=== PATIENT | female | born 1940 | race Caucasian/White ===

== ENCOUNTER → 2017-11-23 15:05 | Outpatient (CLI) | payer MEDICARE, SELFPAY ==
[2017-11-23 16:47] LABS: Calcium 10.6 mg/dL (8.4-10.2)
[2017-11-23 17:17] LABS: Thyroid Stimulating Hormone 0.66 uIU/mL (0.47-4.68)
[2017-11-25 13:28] LABS: Parathyroid Hormone Int 95 pg/mL (14-64)
== END ==
PROVIDERS: Family Provider Internal Medicine; PCP Physician Assistant; Visit Provider Nurse Practitioner
DX: E21.3 Hyperparathyroidism, unspecified (principal); E03.9 Hypothyroidism, unspecified
CPT/HCPCS: 36415; 82310; 83970; 84443; 87070; 87075; 87077; 87147; 87186; 87205

== ENCOUNTER → 2017-11-28 14:08 | Outpatient (CLI) | payer MEDICARE, SELFPAY | PROVIDERS: Family Provider Internal Medicine; PCP Physician Assistant; Visit Provider Ophthalmology | DX: H10.011 Acute follicular conjunctivitis, right eye (principal) | CPT/HCPCS: 87070; 87077; 87147; 87186; 87205 ==

== ENCOUNTER → 2017-12-07 09:20 | Outpatient (CLI) | payer MEDICARE, SELFPAY ==
[2017-12-07 11:08] LABS: Alanine Aminotransferase 32 IU/L (9-52); Albumin 4.3 g/dL (3.5-5.0); Albumin Globulin Ratio 1.6 (1.0-2.8); Alkaline Phosphatase 80 U/L (38-126); Aspartate Aminotransferase 31 IU/L (14-36); BUN Creatinine Ratio 22.5 (6-22); Bilirubin Total 0.6 mg/dL (0.2-1.3); Blood Urea Nitrogen 18 mg/dL (7-17); Calcium 10.2 mg/dL (8.4-10.2); Carbon Dioxide 30 mmol/L (22-32); Chloride 101 mmol/L (98-107); Estimated Glomerular Filt Rate > 60.0 mL/min (>60); Globulin 2.7 g/dL (1.7-4.1); Glucose 94 mg/dL (80-110); HEMOLYSIS < 15 (0-50); Potassium 4.1 mmol/L (3.4-5.1); Sodium 140 mmol/L (137-145)
[2017-12-09 12:17] LABS: Lipoprofile NMR SEE SEPARATE REPORTS
== END ==
PROVIDERS: Family Provider Internal Medicine; PCP Internal Medicine; Visit Provider Specialist
DX: E78.2 Mixed hyperlipidemia (principal); I42.9 Cardiomyopathy, unspecified; I10 Essential (primary) hypertension
CPT/HCPCS: 36415; 80053; 83704

== ENCOUNTER → 2017-12-20 08:13 | Outpatient (CLI) | payer MEDICARE, SELFPAY ==
--- NOTE | 2017-12-20 | DI.ECHO.S_ITS ---
[facility] +---------+ : : [address] : : : [address] : : : : [id number] : : : : Phone: [phone]+ Echocardiogram Report + + :Name: BEVERLEY SANCHEZ Study Date: 12/20/2017 Height: 64 in : :[facility] Weight: 151 lb : : Gender: Female BSA: 1.7 m2 : :: 1940 Age: 77 yrs BP: 178/60 mmHg: :Reason For Study: Cardiomyopathy : :Ordering Physician: Candido : :Florin Performed By: Tasha Garcia : :Referring: Dr. Sahil Brown : + + Interpretation Summary Left ventricular systolic function is moderately reduced with the ejection fraction estimated to be 35-40% with a marked dyssynchronous contraction pattern, consistent with a conduction abnormality and moderate global hypokinesis that appears worse in the interventricular septum and apex, similar to the previous study although global contractility appears to be slightly worse. The right ventricle is normal in size and function, and appears unchanged compared to the previous study. Pulmonary artery pressures cannot be estimated because of the lack of a measurable TR jet velocity but the IVC suggests a low right atrial pressure of 3 mm Hg, unchanged from previous study. Both atria are normal in size although the left atrium has mildly increased in size since the prior echo exam. There is mild to moderate mitral regurgitation that is somewhat more prominent compared to the previous study but there is no other significant valvular heart disease. The aortic arch is mildly enlarged but is unchanged compared to the previous study. The patient was in a fairly regular but uncertain rhythm between 76-90 bpm during the exam given the absence of any identifiable A-wave on the mitral inflow pattern, which is new from the previous study Procedure: A two-dimensional transthoracic echocardiogram with color flow and Doppler was performed. The study quality was technically adequate. Comparison is made with the echocardiogram of 03-10-17. The patient was in a fairly regular but uncertain rhythm during the exam. The heart rate ranged between 76-90 bpm during the study. Left Ventricle: The left ventricle is normal in size. There is normal left ventricular wall thickness. Left ventricular systolic function is moderately reduced. The ejection fraction is estimated to be 35-40%. There is a marked dyssynchronous contraction pattern, consistent with a conduction abnormality. There is moderate global hypokinesis of the left ventricle. This appears worse in the interventricular septum and apex, similar to the previous study although global contractility appears to be slightly worse. Diastolic function could not be accurately assessed due to unobtainable data. Right Ventricle: The right ventricle is normal in size and function. This is unchanged compared to the previous study. Atria: Both atria are normal in size. The left atrium has mildly increased in size since the prior echo exam. The interatrial septum is intact with no evidence for an atrial septal defect. Mitral Valve: The mitral valve leaflets appear mildly thickened, but open well. There is mild to moderate mitral regurgitation. This is somewhat more prominent compared to the previous study. Aortic Valve: The aortic valve is grossly normal. The aortic valve opens well. There is trace aortic regurgitation. Tricuspid Valve: The tricuspid valve is normal in structure and function. There is a trace or physiologic amount of tricuspid regurgitation. Pulmonary artery pressures cannot be estimated because of the lack of a measurable TR jet velocity. Pulmonic Valve: The pulmonic valve is not well visualized. There is no other significant valvular heart disease. Great Vessels: The aortic root is normal size. The ascending aorta could not be visualized. The aortic arch is mildly enlarged. This is unchanged compared to the previous study. The IVC is of normal diameter and collapses greater than 50% with a sniff. This suggests a low right atrial pressure of 3 mm Hg. Pericardium/ Pleura There is no pericardial effusion. There is no pleural effusion. MMode/2D Measurements & Calculations LVIDd: 5.1 cm Ao root diam: 3.5 cm LVIDs: 4.4 cm Aortic Jxn: 2.8 cm FS: 14.4 % Ao Arch Diam (Prox Trans): 3.1 cm IVSd: 0.89 cm LVPWd: 0.98 cm LV clark. diameter/BSA (cm/m^2): 2.9 LV sys. diameter/BSA (cm/m^2): 2.5 LA dimension: 3.3 cm RA long axis: 4.1 cm LA A2 area: 15.5 cm2 RA area: 13.6 cm2 LA A4 area: 15.0 cm2 RA vol: 38.2 ml LA length (vol): 4.1 cm RA : 22.0 ml/m2 LA vol: 47.6 ml RVDd major: 5.6 cm LA vol index: 27.4 ml/m2 RVD1 (basal): 3.1 cm RVD2 (mid): 2.5 cm Doppler Measurements & Calculations Ao V2 max: 142.4 cm/sec MV E max xavi: 93.8 cm/sec Ao V2 mean: 98.1 cm/sec Med Peak E' Xavi: 3.7 cm/sec Ao max P.1 mmHg E/E' med: 25.5 Ao mean P.2 mmHg Lat Peak E' Xavi: 3.3 cm/sec Ao V2 VTI: 28.3 cm E/E' lat: 28.8 E/e' average: 27.1 MV P1/2t: 44.7 msec TR max xavi: 215.8 cm/sec MV V2 mean: 55.3 cm/sec TR max P.6 mmHg MV mean P.6 mmHg MV V2 VTI: 12.0 cm MV P1/2t max xavi: 95.6 cm/sec MVA(P1/2t): 4.9 cm2 Reading Physician:PM
== END ==
PROVIDERS: Family Provider Internal Medicine; PCP Internal Medicine; Visit Provider Specialist
DX: I42.9 Cardiomyopathy, unspecified (principal)
CPT/HCPCS: 93306

== ENCOUNTER → 2017-12-29 13:13 | Outpatient (CLI) | payer MEDICARE, SELFPAY ==
[2017-12-29 14:33] LABS: Calcium 10.3 mg/dL (8.4-10.2)
[2017-12-29 14:52] LABS: Free T3, Triiodothyronine Free 3.13 pg/mL (2.77-5.27)
[2017-12-29 15:06] LABS: Thyroid Stimulating Hormone 0.07 uIU/mL (0.47-4.68)
== END ==
PROVIDERS: Family Provider Internal Medicine; PCP Internal Medicine; Visit Provider Nurse Practitioner
DX: E03.9 Hypothyroidism, unspecified (principal); E21.3 Hyperparathyroidism, unspecified
CPT/HCPCS: 36415; 82310; 84439; 84443; 84481

== ENCOUNTER 2018-02-27 15:23 | Emergency (ER) | payer MEDICARE, SELFPAY ==
[2018-02-27 15:57] VITALS: BP 180/93; PULSE 103; RESP 20; TEMP 37.2; O2SAT 97; BMI 25.2
--- NOTE | 2018-02-27 16:10 | DI.RAD.S_ITS ---
PROCEDURE: XR CHEST 1V INDICATIONS: heart palpitations. TECHNIQUE: One view of the chest was acquired. COMPARISON: Merged With [facility], , CHEST 2 VIEW, 07/15/2012, 20:58. FINDINGS: Surgical changes and devices: None. Lungs and pleura: There is opacity present within the right upper and right lower lobes, and to lesser degree the left upper lobe. Mild appearance of increased pulmonary vascularity is present. Mediastinum: Mediastinal contours appear normal. Heart size is mildly prominent. Bones and chest wall: No suspicious bony lesions. Overlying soft tissues appear unremarkable. IMPRESSION: Increased pulmonary vascularity with slight increased focal appearance in the right upper and lower lobes and to a lesser degree the left upper lobe. While this could represent focal edema, developing airspace disease such as pneumonia should be considered. Dictated by: Elaina Haro M.D. on 02/27/2018 at 16:39 Approved by: Elaina Haro M.D. on 02/27/2018 at 16:40
[2018-02-27 17:01] LABS: Add Manual Diff / Slide Review NO; Basophils Percent Auto 0.5 % (0-2); Eosinophils Percent Auto 1.6 % (2-4); Hematocrit 40.3 % (36-46); Hemoglobin 13.5 g/dL (12.0-16.0); Lymphocytes Percent Auto 14.7 % (25-40); Mean Corpuscular HGB Conc 33.5 % (30-36); Mean Corpuscular Hemoglobin 30.5 PG (26-34); Mean Corpuscular Volume 91.2 fL (80-100); Monocytes Percent Auto 8.2 % (3-14); Neutrophils Absolute Auto 5500 /uL (3000-5900); Platelet Count 206 X10^3/uL (150-400); Red Blood Cell Count 4.42 X10^6/uL (4.0-5.2); Red Cell Distribution Width 14.4 % (11.6-14.8); White Blood Cell Count 7.3 X10^3/uL (4.5-11.0)
[2018-02-27 17:12] LABS: BUN Creatinine Ratio 27.5 (6-22); Blood Urea Nitrogen 22 mg/dL (7-17); Calcium 9.9 mg/dL (8.4-10.2); Carbon Dioxide 29 mmol/L (22-32); Chloride 103 mmol/L (98-107); Creatine Kinase 55 U/L (30-135); Estimated Glomerular Filt Rate > 60.0 mL/min (>60); Glucose 95 mg/dL (80-110); HEMOLYSIS < 15 (0-50); Magnesium 1.9 mg/dL (1.6-2.3); Potassium 3.8 mmol/L (3.4-5.1); Sodium 141 mmol/L (137-145)
--- NOTE | 2018-02-27 17:19 | ED.ARRPALP ---
HPI - Arrhythmia/Palpitations General Chief Complaint: Arrhythmia/Palpitations Stated Complaint: IRREGULAR HEART BEAT Time Seen by Provider: 02/27/18 17:09 Source: patient Mode of arrival: ambulatory Limitations: no limitations History of Present Illness HPI narrative: Patient is a 77-year-old female here for evaluation of palpitations and not feeling well. She describes a very vague uneasiness feeling in her chest. She states that it has been going on for some time now. Unsure exactly when the onset was. She states that it is intermittent. She states she has noticed it more for the past several days however has been going on for longer than that. She states that she has a known left bundle branch block. Has seen cardiology in the past and was told that she should be on a statin and carvedilol but she states that she does not take these medications. She does have a history of hypothyroid and states she has been taking her thyroid medicine. Has no other symptoms associated to include dizziness or headaches or vision changes. Related Data Home Medications Medication Instructions Recorded Confirmed carvedilol 1 tab PO BIDWM 02/27/18 levothyroxine 1 tab PO DAILY 02/27/18 02/27/18 rosuvastatin 1 tab PO DAILY 02/27/18 02/27/18 Allergies Allergy/AdvReac Type Severity Reaction Status Date / Time Sulfa (Sulfonamide Allergy Unknown Verified 02/27/18 16:00 Antibiotics) [SULFA (SULFONAMIDE ANTIBIOTICS)] Review of Systems Constitutional Denies fatigue, Denies fever(s), Denies headache(s) and Reports malaise Eyes Denies blurry vision and Denies change in vision ENT Ears, Nose, Mouth, and Throat: Denies dizziness and Denies headache(s) Cardiovascular Denies chest pain, Denies syncope, Reports rapid heart rate, Denies leg edema, Denies lightheadedness, Reports palpitations, Denies dyspnea and Denies slow heart rate Respiratory Denies cough and Denies dyspnea Gastrointestinal Gastrointestinal: Denies nausea and Denies vomiting Musculoskeletal Denies myalgias and Denies arthralgias Integumentary/Breasts Denies rash Neurologic Denies dizziness, Denies syncope and Denies headache(s) Endocrine Denies fatigue and Reports palpitations Hematologic/Lymphatic Denies easy bleeding and Denies easy bruising PFS Medical History Hypothyroid (Acute) Left bundle branch block (Acute) Surgical History No pertinent past surgical history (Acute) Social History Smoking Status: Never smoker Exam Initial Vital Signs Initial Vital Signs: Vital Signs Temperature 98.9 F 02/27/18 15:57 Pulse Rate 103 H 02/27/18 15:57 Respiratory Rate 20 02/27/18 15:57 Blood Pressure 180/93 H 02/27/18 15:57 Pulse Oximetry 97 02/27/18 15:57 Const General: cooperative, comfortable, well developed, well groomed and No acute distress Orientation: alert, awake and oriented x3 HENMT Head: normal to inspection and normocephalic Resp Effort & Inspection: normal respiratory effort Auscultation: clear to auscultation bilaterally Cardio Rate: tachycardic Rhythm: regular rhythm Pulses: radial pulses present GI Inspection: non-distended Palpation: soft and No tender Skin Lesions: no lesions Rashes: no rashes Neuro General: alert, awake and oriented x3 Cognition: normal cognition Speech: speech normal Motor: muscle tone normal throughout Sensory Exam: no sensory deficits noted Extrem General: normal to inspection, capillary refill normal and edema Psych Appearance: grossly normal and well kempt Affect: blunted Scores HEART Score Heart Score history: Slightly Suspicious Heart Score EKG: Non-Specific repolarization disturbance Heart Score Age: > or = 65 years old Heart Score risk factors: 1-2 risk factors Heart Score troponin: < or = to normal limit Heart Score Total: 4 Course Orders Ordered: ED Orders 02/27/18 14:45 Partial Thromboplastin Time Stat Prothrombin Time INR Stat 02/27/18 15:45 Basic Metabolic Panel Stat Complete Blood Count AUTO DIFF Stat Magnesium Stat Thyroid Stimulating Hormone Stat Troponin & CK Cardiac Panel Stat 02/27/18 16:10 XR chest 1V Stat EKG-12 Lead Stat 02/27/18 18:50 Troponin I Stat Sodium Chloride (Normal Saline 0.9%) 1,000 mls @ 150 mls/hr IV CONT GAURAV Last Admin: 02/27/18 20:17 Dose: 150 mls/hr Heparin Sodium/Dextrose (Heparin Drip) 25,000 unit in 500 mls @ 16.003 mls/hr IV CONT GAURAV; Protocol Discontinued Medications Aspirin (Aspirin Chew) 324 mg PO NOW ONE Stop: 02/27/18 19:39 Last Admin: 02/27/18 20:17 Dose: 324 mg Heparin Sodium (Porcine) (Heparin) 4,000 unit 60 unit/kg (4000 unit) IV NOW ONE Stop: 02/27/18 19:51 Lorazepam (Ativan) 0.5 mg PO NOW ONE Stop: 02/27/18 20:07 Last Admin: 02/27/18 20:17 Dose: 0.5 mg Vital Signs - 8 hr 02/27/18 15:57 02/27/18 20:23 Temperature 98.9 F Pulse Rate 103 H 108 H Respiratory Rate 20 18 Blood Pressure 180/93 H Blood Pressure [Left Arm] 177/80 H Pulse Oximetry 97 100 MDM - Arrhythmia/Palpitations Lab Data Attestation: I reviewed the patient's lab results. Result diagrams: 02/27/18 15:45 02/27/18 15:45 Lab Results 02/27/18 02/27/18 02/27/18 Range/Units 14:45 15:45 15:45 WBC 7.3 (4.5-11.0) X10^3/uL RBC 4.42 (4.0-5.2) X10^6/uL Hgb 13.5 (12.0-16.0) g/dL Hct 40.3 (36-46) % MCV 91.2 (80-100) fL MCH 30.5 (26-34) PG MCHC 33.5 (30-36) % RDW 14.4 (11.6-14.8) % Plt Count 206 (150-400) X10^3/uL Neut % (Auto) 75.0 (50-75) % Lymph % (Auto) 14.7 L (25-40) % [place] % (Auto) 8.2 (3-14) % Eos % (Auto) 1.6 L (2-4) % Baso % (Auto) 0.5 (0-2) % Neut # (Auto) 5500 (6555-6682) /uL PT 11.5 (10.1-12.7) SECONDS INR 1.1 (0.9-1.3) APTT 30 (26.4-36.2) SECONDS Sodium 141 (137-145) mmol/L Potassium 3.8 (3.4-5.1) mmol/L Chloride 103 (98-107) mmol/L Carbon Dioxide 29 (22-32) mmol/L BUN 22 H (7-17) mg/dL Creatinine 0.80 (0.52-1.04) mg/dL Estimated GFR > 60.0 (>60) mL/min BUN/Creatinine Ratio 27.5 H (6-22) Glucose 95 (80-110) mg/dL Calcium 9.9 (8.4-10.2) mg/dL Magnesium 1.9 (1.6-2.3) mg/dL Total Creatine Kinase 55 (30-135) U/L CK-MB (CK-2) TNP CK-MB (CK-2) Rel Index TNP Troponin I 0.018 (0.01-0.034) ng/mL TSH (0.47-4.68) uIU/mL 02/27/18 02/27/18 Range/Units 15:45 18:50 WBC (4.5-11.0) X10^3/uL RBC (4.0-5.2) X10^6/uL Hgb (12.0-16.0) g/dL Hct (36-46) % MCV (80-100) fL MCH (26-34) PG MCHC (30-36) % RDW (11.6-14.8) % Plt Count (150-400) X10^3/uL Neut % (Auto) (50-75) % Lymph % (Auto) (25-40) % [place] % (Auto) (3-14) % Eos % (Auto) (2-4) % Baso % (Auto) (0-2) % Neut # (Auto) (4682-1075) /uL PT (10.1-12.7) SECONDS INR (0.9-1.3) APTT (26.4-36.2) SECONDS Sodium (137-145) mmol/L Potassium (3.4-5.1) mmol/L Chloride (98-107) mmol/L Carbon Dioxide (22-32) mmol/L BUN (7-17) mg/dL Creatinine (0.52-1.04) mg/dL Estimated GFR (>60) mL/min BUN/Creatinine Ratio (6-22) Glucose (80-110) mg/dL Calcium (8.4-10.2) mg/dL Magnesium (1.6-2.3) mg/dL Total Creatine Kinase (30-135) U/L CK-MB (CK-2) CK-MB (CK-2) Rel Index Troponin I 0.035 H (0.01-0.034) ng/mL TSH 3.02 (0.47-4.68) uIU/mL Imaging Data Echocardiogram: Radiologist's impression: [address] [address] Echocardiography Report Signed Patient: Beverley Marc HMR#: [id number] : 1940cct:[id number] Age/Sex: 77 / FDate of Service: 12/20/17 Loc: ECHO Accession Number: [id number] Procedure: EC echo doppler complete Ordering Provider: Candido Catherine M.D. [place] +---------+ [facility] +---------+ : : [address] [place] [address]. : : : : [place], [place] : : : : [address] : : : : Phone: [phone]---------+ Echocardiogram Report + + :Name: BEVERLEY MARC Study Date: 12/20/2017 Height: 64 in : :[facility] Weight: 151 lb : : Gender: Female BSA: 1.7 m2 : :: 1940 Age: 77 yrs BP: 178/60 mmHg: :Reason For Study: Cardiomyopathy : :Ordering Physician: Candido : :Florin Performed By: Tasha Garcia : :Referring: Dr. Sahil Brown : + + Interpretation Summary Left ventricular systolic function is moderately reduced with the ejection fraction estimated to be 35-40% with a marked dyssynchronous contraction pattern, consistent with a conduction abnormality and moderate global hypokinesis that appears worse in the interventricular septum and apex, similar to the previous study although global contractility appears to be slightly worse. The right ventricle is normal in size and function, and appears unchanged compared to the previous study. Pulmonary artery pressures cannot be estimated because of the lack of a measurable TR jet velocity but the IVC suggests a low right atrial pressure of 3 mm Hg, unchanged from previous study. Both atria are normal in size although the left atrium has mildly increased in size since the prior echo exam. There is mild to moderate mitral regurgitation that is somewhat more prominent compared to the previous study but there is no other significant valvular heart disease. The aortic arch is mildly enlarged but is unchanged compared to the previous study. The patient was in a fairly regular but uncertain rhythm between 76-90 bpm during the exam given the absence of any identifiable A-wave on the mitral inflow pattern, which is new from the previous study Procedure: A two-dimensional transthoracic echocardiogram with color flow and Doppler was performed. The study quality was technically adequate. Comparison is made with the echocardiogram of 03-10-17. The patient was in a fairly regular but uncertain rhythm during the exam. The heart rate ranged between 76-90 bpm during the study. Left Ventricle: The left ventricle is normal in size. There is normal left ventricular wall thickness. Left ventricular systolic function is moderately reduced. The ejection fraction is estimated to be 35-40%. There is a marked dyssynchronous contraction pattern, consistent with a conduction abnormality. There is moderate global hypokinesis of the left ventricle. This appears worse in the interventricular septum and apex, similar to the previous study although global contractility appears to be slightly worse. Diastolic function could not be accurately assessed due to unobtainable data. Right Ventricle: The right ventricle is normal in size and function. This is unchanged compared to the previous study. Atria: Both atria are normal in size. The left atrium has mildly increased in size since the prior echo exam. The interatrial septum is intact with no evidence for an atrial septal defect. Mitral Valve: The mitral valve leaflets appear mildly thickened, but open well. There is mild to moderate mitral regurgitation. This is somewhat more prominent compared to the previous study. Aortic Valve: The aortic valve is grossly normal. The aortic valve opens well. There is trace aortic regurgitation. Tricuspid Valve: The tricuspid valve is normal in structure and function. There is a trace or physiologic amount of tricuspid regurgitation. Pulmonary artery pressures cannot be estimated because of the lack of a measurable TR jet velocity. Pulmonic Valve: The pulmonic valve is not well visualized. There is no other significant valvular heart disease. Great Vessels: The aortic root is normal size. The ascending aorta could not be visualized. The aortic arch is mildly enlarged. This is unchanged compared to the previous study. The IVC is of normal diameter and collapses greater than 50% with a sniff. This suggests a low right atrial pressure of 3 mm Hg. Pericardium/ Pleura There is no pericardial effusion. There is no pleural effusion. MMode/2D Measurements & Calculations LVIDd: 5.1 cm Ao root diam: 3.5 cm LVIDs: 4.4 cm Aortic Jxn: 2.8 cm FS: 14.4 % Ao Arch Diam (Prox Trans): 3.1 cm IVSd: 0.89 cm LVPWd: 0.98 cm LV clark. diameter/BSA (cm/m^2): 2.9 LV sys. diameter/BSA (cm/m^2): 2.5 LA dimension: 3.3 cm RA long axis: 4.1 cm LA A2 area: 15.5 cm2 RA area: 13.6 cm2 LA A4 area: 15.0 cm2 RA vol: 38.2 ml LA length (vol): 4.1 cm RA : 22.0 ml/m2 LA vol: 47.6 ml RVDd major: 5.6 cm LA vol index: 27.4 ml/m2 RVD1 (basal): 3.1 cm RVD2 (mid): 2.5 cm Doppler Measurements & Calculations Ao V2 max: 142.4 cm/sec MV E max xavi: 93.8 cm/sec Ao V2 mean: 98.1 cm/sec Med Peak E' Xavi: 3.7 cm/sec Ao max P.1 mmHg E/E' med: 25.5 Ao mean P.2 mmHg Lat Peak E' Xavi: 3.3 cm/sec Ao V2 VTI: 28.3 cm E/E' lat: 28.8 E/e' average: 27.1 MV P1/2t: 44.7 msec TR max xavi: 215.8 cm/sec MV V2 mean: 55.3 cm/sec TR max P.6 mmHg MV mean P.6 mmHg MV V2 VTI: 12.0 cm MV P1/2t max xavi: 95.6 cm/sec MVA(P1/2t): 4.9 cm2 Reading Physician:PM Chest x-ray: Radiologist's impression: [address] [address] XRay Report Signed Patient: Beverley Marc R#: [id number] : 2Acct:[id number] Age/Sex: 77 / FDate of Service: 02/27/18 Loc: ED Accession Number: [id number] Procedure: XR chest 1V Ordering Provider: Todd López D.O. PROCEDURE: XR CHEST 1V INDICATIONS: heart palpitations. TECHNIQUE: One view of the chest was acquired. COMPARISON: [facility], CHEST 2 VIEW, 07/15/2012, 20:58. FINDINGS: Surgical changes and devices: None. Lungs and pleura: There is opacity present within the right upper and right lower lobes, and to lesser degree the left upper lobe. Mild appearance of increased pulmonary vascularity is present. Mediastinum: Mediastinal contours appear normal. Heart size is mildly prominent. Bones and chest wall: No suspicious bony lesions. Overlying soft tissues appear unremarkable. IMPRESSION: Increased pulmonary vascularity with slight increased focal appearance in the right upper and lower lobes and to a lesser degree the left upper lobe. While this could represent focal edema, developing airspace disease such as pneumonia should be considered. Dictated by: Elaina Haro M.D. on 02/27/2018 at 16:39 Approved by: Elaina Haro M.D. on 02/27/2018 at 16:40 ECG Data Attestation: I personally reviewed and interpreted this ECG as follows: Prior ECG tracings: not available for review Interpretation: Sinus tachycardia Ventricular rate of 101 Left axis deviation Left bundle branch block Normal QRS Normal QTC Nonspecific ST T wave changes MDM Narrative Medical decision making narrative: Patient with vague chest symptoms that she states have been going on for some time but may be a become more prevalent over the past couple days. Upon arrival today patient does have a left bundle branch block on her EKG. She states that she has been told that she has a left bundle branch block in the past. She was slightly tachycardic. She did seem fairly anxious which could explain the tachycardia. Patient's TSH is unremarkable. Chest x-ray is unremarkable. Initial troponin was indeterminate. Patient did agree to stay for a 2nd troponin which came back positive. She has had no change in her symptoms. She was given an aspirin. Started on heparin. Discussed the case with Dr. Avery at [facility] who accepts the patient in transport. Patient is agreeable to transport patient is stable for transport. Echocardiogram attached to this note is from several months ago his attached for reference purposes Discharge Plan Departure Prescriptions: No Action carvedilol 6.25 mg tablet 1 tab PO BIDWM RF: 0 levothyroxine 50 mcg tablet 1 tab PO DAILY RF: 0 rosuvastatin 10 mg tablet 1 tab PO DAILY RF: 0
[2018-02-27 17:23] LABS: Troponin I 0.018 ng/mL (0.01-0.034)
[2018-02-27 18:09] LABS: Thyroid Stimulating Hormone 3.02 uIU/mL (0.47-4.68)
[2018-02-27 19:30] LABS: Troponin I 0.035 ng/mL (0.01-0.034)
[2018-02-27 19:59] LABS: INR 1.1 (0.9-1.3); Prothrombin Time 11.5 SECONDS (10.1-12.7)
[2018-02-27 20:02] LABS: PTT Partial Thromboplastin Tim 30 SECONDS (26.4-36.2)
[2018-02-27] MEDS: LORazepam 0.5 MG TABLET PO (20:17)
[2018-02-27] MEDS: SODIUM CHLORIDE 0.9% 1,000 ML 150 ML IV (20:17)
[2018-02-27] MEDS: ASPIRIN 81 MG TAB 324 MG PO (20:17)
[2018-02-27 20:23] VITALS: BP 177/80; PULSE 108; RESP 18; O2SAT 100
[2018-02-27 20:30] VITALS: BP 200/78; PULSE 98
[2018-02-27] MEDS: HEPARIN 5,000 UNIT/ML VIAL 4000 UNIT IV (20:42)
[2018-02-27] MEDS: HEPARIN DRIP 25,000 UNIT/500 ML IV.SOLN 16.003 UNIT IV (20:44)
[2018-02-27 20:51] VITALS: BP 154/71; PULSE 82; O2SAT 100
[2018-02-27] MEDS: LABETALOL 20 MG/4 ML SYRINGE 10 MG IV (20:53)
--- NOTE | 2018-02-27 21:09 | PC.NURSE ---
Report called to LAMIN Wilson at
[2018-02-27 21:26] VITALS: BP 154/71; PULSE 88
[2018-02-27 21:47] VITALS: BP 174/85; PULSE 88; RESP 18; O2SAT 98
== END 2018-02-27 21:50 | disposition short-term general hospital (02) ==
PROVIDERS: Emergency Provider Emergency Medicine; Family Provider Internal Medicine; PCP Internal Medicine
DX: I21.4 Non-ST elevation (NSTEMI) myocardial infarction (principal); R07.89 Other chest pain
CPT/HCPCS: 36415; 36591; 71045; 80048; 82550; 83735; 84443; 84484; 85025; 85610; 85730; 93005; 93010; 96361; 96365; 96374; 99284; 99285; J1644

== ENCOUNTER → 2018-04-27 13:03 | Outpatient (CLI) | payer MEDICARE, SELFPAY ==
--- NOTE | 2018-04-27 | DI.CT.S_ITS ---
PROCEDURE: CT ABDOMEN PELVIS W CON INDICATIONS: Right lower quadrant pain TECHNIQUE: After the administration of oral and intravenous contrast, 5 mm thick sections acquired from the diaphragms to the symphysis. 5 mm thick coronal and sagittal reformats were performed. For radiation dose reduction, the following was used: automated exposure control, adjustment of mA and/or kV according to patient size. COMPARISON: [facility], CT, PE STUDY (CTA CHEST), 05/30/2014, 10:59. FINDINGS: Image quality: Excellent. ABDOMEN: Lung bases: Lung bases are clear. Heart size is enlarged. Solid organs: Liver is normal in size and enhancement. Gallbladder negative. Biliary system is non-dilated. Within the head of the pancreas, there No focal marrow contusion or discrete low signal fracture line. Within the medial compartment,dilated ducts and cystic appearance, which is poorly defined image 30 series 2 although may be grossly unchanged since prior study dated 05/30/14. Overall the extent measures 1.9 x 1.9 cm axial image 30. Spleen is normal in size and enhancement. No adrenal nodules. Kidneys are jonn in l in size and enhancement, without hydronephrosis. Simple appearing right renal cyst. Peritoneum and bowel: No evidence of bowel obstruction. No free air or free fluid. The appendix appears enlarged the right lower quadrant measuring 11 mm. There is periappendiceal fat stranding and inflammation. No appendicolith is seen. No abscess. Colonic diverticulosis is seen without evidence of acute complication. Nodes and vessels: No retroperitoneal or mesenteric adenopathy. Aorta and inferior vena cava are normal in caliber. Miscellaneous: No ventral hernias. PELVIS: Genitourinary: Bladder wall thickness is normal. Miscellaneous: No inguinal hernias or adenopathy. Bones: No suspicious bony lesions. Diffuse osteopenia and multilevel discogenic changes. No vertebral body compression fractures. IMPRESSION: Acute appendicitis. Critical findings immediately and personally telephoned to Dr. Gan 1550 hours on 04/27/18. Dilated ductal appearance within the head of the pancreas and/or cystic lesion. Overall this is unchanged since 05/30/14 although limited comparison given differences in exam protocols. As clinically warranted, continued long-term surveillance with dedicated contrast-enhanced MRI abdomen with pancreatic protocol could be performed. Dictated by: Raj Díaz M.D. on 04/27/2018 at 15:40 Approved by: Raj Díaz M.D. on 04/27/2018 at 15:53
[2018-04-27 13:37] LABS: Add Manual Diff / Slide Review NO; Basophils Percent Auto 0.4 % (0-2); Eosinophils Percent Auto 0.7 % (2-4); Hematocrit 40.3 % (36-46); Hemoglobin 13.5 g/dL (12.0-16.0); Lymphocytes Percent Auto 12.3 % (25-40); Mean Corpuscular HGB Conc 33.4 % (30-36); Mean Corpuscular Hemoglobin 30.8 PG (26-34); Monocytes Percent Auto 9.8 % (3-14); Neutrophils Absolute Auto 7900 /uL (1500-7000); Neutrophils Percent Auto 76.8 % (50-75); Platelet Count 209 X10^3/uL (150-400); Red Blood Cell Count 4.38 X10^6/uL (4.0-5.2); Red Cell Distribution Width 14.3 % (11.6-14.8); White Blood Cell Count 10.2 X10^3/uL (4.5-11.0)
[2018-04-27 13:56] LABS: BUN Creatinine Ratio 21.3 (6-22); Blood Urea Nitrogen 17 mg/dL (7-17); Carbon Dioxide 26 mmol/L (22-32); Chloride 101 mmol/L (98-107); Estimated Glomerular Filt Rate > 60.0 mL/min (>60); Glucose 108 mg/dL (80-110); HEMOLYSIS < 15 (0-50); Potassium 3.8 mmol/L (3.4-5.1); Sodium 141 mmol/L (137-145)
== END ==
PROVIDERS: PCP Internal Medicine; Visit Provider Internal Medicine
DX: K35.80 Unspecified acute appendicitis (principal); R10.31 Right lower quadrant pain
CPT/HCPCS: 36415; 74177; 80048; 85025; Q9967

== ENCOUNTER 2018-04-27 17:08 | Observation (INO) | payer MEDICARE, SELFPAY ==
[2018-04-27] VITALS (9 sets, daily range): BP systolic 140–163; BP diastolic 64–84; PULSE 72–86; RESP 10–18; TEMP 36.3–37.1; O2SAT 93–98; BMI 25.4
--- NOTE | 2018-04-27 | PATH_ITS ---
[facility] Accession Number: [id number] . 01 Material submitted: . APPENDIX . 02 Diagnosis: Appendix, Appendectomy: Acute appendicitis with serositis. No evidence of dysplasia or malignancy. [facility]/05/01/2018 . 02 Electronically signed: . Rosemary Arreola MD, Pathologist NPI- [id number] . 01 Gross description: . Received in formalin, labeled appendix, is an intact appendix (length-6.1 cm, diameter-up to 1.3 cm) with sandoval-pink, smooth, shiny serosa and attached mesoappendix (up to 1.3 cm in depth). The resection margin is received stapled. The lumen contains clear, colorless fluid. The wall is up to 0.4 cm thick. No nodules, masses, or lesions are identified. The resection margin is inked black. Section code: (A1) resection margin en face and four additional serial sections; (A2) one-half of the bivalved tip. ([id number]) /FRR . 02 Pathologist provided ICD-10: K35.80 . 02 CPT . 860360 Performed at: 01 [facility] [address], [place], [place] [id number] MD Isidro Richardson MD Phone: [phone] Performed at: 02 [facility] [address] [place], [place] [id number] MD Rosemary Arreola MD Phone: [phone]
--- NOTE | 2018-04-27 17:52 | ED.ABDPAIN ---
HPI - Abdominal Pain General Chief Complaint: Abdominal Pain Stated Complaint: STATES NEEDS APPENDIX OUT Time Seen by Provider: 04/27/18 17:52 Source: patient Mode of arrival: ambulatory Limitations: no limitations History of Present Illness HPI narrative: This is a 77-year-old female comes in with complaint of right-sided abdominal pain. Patient denies any fevers, no nausea or vomiting, no diarrhea or constipation. She denies any new urinary symptoms. She saw her primary care physician today who did lab work and CT scan. They were contact about the results and it showed appendicitis. They attempted to directly admit the patient but were unable to and patient was referred to the emergency department. Patient states she has a history of heart palpitations and was seen at [facility] but does not have any AFib or atrial flutter. She states she has a history of a left bundle branch block. She takes medication for that as well as thyroid. Related Data Home Medications Medication Instructions Recorded Confirmed carvedilol 1 tab PO BIDWM 02/27/18 levothyroxine 1 tab PO DAILY 02/27/18 02/27/18 rosuvastatin 1 tab PO DAILY 02/27/18 02/27/18 Allergies Allergy/AdvReac Type Severity Reaction Status Date / Time Sulfa (Sulfonamide Allergy Unknown Verified 04/27/18 18:02 Antibiotics) [SULFA (SULFONAMIDE ANTIBIOTICS)] Review of Systems Review of Systems All systems reviewed & are unremarkable except as noted in HPI and below Constitutional Reports anorexia and Denies fever(s) Gastrointestinal Gastrointestinal: Reports abdominal pain (Right lower quadrant), Denies change in bowel habits, Denies change in stool character, Denies constipation, Denies diarrhea, Denies nausea and Denies vomiting Genitourinary Denies hematuria, Denies dysuria, Denies flank pain and Denies urinary urgency Musculoskeletal Denies back pain [facility] Medical History Hypothyroid (Acute) Left bundle branch block (Acute) Surgical History No pertinent past surgical history (Acute) Family History: Reviewed 04/27/18 by Mary Siu MD Social History Smoking Status: Never smoker Exam Narrative Exam Narrative: GENERAL: Alert and oriented x three, well-nourished, well-appearing female in mild distress. HEENT: Head normocephalic, atraumatic, EOMI, pupils reactive, face symmetric, moist mucous membranes NECK: Supple, full range of motion CARDIOVASCULAR: Regular rate and rhythm without murmurs, rubs or gallops. RESPIRATORY: Breath sounds equal bilaterally, no wheezes rales or rhonchi. ABDOMEN: Soft, positive for right lower quadrant tenderness. Normoactive bowel sounds all 4 quadrants. Positive guarding, no rebound, rigidity, no mass : No CVA tenderness EXTREMITIES: Normal range of motion, no clubbing or edema. Neurovascularly intact NEUROLOGICAL: Cranial nerves II through XII grossly intact. Moving all extremities SKIN: Warm, dry, no petechiae, no rashes or lesions. Initial Vital Signs Initial Vital Signs: Vital Signs Temperature 98.8 F 04/27/18 17:46 Pulse Rate 86 04/27/18 17:46 Respiratory Rate 18 04/27/18 17:46 Blood Pressure 160/67 H 04/27/18 17:46 Pulse Oximetry 97 04/27/18 17:46 Course Orders Ordered: Cefotetan Disodium/Dextrose (Cefotan) 2 gm in 50 mls @ 100 mls/hr IV NOW ONE Stop: 04/27/18 20:10 Last Infusion: 04/27/18 19:20 Dose: 0 mls/hr Admin: 04/27/18 19:15 Dose: 100 mls/hr Lactated Ringer's (Lactated Ringers) 1,000 mls @ 42 mls/hr IV NOW ONE Stop: 04/28/18 19:32 Last Admin: 04/27/18 19:00 Dose: 42 mls/hr Discontinued Medications Bupivacaine HCl (Sensorcaine 0.5% (Pf)) 30 ml INJ NOW ONE Stop: 04/27/18 19:37 Last Admin: 04/27/18 19:37 Dose: 15 ml Lidocaine/Epinephrine (Xylocaine 1% W/Epi) 20 ml INJ INTRA-OP ONE Stop: 04/27/18 19:40 Last Admin: 04/27/18 19:40 Dose: 15 ml Vital Signs - 8 hr 04/27/18 17:46 04/27/18 18:46 Temperature 98.8 F Pulse Rate 86 79 Respiratory Rate 18 17 Blood Pressure 160/67 H Blood Pressure [Right Arm] 140/80 Pulse Oximetry 97 97 MDM - Abdominal Pain Lab Data Attestation: I reviewed the patient's lab results. Patient has labs drawn as an outpatient where available through the emergency medical record. Patient has normal CBC except for left shift, no elevation in white count. Patient has normal electrolytes, renal function. Imaging Data CT scan - abdomen: Radiologist's impression: [address] [address] [address] Scan Report Signed Patient: Sarah Marc MR#: [id number] : 1940 Acct:[id number] Age/Sex: 77 / F Date of Service: 04/27/18 Loc: CT Accession Number: [id number] Procedure: CT abdomen pelvis w con Ordering Provider: Kavita Gan MD PROCEDURE: CT ABDOMEN PELVIS W CON INDICATIONS: Right lower quadrant pain TECHNIQUE: After the administration of oral and intravenous contrast, 5 mm thick sections acquired from the diaphragms to the symphysis. 5 mm thick coronal and sagittal reformats were performed. For radiation dose reduction, the following was used: automated exposure control, adjustment of mA and/or kV according to patient size. COMPARISON: [facility], CT, PE STUDY (CTA CHEST), 05/30/2014, 10:59. FINDINGS: Image quality: Excellent. ABDOMEN: Lung bases: Lung bases are clear. Heart size is enlarged. Solid organs: Liver is normal in size and enhancement. Gallbladder negative. Biliary system is non-dilated. Within the head of the pancreas, there No focal marrow contusion or discrete low signal fracture line. Within the medial compartment,dilated ducts and cystic appearance, which is poorly defined image 30 series 2 although may be grossly unchanged since prior study dated 05/30/14. Overall the extent measures 1.9 x 1.9 cm axial image 30. Spleen is normal in size and enhancement. No adrenal nodules. Kidneys are jonn in l in size and enhancement, without hydronephrosis. Simple appearing right renal cyst. Peritoneum and bowel: No evidence of bowel obstruction. No free air or free fluid. The appendix appears enlarged the right lower quadrant measuring 11 mm. There is periappendiceal fat stranding and inflammation. No appendicolith is seen. No abscess. Colonic diverticulosis is seen without evidence of acute complication. Nodes and vessels: No retroperitoneal or mesenteric adenopathy. Aorta and inferior vena cava are normal in caliber. Miscellaneous: No ventral hernias. PELVIS: Genitourinary: Bladder wall thickness is normal. Miscellaneous: No inguinal hernias or adenopathy. Bones: No suspicious bony lesions. Diffuse osteopenia and multilevel discogenic changes. No vertebral body compression fractures. IMPRESSION: Acute appendicitis. Critical findings immediately and personally telephoned to Dr. Gan 1550 hours on 04/27/18. Dilated ductal appearance within the head of the pancreas and/or cystic lesion. Overall this is unchanged since 05/30/14 although limited comparison given differences in exam protocols. As clinically warranted, continued long-term surveillance with dedicated contrast-enhanced MRI abdomen with pancreatic protocol could be performed. Dictated by: Raj Díaz M.D. on 04/27/2018 at 15:40 Approved by: Raj Díaz M.D. on 04/27/2018 at 15:53 MDM Narrative Medical decision making narrative: Patient's examination fits with her CT findings which have already been resulted prior to arrival to the ED. Contacted Dr. mickey cabrera from general surgery, she had been contacted about the patient but during surgery so she aware that the patient did with, hospital all she accepts and plan for OR. Patient is aware of the plan and IV was placed in the ED. Discharge Plan Departure Patient Disposition: Admitted As Inpatient Clinical Impression: Acute appendicitis Discharge Date/Time: 04/27/18 18:52 Interventions: ED Discharge Assessment Last Done: 04/27/18 18:51 Admit Date/Time: 04/27/18 18:38 Admit Provider: Mary iSu
--- NOTE | 2018-04-27 17:55 | ED_ITS ---
HPI - Abdominal Pain General Chief Complaint: Abdominal Pain Stated Complaint: STATES NEEDS APPENDIX OUT Time Seen by Provider: 04/27/18 17:52 Source: patient Mode of arrival: ambulatory Limitations: no limitations History of Present Illness HPI narrative: This is a 77-year-old female comes in with complaint of right- sided abdominal pain. Patient denies any fevers, no nausea or vomiting, no diarrhea or constipation. She denies any new urinary symptoms. She saw her primary care physician today who did lab work and CT scan. They were contact about the results and it showed appendicitis. They attempted to directly admit the patient but were unable to and patient was referred to the emergency department. Patient states she has a history of heart palpitations and was seen at [facility] but does not have any AFib or atrial flutter. She states she has a history of a left bundle branch block. She takes medication for that as well as thyroid. Related Data Home Medications Medication Instructions Recorded Confirmed carvedilol 1 tab PO BIDWM 02/27/18 levothyroxine 1 tab PO DAILY 02/27/18 02/27/18 rosuvastatin 1 tab PO DAILY 02/27/18 02/27/18 Allergies Allergy/AdvReac Type Severity Reaction Status Date / Time Sulfa (Sulfonamide Allergy Unknown Verified 04/27/18 18:02 Antibiotics) [SULFA (SULFONAMIDE ANTIBIOTICS)] Review of Systems Review of Systems All systems reviewed & are unremarkable except as noted in HPI and below Constitutional Reports anorexia and Denies fever(s) Gastrointestinal Gastrointestinal: Reports abdominal pain (Right lower quadrant), Denies change in bowel habits, Denies change in stool character, Denies constipation, Denies diarrhea, Denies nausea and Denies vomiting Genitourinary Denies hematuria, Denies dysuria, Denies flank pain and Denies urinary urgency Musculoskeletal Denies back pain [facility] Medical History Hypothyroid (Acute) Left bundle branch block (Acute) Surgical History No pertinent past surgical history (Acute) Family History: Reviewed 04/27/18 by Mary Siu MD Social History Smoking Status: Never smoker Exam Narrative Exam Narrative: GENERAL: Alert and oriented x three, well-nourished, well- appearing female in mild distress. HEENT: Head normocephalic, atraumatic, EOMI, pupils reactive, face symmetric, moist mucous membranes NECK: Supple, full range of motion CARDIOVASCULAR: Regular rate and rhythm without murmurs, rubs or gallops. RESPIRATORY: Breath sounds equal bilaterally, no wheezes rales or rhonchi. ABDOMEN: Soft, positive for right lower quadrant tenderness. Normoactive bowel sounds all 4 quadrants. Positive guarding, no rebound, rigidity, no mass : No CVA tenderness EXTREMITIES: Normal range of motion, no clubbing or edema. Neurovascularly intact NEUROLOGICAL: Cranial nerves II through XII grossly intact. Moving all extremities SKIN: Warm, dry, no petechiae, no rashes or lesions. Initial Vital Signs Initial Vital Signs: Vital Signs Temperature 98.8 F 04/27/18 17:46 Pulse Rate 86 04/27/18 17:46 Respiratory Rate 18 04/27/18 17:46 Blood Pressure 160/67 H 04/27/18 17:46 Pulse Oximetry 97 04/27/18 17:46 Course Orders Ordered: Cefotetan Disodium/Dextrose (Cefotan) 2 gm in 50 mls @ 100 mls/hr IV NOW ONE Stop: 04/27/18 20:10 Last Infusion: 04/27/18 19:20 Dose: 0 mls/hr Admin: 04/27/18 19:15 Dose: 100 mls/hr Lactated Ringer's (Lactated Ringers) 1,000 mls @ 42 mls/hr IV NOW ONE Stop: 04/28/18 19:32 Last Admin: 04/27/18 19:00 Dose: 42 mls/hr Discontinued Medications Bupivacaine HCl (Sensorcaine 0.5% (Pf)) 30 ml INJ NOW ONE Stop: 04/27/18 19:37 Last Admin: 04/27/18 19:37 Dose: 15 ml Lidocaine/Epinephrine (Xylocaine 1% W/Epi) 20 ml INJ INTRA-OP ONE Stop: 04/27/18 19:40 Last Admin: 04/27/18 19:40 Dose: 15 ml Vital Signs - 8 hr 04/27/18 17:46 04/27/18 18:46 Temperature 98.8 F Pulse Rate 86 79 Respiratory Rate 18 17 Blood Pressure 160/67 H Blood Pressure [Right Arm] 140/80 Pulse Oximetry 97 97 MDM - Abdominal Pain Lab Data Attestation: I reviewed the patient's lab results. Patient has labs drawn as an outpatient where available through the emergency medical record. Patient has normal CBC except for left shift, no elevation in white count. Patient has normal electrolytes, renal function. Imaging Data CT scan - abdomen: Radiologist's impression: [address] [address] [address] Scan Report Signed Patient: Sarah Marc MR#: [id number] : 1940 Acct:[id number] Age/Sex: 77 / F Date of Service: 04/27/18 Loc: CT Accession Number: [id number] Procedure: CT abdomen pelvis w con Ordering Provider: Kavita Gan MD PROCEDURE: CT ABDOMEN PELVIS W CON INDICATIONS: Right lower quadrant pain TECHNIQUE: After the administration of oral and intravenous contrast, 5 mm thick sections acquired from the diaphragms to the symphysis. 5 mm thick coronal and sagittal reformats were performed. For radiation dose reduction, the following was used: automated exposure control, adjustment of mA and/or kV according to patient size. COMPARISON: [facility], CT, PE STUDY (CTA CHEST), 05/30/2014, 10:59. FINDINGS: Image quality: Excellent. ABDOMEN: Lung bases: Lung bases are clear. Heart size is enlarged. Solid organs: Liver is normal in size and enhancement. Gallbladder negative. Biliary system is non-dilated. Within the head of the pancreas, there No focal marrow contusion or discrete low signal fracture line. Within the medial compartment,dilated ducts and cystic appearance, which is poorly defined image 30 series 2 although may be grossly unchanged since prior study dated 05/30/14. Overall the extent measures 1.9 x 1.9 cm axial image 30. Spleen is normal in size and enhancement. No adrenal nodules. Kidneys are jonn in l in size and enhancement, without hydronephrosis. Simple appearing right renal cyst. Peritoneum and bowel: No evidence of bowel obstruction. No free air or free fluid. The appendix appears enlarged the right lower quadrant measuring 11 mm. There is periappendiceal fat stranding and inflammation. No appendicolith is seen. No abscess. Colonic diverticulosis is seen without evidence of acute complication. Nodes and vessels: No retroperitoneal or mesenteric adenopathy. Aorta and inferior vena cava are normal in caliber. Miscellaneous: No ventral hernias. PELVIS: Genitourinary: Bladder wall thickness is normal. Miscellaneous: No inguinal hernias or adenopathy. Bones: No suspicious bony lesions. Diffuse osteopenia and multilevel discogenic changes. No vertebral body compression fractures. IMPRESSION: Acute appendicitis. Critical findings immediately and personally telephoned to Dr. Gan 1550 hours on 04/27/18. Dilated ductal appearance within the head of the pancreas and/or cystic lesion. Overall this is unchanged since 05/30/14 although limited comparison given differences in exam protocols. As clinically warranted, continued long-term surveillance with dedicated contrast-enhanced MRI abdomen with pancreatic protocol could be performed. Dictated by: Raj Díaz M.D. on 04/27/2018 at 15:40 Approved by: Raj Díaz M.D. on 04/27/2018 at 15:53 MDM Narrative Medical decision making narrative: Patient's examination fits with her CT findings which have already been resulted prior to arrival to the ED. Contacted Dr. mickey cabrera from general surgery, she had been contacted about the patient but during surgery so she aware that the patient did with, hospital all she accepts and plan for OR. Patient is aware of the plan and IV was placed in the ED. Discharge Plan Departure Patient Disposition: Admitted As Inpatient Clinical Impression: Acute appendicitis Discharge Date/Time: 04/27/18 18:52 Interventions: ED Discharge Assessment Last Done: 04/27/18 18:51 Admit Date/Time: 04/27/18 18:38 Admit Provider: Mary Siu
--- NOTE | 2018-04-27 18:05 | PC.NURSE ---
soreness with palpation.
--- NOTE | 2018-04-27 18:06 | PC.NURSE ---
last solid meal at 0930, last drink of water 3pm
--- NOTE | 2018-04-27 18:45 | PM.HP.1 ---
History of Present Illness Date Patient Seen: 04/27/18 Time Patient Seen: 18:45 Chief complaint: STATES NEEDS APPENDIX OUT Narrative: Sarah is a very pleasant 77-year-old lady who reports she started having abdominal pain shortly after getting a flu shot on Tuesday. She says Tuesday morning she woke up with a belly ache that sort of just felt sick all over. Over the day and over the day today the pain has gradually localized to the right lower quadrant. She said she just felt like she had the flu with the belly ache. She denies any vomiting but has had some nausea. She denies any blood in her stool. She has had subjective body aches but no confirmed fever. She denies any sick contacts. She was seen and evaluated by Dr. Kavita gan and was noted to have evidence of acute appendicitis that is early in its evolution. Patient History Medical History Hypothyroid (Acute) Left bundle branch block (Acute) Surgical History No pertinent past surgical history (Acute) Family & Social History Family History: Reviewed 04/27/18 by Mary Siu MD Safety & Behavioral: Feels Safe in Current Yes Environment Been Physically Hurt or No Threatened By a Person Tobacco & Substance use: Smoking Status Never smoker alcohol intake frequency holiday/special occasion Substance Use Type does not use Meds Home Medications Medication Instructions Recorded Confirmed Type carvedilol 1 tab PO BIDWM 02/27/18 History levothyroxine 1 tab PO DAILY 02/27/18 02/27/18 History rosuvastatin 1 tab PO DAILY 02/27/18 02/27/18 History Allergies Allergy/AdvReac Type Severity Reaction Status Date / Time Sulfa (Sulfonamide Allergy Unknown Verified 04/27/18 18:02 Antibiotics) [SULFA (SULFONAMIDE ANTIBIOTICS)] Review of Systems Review of Systems All systems reviewed & are unremarkable except as noted in HPI and below Exam Vital Signs (past 8 hours): - 04/27/18 17:46 Temperature 98.8 F Pulse Rate 86 Respiratory Rate 18 Blood Pressure 160/67 H Pulse Oximetry 97 Oxygen Delivery Method Room Air Narrative Exam Narrative: Thin elderly lady in no obvious distress. HEENT: Normocephalic and atraumatic, pupils equal round reactive to light accommodation with anicteric sclera Lungs: Clear to auscultation bilaterally Heart: Regular rate and rhythm without murmur rub or gallop Abdomen: Soft, tender to palpation in the mid abdomen and right lower quadrant. Mild voluntary guarding. No true rebound. Active bowel sounds. Extremities: Warm and well perfused without edema Objective Labs Labs: [address] [address] [address] Scan Report Signed Patient: Sarah Marc MR#: [id number] : 1940 Acct:[id number] Age/Sex: 77 / F Date of Service: 04/27/18 Loc: CT Accession Number: [id number] Procedure: CT abdomen pelvis w con Ordering Provider: Kavita Gan MD PROCEDURE: CT ABDOMEN PELVIS W CON INDICATIONS: Right lower quadrant pain TECHNIQUE: After the administration of oral and intravenous contrast, 5 mm thick sections acquired from the diaphragms to the symphysis. 5 mm thick coronal and sagittal reformats were performed. For radiation dose reduction, the following was used: automated exposure control, adjustment of mA and/or kV according to patient size. COMPARISON: [facility], CT, PE STUDY (CTA CHEST), 05/30/2014, 10:59. FINDINGS: Image quality: Excellent. ABDOMEN: Lung bases: Lung bases are clear. Heart size is enlarged. Solid organs: Liver is normal in size and enhancement. Gallbladder negative. Biliary system is non-dilated. Within the head of the pancreas, there No focal marrow contusion or discrete low signal fracture line. Within the medial compartment,dilated ducts and cystic appearance, which is poorly defined image 30 series 2 although may be grossly unchanged since prior study dated 05/30/14. Overall the extent measures 1.9 x 1.9 cm axial image 30. Spleen is normal in size and enhancement. No adrenal nodules. Kidneys are jonn in l in size and enhancement, without hydronephrosis. Simple appearing right renal cyst. Peritoneum and bowel: No evidence of bowel obstruction. No free air or free fluid. The appendix appears enlarged the right lower quadrant measuring 11 mm. There is periappendiceal fat stranding and inflammation. No appendicolith is seen. No abscess. Colonic diverticulosis is seen without evidence of acute complication. Nodes and vessels: No retroperitoneal or mesenteric adenopathy. Aorta and inferior vena cava are normal in caliber. Miscellaneous: No ventral hernias. PELVIS: Genitourinary: Bladder wall thickness is normal. Miscellaneous: No inguinal hernias or adenopathy. Bones: No suspicious bony lesions. Diffuse osteopenia and multilevel discogenic changes. No vertebral body compression fractures. IMPRESSION: Acute appendicitis. Critical findings immediately and personally telephoned to Dr. Gan 1550 hours on 04/27/18. Dilated ductal appearance within the head of the pancreas and/or cystic lesion. Overall this is unchanged since 05/30/14 although limited comparison given differences in exam protocols. As clinically warranted, continued long-term surveillance with dedicated contrast-enhanced MRI abdomen with pancreatic protocol could be performed. Dictated by: Raj Díaz M.D. on 04/27/2018 at 15:40 Approved by: Raj Díaz M.D. on 04/27/2018 at 15:53 Assessment & Plan Plan: Assessment/Plan Narrative: Very pleasant and remarkably healthy 77-year-old lady with acute appendicitis. There is no obvious evidence of perforation. We discussed the risks and benefits of laparoscopy with appendectomy the patient expressed a desire to complete the procedure.
--- NOTE | 2018-04-27 18:51 | P.HP_ITS ---
History of Present Illness Date Patient Seen: 04/27/18 Time Patient Seen: 18:45 Chief complaint: STATES NEEDS APPENDIX OUT Narrative: Sarah is a very pleasant 77-year-old lady who reports she started having abdominal pain shortly after getting a flu shot on Tuesday. She says Tuesday morning she woke up with a belly ache that sort of just felt sick all over. Over the day and over the day today the pain has gradually localized to the right lower quadrant. She said she just felt like she had the flu with the belly ache. She denies any vomiting but has had some nausea. She denies any blood in her stool. She has had subjective body aches but no confirmed fever. She denies any sick contacts. She was seen and evaluated by Dr. Kavita gan and was noted to have evidence of acute appendicitis that is early in its evolution. Patient History Medical History Hypothyroid (Acute) Left bundle branch block (Acute) Surgical History No pertinent past surgical history (Acute) Family & Social History Family History: Reviewed 04/27/18 by Mary Siu MD Safety & Behavioral: Feels Safe in Current Yes Environment Been Physically Hurt or No Threatened By a Person Tobacco & Substance use: Smoking Status Never smoker alcohol intake frequency holiday/special occasion Substance Use Type does not use Meds Home Medications Medication Instructions Recorded Confirmed Type carvedilol 1 tab PO BIDWM 02/27/18 History levothyroxine 1 tab PO DAILY 02/27/18 02/27/18 History rosuvastatin 1 tab PO DAILY 02/27/18 02/27/18 History Allergies Allergy/AdvReac Type Severity Reaction Status Date / Time Sulfa (Sulfonamide Allergy Unknown Verified 04/27/18 18:02 Antibiotics) [SULFA (SULFONAMIDE ANTIBIOTICS)] Review of Systems Review of Systems All systems reviewed & are unremarkable except as noted in HPI and below Exam Vital Signs (past 8 hours): - 04/27/18 17:46 Temperature 98.8 F Pulse Rate 86 Respiratory Rate 18 Blood Pressure 160/67 H Pulse Oximetry 97 Oxygen Delivery Method Room Air Narrative Exam Narrative: Thin elderly lady in no obvious distress. HEENT: Normocephalic and atraumatic, pupils equal round reactive to light accommodation with anicteric sclera Lungs: Clear to auscultation bilaterally Heart: Regular rate and rhythm without murmur rub or gallop Abdomen: Soft, tender to palpation in the mid abdomen and right lower quadrant. Mild voluntary guarding. No true rebound. Active bowel sounds. Extremities: Warm and well perfused without edema Objective Labs Labs: [address] [address] [address] Scan Report Signed Patient: Sarah Marc MR#: [id number] : 1940 Acct:[id number] Age/Sex: 77 / F Date of Service: 04/27/18 Loc: CT Accession Number: [id number] Procedure: CT abdomen pelvis w con Ordering Provider: Kavita Gan MD PROCEDURE: CT ABDOMEN PELVIS W CON INDICATIONS: Right lower quadrant pain TECHNIQUE: After the administration of oral and intravenous contrast, 5 mm thick sections acquired from the diaphragms to the symphysis. 5 mm thick coronal and sagittal reformats were performed. For radiation dose reduction, the following was used: automated exposure control, adjustment of mA and/or kV according to patient size. COMPARISON: [facility], CT, PE STUDY (CTA CHEST), 05/30/2014, 10:59. FINDINGS: Image quality: Excellent. ABDOMEN: Lung bases: Lung bases are clear. Heart size is enlarged. Solid organs: Liver is normal in size and enhancement. Gallbladder negative. Biliary system is non-dilated. Within the head of the pancreas, there No focal marrow contusion or discrete low signal fracture line. Within the medial compartment,dilated ducts and cystic appearance, which is poorly defined image 30 series 2 although may be grossly unchanged since prior study dated 05/30/14. Overall the extent measures 1.9 x 1.9 cm axial image 30. Spleen is normal in size and enhancement. No adrenal nodules. Kidneys are jonn in l in size and enhancement, without hydronephrosis. Simple appearing right renal cyst. Peritoneum and bowel: No evidence of bowel obstruction. No free air or free fluid. The appendix appears enlarged the right lower quadrant measuring 11 mm. There is periappendiceal fat stranding and inflammation. No appendicolith is seen. No abscess. Colonic diverticulosis is seen without evidence of acute complication. Nodes and vessels: No retroperitoneal or mesenteric adenopathy. Aorta and inferior vena cava are normal in caliber. Miscellaneous: No ventral hernias. PELVIS: Genitourinary: Bladder wall thickness is normal. Miscellaneous: No inguinal hernias or adenopathy. Bones: No suspicious bony lesions. Diffuse osteopenia and multilevel discogenic changes. No vertebral body compression fractures. IMPRESSION: Acute appendicitis. Critical findings immediately and personally telephoned to Dr. Gan 1550 hours on 04/27/18. Dilated ductal appearance within the head of the pancreas and/or cystic lesion. Overall this is unchanged since 05/30/14 although limited comparison given differences in exam protocols. As clinically warranted, continued long-term surveillance with dedicated contrast-enhanced MRI abdomen with pancreatic protocol could be performed. Dictated by: Raj Díaz M.D. on 04/27/2018 at 15:40 Approved by: Raj Díaz M.D. on 04/27/2018 at 15:53 Assessment & Plan Plan: Assessment/Plan Narrative: Very pleasant and remarkably healthy 77-year-old lady with acute appendicitis. There is no obvious evidence of perforation. We discussed the risks and benefits of laparoscopy with appendectomy the patient expressed a desire to complete the procedure.
[2018-04-27] MEDS: LACTATED RINGERS 1,000 ML 42 ML IV (19:00)
[2018-04-27] MEDS: CEFOTETAN 2 GM/50 ML PIGGYBACK IV (19:15)
--- NOTE | 2018-04-27 19:30 | SUR.OPER ---
Supine on padded OR bed, head on pillow, Right arm on padded arm board with <90 degrees abduction, Left arm padded and tucked at side, legs uncrossed, safety belt at thigh, tape over blanket over lower legs .
[2018-04-27] MEDS: BUPIVACAINE 0.5% (PF) VIAL 30 ML INJ (19:37)
[2018-04-27] MEDS: LIDOCAINE 1% W/EPI INJ 20 ML INJ (19:40)
--- NOTE | 2018-04-27 19:48 | PM.OP.1 ---
Operative Date/Time/Diagnoses Date of procedure: 04/27/18 Time of procedure: 19:48 Pre-op diagnosis: Acute appendicitis Post-op diagnosis: same Procedure & Clinicians Procedure: Laparoscopic appendectomy Same procedure as scheduled: Yes Indications: Acute appendicitis Surgeon: Mary Siu Anesthesia Type: General Operative Notes Findings: Early acute appendicitis without rupture Estimated Blood Loss (mL): 5 Procedure in detail: After obtaining informed consent, the patient was brought to the operating room and placed in the supine position on the operating table. Following successful induction of general endotracheal anesthesia, appropriate padding of all eileen prominences, and placement of appropriate monitors, the abdomen was prepped and draped in the standard surgical fashion. A timeout was held per [facility] protocol. Following infiltration with local anesthetic to create a field block, an incision was created inferior to the umbilicus and carried down through the skin and subcutaneous tissue to reveal the fascia below. 2-0 Vicryl retention sutures were placed on either side of midline and the abdomen was entered under direct vision using an 11 blade scalpel. A 12 mm blunt-tipped Fatima trocar was placed in the abdominal cavity and it was insufflated to 15 mmHg pressure. The patient was placed in Trendelenburg position with the left side rotated toward the floor. Under direct vision, a second 5 mm trocar was placed in the right upper quadrant and a third 5 mm trocar was placed midway between the umbilicus and the pubis. The camera was placed in the abdominal cavity and we immediately visualized the appendix in the anti-cecal position. The appendix was grasped and elevated to reveal its attachment to the cecum. 3 loads of a laparoscopic stapling device were used to liberate the appendix and its mesentery from its attachment to the cecum. The specimen was placed in a bag and removed via the umbilical port. The wounds were checked for hemostasis. The operative site was visualized and irrigated with warm saline solution. The abdomen was aspirated free of all fluid and particulate matter. The trochars were removed under direct vision. The abdomen was desufflated by giving the patient a large Valsalva maneuver. The umbilical incision was closed in 2 layers with Vicryl and Monocryl suture. Monocryl sutures were placed in the other 2 port sites. All sponge, needle, and instrument counts were correct at the conclusion of the case. The patient was allowed to awaken from anesthesia without difficulty and taken to the post-anesthesia care unit in good condition. Complications: none Condition: stable Disposition: Acute Care Plan for aftercare: 1. Admit to acute care for observation and antibiotic therapy 2. Plan for discharge tomorrow if she does well over the evening.
--- NOTE | 2018-04-27 20:50 | PC.NURSE ---
Patient is A&OX4, on RA at 99%, reports no nausea. pain is reported as 5/10, feeling sore in her abd. Patient denies tingling or numbness to BLE. Lung sounds are clear, heart rate regular, bowel tones hypoactive. Patient voided right before surgery at 1845. Skin intact except for lap sites, 3 down her midline, all have glue to hold together. Patient brought her medications, but she will have her sister Denisse take them back home. Patient has been oriented to call light, BA active, will continue to monitor.
[2018-04-27] MEDS: ATORVASTATIN 20 MG TABLET 40 MG PO (22:17)
[2018-04-27] MEDS: DEXTROSE 5%-0.45% NS 1,000 ML 75 ML IV (22:18)
[2018-04-27] MEDS: KETOROLAC 15 MG/ML VIAL IV (22:18)
[2018-04-28 00:14] VITALS: BP 147/66; PULSE 72; RESP 16; TEMP 37; O2SAT 94
--- NOTE | 2018-04-28 05:13 | PC.NURSE ---
Pt is A and O x 4, VSS. She is rating her pain 3-4/10 declined pain medication. She states that her pain is in her muscles at her incision sites. She denies nausea and is drinking clear liquids, advanced to full liquids for breakfast. Incision sites are clean and dry. No appreciable BT or flatus. Voiding in BSC with SBA x1 clear yellow, qs. S1, S2, LS clear.
[2018-04-28] MEDS: CEFOTETAN 2 GM/50 ML PIGGYBACK IV (05:35)
[2018-04-28] MEDS: KETOROLAC 15 MG/ML VIAL IV (05:36)
[2018-04-28 05:54] VITALS: BP 125/60; PULSE 77; RESP 16; TEMP 36.6; O2SAT 97
[2018-04-28 08:00] VITALS: BP 143/66; PULSE 73; RESP 16; TEMP 36.2; O2SAT 97
[2018-04-28] MEDS: PANTOPRAZOLE 40 MG VIAL IV (09:14)
[2018-04-28] MEDS: LEVOTHYROXINE 50 MCG TABLET PO (09:14)
[2018-04-28] MEDS: METOPROLOL ER 25 MG TABLET 12.5 MG PO (09:18)
--- NOTE | 2018-04-28 09:50 | PC.NURSE ---
Pt up in chair, ambulating in hallway without problems. Reports good appetite for full liquid diet. No nausea or vomiting. O2 sats = 96% on RA. Seen by MD and will be discharged home. IV removed.
--- NOTE | 2018-04-28 10:06 | PM.PN.1 ---
Subjective Date Patient Seen: 04/28/18 Time Patient Seen: 10:06 Interval history: Sarah reports she is feeling well this morning. She has not taken any pain medicine and does not feel she needs to. Staff reports she has been walking in the halls and has not complained of much pain at all. She denies any nausea. Exam Vital Signs (past 8 hours): - 04/28/18 05:54 Temperature 97.8 F Pulse Rate 77 Respiratory Rate 16 Blood Pressure 125/60 Pulse Oximetry 97 Oxygen Delivery Method Room Air,Nasal Cannula Narrative Exam Narrative: Abdomen is soft. Bowel sounds are active. Incisions are all clean dry and well approximated. Assessment & Plan Plan: Assessment/Plan Narrative: Stable for discharge this morning with her daughter. She will take Tylenol for discomfort. We will see her back in my office in 2 weeks for postop visit. By that time, we should have final pathology.
[2018-04-28] MEDS: ACETAMINOPHEN 325 MG TABLET 650 MG PO (11:17)
--- NOTE | 2018-04-28 11:20 | PC.NURSE ---
Pt given dc information, tylenol for pain and taken down to private vehicle accompanied by her daughter.
--- NOTE | 2018-04-28 17:28 | CM.DANOTE ---
Discharge Planning/Care Management DCP: assessment: case received this morning, discussed in Team Rounds. Pt had admitted to care of Dr. Siu alst night and been taken to surgery for a laproscopic appendectomy Payer: Medicare and [facility] PCP: Dr. Kevin Siu arrived late morning to see pt and ok'd her for home. Went to room to check in shortly after his. Pt had already left for home with no d/c needs identified by the care team members. CM Discharge Assessment Start: 04/28/18 17:27 Freq: Status: Active Protocol: Document 04/28/18 17:27 ITV (Rec: 04/28/18 17:27 ITV [id number]) Discharge Planning Assessment Advance Directives? Yes Advance Directives on File Yes History Provided By Medical Record Prior Living Arrangements House Household Members none Review Status In Process Next Review Type Continued Stay Review
== END 2018-04-28 11:21 | disposition home or self-care (01) ==
LOC: ED 17:52 → AC 04-28 07:19
PROVIDERS: Admitting Provider Surgery; Emergency Provider Emergency Medicine; Family Provider Internal Medicine; PCP Internal Medicine; Visit Provider Surgery
PROC: 0DTJ4ZZ Resection of Appendix, Percutaneous Endoscopic Approach (ICD-10-PCS; CPT 44970; principal; 2018-04-27 18:35)
DX: K35.890 Other acute appendicitis without perforation or gangrene (principal); E03.9 Hypothyroidism, unspecified; I44.7 Left bundle-branch block, unspecified
CPT/HCPCS: 44970; 36415; 74177; 80048; 85025; 88304; 99282; 99284; G0378; C9113; J0330; J1100; J1885; J2405; J2704; J3010; Q9967

== ENCOUNTER → 2018-05-18 12:43 | Outpatient (CLI) | payer MEDICARE, SELFPAY ==
[2018-05-16 10:18] VITALS: BMI 25.4
--- NOTE | 2018-05-18 | DI.RAD.S_ITS ---
This blank DEXA report has been sent in error by the PACS system. The correct and complete report will be forthcoming in 1-2 days. Thank you for your patience and understanding. Dictated by: Richmond Hall M.D. on 05/18/2018 at 14:12 Approved by: Richmond Hall M.D. on 05/18/2018 at 14:12
== END ==
PROVIDERS: PCP Internal Medicine; Visit Provider Nurse Practitioner
DX: M81.0 Age-related osteoporosis without current pathological fracture (principal); Z78.0 Asymptomatic menopausal state; E07.9 Disorder of thyroid, unspecified; Z82.62 Family history of osteoporosis; Z90.722 Acquired absence of ovaries, bilateral
CPT/HCPCS: 77080

== ENCOUNTER → 2018-05-30 15:10 | Outpatient (CLI) | payer MEDICARE, SELFPAY ==
[2018-05-16 10:18] VITALS: BMI 25.4
[2018-05-30 17:24] LABS: Calcium 10.4 mg/dL (8.4-10.2); Phosphorous 3.7 mg/dL (2.8-4.1)
[2018-05-30 17:37] LABS: Free T4, Direct Thyroxine 1.21 ng/dL (0.78-2.19)
[2018-05-30 17:40] LABS: Vitamin D 25 Hydroxy (D3) 51.1 ng/mL (30.0-100.0)
[2018-05-30 17:51] LABS: Thyroid Stimulating Hormone 2.92 uIU/mL (0.47-4.68)
[2018-06-02 14:25] LABS: Parathyroid Hormone Int 27 pg/mL (14-64)
== END ==
PROVIDERS: Family Provider Internal Medicine; PCP Internal Medicine; Visit Provider Nurse Practitioner
DX: E03.9 Hypothyroidism, unspecified (principal); E21.3 Hyperparathyroidism, unspecified
CPT/HCPCS: 36415; 82306; 82310; 83970; 84100; 84439; 84443

== ENCOUNTER → 2018-07-21 08:16 | Outpatient (CLI) | payer MEDICARE, SELFPAY ==
[2018-05-16 10:18] VITALS: BMI 25.4
[2018-07-21 09:34] LABS: Alanine Aminotransferase 43 IU/L (9-52); Albumin 4.2 g/dL (3.5-5.0); Albumin Globulin Ratio 1.6 (1.0-2.8); Alkaline Phosphatase 102 U/L (38-126); Aspartate Aminotransferase 33 IU/L (14-36); Bilirubin Total 0.6 mg/dL (0.2-1.3); Blood Urea Nitrogen 21 mg/dL (7-17); Calcium 9.6 mg/dL (8.4-10.2); Carbon Dioxide 28 mmol/L (22-32); Chloride 102 mmol/L (98-107); Estimated Glomerular Filt Rate > 60.0 mL/min (>60); Globulin 2.7 g/dL (1.7-4.1); Glucose 88 mg/dL (80-110); HEMOLYSIS < 15 (0-50); Magnesium 1.9 mg/dL (1.6-2.3); Sodium 138 mmol/L (137-145); Total Protein 6.9 g/dL (6.3-8.2)
[2018-07-24 11:35] LABS: Lipoprofile NMR SEE SEPERATE REPORT
== END ==
PROVIDERS: Family Provider Internal Medicine; PCP Internal Medicine; Visit Provider Specialist
DX: I10 Essential (primary) hypertension (principal); E78.2 Mixed hyperlipidemia
CPT/HCPCS: 36415; 80053; 83704; 83735

== ENCOUNTER → 2018-09-12 09:08 | Outpatient (CLI) | payer MEDICARE, SELFPAY ==
[2018-05-16 10:18] VITALS: BMI 25.4
[2018-09-12 11:21] LABS: Alanine Aminotransferase 63 IU/L (9-52); BUN Creatinine Ratio 23.8 (6-22); Blood Urea Nitrogen 19 mg/dL (7-17); Calcium 9.8 mg/dL (8.4-10.2); Carbon Dioxide 28 mmol/L (22-32); Chloride 102 mmol/L (98-107); Cholesterol 143 mg/dL (140-199); Estimated Glomerular Filt Rate > 60.0 mL/min (>60); Glucose 85 mg/dL (80-110); HDL Cholesterol 48 mg/dL (40-60); HEMOLYSIS < 15 (0-50); LDL Cholesterol Calculated 83 mg/dL (<100); Sodium 139 mmol/L (137-145); Triglycerides 58 mg/dL (35-150)
[2018-09-14 14:13] LABS: Parathyroid Hormone Int 82 pg/mL (14-64)
== END ==
PROVIDERS: Family Provider Internal Medicine; PCP Internal Medicine; Visit Provider Internal Medicine
DX: E78.5 Hyperlipidemia, unspecified (principal); E21.3 Hyperparathyroidism, unspecified; I10 Essential (primary) hypertension
CPT/HCPCS: 36415; 80048; 80061; 83970; 84460

== ENCOUNTER → 2018-09-28 12:32 | Outpatient (CLI) | payer MEDICARE, SELFPAY ==
[2018-05-16 10:18] VITALS: BMI 25.4
[2018-09-28 13:33] LABS: B Type Natriuretic Peptide < 100 (<100)
[2018-09-28 14:52] LABS: Alanine Aminotransferase 61 IU/L (9-52); Aspartate Aminotransferase 49 IU/L (14-36); BUN Creatinine Ratio 25.7 (6-22); Blood Urea Nitrogen 18 mg/dL (7-17); Calcium 10.3 mg/dL (8.4-10.2); Carbon Dioxide 31 mmol/L (22-32); Chloride 101 mmol/L (98-107); Estimated Glomerular Filt Rate > 60.0 mL/min (>60); Glucose 100 mg/dL (80-110); HEMOLYSIS < 15 (0-50); Potassium 4.1 mmol/L (3.4-5.1); Sodium 139 mmol/L (137-145)
[2018-09-28 15:42] LABS: Vitamin B12 689 pg/mL (239-931)
[2018-10-01 14:13] LABS: RPR Screen Nonreactive (Nonreactive)
== END ==
PROVIDERS: Family Provider Internal Medicine; PCP Internal Medicine; Visit Provider Internal Medicine
DX: R41.3 Other amnesia (principal); I43 Cardiomyopathy in diseases classified elsewhere; R74.0 Nonspecific elevation of levels of transaminase and lactic acid dehydrogenase [LDH]; I42.8 Other cardiomyopathies; I51.9 Heart disease, unspecified
CPT/HCPCS: 36415; 80048; 82607; 83880; 84450; 84460; 86592

== ENCOUNTER → 2019-02-06 09:07 | Outpatient (CLI) | payer MEDICARE, SELFPAY ==
[2018-05-16 10:18] VITALS: BMI 25.4
[2019-02-06 10:57] LABS: Cholesterol 193 mg/dL (140-199); HDL Cholesterol 47 mg/dL (40-60); LDL Cholesterol Calculated 120 mg/dL (<100); Triglycerides 128 mg/dL (35-150)
== END ==
PROVIDERS: Family Provider Internal Medicine; PCP Internal Medicine; Visit Provider Internal Medicine Cardiovascular Disease
DX: I42.8 Other cardiomyopathies (principal); I10 Essential (primary) hypertension
CPT/HCPCS: 36415; 80061

== ENCOUNTER → 2019-04-24 13:34 | Outpatient (CLI) | payer MEDICARE, SELFPAY ==
[2018-05-16 10:18] VITALS: BMI 25.4
--- NOTE | 2019-04-24 | DI.RAD.S_ITS ---
PROCEDURE: XR THORACIC SPINE 3V INDICATIONS: PAIN IN THORACIC SPINE TECHNIQUE: 3 views of the thoracic spine were acquired. COMPARISON: [facility], , CERVICAL SPINE 4 OR 5 VIEWS, 05/25/2017, 10:13. FINDINGS: Bones: No fractures or dislocations. No suspicious bony lesions. 12 pairs of ribs are noted, and appear intact where visualized. Moderate degenerative disc disease in thoracic spine. Soft tissues: No paravertebral stripe thickening. IMPRESSION: Moderate degenerative disc disease. Dictated by: Miya Prather M.D. on 04/24/2019 at 17:09 Approved by: Miya Prather M.D. on 04/24/2019 at 17:26
--- NOTE | 2019-04-24 | DI.RAD.S_ITS ---
PROCEDURE: XR CERVICAL SPINE 2V OR 3V INDICATIONS: CERVICAL SPINE PAIN TECHNIQUE: 3 view(s) of the cervical spine were acquired. COMPARISON: [facility], , CERVICAL SPINE 4 OR 5 VIEWS, 05/25/2017, 10:13. FINDINGS: Bones: There is straightening of cervical curvature. No fractures or dislocations to the C7 level. The lateral masses of C1 appear intact on the odontoid view. No suspicious bony lesions. There is mild to moderate degenerative disease throughout cervical spine. Severe bilateral facet arthropathy at C5-C6 and C6-C7. Osteopenia. Soft tissues: No prevertebral soft tissue swelling. IMPRESSION: 1. Degenerative disc and facet disease as described. 2. Loss of cervical lordosis. 3. Osteopenia. Dictated by: Miya Prather M.D. on 04/24/2019 at 17:26 Approved by: Miya Prather M.D. on 04/24/2019 at 17:29
[2019-04-24 14:55] LABS: Alanine Aminotransferase 27 IU/L (<35); Albumin 4.2 g/dL (3.5-5.0); Albumin Globulin Ratio 1.7 (1.0-2.8); Alkaline Phosphatase 89 U/L (38-126); Aspartate Aminotransferase 37 IU/L (14-36); Bilirubin Total 0.3 mg/dL (0.2-1.3); Blood Urea Nitrogen 18 mg/dL (7-17); Carbon Dioxide 30 mmol/L (22-32); Chloride 102 mmol/L (98-107); Estimated Glomerular Filt Rate > 60.0 mL/min (>60); Gamma Glutamyl Transpeptidase 70 U/L (12-43); Globulin 2.5 g/dL (1.7-4.1); Glucose 107 mg/dL (80-110); HEMOLYSIS < 15 (0-50); Potassium 4.1 mmol/L (3.4-5.1); Sodium 139 mmol/L (137-145); Total Protein 6.7 g/dL (6.3-8.2)
[2019-04-24 15:42] LABS: TSH w/ Reflex to FT4 3.55 uIU/mL (0.47-4.68)
[2019-04-28 17:21] LABS: Parathyroid Hormone Int 28 pg/mL (14-64)
== END ==
PROVIDERS: PCP Internal Medicine; Visit Provider Internal Medicine
DX: E03.9 Hypothyroidism, unspecified (principal); E21.0 Primary hyperparathyroidism; R74.0 Nonspecific elevation of levels of transaminase and lactic acid dehydrogenase [LDH]; E78.5 Hyperlipidemia, unspecified; M54.2 Cervicalgia; M54.6 Pain in thoracic spine
CPT/HCPCS: 36415; 72040; 72072; 80053; 82977; 83970; 84443

== ENCOUNTER → 2019-05-29 14:32 | Outpatient (CLI) | payer MEDICARE, SELFPAY ==
[2018-05-16 10:18] VITALS: BMI 25.4
[2019-05-29 16:20] LABS: Alanine Aminotransferase 32 IU/L (<35); Alkaline Phosphatase 88 U/L (38-126); Aspartate Aminotransferase 37 IU/L (14-36); Bilirubin Total 0.4 mg/dL (0.2-1.3); Gamma Glutamyl Transpeptidase 72 U/L (12-43)
== END ==
PROVIDERS: PCP Internal Medicine; Visit Provider Internal Medicine
DX: R74.0 Nonspecific elevation of levels of transaminase and lactic acid dehydrogenase [LDH] (principal)
CPT/HCPCS: 36415; 82247; 82977; 84075; 84450; 84460

== ENCOUNTER → 2019-06-04 10:06 | Outpatient (CLI) | payer MEDICARE, SELFPAY ==
[2018-05-16 10:18] VITALS: BMI 25.4
== END ==
PROVIDERS: Family Provider Internal Medicine Endocrinology, Diabetes & Metabolism; PCP Internal Medicine; Visit Provider Internal Medicine
DX: M81.0 Age-related osteoporosis without current pathological fracture (principal); Z78.0 Asymptomatic menopausal state; E07.9 Disorder of thyroid, unspecified; Z90.722 Acquired absence of ovaries, bilateral; Z82.62 Family history of osteoporosis
CPT/HCPCS: 77080

== ENCOUNTER → 2019-07-03 09:34 | Outpatient (CLI) | payer MEDICARE, SELFPAY ==
[2018-05-16 10:18] VITALS: BMI 25.4
[2019-07-03 11:38] LABS: Hepatitis B Surface Antigen NEGATIVE s/c (NEGATIVE)
[2019-07-03 11:47] LABS: Calcium 10.8 mg/dL (8.4-10.2); Magnesium 2.1 mg/dL (1.6-2.3)
[2019-07-03 11:53] LABS: Vitamin D 25 Hydroxy (D3) 45.2 ng/mL (30.0-100.0)
[2019-07-03 11:58] LABS: Hep C Virus Ab w/Reflex Quant NEGATIVE s/c (NEGATIVE)
[2019-07-03 12:37] LABS: Vitamin B12 808 pg/mL (239-931)
[2019-07-03 13:02] LABS: Ferritin 66 ng/mL (11-264)
[2019-07-04 15:04] LABS: Hepatitis B Core Antibody Nonreactive (Nonreactive)
[2019-07-05 15:26] LABS: Hepatitis B Surf Ab Qualitativ Nonreactive (Nonreactive)
[2019-07-05 15:45] LABS: Parathyroid Hormone Int 85 pg/mL (14-64)
[2019-07-06 08:31] LABS: ANA Screen, IFA NEGATIVE (NEGATIVE)
[2019-07-07 16:15] LABS: Albumin 4.3 g/dL (3.8-4.8); Alpha 1 Globulin 0.4 g/dL (0.2-0.3); Alpha 2 Globulin 0.8 g/dL (0.5-0.9); Beta 1 Globulin 0.4 g/dL (0.4-0.6); Gamma Globulin 0.8 g/dL (0.8-1.7)
== END ==
PROVIDERS: Family Provider Internal Medicine Endocrinology, Diabetes & Metabolism; PCP Internal Medicine; Referring Provider Internal Medicine; Visit Provider Internal Medicine
DX: E21.3 Hyperparathyroidism, unspecified (principal); R20.2 Paresthesia of skin; R74.0 Nonspecific elevation of levels of transaminase and lactic acid dehydrogenase [LDH]
CPT/HCPCS: 82306; 82310; 82607; 82728; 83735; 83970; 84155; 84165; 86038; 86255; 86704; 86706; 86803; 87340

== ENCOUNTER → 2019-07-16 13:34 | Outpatient (CLI) | payer MEDICARE, SELFPAY ==
[2018-05-16 10:18] VITALS: BMI 25.4
[2019-07-19 14:44] LABS: Immunoglobulin A, Serum 149 mg/dL (64-422); Immunoglobulin G,Serum 821 mg/dL (700-1600); Immunoglobulin M, Serum 56 mg/dL (26-217)
== END ==
PROVIDERS: Family Provider Internal Medicine Endocrinology, Diabetes & Metabolism; PCP Internal Medicine; Referring Provider Internal Medicine; Visit Provider Internal Medicine
DX: R20.2 Paresthesia of skin (principal)
CPT/HCPCS: 36415; 82784; 84155; 86334

== ENCOUNTER → 2019-07-17 14:42 | Outpatient (CLI) | payer MEDICARE, SELFPAY ==
[2018-05-16 10:18] VITALS: BMI 25.4
--- NOTE | 2019-07-17 | DI.US.S_ITS ---
PROCEDURE: US ABDOMEN COMPLETE INDICATIONS: ELEVATED LDH TECHNIQUE: Real-time scanning was performed of the abdominal and retroperitoneal organs, with image documentation. COMPARISON: None. FINDINGS: Liver: Liver is normal in size and homogeneous in echotexture. Gallbladder: The gallbladder appears normal Biliary ducts: Intrahepatic bile ducts are non-dilated. Extrahepatic bile duct caliber measures 5.7 mm. Normal is 6-7 mm or less in diameter, or 10 mm or less post-cholecystectomy. Pancreas: Not seen due to bowel gas Spleen: Spleen is normal in size and homogeneous in echotexture. Kidneys: Kidneys are normal in size and echotexture. Right kidney measures 10.3 cm long; left kidney measures 9.8 cm long. No hydronephrosis or nephrolithiasis. No solid masses. There is a 3.6 x 2.7 x 3.8 cm simple cyst at the right kidney Aorta: Visualized aorta is normal in caliber at less than 3 cm. Iliacs: Proximal common iliac arteries are normal in caliber at less than 2.5 cm. IVC: Intrahepatic inferior vena cava is patent. Miscellaneous: No free abdominal fluid. IMPRESSION: No biliary distention is seen, no focal liver mass lesion is found. Nonvisualization of the pancreas due to overlying bowel gas. If clinically warranted further assessment utilizing CT scanning could be obtained. Dictated by: Gaurav Meehan M.D. on 07/17/2019 at 16:38 Approved by: Gaurav Meehan M.D. on 07/17/2019 at 16:40
== END ==
PROVIDERS: Family Provider Internal Medicine Endocrinology, Diabetes & Metabolism; PCP Internal Medicine; Referring Provider Internal Medicine; Visit Provider Internal Medicine
DX: R74.0 Nonspecific elevation of levels of transaminase and lactic acid dehydrogenase [LDH] (principal); N28.1 Cyst of kidney, acquired
CPT/HCPCS: 76700

== ENCOUNTER 2020-02-22 20:03 | Emergency (ER) | payer MEDICARE, SELFPAY ==
[2018-05-16 10:18] VITALS: BMI 25.4
[2020-02-22] VITALS (25 sets, daily range): BP systolic 151–204; BP diastolic 56–93; PULSE 51–111; RESP 10–35; TEMP 36.5; O2SAT 95–98; BMI 26.1
--- NOTE | 2020-02-22 20:09 | ED_ITS ---
HPI - Chest Pain General Chief Complaint: Chest Pain Stated Complaint: CHEST DISCOMFORT ELEVATED BLOOD PRESSURE Time Seen by Provider: 02/22/20 20:08 History of Present Illness HPI narrative: 79-year-old woman with a history of hypertension, hyperlipidemia, hyperthyroidism and anxiety who presents today complaining not feeling well for a week and at about 3:00 a.m. this afternoon developing some right-sided shoulder pain and by 6:00 p.m. was complaining of some mild chest pain radiating across the entire chest not associated with diaphoresis. She is unsure if she has been short of breath or not she does complain of nausea and stomach discomfort. She also notes that her blood pressure was significantly elevated this evening. She states that she has been someone lightheaded for the last 2-3 weeks. She describes no cough moving, and even. She does note mild in increasing lower extremity edema Veronica Gomez MD . Remainder of complains of arm running. In 2014 she had any viral illness to which she attributes her left bundle-branch block any and then loss in the taste and smell. 2018, she had been in an irregular heard the and was admitted to [facility] for workup but is unclear on findings. In in April in 2018 within 12 hours of receiving her flu shot she developed in appendicitis. She complains of seasonal allergies with an increased mucus and sneezing but no common recently She also reports stopping her usual dose of losartan approximately a week ago. Apparently the prescription was refilled and the tab was a different color she decided that she would simply stop taking it because she thinks that it was causing side effects including poor sleep, not being able to turn on her dogs, increased anxiety and ?feeling bad? at night. And over the last week she does feel that these symptoms are better but not completely resolved. She notes that her blood pressures have been in the 120/70 range and she has been checking them regularly. She has continued her 12.5 mg of extended release metoprolol daily. Related Data Home Medications Medication Instructions Recorded Confirmed levothyroxine 1 tab PO DAILY 02/27/18 05/16/18 atorvastatin 40 mg PO BEDTIME 04/27/18 05/16/18 metoprolol succinate 12.5 mg PO DAILY 04/27/18 05/16/18 Previous Rx's Medication Instructions Recorded cephalexin 500 mg capsule 1,000 mg PO BID #20 cap 05/16/18 lidocaine 5 % topical patch 1 patch TOP DAILY #15 each 05/16/18 Allergies Allergy/AdvReac Type Severity Reaction Status Date / Time Sulfa (Sulfonamide Allergy Unknown Verified 02/22/20 20:11 Antibiotics) [SULFA (SULFONAMIDE ANTIBIOTICS)] Review of Systems Review of Systems Narrative: Remainder of review of systems including constitutional, ENT, cardiovascular, respiratory, GI, , musculoskeletal, skin, neurologic and psychiatric systems reviewed and are unremarkable except as noted in HPI. Patient History Medical History Acute appendicitis (Inactive) Hyperlipidemia (Acute) Hypertension (Acute) Hypothyroid (Acute) Left bundle branch block (Acute) Surgical History H/O: hysterectomy (Resolved ~1992) History of appendectomy (Resolved ~04/27/18) No pertinent past surgical history (Acute) Family History Mother Hypertension Father Stomach cancer Prostate cancer Brother Prostate cancer Social History household members: none occupational status: previously employed Smoking Status: Never smoker alcohol intake: current substance use type: does not use Smoking Status: Never smoker alcohol intake frequency: holidays/special occasions only Substance Use Type: does not use Exam Narrative Exam Narrative: General: Healthy appearing, in no acute distress. Tangential thought process but able to speak in full sentences HEENT: Moist mucous membranes, normal sclera with reactive pupils, Neck: No JVD, supple Respiratory: Lungs are clear to auscultation, no wheezing no rales no rhonchi. Full and symmetrical air movement Cardiac: Regular rate and rhythm no murmurs no bruits Abdomen: Soft nontender good bowel tones, no flank pain Skin: Warm and dry, no rashes Neurologic: Grossly neurologically intact with no obvious asymmetries or abnormalities Extremities: No trauma, well perfused, 1+ bilateral lower extremity edema Psych: Cooperative, mildly anxious Initial Vital Signs Initial Vital Signs: Vital Signs Temperature 97.7 F 02/22/20 20:06 Pulse Rate 97 H 02/22/20 20:06 Respiratory Rate 25 H 02/22/20 20:06 Blood Pressure 204/93 H 02/22/20 20:06 Pulse Oximetry 98 02/22/20 20:06 Course Orders Ordered: ED Orders 02/22/20 20:10 Complete Blood Count AUTO DIFF Stat Comprehensive Metabolic Panel Stat Lipase Stat Magnesium Stat NT-proBNP (BNP-Adult 18+) Stat Procalcitonin Stat Troponin I Stat 02/22/20 20:26 XR chest 1V Stat 02/22/20 20:35 COVID19 -ED/INPAT/OR/L&D Stat 02/22/20 20:40 Urinalysis and Microscopic Stat 02/23/20 00:05 CT abdomen pelvis w con Stat Discontinued Medications Aspirin (Aspirin Chew) 324 mg PO NOW ONE Stop: 02/22/20 20:26 Last Admin: 02/22/20 20:33 Dose: Not Given Documented by: LUTHER Metoprolol Tartrate (Lopressor) 5 mg IV Q5M GAURAV Stop: 02/22/20 20:41 Last Admin: 02/22/20 20:56 Dose: 5 mg Documented by: Admin: 02/22/20 20:50 Dose: 5 mg Documented by: Admin: 02/22/20 20:32 Dose: 5 mg Documented by: LUTHER Vital Signs Vital signs: Vital Signs - 8 hr 02/22/20 20:06 02/22/20 20:08 02/22/20 20:09 Temperature 97.7 F Pulse Rate 97 H 111 H 107 H Respiratory Rate 25 H 35 H Blood Pressure 204/93 H 204/93 H Pulse Oximetry 98 97 97 02/22/20 20:30 02/22/20 20:44 02/22/20 20:50 Temperature Pulse Rate 83 79 71 Respiratory Rate 14 13 12 Blood Pressure 185/79 H 187/77 H 167/72 H Pulse Oximetry 98 97 97 02/22/20 21:00 02/22/20 21:06 02/22/20 21:10 Temperature Pulse Rate 66 65 64 Respiratory Rate 20 20 12 Blood Pressure 162/74 H 158/72 H 159/72 H Pulse Oximetry 97 97 98 02/22/20 21:20 02/22/20 21:30 02/22/20 21:39 Temperature Pulse Rate 58 L 58 L 56 L Respiratory Rate 11 L 10 L 12 Blood Pressure 159/71 H 160/72 H Pulse Oximetry 97 96 97 02/22/20 21:40 02/22/20 21:50 02/22/20 22:00 Temperature Pulse Rate 57 L 58 L 58 L Respiratory Rate 10 L 11 L 13 Blood Pressure 156/70 H 167/71 H 164/72 H Pulse Oximetry 96 97 96 02/22/20 22:10 02/22/20 22:20 02/22/20 22:30 Temperature Pulse Rate 58 L 55 L 54 L Respiratory Rate 10 L 10 L 12 Blood Pressure 159/72 H 161/70 H 153/68 H Pulse Oximetry 97 96 95 02/22/20 22:40 02/22/20 22:50 02/22/20 23:00 Temperature Pulse Rate 51 L 54 L 52 L Respiratory Rate 12 11 L 12 Blood Pressure 158/69 H 151/67 H 156/56 H Pulse Oximetry 96 96 96 02/22/20 23:10 02/22/20 23:20 02/22/20 23:30 Temperature Pulse Rate 54 L 53 L 60 Respiratory Rate 12 12 10 L Blood Pressure 159/68 H 168/70 H 176/76 H Pulse Oximetry 96 96 97 02/22/20 23:40 02/23/20 00:55 02/23/20 01:00 Temperature Pulse Rate 56 L 63 Respiratory Rate 12 20 20 Blood Pressure 171/74 H 181/80 H 173/77 H Pulse Oximetry 97 96 96 MDM - Chest Pain Medical Records Data Attestation: I reviewed the patient's medical records. Lab Data Attestation: I reviewed the patient's lab results. Result diagrams: 02/22/20 20:10 02/22/20 20:10 Labs: Lab Results 02/22/20 02/22/20 02/22/20 Range/Units 20:10 20:10 20:10 WBC 9.6 (4.5-11.0) X10^3/uL RBC 4.45 (4.0-5.2) X10^6/uL Hgb 13.8 (12.0-16.0) g/dL Hct 41.4 (36-46) % MCV 93.1 (80-100) fL MCH 31.1 (26-34) PG MCHC 33.4 (30-36) % RDW 13.8 (11.6-14.8) % Plt Count 215 (150-400) X10^3/uL Neut % (Auto) 67.1 (50-75) % Lymph % (Auto) 20.8 L (25-40) % [place] % (Auto) 10.0 (3-14) % Eos % (Auto) 1.7 L (2-4) % Baso % (Auto) 0.4 (0-2) % Neut # (Auto) 6500 (4893-8020) /uL Lymph # (Auto) 2000 (8826-1539) /uL [place] # (Auto) 1000 H (0-900) /uL Eos # (Auto) 200 (0-450) /uL Baso # (Auto) 0 (0-100) /uL Sodium 137 (137-145) mmol/L Potassium 3.5 (3.4-5.1) mmol/L Chloride 101 (98-107) mmol/L Carbon Dioxide 29 (22-32) mmol/L BUN 18 H (7-17) mg/dL Creatinine 0.69 (0.52-1.04) mg/dL Estimated GFR > 60.0 (>60) mL/min BUN/Creatinine Ratio 26.1 H (6-22) Glucose 102 (80-110) mg/dL Calcium 9.8 (8.4-10.2) mg/dL Magnesium 2.0 (1.6-2.3) mg/dL Total Bilirubin 0.7 (0.2-1.3) mg/dL AST 41 H (14-36) IU/L ALT 25 (<35) IU/L Alkaline Phosphatase 89 (38-126) U/L Troponin I 0.017 (0.01-0.034) ng/mL NT-Pro-B Natriuret Pep 888 H (<450) pg/mL Total Protein 7.4 (6.3-8.2) g/dL Albumin 4.4 (3.5-5.0) g/dL Globulin 3.0 (1.7-4.1) g/dL Albumin/Globulin Ratio 1.5 (1.0-2.8) Lipase 12553 H (23-300) U/L Procalcitonin (<0.5) ng/mL Urine Color Urine Appearance Urine pH (4.5-8.0) Ur Specific [place] (1.000-1.035) Urine Protein (Negative) Urine Glucose (UA) (Negative) g/dL Urine Ketones (NEGATIVE) Urine Occult Blood (Negative) Urine Nitrate (Negative) Urine Bilirubin (NEGATIVE) Urine Urobilinogen (0.2) E.U./dL Ur Leukocyte Esterase (NEGATIVE) Urine RBC (0-5/HPF) Urine WBC (0-5/HPF) Ur Squamous Epith Cells (0-5/HPF) Urine Bacteria (None) Ur Culture Indicated? COVID-19 PCR (Negative) 02/22/20 02/22/20 02/22/20 Range/Units 20:10 20:35 20:40 WBC (4.5-11.0) X10^3/uL RBC (4.0-5.2) X10^6/uL Hgb (12.0-16.0) g/dL Hct (36-46) % MCV (80-100) fL MCH (26-34) PG MCHC (30-36) % RDW (11.6-14.8) % Plt Count (150-400) X10^3/uL Neut % (Auto) (50-75) % Lymph % (Auto) (25-40) % [place] % (Auto) (3-14) % Eos % (Auto) (2-4) % Baso % (Auto) (0-2) % Neut # (Auto) (3826-2540) /uL Lymph # (Auto) (5897-7654) /uL [place] # (Auto) (0-900) /uL Eos # (Auto) (0-450) /uL Baso # (Auto) (0-100) /uL Sodium (137-145) mmol/L Potassium (3.4-5.1) mmol/L Chloride (98-107) mmol/L Carbon Dioxide (22-32) mmol/L BUN (7-17) mg/dL Creatinine (0.52-1.04) mg/dL Estimated GFR (>60) mL/min BUN/Creatinine Ratio (6-22) Glucose (80-110) mg/dL Calcium (8.4-10.2) mg/dL Magnesium (1.6-2.3) mg/dL Total Bilirubin (0.2-1.3) mg/dL AST (14-36) IU/L ALT (<35) IU/L Alkaline Phosphatase (38-126) U/L Troponin I (0.01-0.034) ng/mL NT-Pro-B Natriuret Pep (<450) pg/mL Total Protein (6.3-8.2) g/dL Albumin (3.5-5.0) g/dL Globulin (1.7-4.1) g/dL Albumin/Globulin Ratio (1.0-2.8) Lipase (23-300) U/L Procalcitonin < 0.05 (<0.5) ng/mL Urine Color Yellow Urine Appearance Clear Urine pH 7.0 (4.5-8.0) Ur Specific [place] 1.010 (1.000-1.035) Urine Protein Negative (Negative) Urine Glucose (UA) Negative (Negative) g/dL Urine Ketones Negative (NEGATIVE) Urine Occult Blood Trace-lysed (Negative) Urine Nitrate Negative (Negative) Urine Bilirubin Negative (NEGATIVE) Urine Urobilinogen 0.2 (0.2) E.U./dL Ur Leukocyte Esterase Negative (NEGATIVE) Urine RBC 1-5/hpf (0-5/HPF) Urine WBC 0-1/hpf (0-5/HPF) Ur Squamous Epith Cells 0-1 /hpf (0-5/HPF) Urine Bacteria None seen (None) Ur Culture Indicated? Cult not indicated COVID-19 PCR Negative (Negative) ECG Data Attestation: I personally reviewed and interpreted this ECG as follows: Interpretation: Sinus rhythm at a rate of 98 Left bundle-branch block with left axis deviation No evidence for acute ischemia MDM Narrative Medical decision making narrative: 79-year-old woman presents with a week of not quite feeling right believing it is related to her blood pressure medications. This evening with left abdominal left chest pain significantly elevated lipase consistent with pancreatitis of uncertain etiology. CT scan is currently pending. CT scan returns and suggests a pancreatic serous cystadenoma that has been present since at least 2014 with slight increase in size only. No evidence of acute pancreatitis. I assume that this cystadenoma can account for the elevated lipase in the absence of significant pancreatitis symptoms or findings on CT scan. Patient is reassured. Recommended that she follow-up with her primary care physician and consider imaging as recommended by radiology and repeat lipase studies Blood pressure remains somewhat elevated. Will suggest she increase her metoprolol to 12.5 mg b.i.d., keep track of numbers and follow-up with her primary care physician. All of these findings were reviewed with patient. Questions were answered. She is safe for home discharge Discharge Plan Departure Patient Disposition: Home Clinical Impression: Serous cystadenoma of pancreas Instructions: DI for High Blood Pressure Activity Restrictions/Additional Instructions: Thank you for coming in today I did not find any life-threatening abnormalities. You are not having a heart attack. There is no evidence of pneumonia or serious infection. You do have what appears to be a serous cyst adenoma in your pancreas. This is not a cancer. It does look like it was noted in May of 2014 and has changed little since then. Today it is slightly bigger and your lipase level, a pancreatic enzyme, his significantly elevated. The recommendation is that you follow-up with your primary care physician and consider and MRi for confirmation. Your provider may also choose to repeat your lipase levels. The CT scan does not suggest an acute pancreatitis. Your blood pressure is quite elevated. Rather than restarting your losartan, I am going to suggest that you increase your metoprolol from 12.5 mg once a day to 12.5 mg morning and evening. Please keep track of your blood pressures and review these with your primary care physician with your follow-up visit. If you have worsening symptoms or new concerns, please feel free to return to the emergency department Prescriptions: No Action cephalexin 500 mg capsule 1,000 mg PO BID Qty: 20 RF: 0 lidocaine 5 % adhesive patch,medicated 1 patch TOP DAILY Qty: 15 RF: 0 levothyroxine 50 mcg tablet 1 tab PO DAILY RF: 0 atorvastatin 40 mg Tablet 40 mg PO BEDTIME RF: 0 metoprolol succinate 25 mg Tablet Extended Release 24 Hr 12.5 mg PO DAILY RF: 0 Referrals: Staci Siddiqui MD [Primary Care Provider] -
--- NOTE | 2020-02-22 20:26 | DI.RAD.S_ITS ---
PROCEDURE: XR CHEST 1V INDICATIONS: Chest pain TECHNIQUE: One view of the chest was acquired. COMPARISON: [facility], CR, XR CHEST 1V, 02/27/2018, 16:24. FINDINGS: Surgical changes and devices: None. Lungs and pleura: Biapical predominant pulmonary fibrosis, not significantly changed. No pleural effusions or pneumothorax. Mediastinum: Mediastinal contours appear normal. Stable mild cardiomegaly. Bones and chest wall: No suspicious bony lesions. Overlying soft tissues appear unremarkable. IMPRESSION: Stable mild cardiomegaly, stable biapical pulmonary fibrosis. No evidence acute pulmonary process. Dictated by: Hudson Browne M.D. on 02/22/2020 at 20:44 Approved by: Hudson Browne M.D. on 02/22/2020 at 20:44
[2020-02-22] MEDS: METOPROLOL TARTRATE 5 MG/5 ML INJ IV ×3 (20:32→20:56)
[2020-02-22 20:34] LABS: Add Manual Diff / Slide Review NO; Basophils Absolute Auto 0 /uL (0-100); Basophils Percent Auto 0.4 % (0-2); Eosinophils Absolute Auto 200 /uL (0-450); Eosinophils Percent Auto 1.7 % (2-4); Hematocrit 41.4 % (36-46); Hemoglobin 13.8 g/dL (12.0-16.0); Lymphocytes Absolute Auto 2000 /uL (1100-4500); Lymphocytes Percent Auto 20.8 % (25-40); Mean Corpuscular HGB Conc 33.4 % (30-36); Mean Corpuscular Hemoglobin 31.1 PG (26-34); Mean Corpuscular Volume 93.1 fL (80-100); Monocytes Absolute Auto 1000 /uL (0-900); Neutrophils Absolute Auto 6500 /uL (1500-7000); Neutrophils Percent Auto 67.1 % (50-75); Platelet Count 215 X10^3/uL (150-400); Red Blood Cell Count 4.45 X10^6/uL (4.0-5.2); Red Cell Distribution Width 13.8 % (11.6-14.8); White Blood Cell Count 9.6 X10^3/uL (4.5-11.0)
--- NOTE | 2020-02-22 20:41 | PC.NURSE ---
Addendum entered by Germaine Feliciano R.N. 02/22/20 21:06: States she hasn't taken a daily aspirin in years however. But today took a full one. Original Note: Pt took a full aspirin at home around 1600 today
[2020-02-22 20:43] LABS: Alanine Aminotransferase 25 IU/L (<35); Albumin 4.4 g/dL (3.5-5.0); Albumin Globulin Ratio 1.5 (1.0-2.8); Alkaline Phosphatase 89 U/L (38-126); Aspartate Aminotransferase 41 IU/L (14-36); BUN Creatinine Ratio 26.1 (6-22); Bilirubin Total 0.7 mg/dL (0.2-1.3); Blood Urea Nitrogen 18 mg/dL (7-17); Calcium 9.8 mg/dL (8.4-10.2); Carbon Dioxide 29 mmol/L (22-32); Chloride 101 mmol/L (98-107); Estimated Glomerular Filt Rate > 60.0 mL/min (>60); Glucose 102 mg/dL (80-110); HEMOLYSIS < 15 (0-50); Potassium 3.5 mmol/L (3.4-5.1); Sodium 137 mmol/L (137-145); Total Protein 7.4 g/dL (6.3-8.2)
[2020-02-22 20:52] LABS: Bacteria Urine None Seen
[2020-02-22 20:54] LABS: Appearance Urine UA CLEAR; Bilirubin Urine UA NEGATIVE (NEGATIVE); Color Urine UA YELLOW; Glucose Urine UA NEGATIVE (Negative); Ketones Urine UA NEGATIVE (NEGATIVE); Leukocyte Esterase Urine UA NEGATIVE (NEGATIVE); Nitrite Urine UA NEGATIVE (Negative); Occult Blood Urine UA TRACE-LYSED (Negative); Protein Urine UA NEGATIVE (Negative); Urobilinogen Urine UA 0.2 E.U./dL (0.2)
[2020-02-22 20:55] LABS: NT-proBNP (BNP-Adult 18+) 888 pg/mL (<450); Troponin I 0.017 ng/mL (0.01-0.034)
[2020-02-22 20:59] LABS: RBC Urine 1-5/HPF (0-5/HPF)
[2020-02-22 21:00] LABS: Culture Indicated Urine Cult Not Indicated; Squamous Epithelial Cell Urine 0-1 /HPF (0-5/HPF); WBC Urine 0-1/HPF (0-5/HPF)
[2020-02-22 21:10] LABS: Procalcitonin < 0.05 ng/mL (<0.5)
[2020-02-22 21:13] LABS: Lipase 26363 U/L (23-300)
[2020-02-22 21:55] LABS: COVID19 -Nasal RAPID Negative (Negative)
--- NOTE | 2020-02-23 00:05 | DI.CT.S_ITS ---
PROCEDURE: CT ABDOMEN PELVIS W CON INDICATIONS: elevated lipase TECHNIQUE: After the administration of intravenous contrast, 5 mm thick sections acquired from the diaphragm to the symphysis. 5 mm coronal and sagittal reformats were acquired. For radiation dose reduction, the following was used: automated exposure control, adjustment of mA and/or kV according to patient size. COMPARISON: [facility], CT, PE STUDY (CTA CHEST), 05/30/2014, 10:59. [facility], US, US ABDOMEN COMPLETE, 07/17/2019, 14:50. [facility], CR, XR CHEST 1V, 02/22/2020, 20:31. [facility], CT, CT ABDOMEN PELVIS W CON, 04/27/2018, 14:06. FINDINGS: Image quality: Excellent. ABDOMEN: Lung bases: Lung bases are clear. Heart size is normal. A small hiatal hernia is incidentally noted. Solid organs: Liver is normal in size. A presumed 11 mm liver hemangioma is seen involving the posterior right liver inferiorly, as on series 2, image 40 and on series 4, image 29. Gallbladder wall is not thickened. Biliary system is non dilated. There is a multilobulated cystic mass seen involving the head of the pancreas that measures 2.9 x 2.8 cm in greatest axial dimension. There is mild pancreatic ductal dilatation seen measuring 4 mm. Minimal inflammatory changes are seen surrounding the pancreas, primarily at the tail of the pancreas, as on series 2, image 34. Spleen is normal in size and enhancement. Calcified splenic granulomas are seen. Incidental note is made of an accessory splenule along the anterior aspect of the primary spleen. No adrenal nodules. Kidneys demonstrate normal size and enhancement, without hydronephrosis. There is a 3.6 cm simple appearing water density right renal cyst. Peritoneum and bowel: Bowel loops demonstrate normal wall thickness and caliber. No free fluid or air. Prior appendectomy changes are seen. Nodes and vessels: No retroperitoneal or mesenteric adenopathy by size criteria. Aorta and inferior vena cava are normal in size. Incidental note is made of a circumaortic left renal vein. Atherosclerotic calcification is noted. Miscellaneous: No ventral hernias. PELVIS: Genitourinary: Bladder wall thickness is normal. This patient is status post hysterectomy. No adnexal masses are seen. Miscellaneous: No inguinal hernias or adenopathy. Bones: No suspicious bony lesions. No vertebral body compression fractures. Degenerative changes are seen, which are most prominent involving the lower lumbar spine. IMPRESSION: There is again seen a cystic mass involving the head of the pancreas that measures up to 2.9 cm. This is increased in size compared to the prior examination. The appearance is nonspecific, although the suspicion is raised for a cystic pancreatic neoplasm. There is mild pancreatic ductal dilatation seen and minimal inflammatory changes seen adjacent to the pancreas, which is consistent with the given history. When clinically appropriate, please consider a dedicated pancreatic protocol MRI (without and with contrast) for further evaluation (assuming that there is no contraindication). Incidental note is made of: Small hiatal hernia Accessory splenule Apparent liver hemangioma Prior granulomatous exposure. Circumaortic left renal vein Simple appearing right renal cyst Appendectomy Hysterectomy Note: This case (including differences between this final report and the preliminary report) discussed by telephone with Dr. Serrano at 8:12 a.m. [place] time on February 23, 2020. Dictated by: Adal Burt M.D. on 02/23/2020 at 7:57 Approved by: Adal Burt M.D. on 02/23/2020 at 8:16
[2020-02-23 00:55] VITALS: BP 181/80; PULSE 63; RESP 20; O2SAT 96
[2020-02-23 01:00] VITALS: BP 173/77; RESP 20; O2SAT 96
[2020-02-23 01:31] VITALS: BP 174/73; PULSE 62; RESP 15; O2SAT 96
== END 2020-02-23 01:52 | disposition home or self-care (01) ==
PROVIDERS: Emergency Provider Emergency Medicine; Family Provider Internal Medicine Endocrinology, Diabetes & Metabolism; PCP Internal Medicine
DX: D13.6 Benign neoplasm of pancreas (principal); K85.90 Acute pancreatitis without necrosis or infection, unspecified; I10 Essential (primary) hypertension; E78.5 Hyperlipidemia, unspecified; F41.9 Anxiety disorder, unspecified; M25.511 Pain in right shoulder; R07.9 Chest pain, unspecified
CPT/HCPCS: 36415; 71045; 74177; 80053; 81001; 83690; 83735; 83880; 84145; 84484; 85025; 87635; 93005; 99285; Q9967

== ENCOUNTER 2020-02-23 13:34 | Inpatient (IN) | payer MEDICARE, SELFPAY ==
[2018-05-16 10:18] VITALS: BMI 25.4
[2020-02-23] VITALS (13 sets, daily range): BP systolic 110–187; BP diastolic 57–81; PULSE 65–89; RESP 14–16; TEMP 36.7–37.2; O2SAT 95–99; BMI 25.7
[2020-02-23 13:55] LABS: Add Manual Diff / Slide Review NO; Basophils Absolute Auto 100 /uL (0-100); Basophils Percent Auto 0.6 % (0-2); Eosinophils Absolute Auto 100 /uL (0-450); Eosinophils Percent Auto 0.7 % (2-4); Hematocrit 41.1 % (36-46); Hemoglobin 13.9 g/dL (12.0-16.0); Lymphocytes Absolute Auto 1000 /uL (1100-4500); Lymphocytes Percent Auto 10.4 % (25-40); Mean Corpuscular HGB Conc 33.8 % (30-36); Mean Corpuscular Hemoglobin 31.3 PG (26-34); Mean Corpuscular Volume 92.7 fL (80-100); Monocytes Absolute Auto 800 /uL (0-900); Monocytes Percent Auto 7.9 % (3-14); Neutrophils Absolute Auto 8000 /uL (1500-7000); Neutrophils Percent Auto 80.4 % (50-75); Platelet Count 227 X10^3/uL (150-400); Red Blood Cell Count 4.44 X10^6/uL (4.0-5.2); Red Cell Distribution Width 13.6 % (11.6-14.8); White Blood Cell Count 9.9 X10^3/uL (4.5-11.0)
[2020-02-23 14:11] LABS: Alanine Aminotransferase 23 IU/L (<35); Albumin 4.5 g/dL (3.5-5.0); Albumin Globulin Ratio 1.4 (1.0-2.8); Alkaline Phosphatase 95 U/L (38-126); Aspartate Aminotransferase 32 IU/L (14-36); BUN Creatinine Ratio 24.1 (6-22); Blood Urea Nitrogen 20 mg/dL (7-17); Calcium 10.1 mg/dL (8.4-10.2); Carbon Dioxide 27 mmol/L (22-32); Chloride 102 mmol/L (98-107); Estimated Glomerular Filt Rate > 60.0 mL/min (>60); Globulin 3.2 g/dL (1.7-4.1); Glucose 98 mg/dL (80-110); HEMOLYSIS < 15 (0-50); Potassium 3.8 mmol/L (3.4-5.1); Sodium 137 mmol/L (137-145); Total Protein 7.7 g/dL (6.3-8.2)
--- NOTE | 2020-02-23 14:16 | ED_ITS ---
HPI - Abdominal Pain General Chief Complaint: Abdominal Pain Stated Complaint: Abnormal Labs Time Seen by Provider: 02/23/20 13:50 Source: patient Mode of arrival: Ambulatory Limitations: no limitations History of Present Illness HPI narrative: 79-year-old female comes emergency department with complaint of abdominal pain. She is returning after I contacted her. Her radiology read by the radiology team showed some inflammation likely reflecting some pancreatitis. She has a known cystic lesion in her pancreas. She was also noted to have a lipase in the 20,000 range. I spoke with the patient she has had pain for several days, she has not had any fevers or chills she has had some mild nausea but no vomiting. No other GI or urinary symptoms. She describes her pain as being across the upper abdomen. Patient denies other symptoms or issues at this time. She has not had pancreatitis in the she has never been told her lipase was elevated. She was aware of the cystic mass in her pancreas. She does have a history of dyslipidemia, hypothyroidism as well as hyperparathyroidism. Patient return for evaluation and her case was discussed with Dr. Torres this morning before patient arrival. Related Data Home Medications Medication Instructions Recorded Confirmed metoprolol succinate 12.5 mg PO BID 04/27/18 02/23/20 levothyroxine [Synthroid] 50 mcg PO DAILY 02/23/20 02/23/20 Allergies Allergy/AdvReac Type Severity Reaction Status Date / Time Sulfa (Sulfonamide Allergy Unknown Verified 02/23/20 13:47 Antibiotics) [SULFA (SULFONAMIDE ANTIBIOTICS)] Review of Systems Review of Systems ROS Unobtainable: All systems reviewed & are unremarkable except as noted in HPI and below Patient History Medical History (Updated 02/23/20 @ 16:43 by Nichelle Charles RN) Acute appendicitis (Inactive) Hyperlipidemia (Acute) Hypertension (Acute) Hypothyroid (Acute) Left bundle branch block (Acute) Parathyroid abnormality (Acute) Surgical History (Updated 02/23/20 @ 16:45 by Nichelle Charles RN) H/O: hysterectomy (Resolved ~1992) History of appendectomy (Resolved ~04/27/18) No pertinent past surgical history (Acute) Family History Mother Hypertension Father Stomach cancer Prostate cancer Brother Prostate cancer Social History household members: none occupational status: previously employed Smoking Status: Never smoker alcohol intake: current substance use type: does not use Smoking Status: Never smoker alcohol intake frequency: holidays/special occasions only Substance Use Type: does not use Exam Narrative Exam Narrative: GENERAL: Alert and oriented x three, well-nourished elderly female in mild distress. HEENT: Head normocephalic, atraumatic, EOMI, pupils reactive, face symmetric, moist mucous membranes NECK: Supple, full range of motion CARDIOVASCULAR: Regular rate and rhythm without murmurs, rubs or gallops. RESPIRATORY: Breath sounds equal bilaterally, no wheezes rales or rhonchi. ABDOMEN: Soft, mild to moderate epigastric tenderness. Nondistended. Normoactive bowel sounds all 4 quadrants. No guarding or rebound, rigidity, no mass : No CVA tenderness EXTREMITIES: Normal range of motion, no clubbing or edema. Neurovascularly intact NEUROLOGICAL: Cranial nerves II through XII grossly intact. Moving all extremities SKIN: Warm, dry, no petechiae, no rashes or lesions. Initial Vital Signs Initial Vital Signs: Vital Signs Temperature 98.1 F 02/23/20 13:40 Pulse Rate 88 02/23/20 13:40 Respiratory Rate 14 02/23/20 13:40 Blood Pressure 144/60 H 02/23/20 13:40 Pulse Oximetry 95 02/23/20 13:40 Course Orders Ordered: ED Orders 02/23/20 13:45 Complete Blood Count AUTO DIFF Stat Comprehensive Metabolic Panel Stat Lipase Stat Bisacodyl (Dulcolax) 10 mg AL DAILY PRN PRN Reason: Constipation Enoxaparin Sodium (Lovenox) 40 mg SUBCUT DAILY GAURAV Sodium Chloride (Normal Saline 0.9%) 1,000 mls @ 100 mls/hr IV CONT GAURAV Morphine Sulfate (Morphine) 2 mg IV Q4HR PRN PRN Reason: Pain, Moderate (4-6) Naloxone HCl (Narcan) 0.2 mg IV Q2MIN PRN PRN Reason: Opiate Reversal Stored In Pharmacy 0 each PO . GAURAV Ondansetron HCl (Zofran) 4 mg IV Q8HR PRN PRN Reason: Nausea And Vomiting Discontinued Medications Sodium Chloride (Normal Saline 0.9%) 1,000 mls @ 1,000 mls/hr IV BOLUS ONE Stop: 02/23/20 15:15 Last Admin: 02/23/20 15:25 Dose: 1,000 mls/hr Documented by: HUNTER Reevaluation(s) Reevaluation #1: Patient updated on plan. Time: 15:37 Consultations Consultation #1: Dr Bajwa accepts for admission with telemetry. We discussed labs, Ct findings from last night. Also my discussion with Dr. Torres but that patient was not present in the department yet at that time. Time: 15:36 Vital Signs Vital signs: Vital Signs - 8 hr 02/23/20 13:40 02/23/20 13:57 02/23/20 14:00 Temperature 98.1 F Pulse Rate 88 77 76 Respiratory Rate 14 Blood Pressure 144/60 H Pulse Oximetry 95 96 96 02/23/20 14:30 02/23/20 15:00 02/23/20 15:30 Temperature Pulse Rate 74 65 70 Respiratory Rate Blood Pressure Pulse Oximetry 95 97 98 MDM - Abdominal Pain Lab Data Attestation: I reviewed the patient's lab results. Result diagrams: 02/23/20 13:45 02/23/20 13:45 Labs: Lab Results 02/23/20 02/23/20 Range/Units 13:45 13:45 WBC 9.9 (4.5-11.0) X10^3/uL RBC 4.44 (4.0-5.2) X10^6/uL Hgb 13.9 (12.0-16.0) g/dL Hct 41.1 (36-46) % MCV 92.7 (80-100) fL MCH 31.3 (26-34) PG MCHC 33.8 (30-36) % RDW 13.6 (11.6-14.8) % Plt Count 227 (150-400) X10^3/uL Neut % (Auto) 80.4 H (50-75) % Lymph % (Auto) 10.4 L (25-40) % [place] % (Auto) 7.9 (3-14) % Eos % (Auto) 0.7 L (2-4) % Baso % (Auto) 0.6 (0-2) % Neut # (Auto) 8000 H (9873-9246) /uL Lymph # (Auto) 1000 L (9304-3615) /uL [place] # (Auto) 800 (0-900) /uL Eos # (Auto) 100 (0-450) /uL Baso # (Auto) 100 (0-100) /uL Sodium 137 (137-145) mmol/L Potassium 3.8 (3.4-5.1) mmol/L Chloride 102 (98-107) mmol/L Carbon Dioxide 27 (22-32) mmol/L BUN 20 H (7-17) mg/dL Creatinine 0.83 (0.52-1.04) mg/dL Estimated GFR > 60.0 (>60) mL/min BUN/Creatinine Ratio 24.1 H (6-22) Glucose 98 (80-110) mg/dL Calcium 10.1 (8.4-10.2) mg/dL Total Bilirubin 1.0 (0.2-1.3) mg/dL AST 32 (14-36) IU/L ALT 23 (<35) IU/L Alkaline Phosphatase 95 (38-126) U/L Total Protein 7.7 (6.3-8.2) g/dL Albumin 4.5 (3.5-5.0) g/dL Globulin 3.2 (1.7-4.1) g/dL Albumin/Globulin Ratio 1.4 (1.0-2.8) Lipase 71301 H (23-300) U/L Imaging Data CT scan - abdomen/pelvis: Radiologist's Impression: Sarah Marc 79 [address] [place] [address] CT Scan Report Signed Patient: Sarah Marc R#: [id number] : 2Acct:[id number] Age/Sex: 79 / FDate of Service: 02/23/20 Loc: ED Accession Number: [id number] Procedure: CT abdomen pelvis w con Ordering Provider: Veronica Gomez MD PROCEDURE: CT ABDOMEN PELVIS W CON INDICATIONS: elevated lipase TECHNIQUE: After the administration of intravenous contrast, 5 mm thick sections acquired from the diaphragm to the symphysis. 5 mm coronal and sagittal reformats were acquired. For radiation dose reduction, the following was used: automated exposure control, adjustment of mA and/or kV according to patient size. COMPARISON: [facility], CT, PE STUDY (CTA CHEST), 05/30/2014, 10:59. [facility], US, US ABDOMEN COMPLETE, 07/17/2019, 14:50. [facility], CR, XR CHEST 1V, 02/22/2020, 20:31. [facility], CT, CT ABDOMEN PELVIS W CON, 04/27/2018, 14:06. FINDINGS: Image quality: Excellent. ABDOMEN: Lung bases: Lung bases are clear. Heart size is normal. A small hiatal hernia is incidentally noted. Solid organs: Liver is normal in size. A presumed 11 mm liver hemangioma is seen involving the posterior right liver inferiorly, as on series 2, image 40 and on series 4, image 29. Gallbladder wall is not thickened. Biliary system is non dilated. There is a multilobulated cystic mass seen involving the head of the pancreas that measures 2.9 x 2.8 cm in greatest axial dimension. There is mild pancreatic ductal dilatation seen measuring 4 mm. Minimal inflammatory changes are seen surrounding the pancreas, primarily at the tail of the pancreas, as on series 2, image 34. Spleen is normal in size and enhancement. Calcified splenic granulomas are seen. Incidental note is made of an accessory splenule along the anterior aspect of the primary spleen. No adrenal nodules. Kidneys demonstrate normal size and enhancement, without hydronephrosis. There is a 3.6 cm simple appearing water density right renal cyst. Peritoneum and bowel: Bowel loops demonstrate normal wall thickness and calib er. No free fluid or air. Prior appendectomy changes are seen. Nodes and vessels: No retroperitoneal or mesenteric adenopathy by size criteria. Aorta and inferior vena cava are normal in size. Incidental note is made of a circumaortic left renal vein. Atherosclerotic calcification is noted. Miscellaneous: No ventral hernias. PELVIS: Genitourinary: Bladder wall thickness is normal. This patient is status post hysterectomy. No adnexal masses are seen. Miscellaneous: No inguinal hernias or adenopathy. Bones: No suspicious bony lesions. No vertebral body compression fractures. Degenerative changes are seen, which are most prominent involving the lower lumbar spine. IMPRESSION: There is again seen a cystic mass involving the head of the pancreas that measures up to 2.9 cm. This is increased in size compared to the prior examination. The appearance is nonspecific, although the suspicion is raised for a cystic pancreatic neoplasm. There is mild pancreatic ductal dilatation seen and minimal inflammatory changes seen adjacent to the pancreas, which is consistent with the given history. When clinically appropriate, please consider a dedicated pancreatic protocol MRI (without and with contrast) for further evaluation (assuming that there is no con traindication). Incidental note is made of: Small hiatal hernia Accessory splenule Apparent liver hemangioma Prior granulomatous exposure. Circumaortic left renal vein Simple appearing right renal cyst Appendectomy Hysterectomy Note: This case (including differences between this final report and the preliminary report) discussed by telephone with Dr. Serrano at 8:12 a.m. [place] time on February 23, 2020. Dictated by: Adal Burt M.D. on 02/23/2020 at 7:57 Approved by: Adal Burt M.D. on 02/23/2020 at 8:16 MDM Narrative Medical decision making narrative: Patient was contacted by myself this morning after receiving a call from radiology regarding patient's CT. Patient discussed that the pain was knew she was aware of the cyst in her pancreas. I spoke with General surgery, Dr. Torres who did not anticipate having an elevated pancreatic enzyme with just a cyst in the pancreas and recommended treating pancreatitis initially with admission to the hospitalist and further workup of the pancreatic cyst as an outpatient to evaluate for neoplasm or other cause. Plan for fluids and pain control prn. Possible MRCP for further imaging evaluation and trending of enzymes as per discussion with Dr. Bajwa, updated patient and she is comfortable with this plan. Discharge Plan Departure Patient Disposition: Admitted As Inpatient Clinical Impression: Pancreatitis, Cyst of pancreas Discharge Date/Time: 02/23/20 16:17 Referrals: Staci Siddiqui MD [Primary Care Provider] - Admit Date/Time: 02/23/20 15:37 Admit Provider: Faiza Bajwa
[2020-02-23 14:39] LABS: Lipase 20375 U/L (23-300)
[2020-02-23] MEDS: SODIUM CHLORIDE 0.9% 1,000 ML 1000 ML IV (15:25)
[2020-02-23] MEDS: SODIUM CHLORIDE 0.9% 1,000 ML 100 ML IV (17:33)
[2020-02-23 17:47] LABS: Magnesium 2.1 mg/dL (1.6-2.3)
[2020-02-23 17:56] LABS: Hemoglobin A1C% w Est Avg Glu 5.2 % (4.0-6.0)
[2020-02-23 18:12] LABS: Procalcitonin < 0.05 ng/mL (<0.5)
--- NOTE | 2020-02-23 19:22 | P.HP_ITS ---
History of Present Illness History of Present Illness Date Patient Seen: 02/23/20 Chief complaint: Abnormal Labs Narrative: Sarah Marc s a 79-year-old female with a past medical history significant for hypertension and hypothyroidism who presented to the ED complaining of epigastric pain radiating to chest and right shoulder with associated nausea and decreased appetite. The patient was actually seen on 02/22/2020 and discharged home after CT abdomen and pelvis redemonstrated lesion of pancreatic head without changes that suggested acute pancreatitis and elevated lipase in 20,000 range which was believed to be associated with pancreatic head lesion. The patient was called back to the ED due to official CT scan read by the daytime radiologist demonstrated some inflammation likely reflecting some pancreatitis. She has a known previous cystic lesion in her pancreas. Patient reports epigastric pain radiating to chest and back for several days. She has had decreased appetite with nausea but no vomiting. She denies headaches, cough, shortness of breath, fevers, chills, dysuria, diarrhea or constipation. She has not had pancreatitis and she has never been told her lipase was elevated. She was aware of the cystic mass in her pancreas. The ED physician discussed case with genereal surgery, Dr. Torres, who reccommended treatment of pancreatitis. Patient History Medical History (Updated 02/24/20 @ 18:18 by Faiza Bajwa DO) Acute appendicitis (Inactive) Hypercalcemia (Acute) Hyperlipidemia (Acute) Hypertension (Acute) Hypothyroid (Acute) Left bundle branch block (Acute) Parathyroid abnormality (Acute) Surgical History (Updated 02/24/20 @ 18:18 by Faiza Bajwa DO) H/O: hysterectomy (Resolved ~1992) History of appendectomy (Resolved ~04/27/18) Family & Social History Family History Mother Hypertension Father Stomach cancer Prostate cancer Brother Prostate cancer Social History: household members none Prior Living Arrangements House Safety & Behavioral: Feels Safe in Current Yes Environment Been Physically Hurt or No Threatened By a Person Suicidal Ideation Description None Tobacco & Substance use: Smoking Status Never smoker alcohol intake current alcohol intake frequency holiday/special occasion Substance Use Type does not use Meds Home Medications and Allergies Home Medications Medication Instructions Recorded Confirmed Type levothyroxine [Synthroid] 50 mcg PO DAILY 10/17/20 10/17/20 History metoprolol succinate 25 mg PO BID #60 tab 02/25/20 Rx Allergies Allergy/AdvReac Type Severity Reaction Status Date / Time Sulfa (Sulfonamide Allergy Unknown Verified 02/23/20 13:47 Antibiotics) [SULFA (SULFONAMIDE ANTIBIOTICS)] Review of Systems Review of Systems Narrative: A 10 system comprehensive review of systems was conducted with the patient and found to be negative except as above in the History of Present Illness. Exam Vital Signs (past 8 hours): - 02/23/20 13:40 02/23/20 13:57 02/23/20 14:00 Temperature 98.1 F Pulse Rate 88 77 76 Respiratory Rate 14 Blood Pressure 144/60 H Pulse Oximetry 95 96 96 02/23/20 14:30 02/23/20 15:00 02/23/20 15:30 Temperature Pulse Rate 74 65 70 Respiratory Rate Blood Pressure Pulse Oximetry 95 97 98 02/23/20 16:00 02/23/20 17:54 Temperature 98.7 F Pulse Rate 70 75 Respiratory Rate 16 Blood Pressure 110/57 L Pulse Oximetry 99 98 Oxygen Delivery Method Room Air Narrative Exam Narrative: General: Elderly female lying in bed and in no acute distress, well-developed, well-nourished, appropriately interactive. HEENT: Normocephalic, atraumatic. External ears without defect. Pupils equal, round, and reactive to light. Anicteric sclerae, moist conjunctivae, and no lid lag. Oropharynx free of erythema and cobble stoning with moist mucosa. Neck: Supple with full range of motion. No jugular venous distension. No bruits. No lymphadenopathy or thyromegaly. Cardiovascular: Regular rate and rhythm without murmurs, rubs, or gallops appreciated Pulmonary: Clear to auscultation bilaterally without crackles, wheezes, or rhonchi. Normal respiratory effort with no use of accessory muscles. Abdomen:Soft, tenderness to palpation in epigastrum, nondistended, bowel sounds present. No hepatosplenomegaly or masses appreciated. Extremities: No clubbing, cyanosis, or edema. Skin: Normal temperature, turgor, and texture; no rash, ulcers, or subcutaneous nodules appreciated. Neurological: Cranial nerves grossly intact. Psychiatric: Normal mood and affect. Alert and oriented to person, place, and time. Objective Labs Result Diagrams: 02/24/20 04:51 02/25/20 Unknown Labs: Laboratory Results - last 24 hr 02/23/20 02/23/20 02/23/20 13:45 13:45 17:28 WBC 9.9 RBC 4.44 Hgb 13.9 Hct 41.1 MCV 92.7 MCH 31.3 MCHC 33.8 RDW 13.6 Plt Count 227 Neut % (Auto) 80.4 H Lymph % (Auto) 10.4 L [place] % (Auto) 7.9 Eos % (Auto) 0.7 L Baso % (Auto) 0.6 Neut # (Auto) 8000 H Lymph # (Auto) 1000 L [place] # (Auto) 800 Eos # (Auto) 100 Baso # (Auto) 100 Sodium 137 Potassium 3.8 Chloride 102 Carbon Dioxide 27 BUN 20 H Creatinine 0.83 Estimated GFR > 60.0 BUN/Creatinine Ratio 24.1 H Glucose 98 Hemoglobin A1c Calcium 10.1 Magnesium Total Bilirubin 1.0 AST 32 ALT 23 Alkaline Phosphatase 95 Total Protein 7.7 Albumin 4.5 Globulin 3.2 Albumin/Globulin Ratio 1.4 Lipase 26104 H Procalcitonin < 0.05 02/23/20 02/23/20 17:28 17:28 WBC RBC Hgb Hct MCV MCH MCHC RDW Plt Count Neut % (Auto) Lymph % (Auto) [place] % (Auto) Eos % (Auto) Baso % (Auto) Neut # (Auto) Lymph # (Auto) [place] # (Auto) Eos # (Auto) Baso # (Auto) Sodium Potassium Chloride Carbon Dioxide BUN Creatinine Estimated GFR BUN/Creatinine Ratio Glucose Hemoglobin A1c 5.2 Calcium Magnesium 2.1 Total Bilirubin AST ALT Alkaline Phosphatase Total Protein Albumin Globulin Albumin/Globulin Ratio Lipase Procalcitonin Assessment & Plan Assessment & Plan narrative: Sarah Marc s a 79-year-old female with a past medical history significant for hypertension and hypothyroidism who presented to the ED complaining of epigastric pain radiating to chest and right shoulder with associated nausea and decreased appetite. 1. Acute pancreatitis, chronic, present on admission. Active. -Patient presented for epigastric pain radiating up to chest and right shoulder pain with associated nausea and decreased appetite on 02/22/2020 and was disch arged home from ED. Patient was called back to ED due to official CT scan reading of acute pancreatitis with elevated lipase. -CT abdomen pelvis with contrast demonstrated -Initial lipase 26,363. Repeat lipase 20,375. Continue to monitor lipase daily. -Continue IV fluid hydration with normal saline at 100 mL/hrn and bowel rest with NPO. Plan to slowly advan ce diet after 24 hours. -Ordered MRCP to better evaluate pancreatic mass and hepatobiliary tree. -Continue symptomatic support with: pain control with morphine 0.5-1 mg every 4 hours and antiemetics with ondansetron 4 mg every 8 hours. Continue to monitor glucose every 6 hours while NPO and provide glucose source through IV fluids if necessary to avoid hypoglycemia. 2. Hypertension, chronic, present on admission. Stable. -Ordered labetalol 10 mg IV every 4 hours as needed for SBP > 160 mmHg. Plan to continue metoprolol succinate 12.5 mg twice daily once appropriate for PO intake. 3. Hypothyroidism, chronic, present on admission. Stable. -Ordered TSH with reflex, pending. -Continue levothyroxine 25 mcg IV daily (which is half home dose) until appropriate for PO intake. Code status: DNR/DNI (IV antibiotics and BiPAP), filled out POLST form VTE prophylaxis: Enoxaparin, SCDs Patient is admitted under inpatient status with expected length of stay greater than 2 midnights due to severity of presenting symptoms, risk of adverse event, and complexity of treatment plan.
--- NOTE | 2020-02-23 20:23 | PC.NURSE ---
Pt arrived to 223 per WC from ED. AAOx4, denies pain at this time. SBP 182/87, aware. Pt NPO per order. admission assessment completed, valuables locked in safe. IV of NS @ 100ml/hr initiated per order, placed on telemetry. Oriented to environment, call light in reach.
[2020-02-24] VITALS (16 sets, daily range): BP systolic 136–186; BP diastolic 67–81; PULSE 62–84; RESP 14–18; TEMP 36.3–36.9; O2SAT 94–98
[2020-02-24] MEDS: KETOROLAC 30 MG/ML VIAL 7.5 MG IV (00:03)
[2020-02-24] MEDS: LABETALOL 20 MG/4 ML SYRINGE 10 MG IV (00:03)
--- NOTE | 2020-02-24 01:27 | PC.NURSE ---
2346 Called Birtany Díaz after assessing pt who is c/o headache enough that pt. is unable to sleep. Pt. has order for Morphine but pt. wants something mild like Tylenol. Britany Díaz does not want pt. to have Tylenol because she is NPO but order Toradol instead. Pt's. BG check also at that time with a result of 73, suggested to Britany Díaz to change IV with some D5 in it since pt. is NPO. Britany Díaz doesn't feel it is necessary since pt. is non diabetic. Will check BG again in am. 0133 Pt. administered the 7.5 mg Toradol for PFEIFFER with good relief, pain down to zero. Pt. also administered Labetalol 10 mg IV same time Toradol was given since pt's B/P was 186/81, B/P recheck with a reading of 136/80. Pt is pleased and was actually dozing when reassessed. Tele shows SR with HR in the 70's.
[2020-02-24] MEDS: SODIUM CHLORIDE 0.9% 1,000 ML 100 ML IV (03:04)
[2020-02-24 05:14] LABS: Alanine Aminotransferase 17 IU/L (<35); Albumin 3.5 g/dL (3.5-5.0); Albumin Globulin Ratio 1.4 (1.0-2.8); Alkaline Phosphatase 68 U/L (38-126); Aspartate Aminotransferase 25 IU/L (14-36); BUN Creatinine Ratio 28.8 (6-22); Bilirubin Total 0.9 mg/dL (0.2-1.3); Blood Urea Nitrogen 17 mg/dL (7-17); Calcium 9.1 mg/dL (8.4-10.2); Carbon Dioxide 23 mmol/L (22-32); Chloride 108 mmol/L (98-107); Estimated Glomerular Filt Rate > 60.0 mL/min (>60); Globulin 2.5 g/dL (1.7-4.1); Glucose 70 mg/dL (80-110); HEMOLYSIS < 15 (0-50); Sodium 137 mmol/L (137-145)
[2020-02-24 05:16] LABS: Add Manual Diff / Slide Review NO; Basophils Absolute Auto 0 /uL (0-100); Basophils Percent Auto 0.3 % (0-2); Eosinophils Absolute Auto 100 /uL (0-450); Eosinophils Percent Auto 1.3 % (2-4); Hematocrit 35.8 % (36-46); Hemoglobin 11.9 g/dL (12.0-16.0); Lymphocytes Absolute Auto 900 /uL (1100-4500); Lymphocytes Percent Auto 11.9 % (25-40); Mean Corpuscular HGB Conc 33.4 % (30-36); Mean Corpuscular Hemoglobin 31.3 PG (26-34); Mean Corpuscular Volume 93.7 fL (80-100); Monocytes Absolute Auto 800 /uL (0-900); Neutrophils Absolute Auto 5700 /uL (1500-7000); Neutrophils Percent Auto 75.5 % (50-75); Platelet Count 160 X10^3/uL (150-400); Red Blood Cell Count 3.82 X10^6/uL (4.0-5.2); Red Cell Distribution Width 13.8 % (11.6-14.8); White Blood Cell Count 7.5 X10^3/uL (4.5-11.0)
[2020-02-24 05:34] LABS: Lipase 11508 U/L (23-300)
--- NOTE | 2020-02-24 08:53 | DI.US.S_ITS ---
PROCEDURE: US ABDOMEN COMPLETE INDICATIONS: pancreatitis, panc cyst TECHNIQUE: Real-time scanning was performed of the abdominal and retroperitoneal organs, with image documentation. COMPARISON: [facility], CT, CT ABDOMEN PELVIS W CON, 02/23/2020, 0:24. [facility], US, US ABDOMEN COMPLETE, 07/17/2019, 14:50. FINDINGS: Liver: The liver demonstrates normal size. The liver demonstrates generalized minimally increased echogenicity. This decreases ultrasound sensitivity for detection of hepatic masses. Within the right liver, there is a nonshadowing hyperechoic mass that is most likely related to a hemangioma and correlates well with the prior CT appearance. Gallbladder: No findings of gallstones or sludge are seen. The gallbladder wall is not thickened, measuring 3 mm or less. No specific pericholecystic fluid is seen. The sonographic Crocker sign is negative. Biliary ducts: Intrahepatic bile ducts are non-dilated. Extrahepatic bile duct caliber measures 6 mm. Normal is 6-7 mm or less in diameter, or 10 mm or less post-cholecystectomy. Pancreas: Within the head of the pancreas, there is a complex cystic and solid mass seen that measures 2.9 x 2 x 3.3 cm. No pancreatic ductal dilatation is seen. Spleen: Spleen is normal in size and homogeneous in echotexture. Calcified splenic granulomas are seen. Kidneys: Kidneys are normal in size and echotexture. Right kidney measures 10.4 cm long; left kidney measures 10.2 cm long. No hydronephrosis or nephrolithiasis. No solid masses. At the superior pole of the right kidney, there is a 4 cm simple appearing cyst. Aorta: Visualized aorta is normal in caliber at less than 3 cm. Iliacs: Proximal common iliac arteries are normal in caliber at less than 2.5 cm. IVC: Intrahepatic inferior vena cava is patent. Miscellaneous: No free abdominal fluid. IMPRESSION: Cystic and solid mass seen at the head of the pancreas, as previously seen. The appearance is worrisome for a pancreatic neoplasm. When clinically appropriate, please consider a dedicated pancreas protocol MRI (without and with contrast) for further evaluation (assuming that there is no contraindication). The liver demonstrates increased echogenicity. This finding is nonspecific, yet it is most commonly attributed to fatty infiltration. Incidental note is made of: Liver hemangioma Simple appearing right renal cyst Prior granulomatous exposure. Dictated by: Adal Burt M.D. on 02/24/2020 at 10:38 Approved by: Adal Burt M.D. on 02/24/2020 at 10:42
--- NOTE | 2020-02-24 09:43 | P.PN_ITS ---
Subjective Subjective Date Patient Seen: 02/24/20 Interval history: Patient is a 79-year-old female with history of hypertension and pancreatic cyst admitted with acute onset of epigastric and chest discomfort associated with nausea and diminished appetite. Lipase was 26,[address] showed inflammation of tail of pancreas consistent with acute pancreatitis. Patient reports slight improvement in epigastric pain but still has no appetite. Denies vomiting. Exam Vital Signs (past 8 hours): - 02/24/20 05:00 02/24/20 05:15 02/24/20 07:25 Temperature 98.4 F 97.7 F Pulse Rate 75 81 Respiratory Rate 16 16 Blood Pressure 156/67 H 155/76 H Pulse Oximetry 94 94 95 Oxygen Delivery Method Room Air Oxygen Flow Rate 0 Narrative Exam Narrative: General: Alert and very pleasant female in no acute distress Lungs: Clear to auscultation Heart: Regular rhythm Abdomen: Nondistended, mild epigastric tenderness without guarding or rebound Extremities: No edema Neurological: Sensorium intact, nonfocal Objective Labs Result Diagrams: 02/24/20 04:51 02/24/20 04:51 Labs: Laboratory Results - last 24 hr 02/23/20 02/23/20 02/23/20 13:45 13:45 17:28 WBC 9.9 RBC 4.44 Hgb 13.9 Hct 41.1 MCV 92.7 MCH 31.3 MCHC 33.8 RDW 13.6 Plt Count 227 Neut % (Auto) 80.4 H Lymph % (Auto) 10.4 L Hudson % (Auto) 7.9 Eos % (Auto) 0.7 L Baso % (Auto) 0.6 Neut # (Auto) 8000 H Lymph # (Auto) 1000 L Hudson # (Auto) 800 Eos # (Auto) 100 Baso # (Auto) 100 Sodium 137 Potassium 3.8 Chloride 102 Carbon Dioxide 27 BUN 20 H Creatinine 0.83 Estimated GFR > 60.0 BUN/Creatinine Ratio 24.1 H Glucose 98 Hemoglobin A1c Calcium 10.1 Magnesium Total Bilirubin 1.0 AST 32 ALT 23 Alkaline Phosphatase 95 Total Protein 7.7 Albumin 4.5 Globulin 3.2 Albumin/Globulin Ratio 1.4 Lipase 01202 H Procalcitonin < 0.05 02/23/20 02/23/20 02/24/20 17:28 17:28 04:51 WBC 7.5 RBC 3.82 L Hgb 11.9 L Hct 35.8 L MCV 93.7 MCH 31.3 MCHC 33.4 RDW 13.8 Plt Count 160 Neut % (Auto) 75.5 H Lymph % (Auto) 11.9 L Hudson % (Auto) 11.0 Eos % (Auto) 1.3 L Baso % (Auto) 0.3 Neut # (Auto) 5700 Lymph # (Auto) 900 L Hudson # (Auto) 800 Eos # (Auto) 100 Baso # (Auto) 0 Sodium Potassium Chloride Carbon Dioxide BUN Creatinine Estimated GFR BUN/Creatinine Ratio Glucose Hemoglobin A1c 5.2 Calcium Magnesium 2.1 Total Bilirubin AST ALT Alkaline Phosphatase Total Protein Albumin Globulin Albumin/Globulin Ratio Lipase Procalcitonin 02/24/20 04:51 WBC RBC Hgb Hct MCV MCH MCHC RDW Plt Count Neut % (Auto) Lymph % (Auto) Hudson % (Auto) Eos % (Auto) Baso % (Auto) Neut # (Auto) Lymph # (Auto) Hudson # (Auto) Eos # (Auto) Baso # (Auto) Sodium 137 Potassium 4.0 Chloride 108 H Carbon Dioxide 23 BUN 17 Creatinine 0.59 Estimated GFR > 60.0 BUN/Creatinine Ratio 28.8 H Glucose 70 L Hemoglobin A1c Calcium 9.1 Magnesium Total Bilirubin 0.9 AST 25 ALT 17 Alkaline Phosphatase 68 Total Protein 6.0 L Albumin 3.5 Globulin 2.5 Albumin/Globulin Ratio 1.4 Lipase 53071 H Procalcitonin Assessment & Plan Assessment & Plan narrative: Patient is a 79-year-old female with history of hypertension and pancreatic cyst admitted with acute onset of epigastric and chest discomfort associated with nausea and diminished appetite. Lipase was 26,[address] showed inflammation of tail of pancreas consistent with acute pancreatitis. 1. Acute pancreatitis, present on admission, active -etiology undetermined, patient is not a drinker and does not have prior history of pancreatitis -patient is stable and slowly improving -lipase 26,000-->11,000, improved -CBD not dilated on CT -clear liquid diet -NS plus 20 mEq KCL per L at 100 cc/hour -morphine 2 mg as needed, ketorolac 7.5 mg q.8 hours as needed, ondansetron 4 mg IV as needed -abdominal ultrasound, rule out gallstone disease 2. Pancreatic cyst, present on admission, chronic -patient has history of cyst in head of pancreas 1st noted on CT 05/30/2014 and measuring 1.9 x 1.[address] on 04/27/2018 showed no change in appearance of the cyst. -CT 02/23/2020 shows cyst is growing, currently 2.9 x 2.8 cm, and appears multi lobulated which is different from prior appearance -discussed imaging findings with patient and this could represent a slowly growing pancreatic malignancy or could still be a benign cyst -advised patient to see GI specialist as outpatient for further evaluation including possible EUS -patient states she is very claustrophobic and would prefer not to have limited abdominal MRI 3. Essential hypertension, chronic -elevated blood pressures since admission likely stress and some anxiety -patient discontinued losartan 25 mg q.d. about a week ago due to side effects -continue metoprolol succinate 12.5 mg b.i.d. per home routine 4. Hypothyroidism, chronic -resume levothyroxine 50 mcg q.d. per home routine DVT prophylaxis: Enoxaparin Code status: Full code Surrogate decision makers: Daughter
[2020-02-24] MEDS: KCL 20 MEQ IN NS 1,000 ML 100 MEQ IV (09:47)
[2020-02-24] MEDS: ENOXAPARIN 40 MG/0.4 ML SYRINGE SUBCUT (09:53)
[2020-02-24] MEDS: METOPROLOL ER 25 MG TABLET 12.5 MG PO ×2 (09:54→19:59)
[2020-02-24] MEDS: LEVOTHYROXINE 50 MCG TABLET PO (09:54)
[2020-02-24] MEDS: HYDROCODONE/ACET 5/325 TABLET 1 TAB PO (12:35)
--- NOTE | 2020-02-24 13:21 | CM.DANOTE ---
Discharge Planning/Care Management DCP: assessment: case received, EMR reviewed and met with pt during Team Bedside Rounds. Introduced self and role. Pt is a 79 year old female who admitted yesterday afternoon to care of hospitalist team. Dr. Murphy sees her today and explained to all in Rounds that pt was being treated for acute pancreatitis/? etiology. Further tests were planned. Pt confirmed she does live independently, is , has supportive daughter in [facility] [place]. PCP: Staci Siddiqui Payer: Medicare and [employer] Admission status: INPT. DCP team will be following as POC unfolds to assist with any d/c needs that may arise. Advanced directive, confirm from [facility]IN[facility] Start: 02/23/20 16:33 Freq: Q24H Status: Active Protocol: Document 02/23/20 16:33 CW (Rec: 02/23/20 20:20 CW [id number]) Advance Directive, confirm on record Time 20:20 Person contacted pt Copy received Yes Advanced directive available on record Yes CM Discharge Assessment Start: 02/24/20 13:20 Freq: Status: Active Protocol: Document 02/24/20 13:20 ITV (Rec: 02/24/20 13:21 ITV [id number]) Discharge Planning Assessment Advance Directives? Yes Advance Directives on File Yes History Provided By Patient,Medical Record Has Patient been admitted in last 30 No days? Prior Living Arrangements House Household Members none Type of transporation used prior to Drives own vehicle admit Comment pt drove self to hospital. car is in ER parking lot. Independent with ADL's Yes Is patient alert and oriented? Yes
--- NOTE | 2020-02-24 15:50 | PC.NURSE ---
Addendum entered by Shivani Carter R.N. 02/24/20 20:56: Med @ 1999 for discomfort per pt. request. Appears to be resting quietly now. IVF continue as per orders. Call light w/in reach, pt calls appropriately for needs. Continue w/plan of care. Addendum entered by Shivani Carter R.N. 02/24/20 16:47: IVF of NS w/20meq KCL infusing @ 100cc/hr via pump into LAC w/o incidence. Original Note: Pt resting quietly at this time. Denies discomfort Lungs clear, SpO2 98% RA Abdomen soft, tender left quads. BT ++ SCD on at this time. Call light w/in reach, bed alarm on for pt safety.
[2020-02-24 18:57] LABS: TSH w/ Reflex to FT4 3.54 uIU/mL (0.47-4.68)
--- NOTE | 2020-02-24 21:05 | PC.NURSE ---
Pt has had uneventful evening. Lungs clear, SpO2 98% RA Tele showing NSR per ICU staff. IVF of NS w/20meq KCL @ 100cc/hr infusing into LAC via pump w/o incidence. Slight amount of abdominal discomfort intermittently. Call light w/in reach, pt calls appropriately for needs. Continue w/plan of care.
[2020-02-25] VITALS (11 sets, daily range): BP systolic 140–179; BP diastolic 68–94; PULSE 67–78; RESP 15–18; TEMP 36.1–37.6; O2SAT 95–97
[2020-02-25] MEDS: METOPROLOL ER 25 MG TABLET PO (03:47)
[2020-02-25] MEDS: LEVOTHYROXINE 50 MCG TABLET PO (05:20)
[2020-02-25] MEDS: KCL 20 MEQ IN NS 1,000 ML 100 MEQ IV (05:20)
[2020-02-25] MEDS: METOPROLOL ER 25 MG TABLET 12.5 MG PO (08:51)
[2020-02-25] MEDS: INFLUENZA HD VACCINE 0.7 ML SYRINGE IM (08:52)
[2020-02-25] MEDS: ENOXAPARIN 40 MG/0.4 ML SYRINGE SUBCUT (08:52)
[2020-02-25 12:33] LABS: BUN Creatinine Ratio 11.7 (6-22); Blood Urea Nitrogen 7 mg/dL (7-17); Calcium 9.3 mg/dL (8.4-10.2); Carbon Dioxide 28 mmol/L (22-32); Chloride 106 mmol/L (98-107); Estimated Glomerular Filt Rate > 60.0 mL/min (>60); Glucose 116 mg/dL (80-110); HEMOLYSIS < 15 (0-50); Potassium 3.8 mmol/L (3.4-5.1); Sodium 137 mmol/L (137-145)
--- NOTE | 2020-02-25 14:57 | PC.NURSE ---
Patient tolerated some pudding and half sandwich without nausea and increase in pain. Dr Cho aware of patients elevated BP 176/91, order to [facility] IVF taken.
--- NOTE | 2020-02-25 16:50 | PM.DS.1 ---
History of Present Illness History of Present Illness Date Patient Seen: 02/25/20 Chief complaint: Abnormal Labs Narrative: Sarah Marc s a 79-year-old female with a past medical history significant for hypertension and hypothyroidism who presented to the ED complaining of epigastric pain radiating to chest and right and right shoulder pain with associated nausea and decreased appetite. The patient was actually seen on 02/22/2020 and discharged home after CT abdomen and pelvis redemonstrated lesion of pancreatic head without changes that suggested acute pancreatitis and elevated lipase in 20,000 range which was believed to be associated with pancreatic head lesion. The patient was called back to the ED due to official CT scan read by the daytime radiologist demonstrated some inflammation likely reflecting some pancreatitis. She has a known previous cystic lesion in her pancreas. I spoke with the patient she has had pain for several days, she has not had any fevers or chills she has had some mild nausea but no vomiting. No other GI or urinary symptoms. She describes her pain as being across the upper abdomen. Patient denies other symptoms or issues at this time. She has not had pancreatitis in the she has never been told her lipase was elevated. She was aware of the cystic mass in her pancreas. She does have a history of dyslipidemia, hypothyroidism as well as hyperparathyroidism. Patient return for evaluation and her case was discussed with Dr. Torres this morning before patient arrival. Discharge Providers Provider Date of admission: 02/23/20 15:37 Discharge Date: 02/25/20 Primary care physician: Staci Siddiqui MD Discharge provider: Natasha Cho MD Summary Hospital Course Discharge Diagnosis: 1. Acute pancreatitis 2. 2.9 cm cystic mass in the pancreatic head etiology unclear 3. Hypertension 4. Hypothyroidism Exam Vital Signs (past 8 hours): - 02/25/20 12:00 02/25/20 12:25 02/25/20 16:18 Temperature 99.5 F 98.4 F Pulse Rate 68 78 Respiratory Rate 15 18 Blood Pressure 176/91 H 179/94 H Pulse Oximetry 97 97 97 Oxygen Delivery Method Room Air Oxygen Flow Rate 0 Narrative Exam Narrative: pleasant female resting comfortably in no obvious distress Lungs:Clear to auscultation Cardiac exam: Regular rate and rhythm normal S1-S2 Abdomen: Mild tenderness in the midepigastric area, no palpable masses, no rebound tenderness, no board-like rigidity Extremities: No edema Objective Labs Result Diagrams: 02/24/20 04:51 02/25/20 Unknown Labs: Laboratory Results - last 24 hr 02/24/20 02/25/20 04:35 Unknown Sodium 137 Potassium 3.8 Chloride 106 Carbon Dioxide 28 BUN 7 Creatinine 0.60 Estimated GFR > 60.0 BUN/Creatinine Ratio 11.7 Glucose 116 H Calcium 9.3 TSH 3.54 Discharge Assessment & Plan Assessment and Plan Assessment: 1. Acute pancreatitis 2. 2.9 cm cystic pancreatic mass located at the head of the pancreas 3. Hypertension 4. Hypothyroid Plan of Treatment: 1. Follow-up with Dr. saenz will at [facility] in [facility] for endoscopic ultrasound versus MRI of the abdomen 2. Increase metoprolol to 25 twice daily from current dosing of 12.5 twice daily 3. Follow-up with primary care physician next week Discharge Plan Discharge Plan Patient Disposition: Home Provider Discharge Comment: Patient to follow up with GI at [facility] in [place] to discuss Endoscopic Ultrasound vs. abdominal MRI Discharge orders & Medications Prescriptions: New metoprolol succinate 25 mg tablet extended release 24 hr 25 mg PO BID Qty: 60 RF: 0 Continued levothyroxine [Synthroid] 50 mcg tablet 50 mcg PO DAILY RF: 0 Discontinued metoprolol succinate 25 mg Tablet Extended Release 24 Hr 12.5 mg PO BID RF: 0 Follow up/Referrals: Staci Siddiqui MD [Primary Care Provider] - Discharge Health Status Care Plan Goals: follow up with Dr. Aguilar, [facility] , Gastroenterology [phone] Multidrug resistant organism: No MDRO Diet/Activity/Treatments Diet: Low-fat and Low-sodium Activity: as tolerated Skin/Wound/Dressing Care Report to your healthcare provider any signs of infection, such as:: chills, fever and increased pain Discharge Data Primary Care Provider: Staci Siddiqui
--- NOTE | 2020-02-25 17:39 | PC.NURSE ---
discharge-patient with discharge orders back to home. Patient aware and agreeable. Valuables and meds from pharmacy given to patient. Education and discharge instructions explained to patient and paper work given to her. This RN transported patient in wheel chair, patient gait steady to ambulate to vehicle.
== END 2020-02-25 17:30 | disposition home or self-care (01) | DRG 439 ==
LOC: ED 15:36 → AC 15:37
PROVIDERS: Internal Medicine; Admitting Provider Internal Medicine; Emergency Provider Emergency Medicine; Family Provider Internal Medicine Endocrinology, Diabetes & Metabolism; PCP Internal Medicine; Referring Provider Emergency Medicine; Visit Provider Internal Medicine
DX: K85.90 Acute pancreatitis without necrosis or infection, unspecified (principal); K86.2 Cyst of pancreas; I10 Essential (primary) hypertension; E03.9 Hypothyroidism, unspecified; Z66 Do not resuscitate
CPT/HCPCS: 36415; 71045; 74177; 76700; 80048; 80053; 81001; 82962; 83036; 83690; 83735; 83880; 84145; 84443; 84484; 85025; 87635; 90471; 90662; 93005; 99284; 99285; J1650; J1885; Q9967

== ENCOUNTER 2020-03-24 11:42 | Inpatient (IN) | payer MEDICARE, SELFPAY ==
[2020-02-23 16:16] VITALS: BMI 25.7
[2020-03-24] VITALS (20 sets, daily range): BP systolic 153–192; BP diastolic 71–121; PULSE 67–93; RESP 12–29; TEMP 36.3–37.3; O2SAT 95–98; BMI 25.2
[2020-03-24 12:31] LABS: Add Manual Diff / Slide Review NO; Basophils Absolute Auto 0 /uL (0-100); Basophils Percent Auto 0.2 % (0-2); Eosinophils Absolute Auto 0 /uL (0-450); Eosinophils Percent Auto 0.1 % (2-4); Hematocrit 41.7 % (36-46); Lymphocytes Absolute Auto 500 /uL (1100-4500); Lymphocytes Percent Auto 5.5 % (25-40); Mean Corpuscular HGB Conc 33.6 % (30-36); Mean Corpuscular Hemoglobin 31.1 PG (26-34); Mean Corpuscular Volume 92.6 fL (80-100); Monocytes Absolute Auto 300 /uL (0-900); Monocytes Percent Auto 3.2 % (3-14); Neutrophils Absolute Auto 8300 /uL (1500-7000); Platelet Count 185 X10^3/uL (150-400); Red Blood Cell Count 4.51 X10^6/uL (4.0-5.2); Red Cell Distribution Width 13.9 % (11.6-14.8); White Blood Cell Count 9.1 X10^3/uL (4.5-11.0)
[2020-03-24 12:32] LABS: INR 1.1 (0.9-1.3); Prothrombin Time 12.1 SECONDS (10.1-12.7)
[2020-03-24 12:35] LABS: PTT Partial Thromboplastin Tim 25 SECONDS (26.4-36.2)
[2020-03-24 12:36] LABS: Alanine Aminotransferase 21 IU/L (<35); Albumin 4.4 g/dL (3.5-5.0); Albumin Globulin Ratio 1.5 (1.0-2.8); Alkaline Phosphatase 87 U/L (38-126); Aspartate Aminotransferase 31 IU/L (14-36); BUN Creatinine Ratio 26.1 (6-22); Bilirubin Total 0.6 mg/dL (0.2-1.3); Blood Urea Nitrogen 18 mg/dL (7-17); Calcium 9.9 mg/dL (8.4-10.2); Carbon Dioxide 26 mmol/L (22-32); Chloride 102 mmol/L (98-107); Estimated Glomerular Filt Rate > 60.0 mL/min (>60); Globulin 2.9 g/dL (1.7-4.1); Glucose 137 mg/dL (80-110); HEMOLYSIS < 15 (0-50); Potassium 3.9 mmol/L (3.4-5.1); Sodium 135 mmol/L (137-145); Total Protein 7.3 g/dL (6.3-8.2)
[2020-03-24] MEDS: SODIUM CHLORIDE 0.9% 1,000 ML 1000 ML IV (12:49)
[2020-03-24] MEDS: ONDANSETRON 4 MG/2 ML INJ IV ×2 (12:50→20:50)
[2020-03-24] MEDS: KETOROLAC 60 MG/2 ML VIAL 30 MG IV (12:50)
--- NOTE | 2020-03-24 12:53 | ED_ITS ---
HPI - Abdominal Pain <FEDERICO Mccray - Last Filed: 03/24/20 19:38> General Chief Complaint: Abdominal Pain Stated Complaint: pancreatitis Time Seen by Provider: 03/24/20 12:17 Source: patient Mode of arrival: Ambulatory Limitations: no limitations History of Present Illness HPI narrative: 79yo female with a history of pancreatitis and pancreatic cyst, presents to the ED for worsening abdominal pain over the last 24-48 hours. She states she was admitted on 02/23/2020 for few days to [facility] for pancreatitis. Patient states ?I was doing fine, she states she was able to eat and drink and had minimal pain. However the pain slowly started to return. She is scheduled for an MRI of her abdomen tomorrow as this concerned that the cyst had moved. In talking to her primary care provider, she discussed that she was having more pain and nausea and was encouraged to be seen in the emergency department. Patient denies any vomiting, does report dry heaving this morning. Last bowel movement was this morning, she states she has had some constipation. Denies diarrhea. Patient denies any fevers, chills, cough, shortness of breath, or any other concerns. Related Data Home Medications Medication Instructions Recorded Confirmed levothyroxine [Synthroid] 50 mcg PO DAILY 02/23/20 03/24/20 Previous Rx's Medication Instructions Recorded metoprolol succinate 25 mg PO BID #60 tab 02/25/20 Allergies Allergy/AdvReac Type Severity Reaction Status Date / Time Sulfa (Sulfonamide Allergy Unknown Verified 02/23/20 13:47 Antibiotics) [SULFA (SULFONAMIDE ANTIBIOTICS)] Review of Systems <FEDERICO Mccray - Last Filed: 03/24/20 19:38> Review of Systems Narrative: REVIEW OF SYSTEMS: GENERAL: Denies fever. HENT: No head trauma. EYES: No vision changes. CARDIOVASCULAR: No chest pain. RESPIRATORY: No cough. GASTROINTESTINAL: Complains of diffuse abdominal pain and nausea, see HPI GENITOURINARY: No flank pain. MUSCULOSKELETAL: No pain, weakness, or trauma. INTEGUMENTARY: No rash. NEURO: No numbness or tingling. PSYCH: No behavior or mood changes. Patient History <FEDERICO Mccray - Last Filed: 03/24/20 19:38> Medical History Acute appendicitis Hypercalcemia Hyperlipidemia Hypertension Hypothyroid Left bundle branch block Parathyroid abnormality Surgical History H/O: hysterectomy (~1992) History of appendectomy (~04/27/18) Family History Mother Hypertension Father Stomach cancer Prostate cancer Brother Prostate cancer Social History household members: none occupational status: previously employed Smoking Status: Never smoker alcohol intake: current substance use type: does not use Smoking Status: Never smoker alcohol intake frequency: holidays/special occasions only Substance Use Type: does not use Exam <FEDERICO Mccray - Last Filed: 03/24/20 19:38> Initial Vital Signs Initial Vital Signs: Vital Signs Temperature 99.1 F 03/24/20 11:48 Pulse Rate 88 03/24/20 11:48 Respiratory Rate 16 03/24/20 11:48 Blood Pressure 178/80 H 03/24/20 11:48 Pulse Oximetry 98 03/24/20 11:48 PHYSICAL EXAMINATION: GENERAL: Well groomed, alert, and cooperative. Answers questions promptly and appropriately. Vital signs noted. HENT: Normocephalic, atraumatic. Hearing intact. Oral mucosa is pink and moist. EYES: Conjunctiva pink, sclera white, no periorbital swelling. CARDIOVASCULAR: S1 and S2 sounds normal. Regular rate and rhythm, no murmurs, cl icks, or bruits. RESPIRATORY: Normal respiratory rate, trachea midline, airway patent. No stridor, nasal flaring or accessory muscle use. Lungs are clear in all carter without wheeze, rhonchi, or crackles. GASTROINTESTINAL: Bowel sounds normoactive. Abdomen is soft right upper quadrant tenderness with palpation, no rebound tenderness.. No organomegaly, no palpable masses. GENITALURINARY: No flank tenderness. MUSCULOSKELETAL: Normal gait and coordination. Equal tone and mass bilaterally. EXTREMITIES: CMS intact. SKIN: Warm, dry, soft, appropriate color for ethnicity. No lesions, rashes, or wounds to visualized areas. NEURO: Alert and Oriented X 3. Good coordination. No ataxia, or sensory deficits, or cognitive issues. PSYCH: Appropriate affect and mood. <Yoli Serrano DO - Last Filed: 03/25/20 19:16> Initial Vital Signs Initial Vital Signs: Vital Signs Temperature 99.1 F 03/24/20 11:48 Pulse Rate 88 03/24/20 11:48 Respiratory Rate 16 03/24/20 11:48 Blood Pressure 178/80 H 03/24/20 11:48 Pulse Oximetry 98 03/24/20 11:48 Course <Naomi FEDERICO Shaver - Last Filed: 03/24/20 19:38> Course Course Narrative: 1405: I spoke with Dr. Matias who suggested transfer to a facility with a GI specialist for ERCP. Patient is scheduled for MRI of abdomen, was able to order this at this time from the ED. 1649: I spoke with general surgeon, Dr. Anton about patient's history, test results, and current laboratory results. He suggested transfer with GI specialist. 1741: I spoke with machine burrer from [facility], Dr. Marquez who states no intervention will be done until pancreatitis subsides. He suggest general insert imagine with fluids an outpatient follow-up for ERCP. 1750: I spoke with Dr. Matias for admission who states he will contact gastroenterology and return my call. 1805: Dr. Matias accepts for admission to inpatient. Orders Ordered: Heparin Sodium (Porcine) (Heparin 5,000 Unit/Ml Vial) 5,000 unit SUBCUT BID [facility] Last Admin: 03/25/20 09:20 Dose: 5,000 unit Documented by: Admin: 03/24/20 20:48 Dose: 5,000 unit Documented by: KDALE Hydromorphone HCl (Hydromorphone 0.5 Mg Inj) 0.5 mg IV Q4H PRN PRN Reason: Pain, Severe (7-10) Last Admin: 03/25/20 09:20 Dose: 0.5 mg Documented by: Admin: 03/25/20 01:21 Dose: 0.5 mg Documented by: CMCFARL Hydromorphone HCl (Hydromorphone 1 Mg Inj) 1 mg IV Q4H PRN PRN Reason: Pain, Moderate (4-6) Sodium Chloride (Normal Saline 0.9%) 1,000 mls @ 125 mls/hr IV CONT [facility] Last Admin: 03/25/20 12:45 Dose: 125 mls/hr Documented by: Infusion: 03/25/20 12:28 Dose: 125 mls/hr Documented by: Admin: 03/25/20 04:28 Dose: 125 mls/hr Documented by: Infusion: 03/25/20 03:45 Dose: 125 mls/hr Documented by: Admin: 03/24/20 19:45 Dose: 125 mls/hr Documented by: JENNI Levothyroxine Sodium (Levothyroxine Inj 100 Mcg/5 Ml Vial) 25 mcg IV 1700 [facility] Last Admin: 03/25/20 16:48 Dose: 25 mcg Documented by: JENNI Metoprolol Tartrate (Metoprolol Tartrate 5 Mg/5 Ml Inj) 5 mg IV Q2HR PRN PRN Reason: hypertension, SBP >180 Naloxone HCl (Naloxone 0.4 Mg/Ml Vial) 0.2 mg IV Q2MIN PRN PRN Reason: Opiate Reversal Ondansetron HCl (Ondansetron 4 Mg/2 Ml Inj) 4 mg IV Q6HR PRN PRN Reason: Nausea And Vomiting Last Admin: 03/25/20 09:20 Dose: 4 mg Documented by: JOI Prochlorperazine (Prochlorperazine 10 Mg/2 Ml Vial) 5 mg IV Q6HR PRN PRN Reason: Nausea Last Admin: 03/25/20 12:41 Dose: 5 mg Documented by: JOI Discontinued Medications Hydromorphone HCl (Hydromorphone 2 Mg Inj) 1 mg IV Q4H PRN PRN Reason: Pain, Moderate (4-6) Sodium Chloride (Normal Saline 0.9%) 1,000 mls @ 1,000 mls/hr IV BOLUS ONE Stop: 03/24/20 13:24 Last Infusion: 03/24/20 15:05 Dose: 0 mls/hr Documented by: Admin: 03/24/20 12:49 Dose: 1,000 mls/hr Documented by: FALGUNI Ketorolac Tromethamine (Ketorolac 60 Mg/2 Ml Vial) 30 mg IV NOW ONE Stop: 03/24/20 12:26 Last Admin: 03/24/20 12:50 Dose: 30 mg Documented by: FALGUNI Lorazepam (Lorazepam 2 Mg/Ml Inj) 1 mg IV NOW ONE Stop: 03/24/20 14:32 Last Admin: 03/24/20 14:42 Dose: 1 mg Documented by: FALGUNI Morphine Sulfate (Morphine 2 Mg/Ml Inj) 2 mg IV NOW ONE Stop: 03/24/20 13:46 Last Admin: 03/24/20 15:11 Dose: Not Given Documented by: FALGUNI Morphine Sulfate (Morphine 2 Mg/Ml Inj) 2 mg IV Q4HR PRN PRN Reason: Pain, Moderate (4-6) Ondansetron HCl (Ondansetron 4 Mg/2 Ml Inj) 4 mg IV NOW ONE Stop: 03/24/20 12:26 Last Admin: 03/24/20 12:50 Dose: 4 mg Documented by: FALGUNI Ondansetron HCl (Ondansetron 4 Mg/2 Ml Inj) 4 mg IV Q8HR PRN PRN Reason: Nausea And Vomiting Last Admin: 03/24/20 20:50 Dose: 4 mg Documented by: AMIE Ondansetron HCl (Ondansetron 4 Mg/2 Ml Inj) 4 mg IV NOW ONE Stop: 03/25/20 00:46 Last Admin: 03/25/20 01:19 Dose: 4 mg Documented by: ALEJANDRO Consultations Consultation #1: Patient staffed with Dr. Serrano discussed test, test results, plan of care. Vital Signs Vital signs: Vital Signs - 8 hr 03/24/20 11:48 03/24/20 13:06 03/24/20 13:30 Temperature 99.1 F Pulse Rate 88 71 70 Respiratory Rate 16 12 Blood Pressure 178/80 H 185/78 H Pulse Oximetry 98 98 98 03/24/20 14:00 03/24/20 14:30 03/24/20 15:18 Temperature Pulse Rate 77 68 82 Respiratory Rate 17 13 29 H Blood Pressure 159/71 H 169/73 H Pulse Oximetry 98 98 03/24/20 15:20 03/24/20 15:30 03/24/20 16:00 Temperature Pulse Rate 78 76 93 H Respiratory Rate 21 18 19 Blood Pressure 192/85 H 179/77 H 180/81 H Pulse Oximetry 97 97 96 03/24/20 16:30 03/24/20 17:00 03/24/20 17:30 Temperature Pulse Rate 67 75 70 Respiratory Rate 17 20 18 Blood Pressure 174/77 H Pulse Oximetry 97 95 03/24/20 18:00 Temperature Pulse Rate 77 Respiratory Rate 23 Blood Pressure 183/83 H Pulse Oximetry 96 <Yoli Serrano, - Last Filed: 03/25/20 19:16> Orders Ordered: Heparin Sodium (Porcine) (Heparin 5,000 Unit/Ml Vial) 5,000 unit SUBCUT BID [facility] Last Admin: 03/25/20 09:20 Dose: 5,000 unit Documented by: Admin: 03/24/20 20:48 Dose: 5,000 unit Documented by: AMIE Hydromorphone HCl (Hydromorphone 0.5 Mg Inj) 0.5 mg IV Q4H PRN PRN Reason: Pain, Severe (7-10) Last Admin: 03/25/20 09:20 Dose: 0.5 mg Documented by: Admin: 03/25/20 01:21 Dose: 0.5 mg Documented by: ALEJANDRO Hydromorphone HCl (Hydromorphone 1 Mg Inj) 1 mg IV Q4H PRN PRN Reason: Pain, Moderate (4-6) Sodium Chloride (Normal Saline 0.9%) 1,000 mls @ 125 mls/hr IV CONT [facility] Last Admin: 03/25/20 12:45 Dose: 125 mls/hr Documented by: Infusion: 03/25/20 12:28 Dose: 125 mls/hr Documented by: Admin: 03/25/20 04:28 Dose: 125 mls/hr Documented by: Infusion: 03/25/20 03:45 Dose: 125 mls/hr Documented by: Admin: 03/24/20 19:45 Dose: 125 mls/hr Documented by: JENNI Levothyroxine Sodium (Levothyroxine Inj 100 Mcg/5 Ml Vial) 25 mcg IV 1700 [facility] Last Admin: 03/25/20 16:48 Dose: 25 mcg Documented by: JENNI Metoprolol Tartrate (Metoprolol Tartrate 5 Mg/5 Ml Inj) 5 mg IV Q2HR PRN PRN Reason: hypertension, SBP >180 Naloxone HCl (Naloxone 0.4 Mg/Ml Vial) 0.2 mg IV Q2MIN PRN PRN Reason: Opiate Reversal Ondansetron HCl (Ondansetron 4 Mg/2 Ml Inj) 4 mg IV Q6HR PRN PRN Reason: Nausea And Vomiting Last Admin: 03/25/20 09:20 Dose: 4 mg Documented by: JOI Prochlorperazine (Prochlorperazine 10 Mg/2 Ml Vial) 5 mg IV Q6HR PRN PRN Reason: Nausea Last Admin: 03/25/20 12:41 Dose: 5 mg Documented by: JOI Discontinued Medications Hydromorphone HCl (Hydromorphone 2 Mg Inj) 1 mg IV Q4H PRN PRN Reason: Pain, Moderate (4-6) Sodium Chloride (Normal Saline 0.9%) 1,000 mls @ 1,000 mls/hr IV BOLUS ONE Stop: 03/24/20 13:24 Last Infusion: 03/24/20 15:05 Dose: 0 mls/hr Documented by: Admin: 03/24/20 12:49 Dose: 1,000 mls/hr Documented by: FALGUNI Ketorolac Tromethamine (Ketorolac 60 Mg/2 Ml Vial) 30 mg IV NOW ONE Stop: 03/24/20 12:26 Last Admin: 03/24/20 12:50 Dose: 30 mg Documented by: FALGUNI Lorazepam (Lorazepam 2 Mg/Ml Inj) 1 mg IV NOW ONE Stop: 03/24/20 14:32 Last Admin: 03/24/20 14:42 Dose: 1 mg Documented by: FALGUNI Morphine Sulfate (Morphine 2 Mg/Ml Inj) 2 mg IV NOW ONE Stop: 03/24/20 13:46 Last Admin: 03/24/20 15:11 Dose: Not Given Documented by: FALGUNI Morphine Sulfate (Morphine 2 Mg/Ml Inj) 2 mg IV Q4HR PRN PRN Reason: Pain, Moderate (4-6) Ondansetron HCl (Ondansetron 4 Mg/2 Ml Inj) 4 mg IV NOW ONE Stop: 03/24/20 12:26 Last Admin: 03/24/20 12:50 Dose: 4 mg Documented by: FALGUNI Ondansetron HCl (Ondansetron 4 Mg/2 Ml Inj) 4 mg IV Q8HR PRN PRN Reason: Nausea And Vomiting Last Admin: 03/24/20 20:50 Dose: 4 mg Documented by: AMIE Ondansetron HCl (Ondansetron 4 Mg/2 Ml Inj) 4 mg IV NOW ONE Stop: 03/25/20 00:46 Last Admin: 03/25/20 01:19 Dose: 4 mg Documented by: ALEJANDRO Vital Signs Vital signs: Vital Signs - 8 hr 03/24/20 11:48 03/24/20 13:06 03/24/20 13:30 Temperature 99.1 F Pulse Rate 88 71 70 Respiratory Rate 16 12 Blood Pressure 178/80 H 185/78 H Pulse Oximetry 98 98 98 03/24/20 14:00 03/24/20 14:30 03/24/20 15:18 Temperature Pulse Rate 77 68 82 Respiratory Rate 17 13 29 H Blood Pressure 159/71 H 169/73 H Pulse Oximetry 98 98 03/24/20 15:20 03/24/20 15:30 03/24/20 16:00 Temperature Pulse Rate 78 76 93 H Respiratory Rate 21 18 19 Blood Pressure 192/85 H 179/77 H 180/81 H Pulse Oximetry 97 97 96 03/24/20 16:30 03/24/20 17:00 03/24/20 17:30 Temperature Pulse Rate 67 75 70 Respiratory Rate 17 20 18 Blood Pressure 174/77 H Pulse Oximetry 97 95 03/24/20 18:00 Temperature Pulse Rate 77 Respiratory Rate 23 Blood Pressure 183/83 H Pulse Oximetry 96 MDM - Abdominal Pain <FEDERICO Mccray - Last Filed: 03/24/20 19:38> Medical Records Attestation: I reviewed the patient's medical records. Lab Data Attestation: I reviewed the patient's lab results. Result diagrams: 03/25/20 05:10 03/25/20 05:10 Labs: Lab Results 03/24/20 03/24/20 03/24/20 Range/Units 12:05 12:05 12:05 WBC 9.1 (4.5-11.0) X10^3/uL RBC 4.51 (4.0-5.2) X10^6/uL Hgb 14.0 (12.0-16.0) g/dL Hct 41.7 (36-46) % MCV 92.6 (80-100) fL MCH 31.1 (26-34) PG MCHC 33.6 (30-36) % RDW 13.9 (11.6-14.8) % Plt Count 185 (150-400) X10^3/uL Neut % (Auto) 91.0 H (50-75) % Lymph % (Auto) 5.5 L (25-40) % Mills % (Auto) 3.2 (3-14) % Eos % (Auto) 0.1 L (2-4) % Baso % (Auto) 0.2 (0-2) % Neut # (Auto) 8300 H (7899-1368) /uL Lymph # (Auto) 500 L (2420-8548) /uL Mills # (Auto) 300 (0-900) /uL Eos # (Auto) 0 (0-450) /uL Baso # (Auto) 0 (0-100) /uL PT 12.1 (10.1-12.7) SECONDS INR 1.1 (0.9-1.3) APTT 25 L D (26.4-36.2) SECONDS Sodium 135 L (137-145) mmol/L Potassium 3.9 (3.4-5.1) mmol/L Chloride 102 (98-107) mmol/L Carbon Dioxide 26 (22-32) mmol/L BUN 18 H (7-17) mg/dL Creatinine 0.69 (0.52-1.04) mg/dL Estimated GFR > 60.0 (>60) mL/min BUN/Creatinine Ratio 26.1 H (6-22) Glucose 137 H (80-110) mg/dL Calcium 9.9 (8.4-10.2) mg/dL Total Bilirubin 0.6 (0.2-1.3) mg/dL AST 31 (14-36) IU/L ALT 21 (<35) IU/L Alkaline Phosphatase 87 (38-126) U/L Total Creatine Kinase (30-135) U/L CK-MB (CK-2) CK-MB (CK-2) Rel Index Troponin I (0.01-0.034) ng/mL Total Protein 7.3 (6.3-8.2) g/dL Albumin 4.4 (3.5-5.0) g/dL Globulin 2.9 (1.7-4.1) g/dL Albumin/Globulin Ratio 1.5 (1.0-2.8) Lipase 08064 H (23-300) U/L Urine RBC (0-5/HPF) Urine WBC (0-5/HPF) Ur Squamous Epith Cells (0-5/HPF) Amorphous Sediment Urine Bacteria (None) Urine Mucus (Negative) Ur Culture Indicated? COVID-19 PCR (Negative) 03/24/20 03/24/20 03/24/20 Range/Units 12:05 13:23 18:00 WBC (4.5-11.0) X10^3/uL RBC (4.0-5.2) X10^6/uL Hgb (12.0-16.0) g/dL Hct (36-46) % MCV (80-100) fL MCH (26-34) PG MCHC (30-36) % RDW (11.6-14.8) % Plt Count (150-400) X10^3/uL Neut % (Auto) (50-75) % Lymph % (Auto) (25-40) % Mills % (Auto) (3-14) % Eos % (Auto) (2-4) % Baso % (Auto) (0-2) % Neut # (Auto) (6273-0534) /uL Lymph # (Auto) (1973-5360) /uL Mills # (Auto) (0-900) /uL Eos # (Auto) (0-450) /uL Baso # (Auto) (0-100) /uL PT (10.1-12.7) SECONDS INR (0.9-1.3) APTT (26.4-36.2) SECONDS Sodium (137-145) mmol/L Potassium (3.4-5.1) mmol/L Chloride (98-107) mmol/L Carbon Dioxide (22-32) mmol/L BUN (7-17) mg/dL Creatinine (0.52-1.04) mg/dL Estimated GFR (>60) mL/min BUN/Creatinine Ratio (6-22) Glucose (80-110) mg/dL Calcium (8.4-10.2) mg/dL Total Bilirubin (0.2-1.3) mg/dL AST (14-36) IU/L ALT (<35) IU/L Alkaline Phosphatase (38-126) U/L Total Creatine Kinase 42 (30-135) U/L CK-MB (CK-2) TNP CK-MB (CK-2) Rel Index TNP Troponin I < 0.012 (0.01-0.034) ng/mL Total Protein (6.3-8.2) g/dL Albumin (3.5-5.0) g/dL Globulin (1.7-4.1) g/dL Albumin/Globulin Ratio (1.0-2.8) Lipase (23-300) U/L Urine RBC None seen (0-5/HPF) Urine WBC 1-5/hpf (0-5/HPF) Ur Squamous Epith Cells 1-5 /hpf (0-5/HPF) Amorphous Sediment 1+ Urine Bacteria Occasional (0-1) (None) Urine Mucus 1+ H (Negative) Ur Culture Indicated? Cult not indicated COVID-19 PCR Negative (Negative) Point of care testing: Urine Dip Bedside Urine Glucose Negative Bedside Urine Bilirubin - Negative Bedside Urine Ketone +/- 5 Urine Specific [place] 1.030 Bedside Urine Occult Blood - Negative Bedside Urine pH 5.5 Bedside Urine Protein +/- 15 Bedside Urine Urobilinogen - Negative Bedside Urine Nitrite - Negative Bedside Urine Leukocytes - Negative Esterase Imaging Data US - abdomen: Radiologist's Impression: [address] [id number] ReportSigned Patient: Sarah Marc R#: [id number]: 2Acct:[id number]/Sex: 79 / FDate of Service: 03/24/20Loc: EDAccession Number: [id number] Procedure: US abdomen limited Ordering Provider: Naomi Shaver PROCEDURE: US ABDOMEN LIMITED INDICATIONS: R/o pancreatic stone, RUQ and LUQ pain TECHNIQUE: Real-time scanning was performed of the abdominal and retroperitoneal organs, with image documentation. COMPARISON: [facility], US, US ABDOMEN COMPLETE, 02/24/2020, 11:09. [facility], CT, CT ABDOMEN PELVIS W CON, 02/23/2020, 0:24. FINDINGS: Liver: Liver is normal in size and homogeneous in echotexture. Previously seen hyperechoic focus in the lateral right lobe of the liver is again seen on the cine clip. Punctate calcification in the right lobe of the liver. Portal vein demonstrates expected hepatopetal flow. Gallbladder: Nondilated. No stones or sludge. Normal gallbladder wall thickness. No pericholecystic fluid. Negative sonographic Crocker's sign. Biliary ducts: Intrahepatic bile ducts are non-dilated. Extrahepatic bile duct caliber measures 4 mm. Normal is 6-7 mm or less in diameter, or 10 mm or less post-cholecystectomy. Pancreas: The cystic lesion in the head of the pancreas is not identified. Right kidney: No hydronephrosis. A simple cyst in the right kidney measuring 3 cm. IMPRESSION: 1. Cystic lesion in the head of the pancreas is no longer identified sonographically. -the patient is scheduled for follow-up abdominal MRI. 2. No acute cholecystitis. No gallstones. 3. No biliary ductal dilatation seen. 4. Small hyperechoic lesion in the right lobe of the liver is compatible with a benign hemangioma and is seen on prior CTs dating back to at least 2018. Dictated by: Laron Aguilar M.D. on 03/24/2020 at 14:37 Approved by: Laron Aguilar M.D. on 03/24/2020 at 14:46 MRCP: Radiologist's Impression: [address] [id number] Resonance ReportSigned Patient: Sarah Marc R#: [id number]: 1940cct:[id number]/Sex: 79 / FDate of Service: 03/24/20Loc: EDAccession Number: [id number] Procedure: MR abdomen wo con Ordering Provider: Naomi Shaver PROCEDURE: MR ABDOMEN WO CON INDICATIONS: Repeat pancreatitis, cyst TECHNIQUE: Coronal HASTE through the abdomen, axial 2-D FLASH in- and [id number], and breath-hold T2 FSE with fat saturation through the biliary system and pancreas. Oblique coronal and axial thin-slice HASTE, radial thick-slab HASTE centered on the extrahepatic bile ducts. Intravenous secretin: Not requested. COMPARISON: [facility], CT, CT ABDOMEN PELVIS W CON, 02/23/2020, 0:24. FINDINGS: Image quality: Excellent. Pancreas and biliary system: A multi-septated cystic lesion is seen in the head of the pancreas measuring 2.9 x 2.8 x 2.7 cm, as seen on prior CT from 02/23/2020. There is mild dilation of the main pancreatic duct, measuring up to 4 mm in diameter. Peripancreatic edema is seen, compatible with reported clinical pancreatitis. There is a trace amount of upper abdominal ascites. The gallbladder is normal in size. No significant biliary ductal dilatation or intraluminal filling defect is seen. Other solid organs: A benign T2 hyperintense cyst or hemangioma is seen in right hepatic lobe. Liver is normal in size. Spleen is normal in size. No adrenal nodules. Both kidneys are normal in size, without hydronephrosis. T2 hyperintense cysts are seen in the right kidney. Nodes and vessels: No retroperitoneal or mesenteric adenopathy by size criteria. Aorta and inferior vena cava are normal in size. Bowel and peritoneum: A few diverticula are seen in the colon. Unenhanced bowel loops are normal in caliber. Lung bases: No basal pleural effusions. Heart size is normal. Bones and soft tissues: No ventral hernias. Bone marrow is of normal overall signal. IMPRESSION: 1. Peripancreatic edema and trace upper abdominal ascites are seen compatible with reported pancreatitis. The main pancreatic duct is mildly dilated to 4 mm. 2. A multi-septated cystic lesion in the pancreatic head measuring 2.9 x 2.8 x 2.7 cm, corresponding to the lesion seen on prior CT from 02/23/2020. No definite solid non-cystic components are seen on this noncontrast exam. Findings may represent a cystic neoplasm such as a serous cystadenoma or a side branch intraductal papillary mucinous neoplasm versus a chronic pseudocyst. Dictated by: Darrion Person M.D. on 03/24/2020 at 15:29 Approved by: Darrion Person M.D. on 03/24/2020 at 15:46 ECG Data Interpretation: 1202: Sinus rhythm, rate 78, P interval 180, QTC 469. Left bundle branch block, T-wave inversion noted in lead 1 which is the same as EKGs done on 02/22/2008 and 02/28/2020. No ST elevation or ST depression. EKG also seen by Dr. Serrano per protocol. 1649: I spoke with Dr. Anton, he recommends transfer for GI involvement. MDM Narrative Medical decision making narrative: 79-year-old female with a history of a pancreatic cyst and pancreatitis, presents emergency department for worsening abdominal pain and nausea. [place] is [place] [address], vomiting was controlled with 2 doses of a morrison strong. Pain was controlled with Toradol. Discussed the case initially with Dr. Matias, MRI was ordered from the ED showing the same size of cyst as appeared in CT approximately 2 weeks ago, increased concerns for neoplasm. Consulted general surgeon Desean initially who suggested transfer as well. However, GI specialist from [facility] no intervention can occur during an episode of pancreatitis, recommends admission for generalized conservative treatment then outpatient follow-up. Patient has ERCP scheduled at [facility] in April. She remains hemodynamically stable without significant pain. She had a slight bout of confusion post MRI due to administration of lorazepam for claustrophobia prior to her MRI. Patient was admitted to Dr. Matias for further workup and evaluation and treatment. <Yoli Serrano, DO - Last Filed: 03/25/20 19:16> Lab Data Labs: Lab Results 03/24/20 03/24/20 03/24/20 Range/Units 12:05 12:05 12:05 WBC 9.1 (4.5-11.0) X10^3/uL RBC 4.51 (4.0-5.2) X10^6/uL Hgb 14.0 (12.0-16.0) g/dL Hct 41.7 (36-46) % MCV 92.6 (80-100) fL MCH 31.1 (26-34) PG MCHC 33.6 (30-36) % RDW 13.9 (11.6-14.8) % Plt Count 185 (150-400) X10^3/uL Neut % (Auto) 91.0 H (50-75) % Lymph % (Auto) 5.5 L (25-40) % Mills % (Auto) 3.2 (3-14) % Eos % (Auto) 0.1 L (2-4) % Baso % (Auto) 0.2 (0-2) % Neut # (Auto) 8300 H (6859-4903) /uL Lymph # (Auto) 500 L (4792-9339) /uL Mills # (Auto) 300 (0-900) /uL Eos # (Auto) 0 (0-450) /uL Baso # (Auto) 0 (0-100) /uL PT 12.1 (10.1-12.7) SECONDS INR 1.1 (0.9-1.3) APTT 25 L D (26.4-36.2) SECONDS Sodium 135 L (137-145) mmol/L Potassium 3.9 (3.4-5.1) mmol/L Chloride 102 (98-107) mmol/L Carbon Dioxide 26 (22-32) mmol/L BUN 18 H (7-17) mg/dL Creatinine 0.69 (0.52-1.04) mg/dL Estimated GFR > 60.0 (>60) mL/min BUN/Creatinine Ratio 26.1 H (6-22) Glucose 137 H (80-110) mg/dL Calcium 9.9 (8.4-10.2) mg/dL Total Bilirubin 0.6 (0.2-1.3) mg/dL AST 31 (14-36) IU/L ALT 21 (<35) IU/L Alkaline Phosphatase 87 (38-126) U/L Total Creatine Kinase (30-135) U/L CK-MB (CK-2) CK-MB (CK-2) Rel Index Troponin I (0.01-0.034) ng/mL Total Protein 7.3 (6.3-8.2) g/dL Albumin 4.4 (3.5-5.0) g/dL Globulin 2.9 (1.7-4.1) g/dL Albumin/Globulin Ratio 1.5 (1.0-2.8) Lipase 76672 H (23-300) U/L Urine RBC (0-5/HPF) Urine WBC (0-5/HPF) Ur Squamous Epith Cells (0-5/HPF) Amorphous Sediment Urine Bacteria (None) Urine Mucus (Negative) Ur Culture Indicated? COVID-19 PCR (Negative) 03/24/20 03/24/20 03/24/20 Range/Units 12:05 13:23 18:00 WBC (4.5-11.0) X10^3/uL RBC (4.0-5.2) X10^6/uL Hgb (12.0-16.0) g/dL Hct (36-46) % MCV (80-100) fL MCH (26-34) PG MCHC (30-36) % RDW (11.6-14.8) % Plt Count (150-400) X10^3/uL Neut % (Auto) (50-75) % Lymph % (Auto) (25-40) % [place] % (Auto) (3-14) % Eos % (Auto) (2-4) % Baso % (Auto) (0-2) % Neut # (Auto) (2374-4286) /uL Lymph # (Auto) (1664-4324) /uL [place] # (Auto) (0-900) /uL Eos # (Auto) (0-450) /uL Baso # (Auto) (0-100) /uL PT (10.1-12.7) SECONDS INR (0.9-1.3) APTT (26.4-36.2) SECONDS Sodium (137-145) mmol/L Potassium (3.4-5.1) mmol/L Chloride (98-107) mmol/L Carbon Dioxide (22-32) mmol/L BUN (7-17) mg/dL Creatinine (0.52-1.04) mg/dL Estimated GFR (>60) mL/min BUN/Creatinine Ratio (6-22) Glucose (80-110) mg/dL Calcium (8.4-10.2) mg/dL Total Bilirubin (0.2-1.3) mg/dL AST (14-36) IU/L ALT (<35) IU/L Alkaline Phosphatase (38-126) U/L Total Creatine Kinase 42 (30-135) U/L CK-MB (CK-2) TNP CK-MB (CK-2) Rel Index TNP Troponin I < 0.012 (0.01-0.034) ng/mL Total Protein (6.3-8.2) g/dL Albumin (3.5-5.0) g/dL Globulin (1.7-4.1) g/dL Albumin/Globulin Ratio (1.0-2.8) Lipase (23-300) U/L Urine RBC None seen (0-5/HPF) Urine WBC 1-5/hpf (0-5/HPF) Ur Squamous Epith Cells 1-5 /hpf (0-5/HPF) Amorphous Sediment 1+ Urine Bacteria Occasional (0-1) (None) Urine Mucus 1+ H (Negative) Ur Culture Indicated? Cult not indicated COVID-19 PCR Negative (Negative) Point of care testing: Urine Dip Bedside Urine Glucose Negative Bedside Urine Bilirubin - Negative Bedside Urine Ketone +/- 5 Urine Specific [place] 1.030 Bedside Urine Occult Blood - Negative Bedside Urine pH 5.5 Bedside Urine Protein +/- 15 Bedside Urine Urobilinogen - Negative Bedside Urine Nitrite - Negative Bedside Urine Leukocytes - Negative Esterase ECG Data Attestation: I personally reviewed and interpreted this ECG as follows: Interpretation: Sinus rhythm rate of 78, P are 180, QRS of 140 and QTC of 469. Left axis deviation with left bundle branch block. MDM Narrative Medical decision making narrative: I am familiar with patient from prior hospitalization. She comes in today with pancreatitis, she is set up for outpatient follow-up for appropriate treatment. Was discussed with General surgery and Gastroenterology who recommend that patient's pancreatitis is treated and then continue with follow-up outpatient is they would not perform an ERCP with her elevated pancreatic enzymes at this time. Discharge Plan Departure Patient Disposition: Admitted As Inpatient Clinical Impression: Cyst of pancreas Acute pancreatitis Qualifiers: Pancreatitis type: unspecified pancreatitis type Acute pancreatitis complication: unspecified Qualified Code(s): K85.90 - Acute pancreatitis without necrosis or infection, unspecified Admit Date/Time: 03/24/20 18:03 Admit Provider: Michael Matias
[2020-03-24 13:10] LABS: Lipase 23045 U/L (23-300)
[2020-03-24 13:15] LABS: Creatine Kinase 42 U/L (30-135)
[2020-03-24 13:25] LABS: Troponin I < 0.012 ng/mL (0.01-0.034)
--- NOTE | 2020-03-24 13:37 | DI.US.S_ITS ---
PROCEDURE: US ABDOMEN LIMITED INDICATIONS: R/o pancreatic stone, RUQ and LUQ pain TECHNIQUE: Real-time scanning was performed of the abdominal and retroperitoneal organs, with image documentation. COMPARISON: [facility], US, US ABDOMEN COMPLETE, 02/24/2020, 11:09. [facility], CT, CT ABDOMEN PELVIS W CON, 02/23/2020, 0:24. FINDINGS: Liver: Liver is normal in size and homogeneous in echotexture. Previously seen hyperechoic focus in the lateral right lobe of the liver is again seen on the cine clip. Punctate calcification in the right lobe of the liver. Portal vein demonstrates expected hepatopetal flow. Gallbladder: Nondilated. No stones or sludge. Normal gallbladder wall thickness. No pericholecystic fluid. Negative sonographic Crocker's sign. Biliary ducts: Intrahepatic bile ducts are non-dilated. Extrahepatic bile duct caliber measures 4 mm. Normal is 6-7 mm or less in diameter, or 10 mm or less post-cholecystectomy. Pancreas: The cystic lesion in the head of the pancreas is not identified. Right kidney: No hydronephrosis. A simple cyst in the right kidney measuring 3 cm. IMPRESSION: 1. Cystic lesion in the head of the pancreas is no longer identified sonographically. -the patient is scheduled for follow-up abdominal MRI. 2. No acute cholecystitis. No gallstones. 3. No biliary ductal dilatation seen. 4. Small hyperechoic lesion in the right lobe of the liver is compatible with a benign hemangioma and is seen on prior CTs dating back to at least 2018. Dictated by: Laron Aguilar M.D. on 03/24/2020 at 14:37 Approved by: Laron Aguilar M.D. on 03/24/2020 at 14:46
[2020-03-24 13:54] LABS: RBC Urine None Seen (0-5/HPF)
[2020-03-24 14:22] LABS: Amorphous Sediment Urine 1+; Bacteria Urine Occasional (0-1); Culture Indicated Urine Cult Not Indicated; Mucus Urine 1+ (Negative); Squamous Epithelial Cell Urine 1-5 /HPF (0-5/HPF); WBC Urine 1-5/HPF (0-5/HPF)
--- NOTE | 2020-03-24 14:31 | DI.MRI.S_ITS ---
PROCEDURE: MR ABDOMEN WO CON INDICATIONS: Repeat pancreatitis, cyst TECHNIQUE: Coronal HASTE through the abdomen, axial 2-D FLASH in- and [id number], and breath-hold T2 FSE with fat saturation through the biliary system and pancreas. Oblique coronal and axial thin-slice HASTE, radial thick-slab HASTE centered on the extrahepatic bile ducts. Intravenous secretin: Not requested. COMPARISON: [facility], CT, CT ABDOMEN PELVIS W CON, 02/23/2020, 0:24. FINDINGS: Image quality: Excellent. Pancreas and biliary system: A multi-septated cystic lesion is seen in the head of the pancreas measuring 2.9 x 2.8 x 2.7 cm, as seen on prior CT from 02/23/2020. There is mild dilation of the main pancreatic duct, measuring up to 4 mm in diameter. Peripancreatic edema is seen, compatible with reported clinical pancreatitis. There is a trace amount of upper abdominal ascites. The gallbladder is normal in size. No significant biliary ductal dilatation or intraluminal filling defect is seen. Other solid organs: A benign T2 hyperintense cyst or hemangioma is seen in right hepatic lobe. Liver is normal in size. Spleen is normal in size. No adrenal nodules. Both kidneys are normal in size, without hydronephrosis. T2 hyperintense cysts are seen in the right kidney. Nodes and vessels: No retroperitoneal or mesenteric adenopathy by size criteria. Aorta and inferior vena cava are normal in size. Bowel and peritoneum: A few diverticula are seen in the colon. Unenhanced bowel loops are normal in caliber. Lung bases: No basal pleural effusions. Heart size is normal. Bones and soft tissues: No ventral hernias. Bone marrow is of normal overall signal. IMPRESSION: 1. Peripancreatic edema and trace upper abdominal ascites are seen compatible with reported pancreatitis. The main pancreatic duct is mildly dilated to 4 mm. 2. A multi-septated cystic lesion in the pancreatic head measuring 2.9 x 2.8 x 2.7 cm, corresponding to the lesion seen on prior CT from 02/23/2020. No definite solid non-cystic components are seen on this noncontrast exam. Findings may represent a cystic neoplasm such as a serous cystadenoma or a side branch intraductal papillary mucinous neoplasm versus a chronic pseudocyst. Dictated by: Darrion Person M.D. on 03/24/2020 at 15:29 Approved by: Darrion Person M.D. on 03/24/2020 at 15:46
[2020-03-24] MEDS: LORazepam 2 MG/ML INJ 1 MG IV (14:42)
[2020-03-24] MEDS: ONDANSETRON 4 MG/2 ML INJ (16:06)
--- NOTE | 2020-03-24 18:26 | PM.HP.1 ---
History of Present Illness History of Present Illness Date Patient Seen: 03/24/20 Time Patient Seen: 18:27 Chief complaint: pancreatitis Narrative: Sarah Marc is a 79-year-old female with a past medical history of hypertension and hypothyroidism, and recent admission approximately a month ago for pancreatitis where she was noted to have a possible pancreatic head lesion who presents with 4 days of abdominal pain, epigastric and moderate in severity, sharp in quality, with radiation into her chest and back over the past day or so. Patient had been feeling well after her previous discharge, and was tolerating a diet up until 4 days ago when she began to have this recurrent pain and nausea. Started vomiting yesterday which prompted her to seek medical treatment today after her symptoms continued. The patient had received morphine and Ativan for her MRI and was slightly confused per her daughter who was at bedside but she was present to corroborate the patient's history. She denied any fevers, chills, shortness of breath, dysuria or urinary frequency. She denied any diarrhea or constipation. The patient could not recall if she had had any alcohol recently, and the daughter was not sure either. In the emergency room, patient was given fluids, morphine, and Toradol. Initial laboratory evaluation showed an unremarkable CBC, normal coagulation studies, [place]remark[place] [id number]. Consultation with the GI provider at [facility] recommended MRCP which was performed and showed a multi septated cystic lesion in the head of the pancreas. Patient was due to follow-up with [facility] medical group as an outpatient, I spoke with Dr. Nas Valle, , who stated the patient will ultimately need an EUS and likely ERCP, however it is ideal to do this is an outpatient and to wait for her pancreatitis to subside. If her condition worsened, he is on-call for the rest of the week in would be amenable to transfer, however at this time he requested that the patient remain here for conservative therapy in the hopes that she will improve. Patient History Medical History (Updated 03/24/20 @ 18:26 by Michael Matias DO) Acute appendicitis Hypercalcemia Hyperlipidemia Hypertension Hypothyroid Left bundle branch block Parathyroid abnormality Surgical History H/O: hysterectomy (~1992) History of appendectomy (~04/27/18) Family & Social History Family History Mother Hypertension Father Stomach cancer Prostate cancer Brother Prostate cancer Social History: household members none Safety & Behavioral: Feels Safe in Current Yes Environment Been Physically Hurt or No Threatened By a Person Tobacco & Substance use: Smoking Status Never smoker alcohol intake current alcohol intake frequency holiday/special occasion Substance Use Type does not use Meds Home Medications and Allergies Home Medications Medication Instructions Recorded Confirmed Type levothyroxine [Synthroid] 50 mcg PO DAILY 02/23/20 02/23/20 History metoprolol succinate 25 mg PO BID #60 tab 02/25/20 Rx Allergies Allergy/AdvReac Type Severity Reaction Status Date / Time Sulfa (Sulfonamide Allergy Unknown Verified 02/23/20 13:47 Antibiotics) [SULFA (SULFONAMIDE ANTIBIOTICS)] Review of Systems Review of Systems Narrative: All other systems reviewed with the patient and are negative unless otherwise stated. Exam Vital Signs (past 8 hours): - 03/24/20 11:48 03/24/20 13:06 03/24/20 13:30 Temperature 99.1 F Pulse Rate 88 71 70 Respiratory Rate 16 12 Blood Pressure 178/80 H 185/78 H Pulse Oximetry 98 98 98 03/24/20 14:00 03/24/20 14:30 03/24/20 15:18 Temperature Pulse Rate 77 68 82 Respiratory Rate 17 13 29 H Blood Pressure 159/71 H 169/73 H Pulse Oximetry 98 98 03/24/20 15:20 03/24/20 15:30 03/24/20 16:00 Temperature Pulse Rate 78 76 93 H Respiratory Rate 21 18 19 Blood Pressure 192/85 H 179/77 H 180/81 H Pulse Oximetry 97 97 96 03/24/20 16:30 03/24/20 17:00 Temperature Pulse Rate 67 75 Respiratory Rate 17 20 Blood Pressure 174/77 H Pulse Oximetry 97 95 Oxygen Delivery Method Room Air Narrative Exam Narrative: GENERAL APPEARANCE: Elderly female, confused (recent per daughter after ativan) SKIN: Inspection of the skin reveals no rashes, ulcerations or petechiae. HEENT: Normocephalic atraumatic, extraocular muscles are intact, oropharynx is clear and mucous membranes are moist, neck is supple without adenopathy NECK: Supple and symmetric. There was no thyroid enlargement, and no tenderness, or masses were felt. CHEST: Normal AP diameter and normal contour without any kyphoscoliosis. LUNGS: Auscultation of the lungs revealed no wheezes, rhonchi, or rales. CARDIOVASCULAR: There was a regular rate and rhythm without any murmurs, gallops, rubs. Peripheral pulses were 2+ and symmetric. ABDOMEN: mildly distended, tender in epigastrium but more prominent Left mid quadrant. MUSCULOSKELETAL: There was no tenderness or effusions noted. Muscle strength and tone were normal. EXTREMITIES: No cyanosis, clubbing or edema. NEUROLOGIC: Alert and oriented to person and place, did not answer date. Strength is +5/5 in the Upper Extremities and Lower Extremities Bilaterally. Sensation to touch was normal. Objective Imaging MRI - abdomen: Radiologist's impression: 1. Peripancreatic edema and trace upper abdominal ascites are seen compatible with reported pancreatitis. The main pancreatic duct is mildly dilated to 4 mm. 2. A multi-septated cystic lesion in the pancreatic head measuring 2.9 x 2.8 x 2.7 cm, corresponding to the lesion seen on prior CT from 02/23/2020. No definite solid non-cystic components are seen on this noncontrast exam. Findings may represent a cystic neoplasm such as a serous cystadenoma or a side branch intraductal papillary mucinous neoplasm versus a chronic pseudocyst. US - abdomen: Radiologist's impression: 1. Cystic lesion in the head of the pancreas is no longer identified sonographically. -the patient is scheduled for follow-up abdominal MRI. 2. No acute cholecystitis. No gallstones. 3. No biliary ductal dilatation seen. 4. Small hyperechoic lesion in the right lobe of the liver is compatible with a benign hemangioma and is seen on prior CTs dating back to at least 2018. Labs Result Diagrams: 03/24/20 12:05 03/24/20 12:05 Labs: Laboratory Results - last 24 hr 03/24/20 03/24/20 03/24/20 12:05 12:05 12:05 WBC 9.1 RBC 4.51 Hgb 14.0 Hct 41.7 MCV 92.6 MCH 31.1 MCHC 33.6 RDW 13.9 Plt Count 185 Neut % (Auto) 91.0 H Lymph % (Auto) 5.5 L [place] % (Auto) 3.2 Eos % (Auto) 0.1 L Baso % (Auto) 0.2 Neut # (Auto) 8300 H Lymph # (Auto) 500 L [place] # (Auto) 300 Eos # (Auto) 0 Baso # (Auto) 0 PT 12.1 INR 1.1 APTT 25 L D Sodium 135 L Potassium 3.9 Chloride 102 Carbon Dioxide 26 BUN 18 H Creatinine 0.69 Estimated GFR > 60.0 BUN/Creatinine Ratio 26.1 H Glucose 137 H Calcium 9.9 Total Bilirubin 0.6 AST 31 ALT 21 Alkaline Phosphatase 87 Total Creatine Kinase CK-MB (CK-2) CK-MB (CK-2) Rel Index Troponin I Total Protein 7.3 Albumin 4.4 Globulin 2.9 Albumin/Globulin Ratio 1.5 Lipase 38882 H Urine RBC Urine WBC Ur Squamous Epith Cells Amorphous Sediment Urine Bacteria Urine Mucus Ur Culture Indicated? 03/24/20 03/24/20 12:05 13:23 WBC RBC Hgb Hct MCV MCH MCHC RDW Plt Count Neut % (Auto) Lymph % (Auto) [place] % (Auto) Eos % (Auto) Baso % (Auto) Neut # (Auto) Lymph # (Auto) [place] # (Auto) Eos # (Auto) Baso # (Auto) PT INR APTT Sodium Potassium Chloride Carbon Dioxide BUN Creatinine Estimated GFR BUN/Creatinine Ratio Glucose Calcium Total Bilirubin AST ALT Alkaline Phosphatase Total Creatine Kinase 42 CK-MB (CK-2) TNP CK-MB (CK-2) Rel Index TNP Troponin I < 0.012 Total Protein Albumin Globulin Albumin/Globulin Ratio Lipase Urine RBC None seen Urine WBC 1-5/hpf Ur Squamous Epith Cells 1-5 /hpf Amorphous Sediment 1+ Urine Bacteria Occasional (0-1) Urine Mucus 1+ H Ur Culture Indicated? Cult not indicated Assessment & Plan Assessment & Plan narrative: Sarah Marc is a 79-year-old female with a past medical history of hypertension and hypothyroidism, and recent admission approximately a month ago for pancreatitis where she was noted to have a possible pancreatic head lesion who presents with 4 days of abdominal pain and is admitted with a recurrent episode of pancreatitis, possibly secondary to her cystic pancreatic lesion. 1. Acute recurrent pancreatitis, present on admission -patient was admitted 1 month ago with an episode of pancreatitis, found to have a lesion on her abdominal CT. She was scheduled to follow-up with [facility] next month, however presented today with 4 days of recurrent symptoms. -lipase on admission was 23,045. MRCP showing pancreatic edema and trace abdominal ascites with a mildly dilated pancreatic duct of 4 mm. There is also a multi-septated cystic lesion in the pancreatic head which is 2.9 x 2.8 x 2.7 cm which has not significantly changed compared to her CT scan from last month. Per the radiologist this may represent a cystic neoplasm or a side branch IPMN versus a pseudocyst. -Patient was due to follow-up with [facility] as an outpatient, I spoke with Dr. Nas Valle, , who stated the patient will ultimately need an EUS and likely ERCP, however it is ideal to do this is an outpatient and to wait for her pancreatitis to subside. If her condition worsened, he is on-call for the rest of the week in would be amenable to transfer, however at this time he requested that the patient remain here for conservative therapy in the hopes that she will improve. -will manage conservatively, NPO and IV fluids 2. Cystic lesion of the head of the pancreas, present on admission -management as noted above, patient is currently planned for an outpatient evaluation with [facility] next month, if her condition worsens consider transfer to [facility] for further workup. 3. Hypertension, chronic -continue home medications, patient is currently hypertensive in the emergency room but this is likely elevated in the setting of pain. 4. Hypothyroidism, chronic -continue home medications, will replace with IV until tolerating oral intake Code: Full, as discussed with the patient and her daughter, who is the surrogate decision maker Dispo: Admitted under inpatient status as her stay is expected to exceed 2 midnights DVT: Heparin subcu Diet: NPO
[2020-03-24 18:43] LABS: COVID19 -Nasal RAPID Negative (Negative)
[2020-03-24] MEDS: SODIUM CHLORIDE 0.9% 1,000 ML 125 ML IV (19:45)
--- NOTE | 2020-03-24 20:38 | PC.NURSE ---
Pt resting quietly @ this time. Presents alert, however occassioanlly slow to answer questions. Denies discomfort at this time. IVF LR @ 125cc/hr infusing into LAC via pump w/o incidence. Pt requesting to sleep. Call light w/in reach, bed alarm on for pt safety. Continue w/plan of care.
[2020-03-24] MEDS: HEPARIN 5,000 UNIT/ML VIAL 5000 UNIT SUBCUT (20:48)
[2020-03-25] VITALS (9 sets, daily range): BP systolic 129–166; BP diastolic 48–73; PULSE 65–96; RESP 16–20; TEMP 36.6–37.7; O2SAT 93–98
[2020-03-25] MEDS: ONDANSETRON 4 MG/2 ML INJ IV ×3 (01:19→20:14)
[2020-03-25] MEDS: HYDROMORPHONE 0.5 MG INJ IV ×2 (01:21→09:20)
[2020-03-25] MEDS: SODIUM CHLORIDE 0.9% 1,000 ML 125 ML IV ×3 (04:28→20:50)
[2020-03-25 05:22] LABS: Add Manual Diff / Slide Review NO; Basophils Absolute Auto 0 /uL (0-100); Basophils Percent Auto 0.3 % (0-2); Eosinophils Absolute Auto 0 /uL (0-450); Hematocrit 37.1 % (36-46); Hemoglobin 12.5 g/dL (12.0-16.0); Lymphocytes Absolute Auto 700 /uL (1100-4500); Lymphocytes Percent Auto 7.6 % (25-40); Mean Corpuscular HGB Conc 33.7 % (30-36); Mean Corpuscular Hemoglobin 31.2 PG (26-34); Mean Corpuscular Volume 92.8 fL (80-100); Monocytes Absolute Auto 800 /uL (0-900); Monocytes Percent Auto 8.9 % (3-14); Neutrophils Absolute Auto 7600 /uL (1500-7000); Neutrophils Percent Auto 83.2 % (50-75); Platelet Count 140 X10^3/uL (150-400); Red Cell Distribution Width 13.8 % (11.6-14.8); White Blood Cell Count 9.1 X10^3/uL (4.5-11.0)
[2020-03-25 05:30] LABS: Alanine Aminotransferase 14 IU/L (<35); Albumin 3.4 g/dL (3.5-5.0); Albumin Globulin Ratio 1.4 (1.0-2.8); Alkaline Phosphatase 63 U/L (38-126); Aspartate Aminotransferase 23 IU/L (14-36); BUN Creatinine Ratio 26.2 (6-22); Bilirubin Total 0.9 mg/dL (0.2-1.3); Bilirubin Unconjugated 0.9 mg/dL (0.0-1.1); Blood Urea Nitrogen 17 mg/dL (7-17); Carbon Dioxide 28 mmol/L (22-32); Chloride 105 mmol/L (98-107); Estimated Glomerular Filt Rate > 60.0 mL/min (>60); Globulin 2.4 g/dL (1.7-4.1); Glucose 110 mg/dL (80-110); HEMOLYSIS < 15 (0-50); Magnesium 1.8 mg/dL (1.6-2.3); Potassium 4.4 mmol/L (3.4-5.1); Sodium 134 mmol/L (137-145); Total Protein 5.8 g/dL (6.3-8.2)
[2020-03-25] MEDS: HEPARIN 5,000 UNIT/ML VIAL 5000 UNIT SUBCUT ×2 (09:20→20:11)
[2020-03-25] MEDS: PROCHLORPERAZINE 10 MG/2 ML VIAL 5 MG IV (12:41)
--- NOTE | 2020-03-25 12:45 | P.PN_ITS ---
Subjective Subjective Date Patient Seen: 03/25/20 Time Patient Seen: 08:45 Interval history: Sarah Marc is a 79-year-old female with a past medical history of hypertension and hypothyroidism, and recent admission approximately a month ago for pancreatitis where she was noted to have a pancreatic head lesion who presents with 4 days of abdominal pain and is admitted with a recurrent episode of pancreatitis, possibly secondary to her cystic pancreatic lesion. Nola young has not had a significant improvement this morning and will continue today with NPO status. She denies any fever, chills, chest pain. She continues to have nausea and her abdominal pain has not changed much. Exam Vital Signs (past 8 hours): - 03/25/20 08:10 03/25/20 09:22 03/25/20 12:00 Temperature 99.1 F 99.8 F H Pulse Rate 72 70 Respiratory Rate 16 16 Blood Pressure 157/62 H 166/73 H Pulse Oximetry 94 94 95 Oxygen Delivery Method Room Air Oxygen Flow Rate 0 Narrative Exam Narrative: GENERAL APPEARANCE: Elderly female, confused (recent per daughter after ativan) SKIN: Inspection of the skin reveals no rashes, ulcerations or petechiae. HEENT: Normocephalic atraumatic, extraocular muscles are intact, oropharynx is clear and mucous membranes are moist, neck is supple without adenopathy NECK: Supple and symmetric. There was no thyroid enlargement, and no tenderness, or masses were felt. CHEST: Normal AP diameter and normal contour without any kyphoscoliosis. LUNGS: Auscultation of the lungs revealed no wheezes, rhonchi, or rales. CARDIOVASCULAR: There was a regular rate and rhythm without any murmurs, gallops, rubs. Peripheral pulses were 2+ and symmetric. ABDOMEN: mildly distended, tender in epigastrium but more prominent Left mid quadrant. MUSCULOSKELETAL: There was no tenderness or effusions noted. Muscle strength and tone were normal. EXTREMITIES: No cyanosis, clubbing or edema. NEUROLOGIC: Alert and oriented to person and place, did not answer date. Strength is +5/5 in the Upper Extremities and Lower Extremities Bilaterally. Sensation to touch was normal. Objective Labs Result Diagrams: 03/25/20 05:10 03/25/20 05:10 Labs: Laboratory Results - last 24 hr 03/24/20 03/24/20 03/24/20 12:05 12:05 13:23 WBC RBC Hgb Hct MCV MCH MCHC RDW Plt Count Neut % (Auto) Lymph % (Auto) [place] % (Auto) Eos % (Auto) Baso % (Auto) Neut # (Auto) Lymph # (Auto) [place] # (Auto) Eos # (Auto) Baso # (Auto) Sodium Potassium Chloride Carbon Dioxide BUN Creatinine Estimated GFR BUN/Creatinine Ratio Glucose Calcium Magnesium Total Bilirubin Conjugated Bilirubin Unconjugated Bilirubin AST ALT Alkaline Phosphatase Total Creatine Kinase 42 CK-MB (CK-2) TNP CK-MB (CK-2) Rel Index TNP Troponin I < 0.012 Total Protein Albumin Globulin Albumin/Globulin Ratio Lipase 12988 H Urine RBC None seen Urine WBC 1-5/hpf Ur Squamous Epith Cells 1-5 /hpf Amorphous Sediment 1+ Urine Bacteria Occasional (0-1) Urine Mucus 1+ H Ur Culture Indicated? Cult not indicated COVID-19 PCR 03/24/20 03/25/20 03/25/20 18:00 05:10 05:10 WBC 9.1 RBC 4.00 Hgb 12.5 Hct 37.1 MCV 92.8 MCH 31.2 MCHC 33.7 RDW 13.8 Plt Count 140 L Neut % (Auto) 83.2 H Lymph % (Auto) 7.6 L [place] % (Auto) 8.9 Eos % (Auto) 0.0 L Baso % (Auto) 0.3 Neut # (Auto) 7600 H Lymph # (Auto) 700 L [place] # (Auto) 800 Eos # (Auto) 0 Baso # (Auto) 0 Sodium 134 L Potassium 4.4 Chloride 105 Carbon Dioxide 28 BUN 17 Creatinine 0.65 Estimated GFR > 60.0 BUN/Creatinine Ratio 26.2 H Glucose 110 Calcium 9.0 Magnesium 1.8 Total Bilirubin 0.9 Conjugated Bilirubin 0.0 Unconjugated Bilirubin 0.9 AST 23 ALT 14 Alkaline Phosphatase 63 Total Creatine Kinase CK-MB (CK-2) CK-MB (CK-2) Rel Index Troponin I Total Protein 5.8 L Albumin 3.4 L Globulin 2.4 Albumin/Globulin Ratio 1.4 Lipase Urine RBC Urine WBC Ur Squamous Epith Cells Amorphous Sediment Urine Bacteria Urine Mucus Ur Culture Indicated? COVID-19 PCR Negative Assessment & Plan Assessment & Plan narrative: Sarah Marc is a 79-year-old female with a past medical history of hypertension and hypothyroidism, and recent admission approximately a month ago for pancreatitis where she was noted to have a possible pancreatic head lesion who presents with 4 days of abdominal pain and is admitted with a recurrent episode of pancreatitis, possibly secondary to her cystic pancreatic lesion. 1. Acute recurrent pancreatitis, present on admission -patient was admitted 1 month ago with an episode of pancreatitis, found to have a lesion on her abdominal CT. She was scheduled to follow-up with [facility] next month, however presented today with 4 days of recurrent symptoms. -lipase on admission was 23,045. MRCP showing pancreatic edema and trace abdominal ascites with a mildly dilated pancreatic duct of 4 mm. There is also a multi-septated cystic lesion in the pancreatic head which is 2.9 x 2.8 x 2.7 cm which has not significantly changed compared to her CT scan from last month. Per the radiologist this may represent a cystic neoplasm or a side branch IPMN versus a pseudocyst. -Patient was due to follow-up with [facility] as an outpatient, I spoke with Dr. Nas Valle, , who stated the patient will ultimately need an EUS and likely ERCP, however it is ideal to do this is an outpatient and to wait for her pancreatitis to subside. If her condition worsened, he is on-call for the rest of the week in would be amenable to transfe r, however at this time he requested that the patient remain here for conservative therapy in the hopes that she will improve. -will manage conservatively, continue NPO and IV fluids. Will add a repeat lipase to tomorrows labs to make sure there is at least some improvement if her symptoms continue. Rediscuss with GI tomorrow if no signficant improvement or continued elevated lipase despite NPO status. 2. Cystic lesion of the head of the pancreas, present on admission -management as noted above, patient is currently planned for an outpatient evaluation with [facility] next month, if her condition worsens consider transfer to [facility] for further workup. 3. Hypertension, chronic -continue home medications, patient is currently hypertensive in the emergency room but this is likely elevated in the setting of pain. Have ordered IV metoprolol prn for severe HTN given strict NPO status. 4. Hypothyroidism, chronic -continue home medications, will replace with IV until tolerating oral intake Code: Full, as discussed with the patient and her daughter, who is the surrogate decision maker Dispo: Admitted under inpatient status as her stay is expected to exceed 2 midnights DVT: Heparin subcu Diet: NPO Quality VTE Deep Vein Thrombosis/Pulmonary Embolism Present on Admission: No
--- NOTE | 2020-03-25 15:21 | CM.DANOTE ---
DCP: Case received, EMR reviewed and met with patient. Daughter, Denisse, was also at bedside. Introduced self and role. Was able to obtain information from patient regarding her baseline activity status prior to hospitalization. DCP assessment completed with information currently available. Patient is a 79 year old female who admitted yesterday afternoon to the care of the hospitalist team. PCP: Staci Siddiqui. Payer: confirmed: Medicare/[employer]. Patient came to the hospital via private vehicle secondary to having abdominal discomfort. Patient holds diagnosis of pancreatitis. Patient has been here before for the same diagnosis. Discussed at team rounds for possible transfer for a GI work up. Met with patient in her room. She was laying in bed, pleasant, alert and oriented. Her daughter, Denisse Case, was also in the room at bedside, and she lives in [facility]. Patient's other daughter, Courtney, lives in [facility]. Patient is independent at baseline, drives, uses no DME supplies. She resides alone here in [place]. P: DCP to continue to follow. Patient will either be able to go home when stable, other than being transferred to higher level facility for GI work up. Brittney Fam RN/Rotary Filter Operator
[2020-03-25] MEDS: LEVOTHYROXINE INJ 100 MCG/5 ML VIAL 25 MCG IV (16:48)
--- NOTE | 2020-03-25 19:52 | PC.NURSE ---
Addendum entered by Bekah Barros R.N. 03/26/20 00:18: Patient with q6hr blood sugar. midnight CBG was 68, patient awake and alert during this time. NPO so got D50 per Randy MAIL EXAMINER order. Patient also c/o abd pain so gave ivp dilaudid. Denies nausea at this time. Original Note: Patient has been resting in bed most of the shift. Up to the bathroom a couple of times, gait steady w/SBA. Patient has denied any nausea or the need for pain meds so far. Patient has been A&O, calm and cooperative.
[2020-03-26] VITALS (13 sets, daily range): BP systolic 137–167; BP diastolic 68–88; PULSE 56–92; RESP 16–18; TEMP 36.8–37.6; O2SAT 92–99
[2020-03-26] MEDS: HYDROMORPHONE 0.5 MG INJ IV ×2 (00:06→05:12)
[2020-03-26] MEDS: DEXTROSE 50 % IN WATER 25 GM/50 ML SYRINGE (00:06)
[2020-03-26] MEDS: SODIUM CHLORIDE 0.9% 1,000 ML 125 ML IV ×3 (04:59→20:53)
[2020-03-26] MEDS: ONDANSETRON 4 MG/2 ML INJ IV (05:02)
--- NOTE | 2020-03-26 05:34 | PC.NURSE ---
0500- Pt up to BR, agreeable to nausea and pain medication, I felt better, I actually got a nap Medicated per JUL, SBA back to bed, oral swabs provided for comfort. Pt resting comfortably at next check. BA active, and low.
[2020-03-26 05:37] LABS: Add Manual Diff / Slide Review NO; Basophils Absolute Auto 0 /uL (0-100); Basophils Percent Auto 0.2 % (0-2); Eosinophils Absolute Auto 100 /uL (0-450); Hematocrit 36.7 % (36-46); Hemoglobin 12.4 g/dL (12.0-16.0); Lymphocytes Absolute Auto 800 /uL (1100-4500); Lymphocytes Percent Auto 8.3 % (25-40); Mean Corpuscular HGB Conc 33.8 % (30-36); Mean Corpuscular Hemoglobin 31.3 PG (26-34); Mean Corpuscular Volume 92.7 fL (80-100); Monocytes Absolute Auto 1200 /uL (0-900); Monocytes Percent Auto 11.7 % (3-14); Neutrophils Absolute Auto 8000 /uL (1500-7000); Neutrophils Percent Auto 78.8 % (50-75); Platelet Count 127 X10^3/uL (150-400); Red Blood Cell Count 3.96 X10^6/uL (4.0-5.2); Red Cell Distribution Width 13.9 % (11.6-14.8); White Blood Cell Count 10.1 X10^3/uL (4.5-11.0)
[2020-03-26 05:53] LABS: Alanine Aminotransferase 13 IU/L (<35); Albumin 3.2 g/dL (3.5-5.0); Albumin Globulin Ratio 1.3 (1.0-2.8); Alkaline Phosphatase 66 U/L (38-126); Aspartate Aminotransferase 23 IU/L (14-36); Bilirubin Total 0.9 mg/dL (0.2-1.3); Bilirubin Unconjugated 0.9 mg/dL (0.0-1.1); Blood Urea Nitrogen 11 mg/dL (7-17); Calcium 8.7 mg/dL (8.4-10.2); Carbon Dioxide 24 mmol/L (22-32); Chloride 107 mmol/L (98-107); Estimated Glomerular Filt Rate > 60.0 mL/min (>60); Globulin 2.5 g/dL (1.7-4.1); Glucose 91 mg/dL (80-110); HEMOLYSIS 18 (0-50); Magnesium 1.8 mg/dL (1.6-2.3); Potassium 3.6 mmol/L (3.4-5.1); Sodium 135 mmol/L (137-145); Total Protein 5.7 g/dL (6.3-8.2)
[2020-03-26 06:30] LABS: Lipase 1767 U/L (23-300)
[2020-03-26] MEDS: METOPROLOL ER 25 MG TABLET PO ×2 (08:27→20:54)
[2020-03-26] MEDS: LEVOTHYROXINE 50 MCG TABLET PO (08:27)
[2020-03-26] MEDS: HEPARIN 5,000 UNIT/ML VIAL 5000 UNIT SUBCUT ×2 (08:28→20:54)
--- NOTE | 2020-03-26 11:47 | PM.PN.1 ---
Subjective Subjective Date Patient Seen: 03/26/20 Time Patient Seen: 08:00 Interval history: Sarah Marc is a 79-year-old female with a past medical history of hypertension and hypothyroidism, and recent admission approximately a month ago for pancreatitis where she was noted to have a pancreatic head lesion who presents with 4 days of abdominal pain and is admitted with a recurrent episode of pancreatitis, possibly secondary to her cystic pancreatic lesion. Her pain is improved today, and she is asking to try clear liquids. Denies fever, chills, nausea, vomiting. Still with pain but improving and controlled with pain medications. Exam Vital Signs (past 8 hours): - 03/26/20 04:00 03/26/20 06:08 03/26/20 08:00 Temperature 99.4 F Pulse Rate 61 Respiratory Rate 16 Blood Pressure 141/88 H Pulse Oximetry 99 94 03/26/20 08:27 03/26/20 08:47 Temperature 98.2 F Pulse Rate 61 79 Respiratory Rate 16 Blood Pressure 141/88 H 164/68 H Pulse Oximetry 94 Oxygen Delivery Method Room Air Oxygen Flow Rate 0 Narrative Exam Narrative: GENERAL APPEARANCE: Elderly female, confused (recent per daughter after ativan) SKIN: Inspection of the skin reveals no rashes, ulcerations or petechiae. HEENT: Normocephalic atraumatic, extraocular muscles are intact, oropharynx is clear and mucous membranes are moist, neck is supple without adenopathy NECK: Supple and symmetric. There was no thyroid enlargement, and no tenderness, or masses were felt. CHEST: Normal AP diameter and normal contour without any kyphoscoliosis. LUNGS: Auscultation of the lungs revealed no wheezes, rhonchi, or rales. CARDIOVASCULAR: There was a regular rate and rhythm without any murmurs, gallops, rubs. Peripheral pulses were 2+ and symmetric. ABDOMEN: mildly distended, improved tenderness throughout more prominent in epigastrium. MUSCULOSKELETAL: There was no tenderness or effusions noted. Muscle strength and tone were normal. EXTREMITIES: No cyanosis, clubbing or edema. NEUROLOGIC: Alert and oriented x3. Strength is +5/5 in the Upper Extremities and Lower Extremities Bilaterally. Sensation to touch was normal. Objective Labs Result Diagrams: 03/26/20 05:10 03/26/20 05:10 Labs: Laboratory Results - last 24 hr 03/26/20 03/26/20 03/26/20 05:10 05:10 05:10 WBC 10.1 RBC 3.96 L Hgb 12.4 Hct 36.7 MCV 92.7 MCH 31.3 MCHC 33.8 RDW 13.9 Plt Count 127 L Neut % (Auto) 78.8 H Lymph % (Auto) 8.3 L [place] % (Auto) 11.7 Eos % (Auto) 1.0 L Baso % (Auto) 0.2 Neut # (Auto) 8000 H Lymph # (Auto) 800 L [place] # (Auto) 1200 H Eos # (Auto) 100 Baso # (Auto) 0 Sodium 135 L Potassium 3.6 Chloride 107 Carbon Dioxide 24 BUN 11 Creatinine 0.50 L Estimated GFR > 60.0 BUN/Creatinine Ratio 22.0 Glucose 91 Calcium 8.7 Magnesium 1.8 Total Bilirubin 0.9 Conjugated Bilirubin 0.0 Unconjugated Bilirubin 0.9 AST 23 ALT 13 Alkaline Phosphatase 66 Total Protein 5.7 L Albumin 3.2 L Globulin 2.5 Albumin/Globulin Ratio 1.3 Lipase 1767 H D Assessment & Plan Assessment & Plan narrative: Sarah Marc is a 79-year-old female with a past medical history of hypertension and hypothyroidism, and recent admission approximately a month ago for pancreatitis where she was noted to have a possible pancreatic head lesion who presents with 4 days of abdominal pain and is admitted with a recurrent episode of pancreatitis, possibly secondary to her cystic pancreatic lesion. 1. Acute recurrent pancreatitis, present on admission -patient was admitted 1 month ago with an episode of pancreatitis, found to have a lesion on her abdominal CT. She was scheduled to follow-up with [facility] next month, however presented today with 4 days of recurrent symptoms. -lipase on admission was 23,045. MRCP showing pancreatic edema and trace abdominal ascites with a mildly dilated pancreatic duct of 4 mm. There is also a multi-septated cystic lesion in the pancreatic head which is 2.9 x 2.8 x 2.7 cm which has not significantly changed compared to her CT scan from last month. Per the radiologist this may represent a cystic neoplasm or a side branch IPMN versus a pseudocyst. -Patient was due to follow-up with [facility] as an outpatient, I spoke with Dr. Nas Valle, , who stated the patient will ultimately need an EUS and likely ERCP, however it is ideal to do this is an outpatient and to wait for her pancreatitis to subside. If her condition worsened, he is on-call for the rest of the week in would be amenable to transfer, however at this time he requested that the patient remain here for conservative therapy in the hopes that she will improve. She has a follow up on 04/10/20 with above interventions possibly on 04/17 if needed. -will manage conservatively, NPO was continued x48 hours, now on clears. Continue to advance as tolerated. Repeat lipase obtained and now down to 1767 this AM. 2. Cystic lesion of the head of the pancreas, present on admission -management as noted above, patient is currently planned for an outpatient evaluation with [facility] next month, if her condition worsens consider transfer to [facility] for further evaluation. 3. Hypertension, chronic -just restarted on home medication of metoprolol today. Continue to follow and likely elevated in the setting of pain. 4. Hypothyroidism, chronic -continue home dosing at 50 mcg, continued on IV while NPO. Code: Full, as discussed with the patient and her daughter, who is the surrogate decision maker Dispo: Admitted under inpatient status. Possible discharge home if pain controlled and tolerating a diet. DVT: Heparin subcu Diet: Clears, advance to low fat tomorrow if tolerating. Quality VTE Deep Vein Thrombosis/Pulmonary Embolism Present on Admission: No
[2020-03-26] MEDS: HYDROMORPHONE 2 MG TABLET PO ×2 (12:41→20:54)
--- NOTE | 2020-03-26 13:49 | PC.NURSE ---
Patient is tolerating a clear liquid diet. No complaints of nausea, bowel tones hypoactive in all quadrants, patient states that she is passing gas. Patient still hypertensive at times 166/73, HR 86, low temp of 99.3. Patient pain level 2/10 with the 2mg of oral diluadid. Patient is resting comfortably in bed.
[2020-03-27 00:34] VITALS: BP 122/76; PULSE 76; RESP 18; TEMP 37.1; O2SAT 93
[2020-03-27 01:00] VITALS: O2SAT 93
[2020-03-27] MEDS: SODIUM CHLORIDE 0.9% 1,000 ML 125 ML IV (04:06)
[2020-03-27 05:00] VITALS: BP 152/66; PULSE 75; RESP 18; TEMP 36.8; O2SAT 95
[2020-03-27] MEDS: LEVOTHYROXINE 50 MCG TABLET PO (05:40)
[2020-03-27 05:55] LABS: BUN Creatinine Ratio 14.3 (6-22); Blood Urea Nitrogen 8 mg/dL (7-17); Calcium 8.6 mg/dL (8.4-10.2); Carbon Dioxide 30 mmol/L (22-32); Chloride 103 mmol/L (98-107); Estimated Glomerular Filt Rate > 60.0 mL/min (>60); Glucose 102 mg/dL (80-110); HEMOLYSIS < 15 (0-50); Magnesium 1.7 mg/dL (1.6-2.3); Potassium 3.6 mmol/L (3.4-5.1); Sodium 133 mmol/L (137-145)
[2020-03-27 07:40] VITALS: BP 159/57; PULSE 77; RESP 16; TEMP 37.3; O2SAT 91
[2020-03-27] MEDS: METOPROLOL ER 25 MG TABLET PO (08:23)
[2020-03-27] MEDS: HEPARIN 5,000 UNIT/ML VIAL 5000 UNIT SUBCUT (08:23)
[2020-03-27 08:44] LABS: Lipase 130 U/L (23-300)
--- NOTE | 2020-03-27 08:49 | PM.DS.1 ---
History of Present Illness History of Present Illness Date Patient Seen: 03/24/20 Chief complaint: pancreatitis Narrative: Written by Dr. Matias: Sarah Marc is a 79-year-old female with a past medical history of hypertension and hypothyroidism, and recent admission approximately a month ago for pancreatitis where she was noted to have a possible pancreatic head lesion who presents with 4 days of abdominal pain, epigastric and moderate in severity, sharp in quality, with radiation into her chest and back over the past day or so. Patient had been feeling well after her previous discharge, and was tolerating a diet up until 4 days ago when she began to have this recurrent pain and nausea. Started vomiting yesterday which prompted her to seek medical treatment today after her symptoms continued. The patient had received morphine and Ativan for her MRI and was slightly confused per her daughter who was at bedside but she was present to corroborate the patient's history. She denied any fevers, chills, shortness of breath, dysuria or urinary frequency. She denied any diarrhea or constipation. The patient could not recall if she had had any alcohol recently, and the daughter was not sure either. In the emergency room, patient was given fluids, morphine, and Toradol. Initial laboratory evaluation showed an unremarkable CBC, normal coagulation studies, [place]remark[place] [address]. Consultation with the GI provider at [facility] recommended MRCP which was performed and showed a multi septated cystic lesion in the head of the pancreas. Patient was due to follow-up with [facility] as an outpatient, I spoke with Dr. Nas Valle, , who stated the patient will ultimately need an EUS and likely ERCP, however it is ideal to do this is an outpatient and to wait for her pancreatitis to subside. If her condition worsened, he is on-call for the rest of the week in would be amenable to transfer, however at this time he requested that the patient remain here for conservative therapy in the hopes that she will improve. Discharge Providers Provider Date of admission: 03/24/20 18:03 Discharge Date: 03/27/20 Primary care physician: Staci Siddiqui MD Consults: 03/27/20 07:44 Consult to Dietitian, Adult Stat Comment: Reason For Exam: pancreatitis Discharge provider: Faiza Bajwa DO Summary Hospital Course Discharge Diagnosis: 1. Acute recurrent pancreatitis, present on admission. Resolved. 2. 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 Presumed stable. 3. Hypertension, chronic, present on admission. Stable. 4. Hypothyroidism, chronic, present on admission. Stable. 5. History of hyperlipidemia. Resolved. Hospital Course: Sarah Marc is a 79-year-old female with a past medical history of hypertension, hypothyroidism, and cystic pancreatic head lesion with recent admission approximately a month ago for pancreatitis who presented to the ED with 4 days of abdominal pain. 1. Acute recurrent pancreatitis, present on admission. Resolved. -Patient presented with abdominal pain radiating to back x4 days. She was previously admitted 1 month ago with an episode of pancreatitis. Patient has known cystic pancreatic head lesion. -Initial lipase 23,045. Continued to trend lipase which is now normal at 130. -MRCP demonstrated pancreatic edema and trace abdominal ascites with a mildly dilated pancreatic duct of 4 mm. There is also a multi-septated cystic lesion in the pancreatic head which is 2.9 x 2.8 x 2.7 cm which has not significantly changed compared to her CT scan from last month. Per the radiologist this may represent a cystic neoplasm or a side branch IPMN versus a pseudocyst. -Continued bowel rest and NPO for 48 hours. Slowly advance diet from clears to low-fat diet which patient tolerated well. Consulted dietitian and we appreciate her time and recommendations. -Continued symptomic management with antiemetics and pain medication as needed. -Previous provider discussed case with Dr. Nas Valle, , who stated the patient will ultimately need an EUS and likely ERCP, however it is ideal to do this is an outpatient and to wait for her pancreatitis to subside. She has a scheduled outpatient evaluation with [facility] gastroenterology on 04/10/20 with above interventions possibly on 04/17 if needed. 2. 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 Presumed stable. -Continued to treat pancreatitis as above. -Patient is currently planned for an outpatient evaluation with [facility] gastroenterology at the beginning of April. 3. Hypertension, chronic, present on admission. Stable. -Continued metoprolol succinate 25 mg twice daily. 4. Hypothyroidism, chronic, present on admission. Stable. -Continued home levothyroxine 50 mcg daily. 5. History of hyperlipidemia. Resolved. -Fasting lipid panel demonstrated excellent lipid control with: Total cholesterol 127, triglycerides 78, LDL 83, and HDL 28. Exam Vital Signs (past 8 hours): - 03/27/20 01:00 03/27/20 05:00 03/27/20 07:40 Temperature 98.3 F 99.2 F Pulse Rate 75 77 Respiratory Rate 18 16 Blood Pressure 152/66 H 159/57 H Pulse Oximetry 93 95 91 Oxygen Delivery Method Room Air Oxygen Flow Rate 0 Narrative Exam Narrative: General: Elderly female sitting in bed and in no acute distress, well-developed, well-nourished, appropriately interactive. HEENT: Normocephalic, atraumatic. External ears without defect. Pupils equal, round, and reactive to light. Anicteric sclerae, moist conjunctivae, and no lid lag. Oropharynx free of erythema and cobble stoning with moist mucosa. Neck: Supple with full range of motion. No lymphadenopathy or thyromegaly. Cardiovascular: Regular rate and rhythm without murmurs, rubs, or gallops appreciated. Pulmonary: Clear to auscultation bilaterally without crackles, wheezes, or rhonchi. Normal respiratory effort with no use of accessory muscles. Abdomen: Soft, bowel sounds present, nontender, nondistended. No hepatosplenomegaly or masses appreciated. Extremities: No clubbing, cyanosis, or edema. Skin: Normal temperature, turgor, and texture; no rash, ulcers, or subcutaneous nodules appreciated. Neurological: Cranial nerves grossly intact. Psychiatric: Normal mood and affect. Alert and oriented to person, place, and time. Objective Labs Result Diagrams: 03/26/20 05:10 03/27/20 05:22 Labs: Laboratory Results - last 24 hr 03/27/20 03/27/20 05:22 05:22 Sodium 133 L Potassium 3.6 Chloride 103 Carbon Dioxide 30 BUN 8 Creatinine 0.56 Estimated GFR > 60.0 BUN/Creatinine Ratio 14.3 Glucose 102 Calcium 8.6 Magnesium 1.7 Lipase 130 D Discharge Plan Discharge Plan Patient Disposition: Home Provider Discharge Comment: You are being discharged home. You had pancreatitis which has resolved and was treated with bowel rest, IV fluid hydration, and pain medication. You have been provided a handout regarding pancreatitis. Please try to consume a diet low in fat per instructions from dietitian. If you begin having increased abdominal/back pain and/or nausea back off and allow for bowel rest. Try to stay well hydrated and take small sips of water throughout the day. Your provided a prescription of ondansetron 4 mg every 8 hours as needed for nausea. Please keep your scheduled appointment with Gastroenterology at [place]. Please follow-up with your primary care physician the next 1 week regarding your hospitalization. Discharge orders & Medications Prescriptions: New ondansetron 4 mg tablet,disintegrating 4 mg PO Q8H PRN (Reason: nausea and vomiting) Qty: 7 RF: 0 Continued levothyroxine [Synthroid] 50 mcg tablet 50 mcg PO DAILY RF: 0 metoprolol succinate 25 mg tablet extended release 24 hr 25 mg PO BID Qty: 60 RF: 0 Follow up/Referrals: Staci Siddiqui MD [Primary Care Provider] - 1 Week Diet/Activity/Treatments Diet: Diet as Tolerated and Low-fat Activity: Activity as tolerated Visit Report/Discharge Packet Instructions: Fat-Restricted Diet, Low-Fiber/Low-Residue Diet, DI for Pancreatitis, DI for Heart Failure Discharge Data Primary Care Provider: Staci Siddiqui Quality VTE Deep Vein Thrombosis/Pulmonary Embolism Present on Admission: No
[2020-03-27 09:14] LABS: Cholesterol 127 mg/dL (140-199); HDL Cholesterol 28 mg/dL (40-60); LDL Cholesterol Calculated 83 mg/dL (<100); Triglycerides 78 mg/dL (35-150)
--- NOTE | 2020-03-27 09:51 | PC.NURSE ---
Assess- Patients lipase wnl, she is going to be discharged to home later. Bowel tones active x 4. She is up with 1 PA and walker. Denies pain. Coding Clerks Supervisor saw patient and she will be leaving around 1200.
--- NOTE | 2020-03-27 10:33 | DIET.PN ---
Dietary Progress Note Assessment: 79y F admitted c pancreatitis. Pt was recently hospitalized for episode of pancreatitis a month ago as well. Pt was NPO for 2 days, 1 day clear liquid diet and has transitioned to low fat diet today. Pt scheduled to discharge today. Pt reports that she does not drink and that staying away from alcohol will be easy. HT: 162.56cm WT:66.678kg BMI:25.2 Labs: Lipase: [id number] on admit, 130 today BUN: 18H on admit, 8 today MNA:13 Abhay:21 Nutrition Diagnosis: Predicted excessive fat intake r/t nutrition related knowledge deficit regarding pancreatitis aeb pt dx of acute pancreatitis, pt readmission for pancreatitis within 1 mo, and pt not being fully aware recommendations for fat intake while experiencing pancreatitis. Interventions: 1. Educated pt on importance of following a low fat diet for the next few weeks in order to allow pancreas to rest and recover. Pt says she herself has recognized that a high fat meal might not agree with her body right now. Provided written examples of low fat foods to choose and high fat foods to avoid. 2. Reminded pt to completely avoid alcohol for the time being. Diet Order: low/restricted fat diet
[2020-03-27 11:00] VITALS: BP 171/69; PULSE 79; RESP 16; TEMP 37.8; O2SAT 90
--- NOTE | 2020-03-27 11:59 | CM.DPC ---
DCP: continued. Case received and discussed in Team Rounds. Dr. Bajwa stated that she had already met with pt and ok'd her for d/c to home setting with no d/c needs identified. Went to room to check in with pt. LAMIN Evans reported that automatic glove turner and former saw pt and then pt left for home in company of a family member.
== END 2020-03-27 11:53 | disposition home or self-care (01) | DRG 439 ==
LOC: ED 18:04 → AC 18:04
PROVIDERS: Emergency Medicine; Internal Medicine; Admitting Provider Internal Medicine; Emergency Provider Nurse Practitioner; Family Provider Internal Medicine Endocrinology, Diabetes & Metabolism; PCP Internal Medicine; Referring Provider Nurse Practitioner; Visit Provider Internal Medicine
DX: K85.80 Other acute pancreatitis without necrosis or infection (principal); K86.2 Cyst of pancreas; I10 Essential (primary) hypertension; E03.9 Hypothyroidism, unspecified; Z11.59 Encounter for screening for other viral diseases
CPT/HCPCS: 36415; 74181; 76705; 80048; 80053; 80061; 80076; 81003; 81015; 82550; 82962; 83690; 83735; 84484; 85025; 85610; 85730; 87635; 93005; 96361; 96374; 96375; 96376; 99284; J0780; J1170; J1644; J1885; J2060; J2405

== ENCOUNTER → 2020-04-04 11:39 | Outpatient (CLI) | payer MEDICARE, SELFPAY ==
[2020-03-24 19:17] VITALS: BMI 25.2
--- NOTE | 2020-04-04 | DI.RAD.S_ITS ---
PROCEDURE: XR CHEST 2V INDICATIONS: Acute Pancreatitis TECHNIQUE: 2 views of the chest were acquired. COMPARISON: [facility], CT, CT ABDOMEN PELVIS W CON, 02/23/2020, 0:24. [facility], CR, XR CHEST 1V, 02/27/2018, 16:24. [facility], CR, XR CHEST 1V, 02/22/2020, 20:31. FINDINGS: Surgical changes and devices: None. Lungs and pleura: Interstitium is prominent and biapical scarring is unchanged. No focal lung consolidation or pneumothorax. There is mild blunting of left costophrenic angle possibly related to trace left pleural effusion. Mediastinum: Mediastinal contours are normal. Heart size is enlarged. Bones and chest wall: No suspicious bony abnormalities. Soft tissues appear unremarkable. IMPRESSION: 1. Biapical scarring appears stable over time. 2. Mild blunting of left costophrenic angle suspicious for trace left basilar pleural effusion. Dictated by: Ajay POSEY Interpreted: Laron Aguilar MD on 04/04/2020 at 12:27 Approved by: Laron Aguilar M.D. on 04/04/2020 at 13:58
[2020-04-04 12:43] LABS: Hematocrit 38.8 % (36-46); Hemoglobin 13.1 g/dL (12.0-16.0); Mean Corpuscular HGB Conc 33.7 % (30-36); Mean Corpuscular Hemoglobin 31.2 PG (26-34); Mean Corpuscular Volume 92.5 fL (80-100); Platelet Count 432 X10^3/uL (150-400); Red Blood Cell Count 4.19 X10^6/uL (4.0-5.2); White Blood Cell Count 8.5 X10^3/uL (4.5-11.0)
[2020-04-04 12:54] LABS: Neutrophils Absolute Manual 6800 /uL (3000-5900); Total Cells Counted 100
[2020-04-04 12:55] LABS: Rouleaux 1+
[2020-04-04 13:04] LABS: Erythrocyte Sedimentation Rate 21 MM/HR (0-20)
[2020-04-04 13:28] LABS: Alanine Aminotransferase 25 IU/L (<35); Albumin 4.2 g/dL (3.5-5.0); Albumin Globulin Ratio 1.6 (1.0-2.8); Alkaline Phosphatase 110 U/L (38-126); Amylase 45 U/L (30-110); Aspartate Aminotransferase 27 IU/L (14-36); BUN Creatinine Ratio 19.1 (6-22); Bilirubin Total 0.4 mg/dL (0.2-1.3); Blood Urea Nitrogen 13 mg/dL (7-17); C-Reactive Protein Quant 2.3 mg/dL (<1.0); Calcium 10.4 mg/dL (8.4-10.2); Carbon Dioxide 31 mmol/L (22-32); Chloride 99 mmol/L (98-107); Estimated Glomerular Filt Rate > 60.0 mL/min (>60); Gamma Glutamyl Transpeptidase 71 U/L (12-43); Globulin 2.7 g/dL (1.7-4.1); Glucose 107 mg/dL (80-110); HEMOLYSIS < 15 (0-50); Lactate Dehydrogenase 579 U/L (313-618); Lipase 127 U/L (23-300); Potassium 4.2 mmol/L (3.4-5.1); Sodium 137 mmol/L (137-145); Total Protein 6.9 g/dL (6.3-8.2)
== END ==
PROVIDERS: Family Provider Internal Medicine Endocrinology, Diabetes & Metabolism; PCP Internal Medicine; Referring Provider Internal Medicine; Visit Provider Internal Medicine
DX: K85.90 Acute pancreatitis without necrosis or infection, unspecified (principal); R09.89 Other specified symptoms and signs involving the circulatory and respiratory systems
CPT/HCPCS: 36415; 71046; 80053; 82150; 82977; 83615; 83690; 85025; 85651; 86140

== ENCOUNTER → 2020-04-25 10:47 | Outpatient (CLI) | payer MEDICARE, SELFPAY ==
[2020-03-24 19:17] VITALS: BMI 25.2
--- NOTE | 2020-04-25 | DI.RAD.S_ITS ---
PROCEDURE: XR CHEST 2V INDICATIONS: rales TECHNIQUE: 2 views of the chest were acquired. COMPARISON: [facility], CR, XR CHEST 2V, 04/04/2020, 11:58. [facility], CR, XR CHEST 1V, 02/22/2020, 20:31. FINDINGS: Surgical changes and devices: None. Lungs and pleura: Lungs are mildly abnormal and stable over time with reference to prior plain films. There is mild interstitial prominence at each lung base and also at the right upper lobe, potentially a manifestation of mild scarring from prior inflammatory events in those areas.. No pleural effusions or pneumothorax. Mediastinum: Mediastinal contours are normal. Heart size is normal. Bones and chest wall: No suspicious bony abnormalities. Soft tissues appear unremarkable. IMPRESSION: No trauma found. No sign of pneumonia or neoplasm. Mild interstitial prominence has been chronically present in this patient, including at the right upper lobe. Dictated by: Gaurav Meehan M.D. on 04/25/2020 at 12:06 Approved by: Gaurav Meehan M.D. on 04/25/2020 at 12:07
== END ==
PROVIDERS: Family Provider Internal Medicine Endocrinology, Diabetes & Metabolism; PCP Internal Medicine; Referring Provider Internal Medicine; Visit Provider Internal Medicine
DX: R09.89 Other specified symptoms and signs involving the circulatory and respiratory systems (principal); K85.90 Acute pancreatitis without necrosis or infection, unspecified
CPT/HCPCS: 71046

== ENCOUNTER → 2020-07-02 09:26 | Outpatient (CLI) | payer MEDICARE, SELFPAY ==
[2020-03-24 19:17] VITALS: BMI 25.2
[2020-07-02 10:15] LABS: Estimated Glomerular Filt Rate > 60.0 mL/min (>60)
[2020-07-02 10:45] LABS: Thyroid Stimulating Hormone 3.63 uIU/mL (0.47-4.68)
[2020-07-02 19:43] LABS: Vitamin D 25 Hydroxy (D3) 35.8 ng/mL (30.0-100.0)
[2020-07-03 09:42] LABS: Calcium 9.9 mg/dL (8.7-10.3); Parathyroid Hormone, Intact 73 pg/mL (15-65)
== END ==
PROVIDERS: Family Provider Internal Medicine Endocrinology, Diabetes & Metabolism; PCP Internal Medicine; Referring Provider Internal Medicine Endocrinology, Diabetes & Metabolism; Visit Provider Internal Medicine Endocrinology, Diabetes & Metabolism
DX: E03.9 Hypothyroidism, unspecified (principal); M81.0 Age-related osteoporosis without current pathological fracture
CPT/HCPCS: 36415; 82306; 82310; 82565; 83970; 84443

== ENCOUNTER → 2020-07-07 12:44 | Outpatient (CLI) | payer MEDICARE, SELFPAY ==
[2020-03-24 19:17] VITALS: BMI 25.2
== END ==
PROVIDERS: Family Provider Internal Medicine Endocrinology, Diabetes & Metabolism; PCP Internal Medicine; Referring Provider Internal Medicine Endocrinology, Diabetes & Metabolism; Visit Provider Internal Medicine Endocrinology, Diabetes & Metabolism
DX: M81.0 Age-related osteoporosis without current pathological fracture (principal); Z78.0 Asymptomatic menopausal state; E21.3 Hyperparathyroidism, unspecified; Z90.722 Acquired absence of ovaries, bilateral; Z82.62 Family history of osteoporosis
CPT/HCPCS: 77080

== ENCOUNTER → 2020-09-25 08:28 | Outpatient (CLI) | payer MEDICARE, SELFPAY ==
[2020-03-24 19:17] VITALS: BMI 25.2
[2020-09-25 10:23] LABS: Vitamin D 25 Hydroxy (D3) 53.4 ng/mL (30.0-100.0)
[2020-09-26 13:15] LABS: Parathyroid Hormone, Intact 74 pg/mL (15-65)
== END ==
PROVIDERS: Family Provider Internal Medicine Endocrinology, Diabetes & Metabolism; PCP Internal Medicine; Referring Provider Internal Medicine Endocrinology, Diabetes & Metabolism; Visit Provider Internal Medicine Endocrinology, Diabetes & Metabolism
DX: E21.3 Hyperparathyroidism, unspecified (principal); M81.0 Age-related osteoporosis without current pathological fracture
CPT/HCPCS: 36415; 82306; 82310; 83970

== ENCOUNTER → 2020-10-13 08:30 | Outpatient (CLI) | payer MEDICARE, SELFPAY ==
[2020-03-24 19:17] VITALS: BMI 25.2
[2020-10-13 11:39] LABS: COVID19 -Nasal RAPID Negative (Negative)
== END ==
PROVIDERS: Family Provider Internal Medicine Endocrinology, Diabetes & Metabolism; PCP Internal Medicine; Visit Provider Physician Assistant
DX: Z01.812 Encounter for preprocedural laboratory examination (principal); Z20.822 Contact with and (suspected) exposure to COVID-19
CPT/HCPCS: 87635; C9803

== ENCOUNTER 2020-10-14 08:54 | Day surgery (SDC) | payer MEDICARE, SELFPAY ==
[2020-03-24 19:17] VITALS: BMI 25.2
[2020-10-14] MEDS: PROPARACAINE 0.5% OPHTH SOL 2 DROPS EYE-OP (09:40)
[2020-10-14 09:42] VITALS: BP 193/93; PULSE 82; RESP 16; TEMP 36.8; O2SAT 98; BMI 24.2
[2020-10-14] MEDS: CATARACT EYE COMPOUND (10 DROPS/SYRINGE) 3 DROPS EYE-OP (09:52)
--- NOTE | 2020-10-14 10:38 | P.OP_ITS ---
Operative Date/Time/Diagnoses Pre-op diagnosis: Nuclear cataract right eye Procedure & Clinicians Procedure: Cataract Surgery Same procedure as scheduled: Yes Surgeon: Cuauhtemoc Gardner Anesthesia Type: MAC +/- and Sedation Operative Notes Procedure in detail: Patient brought to the operating suite. Tetracaine drops placed in the right eye.Marking instrument was used to leana vertical or horizontal meridians. Patient was prepped and draped in sterile manner. Wire lid speculum was placed in the eye. Marking instrument was used to leana 80 d egree meridian. Betadine drops were placed on the eye. This was irrigated. Lidocaine jelly was placed on the eye. A paracentesis port was created with a side-port blade. 0.1 mL 1% preservative free lidocaine was injected into the anterior chamber. The anterior chamber was deepened with viscoelastic. 2.6 mm keratome was used to create a temporal clear corneal incision. Cystotome and Utrata forceps were used to create continuous tear capsulorrhexis. Balanced salt solution was used to hydro dissect the nucleus. The phacoemulsification handpiece was inserted and the nucleus was removed using the stop and chop technique. The irrigation aspiration handpiece was inserted and the remaining cortex was removed. Anterior chamber was deepened with viscoelastic. An Joy [id number] intraocular lens with a power of 21.5 was injected into the capsular bag. Irrigation aspiration handpiece was inserted and the remaining viscoelastic was removed. The lens was rotated to the 80 degree meridian. Incision was hydrated with balanced salt solution and found to be leak free with pressure with Weck- Jewell sponges. 0.1 mL Vigamox injected anterior chamber. 0.3 mL Kenalog 10 mg was injected subconjunctivally. Lid speculum was removed. The patient left the operating room in excellent condition. Complications: none Post-operative Condition: stable Disposition: same day surgery
--- NOTE | 2020-10-14 10:38 | PM.PREOP ---
Pre-operative Note Interval Note History & Physical reviewed/Exam performed by Physician: Yes Changes to H&P: No
--- NOTE | 2020-10-14 10:50 | SUR.OPER ---
Supine on eye stretcher, head on extension cradle secured with tape. Arms tucked at sides with blanket. Pillow under knees.
[2020-10-14] MEDS: BALANCED SALT IRRIG SOLN NO.2 500 ML, EPINEPHrine 1 MG IRR (10:54)
[2020-10-14] MEDS: LIDOCAINE 2% (GLYDO) 6 ML GEL TOP (10:54)
[2020-10-14] MEDS: PHENYLEPHRINE/LIDOCAINE VIAL (OR) 0.2 ML EYE-OP (10:54)
[2020-10-14] MEDS: TRIAMCINOLONE 50 MG/5 ML VIAL INJ (10:55)
[2020-10-14] MEDS: TETRACAINE 0.5% OPHTH DROPS 4 ML 2 DROPS EYE-OP (10:55)
[2020-10-14] MEDS: CHONDROIDTIN/SOD HYALURONATE 1.05 ML SYRINGE INTRAOCULA (10:55)
[2020-10-14] MEDS: MOXIFLOXACIN INJ 4 MG/0.8 ML VIAL 0.5 MG EYE-OP (10:56)
[2020-10-14 11:12] VITALS: BP 191/93; PULSE 82; RESP 14; TEMP 37.1; O2SAT 97
== END 2020-10-14 11:26 | disposition home or self-care (01) ==
PROVIDERS: Family Provider Internal Medicine Endocrinology, Diabetes & Metabolism; PCP Internal Medicine; Referring Provider Internal Medicine; Visit Provider Ophthalmology
PROC: (CPT 66984; principal; 2020-10-14 10:45)
DX: H25.11 Age-related nuclear cataract, right eye (principal); R00.2 Palpitations
CPT/HCPCS: 66984; J0171; J2704; J3301; V2787

== ENCOUNTER → 2020-10-27 08:03 | Outpatient (CLI) | payer MEDICARE, SELFPAY ==
[2020-03-24 19:17] VITALS: BMI 25.2
[2020-10-27 12:24] LABS: COVID19 -Nasal RAPID Negative (Negative)
== END ==
PROVIDERS: Family Provider Internal Medicine Endocrinology, Diabetes & Metabolism; PCP Internal Medicine; Visit Provider Physician Assistant
DX: Z01.812 Encounter for preprocedural laboratory examination (principal); Z20.822 Contact with and (suspected) exposure to COVID-19
CPT/HCPCS: 87635; C9803

== ENCOUNTER 2020-10-28 08:54 | Day surgery (SDC) | payer MEDICARE, SELFPAY ==
[2020-03-24 19:17] VITALS: BMI 25.2
[2020-10-28] MEDS: PROPARACAINE 0.5% OPHTH SOL 2 DROPS EYE-OP (09:39)
[2020-10-28] MEDS: CATARACT EYE COMPOUND (10 DROPS/SYRINGE) 3 DROPS EYE-OP (09:39)
[2020-10-28 09:40] VITALS: BP 179/81; PULSE 70; RESP 14; TEMP 37.1; O2SAT 97; BMI 24.2
--- NOTE | 2020-10-28 10:19 | PM.PREOP ---
Pre-operative Note Interval Note History & Physical reviewed/Exam performed by Physician: Yes Changes to H&P: No
--- NOTE | 2020-10-28 10:19 | PM.OP.1 ---
Operative Date/Time/Diagnoses Pre-op diagnosis: Nuclear Cataract Left eye Post-op diagnosis: same Procedure & Clinicians Same procedure as scheduled: Yes Surgeon: Cuauhtemoc Gardner Anesthesia Type: MAC +/- and Sedation Operative Notes Procedure in detail: Patient brought to the operating suite. Tetracaine drops placed in the left eye. Marking instrument was used to leana vertical and horizontal merdiains. Patient was prepped and draped in sterile manner. Wire lid speculum was placed in the eye. Marking instrument was used to leana 100 degree meridian. Betadine drops were placed on the eye. This was irrigated. Lidocaine jelly was placed on the eye. A paracentesis port was created with a side-port blade. 0.1 mL 1% preservative free lidocaine was injected into the anterior chamber. The anterior chamber was deepened with viscoelastic. 2.6 mm keratome was used to create a temporal clear corneal incision. Cystotome and Utrata forceps were used to create continuous tear capsulorrhexis. Balanced salt solution was used to hydro dissect the nucleus. The phacoemulsification handpiece was inserted and the nucleus was removed using the stop and chop technique. The irrigation aspiration handpiece was inserted and the remaining cortex was removed. Anterior chamber was deepened with viscoelastic. An Joy [id number] intraocular lens with a power of 22.0 was injected into the capsular bag. Irrigation aspiration handpiece was inserted and the remaining viscoelastic was removed. The lens was rotated the the 100 degree meridian. Incision was hydrated with balanced salt solution and found to be leak free with pressure with Weck-Jewell sponges. 0.1 mL Vigamox injected anterior chamber. 0.3 mL Kenalog 10 mg was injected subconjunctivally. Lid speculum was removed. The patient left the operating room in excellent condition. Complications: none Post-operative Condition: stable Disposition: same day surgery
[2020-10-28] MEDS: CHONDROIDTIN/SOD HYALURONATE 1.05 ML SYRINGE INTRAOCULA (10:34)
[2020-10-28] MEDS: LIDOCAINE 2% (GLYDO) 6 ML GEL TOP (10:34)
[2020-10-28] MEDS: PHENYLEPHRINE/LIDOCAINE VIAL (OR) 0.2 ML EYE-OP (10:35)
[2020-10-28] MEDS: MOXIFLOXACIN INJ 4 MG/0.8 ML VIAL 0.5 MG EYE-OP (10:35)
[2020-10-28] MEDS: TRIAMCINOLONE 50 MG/5 ML VIAL INJ (10:37)
[2020-10-28] MEDS: BALANCED SALT IRRIG SOLN NO.2 500 ML, EPINEPHrine 1 MG IRR (10:37)
[2020-10-28] MEDS: TETRACAINE 0.5% OPHTH DROPS 4 ML 2 DROPS EYE-OP (10:37)
[2020-10-28 10:52] VITALS: BP 171/76; PULSE 60; RESP 14; TEMP 37; O2SAT 99
== END 2020-10-28 11:02 | disposition home or self-care (01) ==
PROVIDERS: Family Provider Internal Medicine Endocrinology, Diabetes & Metabolism; PCP Internal Medicine; Referring Provider Ophthalmology; Visit Provider Ophthalmology
PROC: (CPT 66984; principal; 2020-10-28 10:45)
DX: H25.12 Age-related nuclear cataract, left eye (principal); I10 Essential (primary) hypertension; E03.9 Hypothyroidism, unspecified
CPT/HCPCS: 66984; J0171; J3301; V2787

== ENCOUNTER → 2020-12-11 08:58 | Outpatient (CLI) | payer MEDICARE, SELFPAY ==
[2020-03-24 19:17] VITALS: BMI 25.2
[2020-12-11 10:40] LABS: BUN Creatinine Ratio 28.6 (6-22); Blood Urea Nitrogen 20 mg/dL (7-17); Calcium 9.9 mg/dL (8.4-10.2); Carbon Dioxide 28 mmol/L (22-32); Chloride 105 mmol/L (98-107); Estimated Glomerular Filt Rate > 60.0 mL/min (>60); Glucose 96 mg/dL (80-110); HEMOLYSIS < 15 (0-50); Potassium 4.2 mmol/L (3.4-5.1); Sodium 137 mmol/L (137-145)
== END ==
PROVIDERS: Family Provider Internal Medicine Endocrinology, Diabetes & Metabolism; PCP Internal Medicine; Referring Provider Nurse Practitioner; Visit Provider Nurse Practitioner
DX: Z51.81 Encounter for therapeutic drug level monitoring (principal)
CPT/HCPCS: 36415; 80048

== ENCOUNTER 2021-01-19 10:50 | Inpatient (IN) | payer MEDICARE, SELFPAY ==
[2020-03-24 19:17] VITALS: BMI 25.2
[2021-01-19] VITALS (21 sets, daily range): BP systolic 143–191; BP diastolic 62–93; PULSE 59–90; RESP 14–18; TEMP 36.4–36.8; O2SAT 95–98; BMI 24.5
[2021-01-19 11:20] LABS: Add Manual Diff / Slide Review NO; Basophils Absolute Auto 0 /uL (0-100); Basophils Percent Auto 0.3 % (0-2); Eosinophils Absolute Auto 100 /uL (0-450); Eosinophils Percent Auto 0.8 % (2-4); Hematocrit 40.9 % (36-46); Lymphocytes Absolute Auto 1200 /uL (1100-4500); Lymphocytes Percent Auto 11.4 % (25-40); Mean Corpuscular HGB Conc 34.2 % (30-36); Mean Corpuscular Hemoglobin 31.7 PG (26-34); Mean Corpuscular Volume 92.9 fL (80-100); Monocytes Absolute Auto 900 /uL (0-900); Monocytes Percent Auto 7.9 % (3-14); Neutrophils Absolute Auto 8600 /uL (1500-7000); Neutrophils Percent Auto 79.6 % (50-75); Platelet Count 224 X10^3/uL (150-400); Red Blood Cell Count 4.41 X10^6/uL (4.0-5.2); White Blood Cell Count 10.8 X10^3/uL (4.5-11.0)
[2021-01-19 11:28] LABS: Alanine Aminotransferase 24 IU/L (<35); Albumin 4.3 g/dL (3.5-5.0); Albumin Globulin Ratio 1.5 (1.0-2.8); Alkaline Phosphatase 71 U/L (38-126); Aspartate Aminotransferase 33 IU/L (14-36); BUN Creatinine Ratio 23.1 (6-22); Bilirubin Total 0.9 mg/dL (0.2-1.3); Blood Urea Nitrogen 18 mg/dL (7-17); Calcium 9.6 mg/dL (8.4-10.2); Carbon Dioxide 25 mmol/L (22-32); Chloride 101 mmol/L (98-107); Estimated Glomerular Filt Rate > 60.0 mL/min (>60); Globulin 2.8 g/dL (1.7-4.1); Glucose 112 mg/dL (80-110); HEMOLYSIS < 15 (0-50); Potassium 3.7 mmol/L (3.4-5.1); Sodium 133 mmol/L (137-145); Total Protein 7.1 g/dL (6.3-8.2)
--- NOTE | 2021-01-19 12:22 | DI.RAD.S_ITS ---
PROCEDURE: XR CHEST 2V INDICATIONS: Epigastric pain TECHNIQUE: 2 views of the chest were acquired. COMPARISON: [facility], CR, XR CHEST 1V, 02/27/2018, 16:24. [facility], CT, PE STUDY (CTA CHEST), 05/30/2014, 10:59. [facility], CR, XR CHEST 2V, 04/04/2020, 11:58. [facility], CR, XR CHEST 2V, 04/25/2020, 11:49. FINDINGS: Surgical changes and devices: None. Lungs and pleura: There is scarring redemonstrated in the lung apices. Linear opacities medially in the right lung base also likely represent atelectasis or scarring. No pleural effusions or pneumothorax. Mediastinum: Mediastinal contours are normal. Heart size is normal. Bones and chest wall: No suspicious bony abnormalities. Soft tissues appear unremarkable. IMPRESSION: 1. No definite acute cardiopulmonary disease. 2. Likely atelectasis or scarring medially in the right lung base. Dictated by: Isidro Cano M.D. on 01/19/2021 at 13:00 Approved by: Isidro Cano M.D. on 01/19/2021 at 13:08
[2021-01-19 12:27] LABS: Lipase 23100 U/L (23-300)
--- NOTE | 2021-01-19 12:37 | DI.US.S_ITS ---
PROCEDURE: US ABDOMEN LIMITED INDICATIONS: RUQ PAIN TECHNIQUE: Real-time focused scanning was performed of the abdomen, with image documentation. COMPARISON: [facility], CT, CT ABDOMEN PELVIS W CON, 04/27/2018, 14:06. [facility], CT, CT ABDOMEN PELVIS W CON, 02/23/2020, 0:24. [facility], US, US ABDOMEN COMPLETE, 02/24/2020, 11:09. [facility], MR, MR ABDOMEN WO CON, 03/24/2020, 14:44. [facility], CT, CT ABDOMEN PELVIS W CON, 01/19/2021, 12:52. [facility], US, US ABDOMEN LIMITED, 03/24/2020, 13:50. FINDINGS: No gallstones. No gallbladder wall thickening, pericholecystic fluid or sonographic Crocker's sign. Visualized liver demonstrates normal echotexture. Common bile duct is normal in caliber measuring 5.3 mm in diameter. There is a 1.7 x 1.4 x 2.1 cm cyst in the pancreatic head. Pancreatic duct is dilated measuring 4.8 cm. There is a simple appearing cyst in the superior pole of the right kidney measuring 3.7 x 2.8 cm. IMPRESSION: 1. There is a 1.7 x 1.4 x 2.1 cm cyst in the pancreatic head. Differential diagnosis include simple cyst, pseudocyst and low-grade malignancy such as IPMN. Recommend continued imaging follow-up. If clinically indicated, endoscopic ultrasound and endoscopic ultrasound-guided aspiration biopsy may be considered. 2. Mild pancreatic duct dilation. 3. A 3.7 x 2.8 cm simple cyst in the superior pole of the right kidney. Dictated by: Miya Prather M.D. on 01/19/2021 at 13:59 Approved by: Miya Prather M.D. on 01/19/2021 at 14:07
[2021-01-19] MEDS: SODIUM CHLORIDE 0.9% 1,000 ML 1000 ML IV (12:41)
[2021-01-19] MEDS: ONDANSETRON 4 MG/2 ML INJ IV (12:41)
[2021-01-19] MEDS: KETOROLAC 30 MG/ML VIAL 15 MG IV ×2 (12:41→18:42)
--- NOTE | 2021-01-19 12:41 | DI.CT.S_ITS ---
PROCEDURE: CT ABDOMEN PELVIS W CON INDICATIONS: RUQ, epigastric pain, prior serous adenoma of the pancreas TECHNIQUE: After the administration of IV contrast, axial sections were acquired from the lung bases to the pubic symphysis. Coronal and sagittal reformats were performed. For radiation dose reduction, the following was used: automated exposure control, adjustment of mA and/or kV according to patient size. COMPARISON: [facility], CT, CT ABDOMEN PELVIS W CON, 02/23/2020, 0:24. FINDINGS: Image quality: Excellent. Lung bases: Unremarkable. Heart: Heart is mildly enlarged without effusion. ABDOMEN: Liver: The liver is mildly enlarged with steatosis. Scattered calcifications are noted. Gallbladder: Gallbladder is distended without wall thickening. Biliary ducts: Unremarkable. Pancreas: Pancreas demonstrates multilobulated cystic foci within the pancreatic head, measuring approximately 3.2 x 2.2 by 2.8 cm. This is unchanged compared to prior exam. Pancreatic ductal dilation is stable measuring 4 mm. There is moderate peripancreatic inflammatory change as well as fluid predominantly adjacent to the body and tail, some appearing organized. Spleen: Scattered calcifications are noted within the spleen. Adrenal Glands: Unremarkable. Kidneys and Ureters: Right renal cyst is noted. Retroaortic left renal vein is incidentally noted.. Stomach and Bowel: Stomach, small bowel loops, and colon are nonobstructive. There is minimal appearance of inflammatory change within a focal bowel loop adjacent to the pancreatic tail. In addition, there is mild thickened/inflammatory change appearance of the posterior gastric wall. Peritoneum: Mild dependent pelvic fluid is present as well as trace perihepatic fluid. Ventral Wall: No hernia. Abdominal Nodes: No retroperitoneal or mesenteric adenopathy by size criteria. Vessels: Aorta and inferior vena cava are normal in size. PELVIS: Pelvic Organs: Unremarkable. Bladder: Unremarkable. Pelvic Nodes: No enlarged lymph nodes. Miscellaneous: No inguinal hernias are seen. Bones: Unremarkable. IMPRESSION: 1. Pancreatic inflammatory change as well as a somewhat organized fluid collection suggestive of early developing phlegmon. Overall changes are suggestive of pancreatitis. 2. Persistent appearance of multilobulated cystic mass within the pancreatic head and pancreatic ductal dilation. 3. Mildly thickened appearance of focal descending bowel loop adjacent to pancreatic tail as well as posterior gastric wall suspected to be secondary reactive changes to pancreatic inflammation. 4. Dependent pelvic and perihepatic fluid. 5. Calcifications within the spleen and liver suggestive of prior granulomatous disease. Dictated by: Elaina Haro M.D. on 01/19/2021 at 14:26 Approved by: Elaina Haro M.D. on 01/19/2021 at 14:45
--- NOTE | 2021-01-19 12:52 | ED_ITS ---
HPI - Abdominal Pain <Daryn Barakat PA-C - Last Filed: 01/19/21 16:02> General Chief Complaint: Abdominal Pain Stated Complaint: poss pancreatitis, sent by [facility] Time Seen by Provider: 01/19/21 11:55 Source: patient Mode of arrival: Ambulatory Limitations: no limitations History of Present Illness HPI narrative: 80-year-old female with past medical history acute pancreatitis, cyst of the pancreatitis, hyperlipidemia, hypertension, hyperparathyroidism, hypothyroidism presents to the ED with 2 days of upper abdominal pain. Patient endorses onset of symptoms yesterday starting with anorexia and nausea, followed by upper abdominal pain which she describes as going across her upper abdomen. Endorses 4/10 pain, sufficiently uncomfortable for her to find a good position to lay in. Patient feels most comfortable laying supine so as to not put pressure on her abdomen. Patient also endorses some lower back pain that she has experienced for the last 2 weeks. Patient denies fever, chills, chest pain, shortness of breath, cough, vomiting, dysuria, lightheadedness, dizziness, syncope. Patient endorses a prior history of pancreatitis in 2019. Denies prior history of gallstones, denies alcohol use. Denies drug use. Denies tobacco use. Patient has a prior CT with a serous pancreatic adenoma. Related Data Home Medications Medication Instructions Recorded Confirmed levothyroxine 50 mcg tablet 50 mcg PO DAILY 02/23/20 01/19/21 (Synthroid) valsartan 40 mg tablet 20 mg PO BID 10/14/20 01/19/21 metoprolol succinate 25 mg 12.5 mg PO BID 01/19/21 01/19/21 tablet,extended release 24 hr Allergies Allergy/AdvReac Type Severity Reaction Status Date / Time Sulfa (Sulfonamide Allergy Unknown Verified 01/19/21 11:05 Antibiotics) [SULFA (SULFONAMIDE ANTIBIOTICS)] lisinopril AdvReac Severe Cough Verified 01/19/21 11:05 Review of Systems <Daryn Barakat PA-C - Last Filed: 01/19/21 16:02> Constitutional Constitutional: Denies chills, Denies fatigue, Denies fever(s), Denies frequent falls, Denies lethargy and Denies weakness Eyes Eyes: Denies change in vision, Denies eye discharge, Denies irritation and Denies loss of vision ENT Ears, Nose, Mouth, and Throat: Denies change in voice, Denies dizziness, Denies neck pain, Denies sore throat and Denies throat swelling Cardiovascular Cardiovascular: Denies chest pain, Denies irregular heart rhythm, Denies lightheadedness, Denies palpitations, Denies dyspnea, Denies dyspnea on exertion and Denies orthopnea Respiratory Respiratory: Denies cough, Denies dyspnea, Denies dyspnea on exertion and Denies wheezing Gastrointestinal Gastrointestinal: Reports abdominal pain, Denies change in bowel habits, Denies diarrhea, Reports nausea and Denies vomiting Comments: Anorexia Musculoskeletal Musculoskeletal: Denies neck pain and Denies numbness Integumentary/Breasts Skin/Breast: Denies pruritus, Denies erythema, Denies rash and Denies wounds Neurologic Neurologic: Denies behavioral changes, Denies confusion, Denies dizziness, Denies frequent falls, Denies loss of vision, Denies numbness and Denies weakness Psychiatric Psychiatric: Denies anxiety, Denies behavioral changes, Denies confusion, Denies depression, Denies homicidal ideation and Denies suicidal ideation Endocrine Endocrine: Denies fatigue, Denies flushing and Denies palpitations Hematologic/Lymphatic Hematologic/Lymphatic: Denies easy bruising Allergic/Immunologic Allergic/Immunologic: Denies urticaria, Denies throat swelling and Denies wheezing Patient History <Daryn Barakat PA-C - Last Filed: 01/19/21 16:02> Medical History Acute appendicitis Hypercalcemia Hyperlipidemia Hypertension Hypothyroid Left bundle branch block Parathyroid abnormality Surgical History H/O: hysterectomy (~1992) History of appendectomy (~04/27/18) Family History Mother Hypertension Father Stomach cancer Prostate cancer Brother Prostate cancer Social History household members: none occupational status: previously employed Smoking Status: Never smoker alcohol intake: never substance use type: does not use Smoking Status: Never smoker alcohol intake frequency: holidays/special occasions only Substance Use Type: does not use Exam <Daryn Barakat PA-C - Last Filed: 01/19/21 16:02> Initial Vital Signs Initial Vital Signs: Vital Signs Temperature 98.1 F 01/19/21 10:53 Pulse Rate 82 01/19/21 10:53 Respiratory Rate 14 01/19/21 10:53 Blood Pressure 186/82 H 01/19/21 10:53 Pulse Oximetry 96 01/19/21 10:53 Const General: cooperative [facility] Head: normocephalic and atraumatic Ears: external ears normal and TM's normal bilaterally Nose: external nose normal and No nasal discharge Face and sinus: sinuses nontender, face symmetric, no sinus tenderness and No dry mucous membranes Mouth: oral mucosae normal and moist mucous membranes Teeth and gingiva: dentition normal Throat: tonsils normal and uvula midline Eyes General: appearance normal, both eyes and all related structures Eyelids: eyelids normal Conjunctivae: conjunctivae normal Sclera: sclerae normal Pupils: PERRL EOM: EOM intact bilaterally Neck Neck: normal visual inspection, trachea midline, No lymphadenopathy, No midline deformity and No JVD Lymphatic: No lymphedema Chest Chest: normal inspection of the chest Resp Effort & Inspection: normal respiratory effort, able to speak in complete sentences, no respiratory distress and no use of accessory muscles Auscultation: clear to auscultation bilaterally, no rales, no rhonchi and no wh eezes Cardio Rate: regular rate Rhythm: regular rhythm Heart Sounds: no click, no gallops, no murmurs and no rubs Pulses: normal peripheral pulses GI Inspection: non-distended Palpation: soft, no hepatosplenomegaly, No guarding, No pulsatile mass and tender Auscultation: normal bowel sounds Other: Tenderness to palpation of right upper quadrant, epigastric regions. No guarding, rebound. Abdomen is soft, nondistended. No CVA tenderness. Back/Spine/Pelvis Back: No CVA tenderness Cervical Spine: cervical ROM normal and No pain with cervical ROM Thoracic/Lumbar Spine: thoracic and lumbar spine normal to inspection Skin General: no rashes or lesions noted, No jaundice and No petechiae Neuro General: patient alert, patient oriented x3, gait normal and no focal motor deficits Speech: speech normal Extrem General: full ROM, no clubbing, cyanosis or edema, no pedal edema and no calf tenderness Psych Appearance: well kempt Mental Status: mental status grossly normal Attitude: cooperative Thought Content: normal and suicidality Judgment: judgment good <Avinash Whittington MD - Last Filed: 01/19/21 18:19> Initial Vital Signs Initial Vital Signs: Vital Signs Temperature 98.1 F 01/19/21 10:53 Pulse Rate 82 01/19/21 10:53 Respiratory Rate 14 01/19/21 10:53 Blood Pressure 186/82 H 01/19/21 10:53 Pulse Oximetry 96 01/19/21 10:53 Course <Dayrn Barakat PA-C - Last Filed: 01/19/21 16:02> Course Course Narrative: Lipase elevated to 23,100. No systemic symptoms, antibiotics not indicated at this time. Will wait for CT and ultrasound. Ultrasound negative for biliary etiology. CT abdomen pelvis shows evidence of pancreatitis. No indications for antibiotics at this time. Patient is NPO. Admitted to inpatient. Orders Ordered: ED Orders 01/19/21 11:00 Complete Blood Count AUTO DIFF Stat Comprehensive Metabolic Panel Stat Lactate (Lactic Acid) Stat Lipase Stat Triglycerides Stat Troponin I Stat 01/19/21 11:05 EKG-12 Lead Stat 01/19/21 12:22 XR chest 2V Stat 01/19/21 12:37 US abdomen limited Stat 01/19/21 12:41 CT abdomen pelvis w con Stat 01/19/21 13:38 Urine Culture Stat Urine Microscopic Stat 01/19/21 15:30 COVID19 - ADMIT ([employer] swab/PCR) Stat Acetaminophen (Acetaminophen 325 Mg Tablet) 650 mg PO Q6HR PRN PRN Reason: Fever/Mild Pain (1-3) Enoxaparin Sodium (Enoxaparin 40 Mg/0.4 Ml Syringe) 40 mg SUBCUT DAILY [facility] Sodium Chloride (Normal Saline 0.9%) 1,000 mls @ 100 mls/hr IV CONT GAURAV Ketorolac Tromethamine (Ketorolac 30 Mg/Ml Vial) 15 mg IV Q6HR PRN PRN Reason: Pain, Severe (7-10) Stop: 01/24/21 17:58 Levothyroxine Sodium (Levothyroxine 50 Mcg Tablet) 50 mcg PO DAILY [facility] Metoprolol Succinate (Metoprolol Er 25 Mg Tablet) 12.5 mg PO BID GAURAV Naloxone HCl (Naloxone 0.4 Mg/Ml Vial) 0.2 mg IV Q2MIN PRN PRN Reason: Opiate Reversal Ondansetron HCl (Ondansetron 4 Mg/2 Ml Inj) 4 mg IV Q4HR PRN PRN Reason: Nausea And Vomiting Oxycodone HCl (Oxycodone Ir 5 Mg Tablet) 5 mg PO Q6HR PRN PRN Reason: Pain, Moderate (4-6) Valsartan (Valsartan 80 Mg Tablet) 20 mg PO BID GAURAV Discontinued Medications Sodium Chloride (Normal Saline 0.9%) 1,000 mls @ 1,000 mls/hr IV BOLUS ONE Stop: 01/19/21 13:36 Last Infusion: 01/19/21 15:35 Dose: 0 mls/hr Documented by: Admin: 01/19/21 12:41 Dose: 1,000 mls/hr Documented by: HEATHER Ketorolac Tromethamine (Ketorolac 30 Mg/Ml Vial) 15 mg IV NOW ONE Stop: 01/19/21 12:38 Last Admin: 01/19/21 12:41 Dose: 15 mg Documented by: HEATHER Ondansetron HCl (Ondansetron 4 Mg/2 Ml Inj) 4 mg IV NOW ONE Stop: 01/19/21 12:38 Last Admin: 01/19/21 12:41 Dose: 4 mg Documented by: HEATHER Vital Signs Vital signs: Vital Signs - 8 hr 01/19/21 10:53 01/19/21 10:56 01/19/21 10:57 Temperature 98.1 F Pulse Rate 82 90 87 Respiratory Rate 14 Blood Pressure 186/82 H 186/82 H Pulse Oximetry 96 97 96 01/19/21 11:00 01/19/21 11:01 01/19/21 11:30 Temperature Pulse Rate 83 85 65 Respiratory Rate Blood Pressure 171/72 H 162/70 H Pulse Oximetry 97 97 97 01/19/21 12:00 01/19/21 12:30 01/19/21 13:00 Temperature Pulse Rate 61 73 68 Respiratory Rate Blood Pressure 163/71 H 172/74 H Pulse Oximetry 98 98 98 01/19/21 13:39 01/19/21 14:00 01/19/21 14:01 Temperature Pulse Rate 67 59 L 61 Respiratory Rate Blood Pressure 149/66 H Pulse Oximetry 97 96 97 01/19/21 14:30 01/19/21 15:00 Temperature Pulse Rate 69 64 Respiratory Rate Blood Pressure 175/75 H 175/72 H Pulse Oximetry 97 97 <Avinash Whittington MD - Last Filed: 01/19/21 18:19> Orders Ordered: ED Orders 01/19/21 11:00 Complete Blood Count AUTO DIFF Stat Comprehensive Metabolic Panel Stat Lactate (Lactic Acid) Stat Lipase Stat Triglycerides Stat Troponin I Stat 01/19/21 11:05 EKG-12 Lead Stat 01/19/21 12:22 XR chest 2V Stat 01/19/21 12:37 US abdomen limited Stat 01/19/21 12:41 CT abdomen pelvis w con Stat 01/19/21 13:38 Urine Culture Stat Urine Microscopic Stat 01/19/21 15:30 COVID19 - ADMIT ([employer] swab/PCR) Stat Acetaminophen (Acetaminophen 325 Mg Tablet) 650 mg PO Q6HR PRN PRN Reason: Fever/Mild Pain (1-3) Enoxaparin Sodium (Enoxaparin 40 Mg/0.4 Ml Syringe) 40 mg SUBCUT DAILY [facility] Sodium Chloride (Normal Saline 0.9%) 1,000 mls @ 100 mls/hr IV CONT GAURAV Ketorolac Tromethamine (Ketorolac 30 Mg/Ml Vial) 15 mg IV Q6HR PRN PRN Reason: Pain, Severe (7-10) Stop: 01/24/21 17:58 Levothyroxine Sodium (Levothyroxine 50 Mcg Tablet) 50 mcg PO DAILY [facility] Metoprolol Succinate (Metoprolol Er 25 Mg Tablet) 12.5 mg PO BID GAURAV Naloxone HCl (Naloxone 0.4 Mg/Ml Vial) 0.2 mg IV Q2MIN PRN PRN Reason: Opiate Reversal Ondansetron HCl (Ondansetron 4 Mg/2 Ml Inj) 4 mg IV Q4HR PRN PRN Reason: Nausea And Vomiting Oxycodone HCl (Oxycodone Ir 5 Mg Tablet) 5 mg PO Q6HR PRN PRN Reason: Pain, Moderate (4-6) Valsartan (Valsartan 80 Mg Tablet) 20 mg PO BID GAURAV Discontinued Medications Sodium Chloride (Normal Saline 0.9%) 1,000 mls @ 1,000 mls/hr IV BOLUS ONE Stop: 01/19/21 13:36 Last Infusion: 01/19/21 15:35 Dose: 0 mls/hr Documented by: Admin: 01/19/21 12:41 Dose: 1,000 mls/hr Documented by: HEATHER Ketorolac Tromethamine (Ketorolac 30 Mg/Ml Vial) 15 mg IV NOW ONE Stop: 01/19/21 12:38 Last Admin: 01/19/21 12:41 Dose: 15 mg Documented by: HEATHER Ondansetron HCl (Ondansetron 4 Mg/2 Ml Inj) 4 mg IV NOW ONE Stop: 01/19/21 12:38 Last Admin: 01/19/21 12:41 Dose: 4 mg Documented by: HEATHER Vital Signs Vital signs: Vital Signs - 8 hr 01/19/21 10:53 01/19/21 10:56 01/19/21 10:57 Temperature 98.1 F Pulse Rate 82 90 87 Respiratory Rate 14 Blood Pressure 186/82 H 186/82 H Pulse Oximetry 96 97 96 01/19/21 11:00 01/19/21 11:01 01/19/21 11:30 Temperature Pulse Rate 83 85 65 Respiratory Rate Blood Pressure 171/72 H 162/70 H Pulse Oximetry 97 97 97 01/19/21 12:00 01/19/21 12:30 01/19/21 13:00 Temperature Pulse Rate 61 73 68 Respiratory Rate Blood Pressure 163/71 H 172/74 H Pulse Oximetry 98 98 98 01/19/21 13:39 01/19/21 14:00 01/19/21 14:01 Temperature Pulse Rate 67 59 L 61 Respiratory Rate Blood Pressure 149/66 H Pulse Oximetry 97 96 97 01/19/21 14:30 01/19/21 15:00 Temperature Pulse Rate 69 64 Respiratory Rate Blood Pressure 175/75 H 175/72 H Pulse Oximetry 97 97 MDM - Abdominal Pain <Daryn Barakat PA-C - Last Filed: 01/19/21 16:02> Lab Data Lab results narrative: Lipase elevated to 23,100. WBC WNL Result diagrams: 01/19/21 11:00 01/19/21 11:00 Labs: Lab Results 01/19/21 01/19/21 01/19/21 Range/Units 11:00 11:00 11:00 WBC 10.8 (4.5-11.0) X10^3/uL RBC 4.41 (4.0-5.2) X10^6/uL Hgb 14.0 (12.0-16.0) g/dL Hct 40.9 (36-46) % MCV 92.9 (80-100) fL MCH 31.7 (26-34) PG MCHC 34.2 (30-36) % RDW 14.0 (11.6-14.8) % Plt Count 224 (150-400) X10^3/uL Neut % (Auto) 79.6 H (50-75) % Lymph % (Auto) 11.4 L (25-40) % [place] % (Auto) 7.9 (3-14) % Eos % (Auto) 0.8 L (2-4) % Baso % (Auto) 0.3 (0-2) % Neut # (Auto) 8600 H (0425-6085) /uL Lymph # (Auto) 1200 (5340-0243) /uL [place] # (Auto) 900 (0-900) /uL Eos # (Auto) 100 (0-450) /uL Baso # (Auto) 0 (0-100) /uL Sodium 133 L (137-145) mmol/L Potassium 3.7 (3.4-5.1) mmol/L Chloride 101 (98-107) mmol/L Carbon Dioxide 25 (22-32) mmol/L BUN 18 H (7-17) mg/dL Creatinine 0.78 (0.52-1.04) mg/dL Estimated GFR > 60.0 (>60) mL/min BUN/Creatinine Ratio 23.1 H (6-22) Glucose 112 H (80-110) mg/dL Lactate (0.7-2.1) mmol/L Calcium 9.6 (8.4-10.2) mg/dL Total Bilirubin 0.9 (0.2-1.3) mg/dL AST 33 (14-36) IU/L ALT 24 (<35) IU/L Alkaline Phosphatase 71 (38-126) U/L Troponin I < 0.012 (0.01-0.034) ng/mL Total Protein 7.1 (6.3-8.2) g/dL Albumin 4.3 (3.5-5.0) g/dL Globulin 2.8 (1.7-4.1) g/dL Albumin/Globulin Ratio 1.5 (1.0-2.8) Triglycerides (35-150) mg/dL Lipase 65978 H (23-300) U/L Urine RBC (0-5/HPF) Urine WBC (0-5/HPF) Urine Bacteria (None) Ur Culture Indicated? 01/19/21 01/19/21 01/19/21 Range/Units 11:00 11:00 13:38 WBC (4.5-11.0) X10^3/uL RBC (4.0-5.2) X10^6/uL Hgb (12.0-16.0) g/dL Hct (36-46) % MCV (80-100) fL MCH (26-34) PG MCHC (30-36) % RDW (11.6-14.8) % Plt Count (150-400) X10^3/uL Neut % (Auto) (50-75) % Lymph % (Auto) (25-40) % [place] % (Auto) (3-14) % Eos % (Auto) (2-4) % Baso % (Auto) (0-2) % Neut # (Auto) (5638-0799) /uL Lymph # (Auto) (4811-6127) /uL [place] # (Auto) (0-900) /uL Eos # (Auto) (0-450) /uL Baso # (Auto) (0-100) /uL Sodium (137-145) mmol/L Potassium (3.4-5.1) mmol/L Chloride (98-107) mmol/L Carbon Dioxide (22-32) mmol/L BUN (7-17) mg/dL Creatinine (0.52-1.04) mg/dL Estimated GFR (>60) mL/min BUN/Creatinine Ratio (6-22) Glucose (80-110) mg/dL Lactate 1.2 (0.7-2.1) mmol/L Calcium (8.4-10.2) mg/dL Total Bilirubin (0.2-1.3) mg/dL AST (14-36) IU/L ALT (<35) IU/L Alkaline Phosphatase (38-126) U/L Troponin I (0.01-0.034) ng/mL Total Protein (6.3-8.2) g/dL Albumin (3.5-5.0) g/dL Globulin (1.7-4.1) g/dL Albumin/Globulin Ratio (1.0-2.8) Triglycerides 109 (35-150) mg/dL Lipase (23-300) U/L Urine RBC None seen (0-5/HPF) Urine WBC 5-10/hpf H (0-5/HPF) Urine Bacteria None seen (None) Ur Culture Indicated? Specimen cultured Point of care testing: Urine Dip Bedside Urine Glucose Negative Bedside Urine Bilirubin - Negative Bedside Urine Ketone +/- 5 Urine Specific Enc[place] 1.010 Bedside Urine Occult Blood - Negative Bedside Urine pH 6.0 Bedside Urine Protein - Negative Bedside Urine Urobilinogen - Negative Bedside Urine Nitrite - Negative Bedside Urine Leukocytes + 70 Esterase Imaging Data Chest x-ray: Radiologist's Impression: PROCEDURE:? XR CHEST 2V ? INDICATIONS:? Epigastric pain ? TECHNIQUE:? 2 views of the chest were acquired.? ? COMPARISON:? [facility], CR, XR CHEST 1V, 02/27/2018, 16:24.? [facility], CT, PE STUDY (CTA CHEST), 05/30/2014, 10:59.? [facility], CR, XR CHEST 2V, 04/04/2020, 11:58.? [facility], CR, XR CHEST 2V, 04/25/2020, 11:49. ? FINDINGS:? ? Surgical changes and devices:? None.? ? Lungs and pleura:? There is scarring redemonstrated in the lung apices.? Linear opacities medially in the right lung base also likely represent atelectasis or scarring.? No pleural effusions or pneumothorax.? ? Mediastinum:? Mediastinal contours are normal.? Heart size is normal.? ? Bones and chest wall:? No suspicious bony abnormalities.? Soft tissues appear unremarkable.? ? IMPRESSION:? ? 1. No definite acute cardiopulmonary disease. ? 2. Likely atelectasis or scarring medially in the right lung base. ? ? Dictated by: Isidro Cano M.D. on 01/19/2021 at 13:00 ? ? Approved by: Isidro aCno M.D. on 01/19/2021 at 13:08 ? CT scan - abdomen/pelvis: Radiologist's Impression: PROCEDURE:? CT ABDOMEN PELVIS W CON ? INDICATIONS:? RUQ, epigastric pain, prior serous adenoma of the pancreas ? TECHNIQUE:? After the administration of IV contrast, axial sections were acquired from the lung bases to the pubic symphysis.? Coronal and sagittal reformats were performed.? For radiation dose reduction, the following was used:? automated exposure control, adjustment of mA and/or kV according to patient size. ? COMPARISON:? [facility], CT, CT ABDOMEN PELVIS W CON, 02/23/2020, 0:24. ? FINDINGS:? Image quality:? Excellent.? ? Lung bases:? Unremarkable.? ? Heart:? Heart is mildly enlarged without effusion. ? ? ABDOMEN: Liver:? The liver is mildly enlarged with steatosis.? Scattered calcifications are noted. Gallbladder:? Gallbladder is distended without wall thickening.? ? Biliary ducts:? Unremarkable.? ? Pancreas:? Pancreas demonstrates multilobulated cystic foci within the pancreatic head, measuring approximately 3.2 x 2.2 by 2.8 cm.? This is unchanged compared to prior exam.? Pancreatic ductal dilation is stable measuring 4 mm.? There is moderate peripancreatic inflammatory change as well as fluid predominantly adjacent to the body and tail, some appearing organized. Spleen:? Scattered calcifications are noted within the spleen. Adrenal Glands:? Unremarkable.? ? Kidneys and Ureters:? Right renal cyst is noted.? Retroaortic left renal vein is incidentally noted..? ? ? Stomach and Bowel:? Stomach, small bowel loops, and colon are nonobstructive.? There is minimal appearance of inflammatory change within a focal bowel loop adjacent to the pancreatic tail.? In addition, there is mild thickened/inflammatory change appearance of the posterior gastric wall. Peritoneum:? Mild dependent pelvic fluid is present as well as trace perihepatic fluid. ? Ventral Wall: ? No hernia.? Abdominal Nodes:? No retroperitoneal or mesenteric adenopathy by size criteria.? Vessels:? Aorta and inferior vena cava are normal in size.? ? PELVIS: Pelvic Organs:? Unremarkable.? ? Bladder:? Unremarkable.? ? Pelvic Nodes: No enlarged lymph nodes.? Miscellaneous: No inguinal hernias are seen. ? ? ? Bones:? Unremarkable.? IMPRESSION:? ? 1. Pancreatic inflammatory change as well as a somewhat organized fluid collection suggestive of early developing phlegmon.? Overall changes are suggestive of pancreatitis. ? 2. Persistent appearance of multilobulated cystic mass within the pancreatic head and pancreatic ductal dilation. ? 3. Mildly thickened appearance of focal descending bowel loop adjacent to pancreatic tail as well as posterior gastric wall suspected to be secondary reactive changes to pancreatic inflammation. ? 4. Dependent pelvic and perihepatic fluid. ? 5. Calcifications within the spleen and liver suggestive of prior granulomatous disease. ? ? Dictated by: Elaina Haro M.D. on 01/19/2021 at 14:26 ? ? Approved by: Elaina Haro M.D. on 01/19/2021 at 14:45 ? US - abdomen: Radiologist's Impression: PROCEDURE: US ABDOMEN LIMITED ? INDICATIONS:? RUQ PAIN ? TECHNIQUE:? Real-time focused scanning was performed of the abdomen, with image documenta tion.? ? COMPARISON:? [facility], CT, CT ABDOMEN PELVIS W CON, 04/27/2018, 14:06.? [facility], CT, CT ABDOMEN PELVIS W CON, 02/23/2020, 0:24.? [facility], US, US ABDOMEN COMPLETE, 02/24/2020, 11:09.? [facility], MR, MR ABDOMEN WO CON, 03/24/2020, 14:44.? [facility], CT, CT ABDOMEN PELVIS W CON, 01/19/2021, 12:52.? [facility], US, US ABDOMEN LIMITED, 03/24/2020, 13:50. ? FINDINGS:? No gallstones. No gallbladder wall thickening, pericholecystic fluid or sonographic Crocker's sign. ? Visualized liver demonstrates normal echotexture.? Common bile duct is normal in caliber measuring 5.3 mm in diameter.? There is a 1.7 x 1.4 x 2.1 cm cyst in the pancreatic head. ?Pancreatic duct is dilated measuring 4.8 cm. ? There is a simple appearing cyst in the superior pole of the right kidney measuring 3.7 x 2.8 cm. ? IMPRESSION:? ? 1. There is a 1.7 x 1.4 x 2.1 cm cyst in the pancreatic head.? Differential diagnosis include simple cyst, pseudocyst and low-grade malignancy such as IPMN.? Recommend continued imaging follow-up.? If clinically indicated, endoscopic ultrasound and endoscopic ultrasound-guided aspiration biopsy may be considered. 2. Mild pancreatic duct dilation. 3. A 3.7 x 2.8 cm simple cyst in the superior pole of the right kidney.? ? ? Dictated by: Miya Prather M.D. on 01/19/2021 at 13:59 ? ? Approved by: Miya Prather M.D. on 01/19/2021 at 14:07 ? ECG Data Interpretation: Left bundle-branch block (pre-existing), left axis deviation, no signs of ischemia. MDM Narrative Medical decision making narrative: 80-year-old female with past medical history acute pancreatitis, cyst of the pancreatitis, hyperlipidemia, hypertension, hyperparathyroidism, hypothyroidism presents to the ED with 2 days of upper abdominal pain. Concern for pancreatitis versus GERD versus PUD versus SBO versus ACS versus cholecystitis versus cholelithiasis versus choledocholithiasis. Will order EKG, chest x-ray, labs, troponin, lipase, triglycerides, lactate. Will order ultrasound and CT abdomen pelvis. Will give ketorolac, Zofran for symptoms. Will give IV hydration. NPO. Will reassess. <Avinash Whittington MD - Last Filed: 01/19/21 18:19> Lab Data Labs: Lab Results 01/19/21 01/19/21 01/19/21 Range/Units 11:00 11:00 11:00 WBC 10.8 (4.5-11.0) X10^3/uL RBC 4.41 (4.0-5.2) X10^6/uL Hgb 14.0 (12.0-16.0) g/dL Hct 40.9 (36-46) % MCV 92.9 (80-100) fL MCH 31.7 (26-34) PG MCHC 34.2 (30-36) % RDW 14.0 (11.6-14.8) % Plt Count 224 (150-400) X10^3/uL Neut % (Auto) 79.6 H (50-75) % Lymph % (Auto) 11.4 L (25-40) % [place] % (Auto) 7.9 (3-14) % Eos % (Auto) 0.8 L (2-4) % Baso % (Auto) 0.3 (0-2) % Neut # (Auto) 8600 H (6180-1989) /uL Lymph # (Auto) 1200 (7842-1324) /uL [place] # (Auto) 900 (0-900) /uL Eos # (Auto) 100 (0-450) /uL Baso # (Auto) 0 (0-100) /uL Sodium 133 L (137-145) mmol/L Potassium 3.7 (3.4-5.1) mmol/L Chloride 101 (98-107) mmol/L Carbon Dioxide 25 (22-32) mmol/L BUN 18 H (7-17) mg/dL Creatinine 0.78 (0.52-1.04) mg/dL Estimated GFR > 60.0 (>60) mL/min BUN/Creatinine Ratio 23.1 H (6-22) Glucose 112 H (80-110) mg/dL Lactate (0.7-2.1) mmol/L Calcium 9.6 (8.4-10.2) mg/dL Total Bilirubin 0.9 (0.2-1.3) mg/dL AST 33 (14-36) IU/L ALT 24 (<35) IU/L Alkaline Phosphatase 71 (38-126) U/L Troponin I < 0.012 (0.01-0.034) ng/mL Total Protein 7.1 (6.3-8.2) g/dL Albumin 4.3 (3.5-5.0) g/dL Globulin 2.8 (1.7-4.1) g/dL Albumin/Globulin Ratio 1.5 (1.0-2.8) Triglycerides (35-150) mg/dL Lipase 03361 H (23-300) U/L Urine RBC (0-5/HPF) Urine WBC (0-5/HPF) Urine Bacteria (None) Ur Culture Indicated? 01/19/21 01/19/21 01/19/21 Range/Units 11:00 11:00 13:38 WBC (4.5-11.0) X10^3/uL RBC (4.0-5.2) X10^6/uL Hgb (12.0-16.0) g/dL Hct (36-46) % MCV (80-100) fL MCH (26-34) PG MCHC (30-36) % RDW (11.6-14.8) % Plt Count (150-400) X10^3/uL Neut % (Auto) (50-75) % Lymph % (Auto) (25-40) % [place] % (Auto) (3-14) % Eos % (Auto) (2-4) % Baso % (Auto) (0-2) % Neut # (Auto) (3302-5246) /uL Lymph # (Auto) (8311-5634) /uL [place] # (Auto) (0-900) /uL Eos # (Auto) (0-450) /uL Baso # (Auto) (0-100) /uL Sodium (137-145) mmol/L Potassium (3.4-5.1) mmol/L Chloride (98-107) mmol/L Carbon Dioxide (22-32) mmol/L BUN (7-17) mg/dL Creatinine (0.52-1.04) mg/dL Estimated GFR (>60) mL/min BUN/Creatinine Ratio (6-22) Glucose (80-110) mg/dL Lactate 1.2 (0.7-2.1) mmol/L Calcium (8.4-10.2) mg/dL Total Bilirubin (0.2-1.3) mg/dL AST (14-36) IU/L ALT (<35) IU/L Alkaline Phosphatase (38-126) U/L Troponin I (0.01-0.034) ng/mL Total Protein (6.3-8.2) g/dL Albumin (3.5-5.0) g/dL Globulin (1.7-4.1) g/dL Albumin/Globulin Ratio (1.0-2.8) Triglycerides 109 (35-150) mg/dL Lipase (23-300) U/L Urine RBC None seen (0-5/HPF) Urine WBC 5-10/hpf H (0-5/HPF) Urine Bacteria None seen (None) Ur Culture Indicated? Specimen cultured Point of care testing: Urine Dip Bedside Urine Glucose Negative Bedside Urine Bilirubin - Negative Bedside Urine Ketone +/- 5 Urine Specific [place] 1.010 Bedside Urine Occult Blood - Negative Bedside Urine pH 6.0 Bedside Urine Protein - Negative Bedside Urine Urobilinogen - Negative Bedside Urine Nitrite - Negative Bedside Urine Leukocytes + 70 Esterase Discharge Plan Departure Patient Disposition: Admitted As Inpatient Clinical Impression: Pancreatitis Qualifiers: Chronicity: acute Pancreatitis type: unspecified pancreatitis type Acute pancreatitis complication: no infection or necrosis Qualified Code(s): K85.90 - Acute pancreatitis without necrosis or infection, unspecified Admit Date/Time: 01/19/21 15:22 Admit Provider: Sincere Murphy <Avinash Whittington MD - Last Filed: 01/19/21 18:19> Cosign ED Attending Cosignature Attestation: I was immediately available in the department for consultation. This documentation has been reviewed and I agree with assessment and plan. Supervised by Avinash Whittington MD
[2021-01-19 13:21] LABS: Troponin I < 0.012 ng/mL (0.01-0.034)
[2021-01-19 13:52] LABS: Triglycerides 109 mg/dL (35-150)
[2021-01-19 13:55] LABS: Lactate (Lactic Acid) 1.2 mmol/L (0.7-2.1)
[2021-01-19 14:09] LABS: Bacteria Urine None Seen; RBC Urine None Seen (0-5/HPF)
[2021-01-19 14:17] LABS: Culture Indicated Urine Specimen Cultured; WBC Urine 5-10/HPF (0-5/HPF)
[2021-01-19 16:33] LABS: COVID19 - ADMIT (NP swab/PCR) Negative (Negative)
--- NOTE | 2021-01-19 17:54 | P.HP_ITS ---
History of Present Illness History of Present Illness Date Patient Seen: 01/19/21 Time Patient Seen: 17:00 Date of Onset of Symptoms: 01/18/21 Chief complaint: poss pancreatitis, sent by [facility] Narrative: Patient is a 80-year-old female with history of recurrent pancreatitis undetermined etiology, pancreatic pseudocyst, hypertension, hypothyroidism, hyperparathyroidism presented with complaint of abdominal pain which started 1 day prior. She describes the pain as across the upper abdomen radiating to the back and similar to prior episodes of pancreatitis. She had nausea without vomiting. Denies fevers, chills, chest pain, cough, shortness of breath, dysuria. Evaluation in the ED indicated WBC 10.8, hemoglobin 14.0, creatinine 0.78, lipase 23,100. LFTs were normal. Chest x-ray normal except atelectasis or scarring right lung base. Abdominal ultrasound showed no gallstones, presence of 1.7 x 1.4 x 2.1 cm cyst in the pancreatic head, mild pancreatic duct dilation, simple cyst in the right kidney. Abdomen CT showed pancreatic inflammatory changes and somewhat organized fluid collection suggestive of early phlegmon, multi lobulated cystic mass measuring 3.2 x 2.2 x 2.8 cm in the pancreatic head which was unchanged from CT on 02/23/2020, mild thickened descending bowel loop considered secondary reactive changes to pancreatic inflammation, dependent pelvic and perihepatic fluid. Patient History Medical History Acute appendicitis Hypercalcemia Hyperlipidemia Hypertension Hypothyroid Left bundle branch block Parathyroid abnormality Surgical History H/O: hysterectomy (~1992) History of appendectomy (~04/27/18) Family & Social History Family History Mother Hypertension Father Stomach cancer Prostate cancer Brother Prostate cancer Social History: household members none Prior Living Arrangements House Safety & Behavioral: Feels Safe in Current Yes Environment Been Physically Hurt or No Threatened By a Person Suicidal Ideation Description None Suicide Plan Description No Plan Tobacco & Substance use: Smoking Status Never smoker alcohol intake never alcohol intake frequency holiday/special occasion Substance Use Type does not use Meds Home Medications and Allergies Home Medications Medication Instructions Recorded Confirmed Type levothyroxine 50 mcg tablet 50 mcg PO DAILY 02/23/20 01/19/21 History (Synthroid) valsartan 40 mg tablet 20 mg PO BID 10/14/20 01/19/21 History metoprolol succinate 25 mg 12.5 mg PO BID 01/19/21 01/19/21 History tablet,extended release 24 hr Allergies Allergy/AdvReac Type Severity Reaction Status Date / Time Sulfa (Sulfonamide Allergy Unknown Verified 01/19/21 11:05 Antibiotics) [SULFA (SULFONAMIDE ANTIBIOTICS)] lisinopril AdvReac Severe Cough Verified 01/19/21 11:05 Review of Systems Review of Systems Narrative: Complete ROS negative other than stated above. Exam Vital Signs (past 8 hours): - 01/19/21 10:53 01/19/21 10:56 01/19/21 10:57 Temperature 98.1 F Pulse Rate 82 90 87 Respiratory Rate 14 Blood Pressure 186/82 H 186/82 H Pulse Oximetry 96 97 96 01/19/21 11:00 01/19/21 11:01 01/19/21 11:30 Temperature Pulse Rate 83 85 65 Respiratory Rate Blood Pressure 171/72 H 162/70 H Pulse Oximetry 97 97 97 01/19/21 12:00 01/19/21 12:30 01/19/21 13:00 Temperature Pulse Rate 61 73 68 Respiratory Rate Blood Pressure 163/71 H 172/74 H Pulse Oximetry 98 98 98 01/19/21 13:39 01/19/21 14:00 01/19/21 14:01 Temperature Pulse Rate 67 59 L 61 Respiratory Rate Blood Pressure 149/66 H Pulse Oximetry 97 96 97 01/19/21 14:30 01/19/21 15:00 01/19/21 15:30 Temperature Pulse Rate 69 64 64 Respiratory Rate Blood Pressure 175/75 H 175/72 H 177/74 H Pulse Oximetry 97 97 97 01/19/21 16:49 Temperature 97.6 F Pulse Rate 84 Respiratory Rate 16 Blood Pressure 191/93 H Pulse Oximetry 97 Oxygen Delivery Method Room Air Narrative Exam Narrative: General: Alert and pleasant, cooperative, NAD HEENT: Anicteric, oropharynx dry, Neck: No lymphadenopathy Lungs: Clear to auscultation Heart: Normal S1 and S2, regular rate and rhythm, no murmur Abdomen: Nondistended, tender with deep palpation across upper abdomen, no guarding, no HSM Extremities: No edema Neurological affect normal, speech normal, no focal weakness Objective Labs Result Diagrams: 01/19/21 11:00 01/19/21 11:00 Labs: Laboratory Results - last 24 hr 01/19/21 01/19/21 01/19/21 11:00 11:00 11:00 WBC 10.8 RBC 4.41 Hgb 14.0 Hct 40.9 MCV 92.9 MCH 31.7 MCHC 34.2 RDW 14.0 Plt Count 224 Neut % (Auto) 79.6 H Lymph % (Auto) 11.4 L [place] % (Auto) 7.9 Eos % (Auto) 0.8 L Baso % (Auto) 0.3 Neut # (Auto) 8600 H Lymph # (Auto) 1200 [place] # (Auto) 900 Eos # (Auto) 100 Baso # (Auto) 0 Sodium 133 L Potassium 3.7 Chloride 101 Carbon Dioxide 25 BUN 18 H Creatinine 0.78 Estimated GFR > 60.0 BUN/Creatinine Ratio 23.1 H Glucose 112 H Lactate Calcium 9.6 Total Bilirubin 0.9 AST 33 ALT 24 Alkaline Phosphatase 71 Troponin I < 0.012 Total Protein 7.1 Albumin 4.3 Globulin 2.8 Albumin/Globulin Ratio 1.5 Triglycerides Lipase 23479 H Urine RBC Urine WBC Urine Bacteria Ur Culture Indicated? SARS-CoV-2 (PCR) 01/19/21 01/19/21 01/19/21 11:00 11:00 13:38 WBC RBC Hgb Hct MCV MCH MCHC RDW Plt Count Neut % (Auto) Lymph % (Auto) [place] % (Auto) Eos % (Auto) Baso % (Auto) Neut # (Auto) Lymph # (Auto) [place] # (Auto) Eos # (Auto) Baso # (Auto) Sodium Potassium Chloride Carbon Dioxide BUN Creatinine Estimated GFR BUN/Creatinine Ratio Glucose Lactate 1.2 Calcium Total Bilirubin AST ALT Alkaline Phosphatase Troponin I Total Protein Albumin Globulin Albumin/Globulin Ratio Triglycerides 109 Lipase Urine RBC None seen Urine WBC 5-10/hpf H Urine Bacteria None seen Ur Culture Indicated? Specimen cultured SARS-CoV-2 (PCR) 01/19/21 15:30 WBC RBC Hgb Hct MCV MCH MCHC RDW Plt Count Neut % (Auto) Lymph % (Auto) [place] % (Auto) Eos % (Auto) Baso % (Auto) Neut # (Auto) Lymph # (Auto) [place] # (Auto) Eos # (Auto) Baso # (Auto) Sodium Potassium Chloride Carbon Dioxide BUN Creatinine Estimated GFR BUN/Creatinine Ratio Glucose Lactate Calcium Total Bilirubin AST ALT Alkaline Phosphatase Troponin I Total Protein Albumin Globulin Albumin/Globulin Ratio Triglycerides Lipase Urine RBC Urine WBC Urine Bacteria Ur Culture Indicated? SARS-CoV-2 (PCR) Negative Assessment & Plan Assessment & Plan narrative: 1. Acute recurrent pancreatitis, unknown etiology -presents with abdominal pain similar to past episodes, elevated lipase, pancreatic inflammatory changes on CT, no gallstones on ultrasound -IV fluids -clear liquid diet as tolerated -Toradol 15 mg IV q.6 hours as needed -oxycodone 5 mg q.6 hours as needed -Zofran 4 mg as needed -follow-up as outpatient with [facility] gastroenterology in [facility], patient was seen there a year ago after hospital admissions for pancreatitis, had endoscopy -patient takes herbal supplements and unique probiotic she orders on line which I suggested she stop using as possible causes of recurrent pancreatitis, none of her prescription medications are on list of drugs reported to cause pancreatitis 2. Pancreatic pseudocysts head of pancreas -this is stable relative to CT almost 1 year ago -follow-up with GI as above 3. Hypothyroidism -continue levothyroxine per home routine -patient also takes weekly high-dose vitamin-D prescribed by on site manager for her hyperparathyroidism 4. Hypertension -controlled, continue valsartan and metoprolol succinate per home routine Code status: Full code DVT prophylaxis: Lovenox Time Spent With Patient Critical Care time: I spent a total of [] minutes of critical care time on this patient's care today; this time is exclusive of procedural time. Quality VTE Deep Vein Thrombosis/Pulmonary Embolism Present on Admission: No
[2021-01-19] MEDS: SODIUM CHLORIDE 0.9% 1,000 ML 100 ML IV (18:36)
[2021-01-19] MEDS: ACETAMINOPHEN 325 MG TABLET 650 MG PO (18:43)
[2021-01-19] MEDS: METOPROLOL ER 25 MG TABLET 12.5 MG PO (22:28)
[2021-01-19] MEDS: VALSARTAN 80 MG TABLET 20 MG PO (22:30)
[2021-01-20] VITALS (17 sets, daily range): BP systolic 130–181; BP diastolic 56–98; PULSE 65–86; RESP 14–18; TEMP 36.4–36.9; O2SAT 94–98
[2021-01-20] MEDS: KETOROLAC 30 MG/ML VIAL 15 MG IV (04:04)
[2021-01-20 05:59] LABS: Add Manual Diff / Slide Review NO; Basophils Absolute Auto 0 /uL (0-100); Basophils Percent Auto 0.5 % (0-2); Eosinophils Absolute Auto 200 /uL (0-450); Eosinophils Percent Auto 2.1 % (2-4); Hematocrit 34.3 % (36-46); Hemoglobin 11.5 g/dL (12.0-16.0); Lymphocytes Absolute Auto 1000 /uL (1100-4500); Lymphocytes Percent Auto 12.8 % (25-40); Mean Corpuscular HGB Conc 33.5 % (30-36); Mean Corpuscular Hemoglobin 31.5 PG (26-34); Mean Corpuscular Volume 94.1 fL (80-100); Monocytes Absolute Auto 800 /uL (0-900); Monocytes Percent Auto 10.3 % (3-14); Neutrophils Absolute Auto 5700 /uL (1500-7000); Neutrophils Percent Auto 74.3 % (50-75); Platelet Count 164 X10^3/uL (150-400); Red Blood Cell Count 3.65 X10^6/uL (4.0-5.2); White Blood Cell Count 7.7 X10^3/uL (4.5-11.0)
[2021-01-20] MEDS: LEVOTHYROXINE 50 MCG TABLET PO (06:05)
[2021-01-20] MEDS: ACETAMINOPHEN 325 MG TABLET 650 MG PO (06:07)
[2021-01-20 06:08] LABS: Alanine Aminotransferase 16 IU/L (<35); Albumin 3.1 g/dL (3.5-5.0); Albumin Globulin Ratio 1.3 (1.0-2.8); Alkaline Phosphatase 52 U/L (38-126); Aspartate Aminotransferase 27 IU/L (14-36); Bilirubin Total 0.8 mg/dL (0.2-1.3); Blood Urea Nitrogen 12 mg/dL (7-17); Carbon Dioxide 26 mmol/L (22-32); Chloride 108 mmol/L (98-107); Estimated Glomerular Filt Rate > 60.0 mL/min (>60); Globulin 2.4 g/dL (1.7-4.1); Glucose 76 mg/dL (80-110); HEMOLYSIS < 15 (0-50); Potassium 4.6 mmol/L (3.4-5.1); Sodium 136 mmol/L (137-145); Total Protein 5.5 g/dL (6.3-8.2)
[2021-01-20 06:15] LABS: Lipase 3133 U/L (23-300)
[2021-01-20] MEDS: VALSARTAN 80 MG TABLET 20 MG PO ×2 (08:37→20:13)
[2021-01-20] MEDS: METOPROLOL ER 25 MG TABLET 12.5 MG PO ×2 (08:38→19:08)
[2021-01-20] MEDS: ENOXAPARIN 40 MG/0.4 ML SYRINGE SUBCUT (08:39)
[2021-01-20] MEDS: SODIUM CHLORIDE 0.9% 1,000 ML 100 ML IV (14:15)
--- NOTE | 2021-01-20 14:28 | CM.DANOTE ---
DCP: Case received, EMR reviewed and met with patient. Introduced self and role. Was able to obtain information regarding patient's baseline activity status and current living situation. DCP assessment completed with information currently available. Patient is a 80 year old female who admitted yesterday afternoon to the care of the hospitalist team. PCP: Dr. Kavita Gan. Payer: confirmed: Medicare/[employer]ARP. Patient came to the hospital via private vehicle secondary to having increased abdominal pain. She was sent over from the walk in clinic. Patient holds current diagnosis of acute recurrent pancreatitis. Patient does have a history of pancreatitis, as also indicated subjectively by patient. Patient had also been noted to have some nausea, as well as anorexia. Met with patient in her room. She was sitting up in bed, alert and oriented. She stated, I have had pancreatitis before, I don't get it, because I don't drink. She resides alone here in [place]. She is independent at her baseline, and has two daughters. The main contact, Denisse Case, lives in [place]. Her other daughter, Courtney Muñiz, resides in [place]. P: DCP to continue to follow. Patient should be able to go home when she is deemed medically stable. Brittney Fam RN/Bank Secrecy Act Officer
--- NOTE | 2021-01-20 15:01 | PM.PN.1 ---
Subjective Subjective Date Patient Seen: 01/20/21 Interval history: 80-year-old female admitted due to recurrent pancreatitis of undetermined etiology. Patient notes improvement in upper abdominal pain and tolerating clear liquid diet. Exam Vital Signs (past 8 hours): - 01/20/21 07:56 01/20/21 09:03 01/20/21 09:40 Temperature 97.8 F Pulse Rate 65 Respiratory Rate 15 Blood Pressure 130/56 L Pulse Oximetry 95 96 97 01/20/21 11:05 01/20/21 12:55 Temperature 97.5 F L Pulse Rate 65 Respiratory Rate 14 Blood Pressure 134/65 Pulse Oximetry 95 94 Oxygen Delivery Method Room Air Oxygen Flow Rate 0 Narrative Exam Narrative: General: Alert, NAD Lungs: Clear to auscultation Abdomen: Soft, mild tenderness epigastric Extremities: No edema Objective Labs Result Diagrams: 01/20/21 05:50 01/20/21 05:50 Labs: Laboratory Results - last 24 hr 01/19/21 01/20/21 01/20/21 15:30 05:50 05:50 WBC 7.7 RBC 3.65 L Hgb 11.5 L Hct 34.3 L MCV 94.1 MCH 31.5 MCHC 33.5 RDW 14.0 Plt Count 164 Neut % (Auto) 74.3 Lymph % (Auto) 12.8 L [place] % (Auto) 10.3 Eos % (Auto) 2.1 Baso % (Auto) 0.5 Neut # (Auto) 5700 Lymph # (Auto) 1000 L [place] # (Auto) 800 Eos # (Auto) 200 Baso # (Auto) 0 Sodium 136 L Potassium 4.6 Chloride 108 H Carbon Dioxide 26 BUN 12 Creatinine 0.60 Estimated GFR > 60.0 BUN/Creatinine Ratio 20.0 Glucose 76 L Calcium 8.0 L Total Bilirubin 0.8 AST 27 ALT 16 Alkaline Phosphatase 52 Total Protein 5.5 L Albumin 3.1 L Globulin 2.4 Albumin/Globulin Ratio 1.3 Lipase 3133 H D SARS-CoV-2 (PCR) Negative [facility] Medical History Acute appendicitis Hypercalcemia Hyperlipidemia Hypertension Hypothyroid Left bundle branch block Parathyroid abnormality Surgical History H/O: hysterectomy (~1992) History of appendectomy (~04/27/18) Family History Mother Hypertension Father Stomach cancer Prostate cancer Brother Prostate cancer Social History household members: none occupational status: previously employed Smoking Status: Never smoker alcohol intake: never substance use type: does not use Assessment & Plan Assessment & Plan narrative: 1. Acute recurrent pancreatitis, unknown etiology, improving -presents with abdominal pain similar to past episodes, elevated lipase, pancreatic inflammatory changes on CT, no gallstones on ultrasound -IV fluids, decrease rate to 50 cc/hours -advance diet as tolerated -Toradol 15 mg IV q.6 hours as needed -oxycodone 5 mg q.6 hours as needed -Zofran 4 mg as needed -follow-up as outpatient with [facility] gastroenterology in [facility], patient was seen there a year ago after hospital admissions for pancreatitis, had endoscopy -patient takes herbal supplements and unique probiotic she orders on line which I suggested she stop using as possible causes of recurrent pancreatitis, none of her prescription medications are on list of drugs reported to cause pancreatitis -likely discharge home tomorrow if tolerating diet 2. Pancreatic pseudocysts head of pancreas -this is stable relative to CT almost 1 year ago -follow-up with GI as above 3. Hypothyroidism -continue levothyroxine per home routine -patient also takes weekly high-dose vitamin-D prescribed by optometry doctor for her hyperparathyroidism 4. Hypertension -controlled, continue valsartan and metoprolol succinate per home routine Code status: Full code DVT prophylaxis: Lovenox Time Spent With Patient Critical Care time: I spent a total of [] minutes of critical care time on this patient's care today; this time is exclusive of procedural time. Quality VTE Deep Vein Thrombosis/Pulmonary Embolism Present on Admission: No
--- NOTE | 2021-01-20 16:29 | PC.NURSE ---
Patient's BP high at 181/73 pulse 74. Patient not having symptoms and is resting. Informed Dr. Murphy of high blood pressure and that around this time yesterday, BP was high as well. Decreased NS to 50ml/hr instead of 100ml/hr. Will continue to monitor.
[2021-01-21] VITALS (11 sets, daily range): BP systolic 105–181; BP diastolic 71–85; PULSE 68–75; RESP 15–18; TEMP 36.3–36.6; O2SAT 94–96
[2021-01-21] MEDS: LEVOTHYROXINE 50 MCG TABLET PO (05:24)
[2021-01-21] MEDS: ENOXAPARIN 40 MG/0.4 ML SYRINGE SUBCUT (10:46)
[2021-01-21] MEDS: METOPROLOL ER 25 MG TABLET 12.5 MG PO (10:46)
[2021-01-21] MEDS: VALSARTAN 80 MG TABLET 20 MG PO (10:47)
--- NOTE | 2021-01-21 12:20 | CM.DPC ---
DCP Cont: Checked in with patient, for she has discharge orders for home today. She is looking forward to going home, and is pleased with the care that she has received here. Gave her a copy of her IMM to take with her. P: Patient is to discharge home today. Brittney Fam RN/[employer] Apprentice
--- NOTE | 2021-01-21 15:05 | PM.DS.1 ---
History of Present Illness History of Present Illness Chief complaint: poss pancreatitis, sent by [facility] Narrative: Patient is a 80-year-old female with history of recurrent pancreatitis undetermined etiology, pancreatic pseudocyst, hypertension, hypothyroidism, hyperparathyroidism presented with complaint of abdominal pain which started 1 day prior. She describes the pain as across the upper abdomen radiating to the back and similar to prior episodes of pancreatitis. She had nausea without vomiting. Denies fevers, chills, chest pain, cough, shortness of breath, dysuria. Evaluation in the ED indicated WBC 10.8, hemoglobin 14.0, creatinine 0.78, lipase 23,100. LFTs were normal. Chest x-ray normal except atelectasis or scarring right lung base. Abdominal ultrasound showed no gallstones, presence of 1.7 x 1.4 x 2.1 cm cyst in the pancreatic head, mild pancreatic duct dilation, simple cyst in the right kidney. Abdomen CT showed pancreatic inflammatory changes and somewhat organized fluid collection suggestive of early phlegmon, multi lobulated cystic mass measuring 3.2 x 2.2 x 2.8 cm in the pancreatic head which was unchanged from CT on 02/23/2020, mild thickened descending bowel loop considered secondary reactive changes to pancreatic inflammation, dependent pelvic and perihepatic fluid. Discharge Providers Provider Date of admission: 01/19/21 15:22 Discharge Date: 01/21/21 Primary care physician: Kavita Gan MD Discharge provider: Sincere Murphy MD Summary Hospital Course Discharge Diagnosis: 1. Recurrent acute pericarditis, unknown etiology 2. Pancreatic pseudocyst head of pancreas 3. Hypertension 4. Hypothyroidism Patient is 80-year-old female with prior episodes of acute pancreatitis of undetermined etiology presented with recurrent abdominal pain similar to past episodes. 1. Acute recurrent pancreatitis, unknown etiology, improving -presents with abdominal pain similar to past episodes, elevated lipase, pancreatic inflammatory changes on CT, no gallstones on ultrasound -treated with IV hydration, analgesics and bowel rest -tolerating advanced diet prior to discharge -follow-up as outpatient with [facility] gastroenterology in [facility], patient was seen there a year ago after hospital admissions for pancreatitis, had endoscopy -patient takes herbal supplements and unique probiotic she orders on line which I suggested she stop using as possible causes of recurrent pancreatitis, none of her prescription medications are on list of drugs reported to cause pancreatitis 2. Pancreatic pseudocysts head of pancreas -this is stable relative to CT almost 1 year ago -follow-up with GI as above 3. Hypothyroidism -continue levothyroxine per home routine -patient also takes weekly high-dose vitamin-D prescribed by apprentice embalmer for secondary hyperparathyroidism 4. Hypertension -controlled, continue valsartan and metoprolol succinate per home routine Status at Discharge Overall status at discharge: patient is progressing back to baseline Time Spent with Patient Time spent: Greater than 30 minutes Exam Vital Signs (past 8 hours): - 01/21/21 08:48 01/21/21 08:52 01/21/21 08:53 Temperature 97.8 F Pulse Rate 75 Respiratory Rate 18 Blood Pressure 105/85 Pulse Oximetry 96 96 01/21/21 12:00 01/21/21 12:15 01/21/21 13:07 Temperature 97.4 F L Pulse Rate 73 Respiratory Rate 15 Blood Pressure 181/71 H Pulse Oximetry 96 96 96 Oxygen Delivery Method Room Air Oxygen Flow Rate 0 Narrative Exam Narrative: General: Alert, NAD Abdomen: Nondistended, nontender Objective Labs Result Diagrams: 01/20/21 05:50 01/20/21 05:50 PFS Medical History Acute appendicitis Hypercalcemia Hyperlipidemia Hypertension Hypothyroid Left bundle branch block Parathyroid abnormality Surgical History H/O: hysterectomy (~1992) History of appendectomy (~04/27/18) Family History Mother Hypertension Father Stomach cancer Prostate cancer Brother Prostate cancer Social History household members: none occupational status: previously employed Smoking Status: Never smoker alcohol intake: never substance use type: does not use Discharge Plan Discharge Plan Patient Disposition: Home Provider Discharge Comment: Follow up with your GI specialist for recurrent pancreatitis. Avoid any herbal supplements. Discharge orders & Medications Prescriptions: Continued levothyroxine [Synthroid] 50 mcg tablet 50 mcg PO DAILY RF: 0 valsartan 40 mg Tablet 20 mg PO BID RF: 0 metoprolol succinate 25 mg tablet extended release 24 hr 12.5 mg PO BID RF: 0 Follow up/Referrals: Kavita Gan MD [Primary Care Provider] - Diet/Activity/Treatments Diet: Regular and Low-fat Diet comment: Keep low fat diet for the next few days until you're completely better Visit Report/Discharge Packet Instructions: Acute Pancreatitis, DI for Pancreatitis Discharge Data Primary Care Provider: Kavita Gan VTE Deep Vein Thrombosis/Pulmonary Embolism Present on Admission: No
== END 2021-01-21 14:15 | disposition home or self-care (01) | DRG 439 ==
LOC: ED 15:07 → AC 15:24
PROVIDERS: Emergency Medicine; Admitting Provider Internal Medicine; Emergency Provider Student in an Organized Health Care Education/Training Program; Family Provider Internal Medicine Endocrinology, Diabetes & Metabolism; PCP Internal Medicine; Referring Provider Student in an Organized Health Care Education/Training Program; Visit Provider Internal Medicine
DX: K85.80 Other acute pancreatitis without necrosis or infection (principal); K86.3 Pseudocyst of pancreas; E03.9 Hypothyroidism, unspecified; I10 Essential (primary) hypertension; Z20.822 Contact with and (suspected) exposure to COVID-19
CPT/HCPCS: 36415; 71046; 74177; 76705; 80053; 81003; 81015; 83605; 83690; 84478; 84484; 85025; 87077; 87086; 87147; 87186; 87635; 93005; 93010; 94760; 96361; 96374; 96375; 99284; 99285; C9803; J1650; J1885; J2405

== ENCOUNTER → 2021-02-16 11:53 | Outpatient (CLI) | payer MEDICARE, SELFPAY ==
[2021-01-19 15:31] VITALS: BMI 24.5
[2021-02-16 12:54] LABS: BUN Creatinine Ratio 23.8 (6-22); Blood Urea Nitrogen 20 mg/dL (7-17); Calcium 10.4 mg/dL (8.4-10.2); Carbon Dioxide 29 mmol/L (22-32); Chloride 101 mmol/L (98-107); Estimated Glomerular Filt Rate > 60.0 mL/min (>60); Glucose 99 mg/dL (80-110); HEMOLYSIS < 15 (0-50); Potassium 4.3 mmol/L (3.4-5.1); Sodium 137 mmol/L (137-145)
[2021-02-18 20:12] LABS: ANA Screen, IFA Negative (.)
== END ==
PROVIDERS: Family Provider Internal Medicine Endocrinology, Diabetes & Metabolism; PCP Internal Medicine; Referring Provider Internal Medicine Gastroenterology; Visit Provider Internal Medicine Gastroenterology
DX: K85.90 Acute pancreatitis without necrosis or infection, unspecified (principal); D13.6 Benign neoplasm of pancreas
CPT/HCPCS: 36415; 80048; 82787; 86038

== ENCOUNTER → 2021-02-21 09:51 | Outpatient (CLI) | payer MEDICARE, SELFPAY ==
[2021-01-19 15:31] VITALS: BMI 24.5
[2021-02-21 11:02] LABS: Vitamin D 25 Hydroxy (D3) 65.7 ng/mL (30.0-100.0)
[2021-02-21 11:17] LABS: Thyroid Stimulating Hormone 2.98 uIU/mL (0.47-4.68)
[2021-02-22 11:08] LABS: Calcium 9.6 mg/dL (8.7-10.3); Parathyroid Hormone, Intact 133 pg/mL (15-65)
== END ==
PROVIDERS: Family Provider Internal Medicine Endocrinology, Diabetes & Metabolism; PCP Internal Medicine; Referring Provider Internal Medicine Endocrinology, Diabetes & Metabolism; Visit Provider Internal Medicine Endocrinology, Diabetes & Metabolism
DX: E21.3 Hyperparathyroidism, unspecified (principal); E03.9 Hypothyroidism, unspecified
CPT/HCPCS: 36415; 82306; 82310; 83970; 84443

== ENCOUNTER → 2021-04-08 11:35 | Outpatient (CLI) | payer MEDICARE, SELFPAY ==
[2021-01-19 15:31] VITALS: BMI 24.5
--- NOTE | 2021-04-08 | DI.RAD.S_ITS ---
PROCEDURE: XR HIP RT 1V INDICATIONS: Unilateral primary osteoarthritis, right hip TECHNIQUE: 2 views of the hip were acquired. COMPARISON: None. FINDINGS: Bones: No fractures or dislocations. No suspicious bony lesions. The visualized pelvic ring appears intact. Moderate to severe degenerative narrowing is present within the hips. No erosions. Soft tissues: No suspicious soft tissue calcifications or masses. IMPRESSION: Moderate to severe right hip arthritis. Dictated by: Elaina Haro M.D. on 04/08/2021 at 15:01 Approved by: Elaina Haro M.D. on 04/08/2021 at 15:01
== END ==
PROVIDERS: Family Provider Internal Medicine Endocrinology, Diabetes & Metabolism; PCP Internal Medicine; Referring Provider Internal Medicine; Visit Provider Internal Medicine
DX: M16.11 Unilateral primary osteoarthritis, right hip (principal)
CPT/HCPCS: 73502

== ENCOUNTER → 2021-04-10 09:59 | Outpatient (CLI) | payer MEDICARE, SELFPAY ==
[2021-01-19 15:31] VITALS: BMI 24.5
== END ==
PROVIDERS: Family Provider Internal Medicine Endocrinology, Diabetes & Metabolism; PCP Internal Medicine; Referring Provider Internal Medicine Endocrinology, Diabetes & Metabolism; Visit Provider Internal Medicine Endocrinology, Diabetes & Metabolism
DX: E21.3 Hyperparathyroidism, unspecified (principal)
CPT/HCPCS: 82340; 82570

== ENCOUNTER → 2021-07-13 11:35 | Outpatient (CLI) | payer MEDICARE, SELFPAY ==
[2021-01-19 15:31] VITALS: BMI 24.5
[2021-07-13 13:48] LABS: Add Manual Diff / Slide Review NO; Basophils Absolute Auto 0 /uL (0-100); Basophils Percent Auto 0.5 % (0-2); Eosinophils Absolute Auto 200 /uL (0-450); Eosinophils Percent Auto 3.3 % (2-4); Hematocrit 39.2 % (36-46); Hemoglobin 13.2 g/dL (12.0-16.0); Lymphocytes Absolute Auto 1100 /uL (1100-4500); Lymphocytes Percent Auto 17.7 % (25-40); Mean Corpuscular HGB Conc 33.6 % (30-36); Mean Corpuscular Hemoglobin 30.9 PG (26-34); Mean Corpuscular Volume 91.9 fL (80-100); Monocytes Absolute Auto 500 /uL (0-900); Monocytes Percent Auto 7.3 % (3-14); Neutrophils Absolute Auto 4600 /uL (1500-7000); Neutrophils Percent Auto 71.2 % (50-75); Platelet Count 228 X10^3/uL (150-400); Red Blood Cell Count 4.26 X10^6/uL (4.0-5.2); Red Cell Distribution Width 14.3 % (11.6-14.8); White Blood Cell Count 6.5 X10^3/uL (4.5-11.0)
[2021-07-13 14:22] LABS: Alanine Aminotransferase 23 IU/L (<35); Albumin 4.2 g/dL (3.5-5.0); Albumin Globulin Ratio 1.6 (1.0-2.8); Alkaline Phosphatase 44 U/L (38-126); Aspartate Aminotransferase 32 IU/L (14-36); BUN Creatinine Ratio 23.5 (6-22); Bilirubin Total 0.5 mg/dL (0.2-1.3); Blood Urea Nitrogen 19 mg/dL (7-17); Calcium 9.6 mg/dL (8.4-10.2); Carbon Dioxide 32 mmol/L (22-32); Chloride 104 mmol/L (98-107); Estimated Glomerular Filt Rate > 60.0 mL/min (>60); Globulin 2.7 g/dL (1.7-4.1); Glucose 115 mg/dL (80-110); HEMOLYSIS < 15 (0-50); Sodium 139 mmol/L (137-145); Total Protein 6.9 g/dL (6.3-8.2)
== END ==
PROVIDERS: Family Provider Internal Medicine Endocrinology, Diabetes & Metabolism; PCP Internal Medicine; Referring Provider Internal Medicine Gastroenterology; Visit Provider Internal Medicine Gastroenterology
DX: K85.90 Acute pancreatitis without necrosis or infection, unspecified (principal)
CPT/HCPCS: 36415; 80053; 85025

== ENCOUNTER 2021-07-31 15:24 | Inpatient (IN) | payer MEDICARE, SELFPAY ==
[2021-01-19 15:31] VITALS: BMI 24.5
[2021-07-31] VITALS (11 sets, daily range): BP systolic 138–193; BP diastolic 63–89; PULSE 90–110; RESP 12–23; TEMP 36.6–39.3; O2SAT 94–98; BMI 24.0; BMI 26.1
--- NOTE | 2021-07-31 15:49 | DI.RAD.S_ITS ---
PROCEDURE: XR CHEST 1V INDICATIONS: chest pain TECHNIQUE: One view of the chest was acquired. COMPARISON: [facility], CR, XR CHEST 2V, 01/19/2021, 12:33. [facility], CR, XR CHEST 2V, 04/25/2020, 11:49. FINDINGS: Surgical changes and devices: None. Lungs and pleura: Similar ill-defined opacity in the upper lobes and right lower lobe. No pleural effusions or pneumothorax. Mediastinum: Mediastinal contours appear unchanged. Heart size is normal. Bones and chest wall: No suspicious bony lesions. Overlying soft tissues appear unremarkable. IMPRESSION: No acute cardiopulmonary abnormality. Similar ill-defined opacity in the upper lobes and right lower lobe. This could be scarring or atelectasis. If clinically indicated this could be further evaluated with follow-up CT of the chest. Dictated by: Laron Aguilar M.D. on 07/31/2021 at 16:50 Approved by: Laron Aguilar M.D. on 07/31/2021 at 16:51
[2021-07-31 16:50] LABS: Add Manual Diff / Slide Review NO; Basophils Absolute Auto 0 /uL (0-100); Basophils Percent Auto 0.3 % (0-2); Eosinophils Absolute Auto 0 /uL (0-450); Eosinophils Percent Auto 0.3 % (2-4); Hematocrit 39.1 % (36-46); Hemoglobin 13.3 g/dL (12.0-16.0); Lymphocytes Absolute Auto 600 /uL (1100-4500); Lymphocytes Percent Auto 4.6 % (25-40); Mean Corpuscular HGB Conc 34.1 % (30-36); Mean Corpuscular Hemoglobin 30.9 PG (26-34); Mean Corpuscular Volume 90.8 fL (80-100); Monocytes Absolute Auto 900 /uL (0-900); Monocytes Percent Auto 7.1 % (3-14); Neutrophils Absolute Auto 11100 /uL (1500-7000); Neutrophils Percent Auto 87.7 % (50-75); Platelet Count 198 X10^3/uL (150-400); White Blood Cell Count 12.6 X10^3/uL (4.5-11.0)
[2021-07-31] MEDS: IBUPROFEN 400 MG TABLET 800 MG PO (16:51)
[2021-07-31] MEDS: SODIUM CHLORIDE 0.9% 1,000 ML 1000 ML IV (16:52)
[2021-07-31 17:08] LABS: Alanine Aminotransferase 93 IU/L (<35); Albumin 4.5 g/dL (3.5-5.0); Albumin Globulin Ratio 1.6 (1.0-2.8); Alkaline Phosphatase 76 U/L (38-126); Aspartate Aminotransferase 97 IU/L (14-36); BUN Creatinine Ratio 19.4 (6-22); Blood Urea Nitrogen 14 mg/dL (7-17); Carbon Dioxide 27 mmol/L (22-32); Chloride 100 mmol/L (98-107); Creatine Kinase 33 U/L (30-135); Estimated Glomerular Filt Rate > 60.0 mL/min (>60); Globulin 2.9 g/dL (1.7-4.1); Glucose 116 mg/dL (80-110); HEMOLYSIS < 15 (0-50); Lipase 428 U/L (23-300); Magnesium 1.8 mg/dL (1.6-2.3); Sodium 133 mmol/L (137-145); Total Protein 7.4 g/dL (6.3-8.2)
[2021-07-31 17:09] LABS: Lactate (Lactic Acid) 0.9 mmol/L (0.7-2.1)
[2021-07-31 17:17] LABS: COVID19 -Nasal RAPID Negative (Negative)
[2021-07-31 17:21] LABS: Troponin I < 0.012 ng/mL (0.01-0.034)
[2021-07-31 17:25] LABS: Procalcitonin 0.06 ng/mL (<0.5)
--- NOTE | 2021-07-31 18:14 | DI.CT.S_ITS ---
PROCEDURE: CT SOFT TISSUE NECK W CON INDICATIONS: pain and swelling after dental procedure TECHNIQUE: After the administration of intravenous contrast, 3.0 mm axial sections acquired from the sella to the aortic arch. Additional oblique axial 3.0 mm sections acquired through the pharynx. 3 mm thick coronal and sagittal reformats were generated. For radiation dose reduction, the following was used: automated exposure control. COMPARISON: None. FINDINGS: Image quality: Excellent. Lymph nodes: No enlarged lymph nodes seen throughout the neck. Vessels: Visualized vasculature appears patent. Aortic atherosclerotic calcifications. Neck spaces: The oropharynx, nasopharynx, and pharynx demonstrate no mucosal lesions. The vocal cords, false vocal cords, pyriform sinuses, epiglottis, vallecula, and tongue base all appear normal. Extramucosal spaces appear unremarkable. Glands: The right parotid gland is asymmetrically enlarged with increased vascularity. No focal fluid collection or abscess is seen. No calcification is seen along the course of Stensen's duct. The parotid and submandibular glands appear normal. Thyroid appears normal. Miscellaneous: Visualized brain and orbits appear normal. Superficial soft tissues appear normal. Mild biapical pleural parenchymal scarring. Bones: No suspicious bony lesions. Visualized sinuses and mastoids appear unremarkable. IMPRESSION: Enlargement of the right parotid gland with increased vascularity is consistent with parotiditis. No obstructing calculus is seen within the parotid duct. No focal fluid collection or abscess. Dictated by: Darrion Person M.D. on 07/31/2021 at 17:41 Approved by: Darrion Person M.D. on 07/31/2021 at 17:47
--- NOTE | 2021-07-31 18:18 | ED_ITS ---
HPI - Sepsis General Chief Complaint: Fever Mode of arrival: Ambulatory Source: patient Limitations: no limitations Evaluation Sepsis Screen: No Definite Risk Sepsis Infection Criteria Present: None Narrative: 80-year-old female with a history of hypertension and hypothyroid presents with a chief complaint a few days of right-sided facial pain and neck swelling for the past day or 2. She recently had a dental cleaning and symptoms started in the aftermath of that. She has had fever and chills as well as nausea but denies vomiting. She denies any chest pain or shortness of breath. She is not dizzy or lightheaded but is becoming fatigued. She has no abdominal pain, diarrhea or constipation. Patient History Medical History Acute appendicitis Hypercalcemia Hyperlipidemia Hypertension Hypothyroid Left bundle branch block Parathyroid abnormality Surgical History H/O: hysterectomy (~1992) History of appendectomy (~04/27/18) Family History Mother Hypertension Father Stomach cancer Prostate cancer Brother Prostate cancer Social History household members: none occupational status: previously employed Smoking Status: Never smoker alcohol intake: never substance use type: does not use Smoking Status: Never smoker alcohol intake frequency: holidays/special occasions only Substance Use Type: does not use Exam Narrative Exam Narrative: GENERAL: [80 year old patient appears stated age. Well-developed patient, in mild distress. HEAD: Atraumatic. Normocephalic. EYES: Pupils equal round and reactive. Extraocular motions intact. No scleral icterus. No injection or drainage. ENT: Right-sided facial swelling minimal warmth and tenderness, no obvious fluctuance Nose without bleeding, purulent drainage. Throat without erythema, tonsillar hypertrophy or exudate. Airway patent. NECK: Right lateral anterior neck swelling, no warmth, redness or induration. Trachea midline. Non tender CARDIOVASCULAR: Regular rate and rhythm without murmurs, gallops, or rubs. RESPIRATORY: Clear to auscultation. Breath sounds equal bilaterally. No wheezes, rales, or rhonchi. GASTROINTESTINAL: Abdomen soft, non-tender, nondistended. EXTREMITIES: No edema or joint tenderness. BACK: Nontender without deformity or crepitance. No flank tenderness. NEURO: AOx3. SKIN: No rash or erythema of visible areas Initial Vital Signs Initial Vital Signs: Vital Signs Temperature 102.3 F H 07/31/21 15:44 Pulse Rate 110 H 07/31/21 15:44 Respiratory Rate 20 07/31/21 15:44 Blood Pressure 193/87 H 07/31/21 15:44 Pulse Oximetry 96 07/31/21 15:44 Course Orders Ordered: Bisacodyl (Bisacodyl 10 Mg Supp) 10 mg DE DAILY PRN PRN Reason: Constipation Enoxaparin Sodium (Enoxaparin 40 Mg/0.4 Ml Syringe) 40 mg SUBCUT DAILY [facility] Ampicillin Sodium/Sulbactam (Sodium 3 gm/ Sodium Chloride) 100 mls @ 100 mls/hr IV Q6H [facility] Last Admin: 07/31/21 22:09 Dose: 100 mls/hr Documented by: DONAVON Sodium Chloride (Normal Saline 0.9%) 1,000 mls @ 125 mls/hr IV CONT [facility] Last Admin: 07/31/21 22:20 Dose: 125 mls/hr Documented by: DONAVON Ketorolac Tromethamine (Ketorolac 30 Mg/Ml Vial) 15 mg IV Q6H PRN PRN Reason: Pain, Moderate (4-6) Stop: 08/03/21 20:14 Magnesium Hydroxide (Magnesium Hydroxide 30 Ml Udc) 30 ml PO DAILY PRN PRN Reason: Constipation Morphine Sulfate (Morphine 2 Mg/Ml Inj) 2 mg IV Q4H PRN PRN Reason: Breakthrough pain only (8-10) Naloxone HCl (Naloxone 0.4 Mg/Ml Vial) 0.2 mg IV Q2MIN PRN PRN Reason: Opiate Reversal Ondansetron HCl (Ondansetron 4 Mg Odt) 4 mg PO Q8HR PRN PRN Reason: Nausea And Vomiting Ondansetron HCl (Ondansetron 4 Mg/2 Ml Inj) 4 mg IV Q8HR PRN PRN Reason: Nausea And Vomiting Oxycodone HCl (Oxycodone Ir 10 Mg Tablet) 10 mg PO Q4HR PRN PRN Reason: Pain, Severe (7-10) Discontinued Medications Sodium Chloride (Normal Saline 0.9%) 1,000 mls @ 1,000 mls/hr IV BOLUS ONE Stop: 07/31/21 16:48 Last Admin: 07/31/21 16:52 Dose: 1,000 mls/hr Documented by: JOSE D Dexamethasone 20 mg/ Sodium (Chloride) 52 mls @ 208 mls/hr IV NOW ONE Stop: 07/31/21 18:15 Last Infusion: 07/31/21 19:47 Dose: 0 mls/hr Documented by: Admin: 07/31/21 19:22 Dose: 208 mls/hr Documented by: SCOTTIE Clindamycin Phosphate (Cleocin) 900 mg in 50 mls @ 50 mls/hr IV NOW ONE Stop: 07/31/21 19:14 Last Infusion: 07/31/21 19:47 Dose: 0 mls/hr Documented by: Admin: 07/31/21 18:19 Dose: 50 mls/hr Documented by: SCOTTIE Sodium Chloride (Normal Saline 0.9%) 1,905.09 mls @ 635.03 mls/hr 30 ml/kg infuse over 3 hr (1905.09 ml) IV NOW ONE Stop: 07/31/21 21:13 Last Admin: 07/31/21 18:20 Dose: 635.03 mls/hr Documented by: SCOTTIE Ibuprofen (Ibuprofen 400 Mg Tablet) 800 mg PO NOW ONE Stop: 07/31/21 15:50 Last Admin: 07/31/21 16:51 Dose: 800 mg Documented by: JOSE D Ketorolac Tromethamine (Ketorolac 30 Mg/Ml Vial) 15 mg IV NOW ONE Stop: 07/31/21 18:15 Last Admin: 07/31/21 18:21 Dose: 15 mg Documented by: SCOTTIE Sodium Chloride (Sodium Chloride 0.9% 100 Ml) 125 ml IV CONT GAURAV Last Admin: 07/31/21 23:07 Dose: Not Given Documented by: DONAVON Vital Signs Vital signs: Vital Signs - 8 hr 07/31/21 19:30 Pulse Rate 105 H Respiratory Rate 23 Blood Pressure 143/69 H Pulse Oximetry 96 Sepsis Guideline Criteria Level 1 - Infection Sepsis Infection Criteria Present: None Treatment Initiated Antibiotics:: IV antimicrobials will be initiated as soon as possible after recognition of sepsis state and within one hour for both sepsis and septic shock. MDM - Sepsis Lab Data Result diagrams: 07/31/21 16:38 07/31/21 16:38 Labs: Lab Results 07/31/21 07/31/21 07/31/21 Range/Units 16:38 16:38 16:38 WBC 12.6 H (4.5-11.0) X10^3/uL RBC 4.30 (4.0-5.2) X10^6/uL Hgb 13.3 (12.0-16.0) g/dL Hct 39.1 (36-46) % MCV 90.8 (80-100) fL MCH 30.9 (26-34) PG MCHC 34.1 (30-36) % RDW 14.0 (11.6-14.8) % Plt Count 198 (150-400) X10^3/uL Neut % (Auto) 87.7 H (50-75) % Lymph % (Auto) 4.6 L (25-40) % [place] % (Auto) 7.1 (3-14) % Eos % (Auto) 0.3 L (2-4) % Baso % (Auto) 0.3 (0-2) % Neut # (Auto) 91757 H (0716-9169) /uL Lymph # (Auto) 600 L (5798-1871) /uL [place] # (Auto) 900 (0-900) /uL Eos # (Auto) 0 (0-450) /uL Baso # (Auto) 0 (0-100) /uL Sodium 133 L (137-145) mmol/L Potassium 4.0 (3.4-5.1) mmol/L Chloride 100 (98-107) mmol/L Carbon Dioxide 27 (22-32) mmol/L BUN 14 (7-17) mg/dL Creatinine 0.72 (0.52-1.04) mg/dL Estimated GFR > 60.0 (>60) mL/min BUN/Creatinine Ratio 19.4 (6-22) Glucose 116 H (80-110) mg/dL Lactate 0.9 (0.7-2.1) mmol/L Calcium 10.0 (8.4-10.2) mg/dL Magnesium 1.8 (1.6-2.3) mg/dL Total Bilirubin 1.0 (0.2-1.3) mg/dL AST 97 H (14-36) IU/L ALT 93 H (<35) IU/L Alkaline Phosphatase 76 (38-126) U/L Total Creatine Kinase 33 (30-135) U/L CK-MB (CK-2) TNP CK-MB (CK-2) Rel Index TNP Troponin I < 0.012 (0.01-0.034) ng/mL Total Protein 7.4 (6.3-8.2) g/dL Albumin 4.5 (3.5-5.0) g/dL Globulin 2.9 (1.7-4.1) g/dL Albumin/Globulin Ratio 1.6 (1.0-2.8) Lipase 428 H (23-300) U/L Procalcitonin 0.06 (<0.5) ng/mL SARS-CoV-2 (PCR) (Negative) 07/31/21 Range/Units 16:38 WBC (4.5-11.0) X10^3/uL RBC (4.0-5.2) X10^6/uL Hgb (12.0-16.0) g/dL Hct (36-46) % MCV (80-100) fL MCH (26-34) PG MCHC (30-36) % RDW (11.6-14.8) % Plt Count (150-400) X10^3/uL Neut % (Auto) (50-75) % Lymph % (Auto) (25-40) % [place] % (Auto) (3-14) % Eos % (Auto) (2-4) % Baso % (Auto) (0-2) % Neut # (Auto) (0790-6235) /uL Lymph # (Auto) (8579-6568) /uL [place] # (Auto) (0-900) /uL Eos # (Auto) (0-450) /uL Baso # (Auto) (0-100) /uL Sodium (137-145) mmol/L Potassium (3.4-5.1) mmol/L Chloride (98-107) mmol/L Carbon Dioxide (22-32) mmol/L BUN (7-17) mg/dL Creatinine (0.52-1.04) mg/dL Estimated GFR (>60) mL/min BUN/Creatinine Ratio (6-22) Glucose (80-110) mg/dL Lactate (0.7-2.1) mmol/L Calcium (8.4-10.2) mg/dL Magnesium (1.6-2.3) mg/dL Total Bilirubin (0.2-1.3) mg/dL AST (14-36) IU/L ALT (<35) IU/L Alkaline Phosphatase (38-126) U/L Total Creatine Kinase (30-135) U/L CK-MB (CK-2) CK-MB (CK-2) Rel Index Troponin I (0.01-0.034) ng/mL Total Protein (6.3-8.2) g/dL Albumin (3.5-5.0) g/dL Globulin (1.7-4.1) g/dL Albumin/Globulin Ratio (1.0-2.8) Lipase (23-300) U/L Procalcitonin (<0.5) ng/mL SARS-CoV-2 (PCR) Negative (Negative) Imaging Data Soft Tissue of Neck: Radiologist's Impression: [place] [address] CT Scan Report Signed Patient: Sarah Marc MR#: [id number] : 1940 Acct:[id number] Age/Sex: 80 / F Date of Service: 07/31/21 Loc: Accession Number: [id number] ?? Procedure: CT soft tissue neck w con Ordering Provider: Robles Esteban D.O. PROCEDURE:? CT SOFT TISSUE NECK W CON ? INDICATIONS:? pain and swelling after dental procedure ? TECHNIQUE:? After the administration of intravenous contrast, 3.0 mm axial sections acquired from the sella to the aortic arch.? Additional oblique axial 3.0 mm sections acquired through the pharynx.? 3 mm thick coronal and sagittal reformats were generated.? For radiation dose reduction, the following was used:? automated exposure control.? ? COMPARISON:? None. ? FINDINGS:? Image quality:? Excellent.? ? Lymph nodes:? No enlarged lymph nodes seen throughout the neck.? ? Vessels:? Visualized vasculature appears patent.? Aortic atherosclerotic calcifications. ? Neck spaces:? The oropharynx, nasopharynx, and pharynx demonstrate no mucosal lesions.? The vocal cords, false vocal cords, pyriform sinuses, epiglottis, vallecula, and tongue base all appear normal.? Extramucosal spaces appear unremarkable.? ? Glands:? The right parotid gland is asymmetrically enlarged with increased vascularity.? No focal fluid collection or abscess is seen.? No calcification is seen along the course of Stensen's duct.? The parotid and submandibular glands appear normal.? Thyroid appears normal. ? Miscellaneous:? Visualized brain and orbits appear normal.? Superficial soft tissues appear normal.? Mild biapical pleural parenchymal scarring. ? Bones:? No suspicious bony lesions.? Visualized sinuses and mastoids appear unremarkable. ? ? IMPRESSION:? Enlargement of the right parotid gland with increased vascularity is consistent with parotiditis.? No obstructing calculus is seen within the parotid duct.? No focal fluid collection or abscess. ? Dictated by: Darrion Person M.D. on 07/31/2021 at 17:41 ? ? Approved by: Darrion Person M.D. on 07/31/2021 at 17:47 ? MDM Narrative Medical decision making narrative: Patient with impressive right-sided face and anterior neck pain and swelling in the aftermath of dental cleaning. She is tolerating her secretions and has no difficulty in breathing but does feel when she eats and drinks. CT is reassuring and demonstrates no fluid collection, airway involvement or stone within parotid duct, this is reassuring, however patient will require hospitalization given the rapid onset and septic picture in order to receive fluids, antibiotics and close observation Discharge Plan Departure Patient Disposition: Admitted As Inpatient Clinical Impression: Acute parotitis, Sepsis Admit Date/Time: 07/31/21 19:31 Admit Provider: Kale Chawla
[2021-07-31] MEDS: CLINDAMYCIN 900 MG/50 ML PIGGYBACK 50 MG IV (18:19)
[2021-07-31] MEDS: SODIUM CHLORIDE 0.9% 1,905.09 ML 635.03 ML IV (18:20)
[2021-07-31] MEDS: KETOROLAC 30 MG/ML VIAL 15 MG IV (18:21)
[2021-07-31] MEDS: dexAMETHasone 20 MG in SODIUM CHLORIDE 0.9% 50 ML 208 ML IV (19:22)
--- NOTE | 2021-07-31 19:38 | PC.NURSE ---
Patient reports dental procedure a few days ago. Yesterday she began having fever, sore right neck/jaw, and swelling. She told her dentist who took some more xrays and said I was fine and it was probably just a muscle. Fever and worse swelling today.
--- NOTE | 2021-07-31 20:00 | PM.HP.1 ---
History of Present Illness History of Present Illness Date Patient Seen: 07/31/21 Time Patient Seen: 20:00 Date of Onset of Symptoms: 07/29/21 Chief complaint: pain from ear to chest from dental cleaning Narrative: Had dental cleaning two days ago now with progressive R sided neck swelling and pain appears to be septic parotiditis with no stone no abscess per CT. Feeling generally ok otherwise received clindamycin IVF and toradol in ED. Patient History Medical History Acute appendicitis Hypercalcemia Hyperlipidemia Hypertension Hypothyroid Left bundle branch block Parathyroid abnormality Surgical History H/O: hysterectomy (~1992) History of appendectomy (~04/27/18) Family & Social History Family History Mother Hypertension Father Stomach cancer Prostate cancer Brother Prostate cancer Social History: household members none Safety & Behavioral: Feels Safe in Current Yes Environment Been Physically Hurt or No Threatened By a Person Tobacco & Substance use: Smoking Status Never smoker alcohol intake never alcohol intake frequency holiday/special occasion Substance Use Type does not use Meds Home Medications and Allergies Home Medications Medication Instructions Recorded Confirmed Type levothyroxine 50 mcg tablet 50 mcg PO DAILY 02/23/20 01/19/21 History (Synthroid) valsartan 40 mg tablet 20 mg PO BID 10/14/20 01/19/21 History metoprolol succinate 25 mg 12.5 mg PO BID 01/19/21 01/19/21 History tablet,extended release 24 hr Allergies Allergy/AdvReac Type Severity Reaction Status Date / Time Sulfa (Sulfonamide Allergy Unknown Verified 01/19/21 11:05 Antibiotics) [SULFA (SULFONAMIDE ANTIBIOTICS)] lisinopril AdvReac Severe Cough Verified 01/19/21 11:05 Review of Systems Review of Systems Narrative: all systems reviewed and negative except as otherwise documented in HPI Exam Vital Signs (past 8 hours): - 07/31/21 15:44 07/31/21 16:51 07/31/21 18:09 Temperature 102.3 F H 102.8 F H 100.3 F H Pulse Rate 110 H 110 H Respiratory Rate 20 17 Blood Pressure 193/87 H 186/73 H Pulse Oximetry 96 98 07/31/21 18:14 07/31/21 18:38 07/31/21 19:00 Temperature Pulse Rate 110 H 106 H 102 H Respiratory Rate 13 23 18 Blood Pressure 139/78 Pulse Oximetry 97 96 97 07/31/21 19:30 Temperature Pulse Rate 105 H Respiratory Rate 23 Blood Pressure 143/69 H Pulse Oximetry 96 Oxygen Delivery Method Room Air Narrative Exam Narrative: laying in bed comfortably Const General: cooperative, comfortable and well developed [facility] Head: normocephalic and atraumatic Eyes General: appearance normal, both eyes and all related structures Neck Other: R neck swelling with palpably enlarged and tender R parotid submandibular gland Resp Auscultation: clear to auscultation bilaterally Cardio Rate: regular rate Rhythm: regular rhythm Heart Sounds: S1 normal and S2 normal GI Palpation: soft and No tender Auscultation: normal bowel sounds Skin General: no rashes or lesions noted Neuro General: patient alert, patient awake, patient oriented x3, moves all extremities and CN's II-XI intact bilaterally Extrem General: normal to inspection, full ROM and No pedal edema Psych Appearance: grossly normal and well kempt Objective Labs Result Diagrams: 07/31/21 16:38 07/31/21 16:38 Labs: Laboratory Results - last 24 hr 07/31/21 07/31/21 07/31/21 16:38 16:38 16:38 WBC 12.6 H RBC 4.30 Hgb 13.3 Hct 39.1 MCV 90.8 MCH 30.9 MCHC 34.1 RDW 14.0 Plt Count 198 Neut % (Auto) 87.7 H Lymph % (Auto) 4.6 L [place] % (Auto) 7.1 Eos % (Auto) 0.3 L Baso % (Auto) 0.3 Neut # (Auto) 15042 H Lymph # (Auto) 600 L [place] # (Auto) 900 Eos # (Auto) 0 Baso # (Auto) 0 Sodium 133 L Potassium 4.0 Chloride 100 Carbon Dioxide 27 BUN 14 Creatinine 0.72 Estimated GFR > 60.0 BUN/Creatinine Ratio 19.4 Glucose 116 H Lactate 0.9 Calcium 10.0 Magnesium 1.8 Total Bilirubin 1.0 AST 97 H ALT 93 H Alkaline Phosphatase 76 Total Creatine Kinase 33 CK-MB (CK-2) TNP CK-MB (CK-2) Rel Index TNP Troponin I < 0.012 Total Protein 7.4 Albumin 4.5 Globulin 2.9 Albumin/Globulin Ratio 1.6 Lipase 428 H Procalcitonin 0.06 SARS-CoV-2 (PCR) 07/31/21 16:38 WBC RBC Hgb Hct MCV MCH MCHC RDW Plt Count Neut % (Auto) Lymph % (Auto) [place] % (Auto) Eos % (Auto) Baso % (Auto) Neut # (Auto) Lymph # (Auto) [place] # (Auto) Eos # (Auto) Baso # (Auto) Sodium Potassium Chloride Carbon Dioxide BUN Creatinine Estimated GFR BUN/Creatinine Ratio Glucose Lactate Calcium Magnesium Total Bilirubin AST ALT Alkaline Phosphatase Total Creatine Kinase CK-MB (CK-2) CK-MB (CK-2) Rel Index Troponin I Total Protein Albumin Globulin Albumin/Globulin Ratio Lipase Procalcitonin SARS-CoV-2 (PCR) Negative Assessment & Plan Assessment & Plan narrative: #acute R-sided parotiditis #sepsis received clinda, continue ampicillin/sulbactam IV with IVF and pain control, NPO for now Hx of recurrent pancreatitis Reports she just got over a couple mild bouts of this, I do note elevated lipase and LFTs, she will be NPO for a bit that may help. Low fat diet on resumption of feeding. #hypertension continue home metoprolol 12.5 bid, valsartan 20 bid prn hydralazine #hypothyroid mild controlled continue home levothyroxine 50mg qd. Service: Hospitalist Code: DNR MDM: jaron Case [phone] Louise Guzmán [phone] Diet: NPO DVT: Lovenox PCP: Lori Time spent on this admission: 75 minutes Time Spent With Patient Critical Care time: I spent a total of [] minutes of critical care time on this patient's care today; this time is exclusive of procedural time.
[2021-07-31] MEDS: AMPICILLIN/SULBACTAM 3 GM 3 GM in SODIUM CHLORIDE 0.9% 100 ML IV (22:09)
[2021-07-31] MEDS: SODIUM CHLORIDE 0.9% 1,000 ML 125 ML IV (22:20)
[2021-08-01] VITALS (7 sets, daily range): BP systolic 132–150; BP diastolic 50–78; PULSE 59–76; RESP 16–20; TEMP 36.1–37.3; O2SAT 96–97
[2021-08-01] MEDS: AMPICILLIN/SULBACTAM 3 GM 3 GM in SODIUM CHLORIDE 0.9% 100 ML IV ×4 (03:32→20:44)
[2021-08-01 06:01] LABS: Add Manual Diff / Slide Review NO; Basophils Absolute Auto 0 /uL (0-100); Basophils Percent Auto 0.3 % (0-2); Eosinophils Absolute Auto 0 /uL (0-450); Hemoglobin 11.9 g/dL (12.0-16.0); Lymphocytes Absolute Auto 600 /uL (1100-4500); Lymphocytes Percent Auto 4.8 % (25-40); Monocytes Absolute Auto 400 /uL (0-900); Monocytes Percent Auto 2.9 % (3-14); Neutrophils Absolute Auto 11500 /uL (1500-7000); Platelet Count 172 X10^3/uL (150-400); Red Blood Cell Count 3.84 X10^6/uL (4.0-5.2); Red Cell Distribution Width 14.2 % (11.6-14.8); White Blood Cell Count 12.5 X10^3/uL (4.5-11.0)
[2021-08-01 06:08] LABS: Lipase 118 U/L (23-300)
[2021-08-01 06:09] LABS: BUN Creatinine Ratio 21.3 (6-22); Blood Urea Nitrogen 13 mg/dL (7-17); Calcium 8.4 mg/dL (8.4-10.2); Carbon Dioxide 24 mmol/L (22-32); Chloride 109 mmol/L (98-107); Estimated Glomerular Filt Rate > 60.0 mL/min (>60); Glucose 169 mg/dL (80-110); HEMOLYSIS < 15 (0-50); Potassium 3.9 mmol/L (3.4-5.1); Sodium 139 mmol/L (137-145)
[2021-08-01] MEDS: SODIUM CHLORIDE 0.9% 1,000 ML 125 ML IV ×2 (08:15→19:11)
[2021-08-01] MEDS: METOPROLOL ER 25 MG TABLET 12.5 MG PO ×2 (08:30→20:48)
[2021-08-01] MEDS: ENOXAPARIN 40 MG/0.4 ML SYRINGE SUBCUT (08:31)
[2021-08-01] MEDS: LEVOTHYROXINE 50 MCG TABLET PO (08:31)
[2021-08-01] MEDS: VALSARTAN 80 MG TABLET 20 MG PO ×2 (09:51→20:44)
--- NOTE | 2021-08-01 10:25 | CM.DANOTE ---
DCP: Case received, EMR reviewed and met with patient. Introduced self and role. Was able to obtain information regarding patient's baseline activity status prior to hospitalization. DCP assessment completed with information currently available. Patient is a 80 year old female who admitted yesterday to the care of the hospitalist team. PCP: Dr. Mercado. Payer:confirmed: Medicare/[employer]. Patient came to the hospital via private vehicle secondary to swelling to her right cheek area. Patient had recently been to her dentist in [facility], and had her teeth cleaned. She then developed parotiditis. She is here getting IV ABO. Met with patient in her room. She is pleasant, alert and oriented. At her baseline she is independent and resides here in [place] alone. She has a daughter, Denisse Case who lives in [facility]. P: DCP to continue to follow. Patient should be able to go home when she is deemed medically discharged. Brittney Fam RN/Quiller Hand Discharge Planning/Care Management CM Discharge Assessment Start: 08/01/21 10:24 Freq: Status: Active Protocol: Document 08/01/21 10:24 (Rec: 08/01/21 10:25 [id number]) Discharge Planning Assessment Assigned Pharmacy Laboratory Technician Brittney Fam RN/Quiller Hand Advance Directives? Yes Advance Directives on File Yes History Provided By Patient,Medical Record Prior Living Arrangements House Household Members none Type of transporation used prior to Drives own vehicle admit Independent with ADL's Yes Is patient alert and oriented? Yes Caregiver for Another No Barriers to Discharge No Discharge Plan Home Transportation Arrangement Daughter Referrals Initiated None needed Review Status In Process Next Review Type Continued Stay Review
--- NOTE | 2021-08-01 14:15 | PM.PN.1 ---
Subjective Subjective Date Patient Seen: 08/01/21 Time Patient Seen: 08:00 Interval history: She feels improved today. Her swelling in her jaw is slightly decreased, her pain is improved. She has no shortness of breath or difficulty swallowing. Exam Vital Signs (past 8 hours): - 08/01/21 07:40 08/01/21 11:25 Temperature 97.2 F L 98.2 F Pulse Rate 65 72 Respiratory Rate 19 18 Blood Pressure 141/57 H 150/78 H Pulse Oximetry 97 96 Oxygen Delivery Method Room Air Oxygen Flow Rate 0 Narrative Exam Narrative: GEN: no acute distress NECK: tender, swollen mass below angle of jaw on right side CV: regular rate and rhythm PULM: clear bilaterally Objective Labs Result Diagrams: 08/01/21 05:35 08/01/21 05:35 Labs: Laboratory Results - last 24 hr 07/31/21 07/31/21 07/31/21 16:38 16:38 16:38 WBC 12.6 H RBC 4.30 Hgb 13.3 Hct 39.1 MCV 90.8 MCH 30.9 MCHC 34.1 RDW 14.0 Plt Count 198 Neut % (Auto) 87.7 H Lymph % (Auto) 4.6 L [place] % (Auto) 7.1 Eos % (Auto) 0.3 L Baso % (Auto) 0.3 Neut # (Auto) 41619 H Lymph # (Auto) 600 L [place] # (Auto) 900 Eos # (Auto) 0 Baso # (Auto) 0 Sodium 133 L Potassium 4.0 Chloride 100 Carbon Dioxide 27 BUN 14 Creatinine 0.72 Estimated GFR > 60.0 BUN/Creatinine Ratio 19.4 Glucose 116 H Lactate 0.9 Calcium 10.0 Magnesium 1.8 Total Bilirubin 1.0 AST 97 H ALT 93 H Alkaline Phosphatase 76 Total Creatine Kinase 33 CK-MB (CK-2) TNP CK-MB (CK-2) Rel Index TNP Troponin I < 0.012 Total Protein 7.4 Albumin 4.5 Globulin 2.9 Albumin/Globulin Ratio 1.6 Lipase 428 H Procalcitonin 0.06 SARS-CoV-2 (PCR) 07/31/21 08/01/21 08/01/21 16:38 05:35 05:35 WBC 12.5 H RBC 3.84 L Hgb 11.9 L Hct 35.0 L MCV 91.0 MCH 31.0 MCHC 34.0 RDW 14.2 Plt Count 172 Neut % (Auto) 92.0 H Lymph % (Auto) 4.8 L [place] % (Auto) 2.9 L Eos % (Auto) 0.0 L Baso % (Auto) 0.3 Neut # (Auto) 47116 H Lymph # (Auto) 600 L [place] # (Auto) 400 Eos # (Auto) 0 Baso # (Auto) 0 Sodium 139 Potassium 3.9 Chloride 109 H Carbon Dioxide 24 BUN 13 Creatinine 0.61 Estimated GFR > 60.0 BUN/Creatinine Ratio 21.3 Glucose 169 H Lactate Calcium 8.4 Magnesium Total Bilirubin AST ALT Alkaline Phosphatase Total Creatine Kinase CK-MB (CK-2) CK-MB (CK-2) Rel Index Troponin I Total Protein Albumin Globulin Albumin/Globulin Ratio Lipase Procalcitonin SARS-CoV-2 (PCR) Negative 08/01/21 05:35 WBC RBC Hgb Hct MCV MCH MCHC RDW Plt Count Neut % (Auto) Lymph % (Auto) [place] % (Auto) Eos % (Auto) Baso % (Auto) Neut # (Auto) Lymph # (Auto) [place] # (Auto) Eos # (Auto) Baso # (Auto) Sodium Potassium Chloride Carbon Dioxide BUN Creatinine Estimated GFR BUN/Creatinine Ratio Glucose Lactate Calcium Magnesium Total Bilirubin AST ALT Alkaline Phosphatase Total Creatine Kinase CK-MB (CK-2) CK-MB (CK-2) Rel Index Troponin I Total Protein Albumin Globulin Albumin/Globulin Ratio Lipase 118 D Procalcitonin SARS-CoV-2 (PCR) [facility] Medical History Acute appendicitis Hypercalcemia Hyperlipidemia Hypertension Hypothyroid Left bundle branch block Parathyroid abnormality Surgical History H/O: hysterectomy (~1992) History of appendectomy (~04/27/18) Family History Mother Hypertension Father Stomach cancer Prostate cancer Brother Prostate cancer Social History household members: none occupational status: previously employed Smoking Status: Never smoker alcohol intake: never substance use type: does not use Assessment & Plan Assessment & Plan narrative: #acute R-sided parotiditis #sepsis, resolved -received clinda, continue ampicillin/sulbactam IV with IVF and pain control -continue antibiotics for likey 7-14 day course -follow up cultures -if continues to have significant swelling will repeat ct neck to evaluate for fluid colletion Hx of recurrent pancreatitis -reports she just got over a couple mild bouts -asymptomatic currently #hypertension -continue home metoprolol 12.5 bid, valsartan 20 bid -prn hydralazine #hypothyroid -mild controlled continue home levothyroxine 50mg qd. Time Spent With Patient Critical Care time: I spent a total of [] minutes of critical care time on this patient's care today; this time is exclusive of procedural time. Quality VTE Deep Vein Thrombosis/Pulmonary Embolism Present on Admission: No
--- NOTE | 2021-08-01 16:10 | PC.NURSE ---
pt ate her lunch and tolerated it. she ate 75% of her meal. no pain.
[2021-08-02] VITALS (8 sets, daily range): BP systolic 146–164; BP diastolic 68–87; PULSE 72–93; RESP 16–21; TEMP 36.3–37.1; O2SAT 93–97
--- NOTE | 2021-08-02 | DI.RAD.S_ITS ---
PROCEDURE: XR CHEST 1V INDICATIONS: SHORTNESS OF BREATH TECHNIQUE: One view of the chest was acquired. COMPARISON: [facility], CR, XR CHEST 2V, 01/19/2021, 12:33. [facility], CR, XR CHEST 1V, 07/31/2021, 16:38. FINDINGS: Surgical changes and devices: None. Lungs and pleura: Trace blunting of the costophrenic angles can be seen. Generalized interstitial prominence can be seen. Low lung volumes are noted. This causes a crowded appearance to the lung markings and limits evaluation. Mediastinum: There is mild cardiomegaly. Atherosclerotic calcification of the aortic arch is noted. Bones and chest wall: No suspicious bony lesions. Age-appropriate bony degenerative changes are seen. Overlying soft tissues appear unremarkable. IMPRESSION: Mild cardiomegaly with trace pleural effusions and interstitial prominence. Please correlate with patient presentation, physical examination findings, and laboratory values for congestive heart failure. Dictated by: Adal Burt M.D. on 08/02/2021 at 8:37 Approved by: Adal Burt M.D. on 08/02/2021 at 8:38
[2021-08-02] MEDS: AMPICILLIN/SULBACTAM 3 GM 3 GM in SODIUM CHLORIDE 0.9% 100 ML IV ×4 (02:44→21:04)
[2021-08-02] MEDS: KETOROLAC 30 MG/ML VIAL 15 MG IV (02:45)
[2021-08-02] MEDS: SODIUM CHLORIDE 0.9% 1,000 ML 125 ML IV (02:49)
[2021-08-02 06:29] LABS: Hematocrit 31.8 % (36-46); Hemoglobin 10.9 g/dL (12.0-16.0); Mean Corpuscular HGB Conc 34.2 % (30-36); Mean Corpuscular Hemoglobin 30.9 PG (26-34); Mean Corpuscular Volume 90.4 fL (80-100); Platelet Count 175 X10^3/uL (150-400); Red Blood Cell Count 3.52 X10^6/uL (4.0-5.2); Red Cell Distribution Width 14.5 % (11.6-14.8); White Blood Cell Count 14.5 X10^3/uL (4.5-11.0)
[2021-08-02 06:38] LABS: Blood Urea Nitrogen 12 mg/dL (7-17); Calcium 7.8 mg/dL (8.4-10.2); Carbon Dioxide 22 mmol/L (22-32); Chloride 114 mmol/L (98-107); Estimated Glomerular Filt Rate > 60.0 mL/min (>60); Glucose 113 mg/dL (80-110); HEMOLYSIS < 15 (0-50); Potassium 3.5 mmol/L (3.4-5.1); Sodium 137 mmol/L (137-145)
--- NOTE | 2021-08-02 08:04 | DI.CT.S_ITS ---
PROCEDURE: CT SOFT TISSUE NECK W CON INDICATIONS: +paroditis, worse fevers, developing abscess? TECHNIQUE: After the administration of intravenous contrast, 3.0 mm axial sections acquired from the sella to the aortic arch. Additional oblique axial 3.0 mm sections acquired through the pharynx. 3 mm thick coronal and sagittal reformats were generated. For radiation dose reduction, the following was used: automated exposure control. COMPARISON: [facility], CT, CT SOFT TISSUE NECK W CON, 07/31/2021, 18:20. FINDINGS: Image quality: Excellent. Lymph nodes: No enlarged lymph nodes seen throughout the neck. Vessels: Visualized vasculature appears patent. Neck spaces: The oropharynx, nasopharynx, and pharynx demonstrate no mucosal lesions. The vocal cords, false vocal cords, pyriform sinuses, epiglottis, vallecula, and tongue base all appear normal. Extramucosal spaces appear unremarkable. Glands: The right parotid gland again demonstrates enlargement and hyperenhancement. It appears minimally improved compared to the prior examination. The left parotid gland is unremarkable. No regional soft tissue abscess is seen. The similar glands are slightly asymmetric, with the right side mildly larger and hyperenhancing than the left. Thyroid gland is small in size. Miscellaneous: Visualized brain and orbits appear normal. Small bilateral pleural effusions are seen. Superficial soft tissues appear normal. Bones: No suspicious bony lesions. Visualized sinuses and mastoids appear unremarkable. At least moderate bony degenerative changes are seen. IMPRESSION: Interval development of small bilateral pleural effusions. No soft tissue abscess is seen. Enlargement hyperenhancement of the right parotid gland, which is slightly improved compared to the prior. Minimal asymmetry seen of the parotid glands, with the right side slightly larger and hyperenhancing. Dictated by: Adal Burt M.D. on 08/02/2021 at 8:34 Approved by: Adal Burt M.D. on 08/02/2021 at 8:37
[2021-08-02] MEDS: ENOXAPARIN 40 MG/0.4 ML SYRINGE SUBCUT (08:21)
[2021-08-02] MEDS: METOPROLOL ER 25 MG TABLET 12.5 MG PO ×2 (08:22→21:04)
[2021-08-02] MEDS: LEVOTHYROXINE 50 MCG TABLET PO (08:22)
[2021-08-02] MEDS: VALSARTAN 80 MG TABLET 20 MG PO ×2 (08:34→21:09)
[2021-08-02] MEDS: FUROSEMIDE 40 MG/4 ML VIAL IV (11:44)
--- NOTE | 2021-08-02 15:17 | PM.PN.1 ---
Subjective Subjective Date Patient Seen: 08/02/21 Time Patient Seen: 08:00 Interval history: Today she feels improved. She is quite anxious Exam Vital Signs (past 8 hours): - 08/02/21 08:22 08/02/21 11:00 Temperature 97.9 F Pulse Rate 87 Respiratory Rate 20 Blood Pressure 146/68 H 151/87 H Oxygen Delivery Method Room Air Oxygen Flow Rate 0 Narrative Exam Narrative: GEN: no acute distress NECK: tender, swollen mass below angle of jaw on right side CV: regular rate and rhythm PULM: clear bilaterally Objective Labs Result Diagrams: 08/02/21 05:45 08/02/21 05:45 Labs: Laboratory Results - last 24 hr 08/02/21 08/02/21 05:45 05:45 WBC 14.5 H RBC 3.52 L Hgb 10.9 L Hct 31.8 L MCV 90.4 MCH 30.9 MCHC 34.2 RDW 14.5 Plt Count 175 Sodium 137 Potassium 3.5 Chloride 114 H Carbon Dioxide 22 BUN 12 Creatinine 0.50 L Estimated GFR > 60.0 BUN/Creatinine Ratio 24.0 H Glucose 113 H Calcium 7.8 L PFSH Medical History Acute appendicitis Hypercalcemia Hyperlipidemia Hypertension Hypothyroid Left bundle branch block Parathyroid abnormality Surgical History H/O: hysterectomy (~1992) History of appendectomy (~04/27/18) Family History Mother Hypertension Father Stomach cancer Prostate cancer Brother Prostate cancer Social History household members: none occupational status: previously employed Smoking Status: Never smoker alcohol intake: never substance use type: does not use Assessment & Plan Assessment & Plan narrative: #acute R-sided parotiditis #sepsis, resolved -received clinda, continue ampicillin/sulbactam IV with IVF and pain control -continue antibiotics for likey 7-14 day course -follow up cultures -due to continued fevers repeat CT scan performed which showed improving inflammation, and no abscess Hx of recurrent pancreatitis -reports she just got over a couple mild bouts -asymptomatic currently #hypertension -continue home metoprolol 12.5 bid, valsartan 20 bid -prn hydralazine #hypothyroid -mild controlled continue home levothyroxine 50mg qd. Time Spent With Patient Critical Care time: I spent a total of [] minutes of critical care time on this patient's care today; this time is exclusive of procedural time. Quality VTE Deep Vein Thrombosis/Pulmonary Embolism Present on Admission: No
--- NOTE | 2021-08-02 15:28 | CM.DPC ---
DCP Cont: Discussed patient during team rounds. She will be here another day on IV ABO. She may need to follow up with ENT, according to hospitalist. Patient is independent at her baseline. P: DCP to continue to follow for any needs. Patient should be able to go home when she is deemed medically stable. Brittney Fam RN/[employer] Machine Operator
[2021-08-02] MEDS: SODIUM CHLORIDE 0.9% FLUSH 10 ML IV (21:06)
--- NOTE | 2021-08-02 21:30 | PC.NURSE ---
Patient is alert and oriented. Breath sounds CTA with RA sat of 94%. HRR w/telemetry reading of SR w/BBB and prolonged QT. BP elevated at 164/79. States she is feeling slightly nauseated so given gingerale with saltines. BT present and abdomen is soft; reports BM earlier today. Denies dysuria, frequency or urgency with urination. Is able to move self in bed and gets up to bathroom with SBA. 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 Declines use of SCD's so reminded to ankle wave. Fall risk score is moderate and bed alarm is activated.
[2021-08-03] MEDS: AMPICILLIN/SULBACTAM 3 GM 3 GM in SODIUM CHLORIDE 0.9% 100 ML IV ×2 (02:48→09:26)
[2021-08-03] MEDS: SODIUM CHLORIDE 0.9% FLUSH 10 ML IV ×2 (02:48→09:47)
[2021-08-03 04:41] VITALS: BP 143/65; PULSE 74; RESP 16; TEMP 36.9; O2SAT 94
[2021-08-03 05:32] LABS: Hematocrit 37.3 % (36-46); Hemoglobin 12.6 g/dL (12.0-16.0); Mean Corpuscular HGB Conc 33.8 % (30-36); Mean Corpuscular Hemoglobin 30.9 PG (26-34); Mean Corpuscular Volume 91.5 fL (80-100); Platelet Count 203 X10^3/uL (150-400); Red Blood Cell Count 4.07 X10^6/uL (4.0-5.2); Red Cell Distribution Width 14.1 % (11.6-14.8); White Blood Cell Count 9.3 X10^3/uL (4.5-11.0)
[2021-08-03 05:45] LABS: BUN Creatinine Ratio 18.6 (6-22); Blood Urea Nitrogen 13 mg/dL (7-17); Calcium 8.3 mg/dL (8.4-10.2); Carbon Dioxide 28 mmol/L (22-32); Chloride 106 mmol/L (98-107); Estimated Glomerular Filt Rate > 60.0 mL/min (>60); Glucose 104 mg/dL (80-110); HEMOLYSIS < 15 (0-50); Potassium 3.3 mmol/L (3.4-5.1); Sodium 138 mmol/L (137-145)
[2021-08-03 08:58] VITALS: BP 157/78; PULSE 80; RESP 17; TEMP 36.5; O2SAT 95
[2021-08-03] MEDS: LEVOTHYROXINE 50 MCG TABLET PO (09:25)
[2021-08-03] MEDS: ENOXAPARIN 40 MG/0.4 ML SYRINGE SUBCUT (09:25)
[2021-08-03] MEDS: METOPROLOL ER 25 MG TABLET 12.5 MG PO (09:25)
[2021-08-03] MEDS: VALSARTAN 80 MG TABLET 20 MG PO (09:47)
[2021-08-03] MEDS: POTASSIUM CHLORIDE 20 MEQ TAB 40 MEQ PO (09:47)
--- NOTE | 2021-08-03 09:47 | PM.DS.1 ---
History of Present Illness History of Present Illness Date Patient Seen: 08/03/21 Time Patient Seen: 09:47 Chief complaint: pain from ear to chest from dental cleaning Narrative: Per Dr. Chawla, Had dental cleaning two days ago now with progressive R sided neck swelling and pain appears to be septic parotiditis with no stone no abscess per CT. Feeling generally ok otherwise received clindamycin IVF and toradol in ED. Discharge Providers Provider Date of admission: 07/31/21 19:31 Discharge Date: 08/03/21 Primary care physician: Nelson Mecrado MD Discharge provider: Michael Matias DO Summary Hospital Course Discharge Diagnosis: #acute R-sided parotiditis #sepsis, resolved #Hx of recurrent pancreatitis #hypertension #hypothyroid Hospital Course: This is a 80-year-old female with recent dental procedure who was admitted with sepsis secondary to an acute right-sided parotitis. She slowly improved with IV ampicillin/sulbactam with gradual improvement in pain and swelling. She had a CT scan of her neck which showed parotitis but no drainable fluid collection or abscess. She was eating and tolerating a diet on the day of discharge in was transition to oral Augmentin on discharge. She was discharged on another 2 weeks of therapy given need for admission to the hospital. She should follow-up with her primary care provider as previously scheduled, or sooner if swelling persists. Time Spent with Patient Time spent: Less than 30 minutes Exam Vital Signs (past 8 hours): - 08/03/21 04:41 08/03/21 08:58 Temperature 98.4 F 97.7 F Pulse Rate 74 80 Respiratory Rate 16 17 Blood Pressure 143/65 H 157/78 H Pulse Oximetry 94 95 Oxygen Delivery Method Room Air Oxygen Flow Rate 0 Narrative Exam Narrative: GEN: no acute distress NECK: tender, swollen mass below angle of jaw on right side, reportedly much improved today per patient. no overlying erythema. CV: regular rate and rhythm PULM: clear bilaterally Objective Labs Result Diagrams: 08/03/21 04:56 08/03/21 04:56 Labs: Laboratory Results - last 24 hr 08/03/21 08/03/21 04:56 04:56 WBC 9.3 RBC 4.07 Hgb 12.6 Hct 37.3 MCV 91.5 MCH 30.9 MCHC 33.8 RDW 14.1 Plt Count 203 Sodium 138 Potassium 3.3 L Chloride 106 Carbon Dioxide 28 BUN 13 Creatinine 0.70 Estimated GFR > 60.0 BUN/Creatinine Ratio 18.6 Glucose 104 Calcium 8.3 L PFSH Medical History Acute appendicitis Hypercalcemia Hyperlipidemia Hypertension Hypothyroid Left bundle branch block Parathyroid abnormality Surgical History H/O: hysterectomy (~1992) History of appendectomy (~04/27/18) Family History Mother Hypertension Father Stomach cancer Prostate cancer Brother Prostate cancer Social History household members: none occupational status: previously employed Smoking Status: Never smoker alcohol intake: never substance use type: does not use Discharge Plan Discharge Plan Patient Disposition: Home Provider Discharge Comment: You were admitted to the hospital with parotitis. You improved with antibiotics. Please continue oral antibiotics at home. Follow up with PCP as previously scheduled. Discharge orders & Medications Prescriptions: New amoxicillin-pot clavulanate 875-125 mg tablet 1 tab PO BID 14 Days Qty: 28 0RF Continued levothyroxine [Synthroid] 50 mcg tablet 50 mcg PO DAILY 0RF valsartan 40 mg Tablet 20 mg PO BID 0RF Rx Instructions: 20mg BID metoprolol succinate 25 mg tablet extended release 24 hr 12.5 mg PO BID 0RF Label Comments: 1/2 tab in am 1/2 tab in pm w/ dinner Follow up/Referrals: Nelson Mercado MD [Primary Care Provider] - Diet/Activity/Treatments Diet: Diet as Tolerated Activity: As tolerated Skin/Wound/Dressing Care Report to your healthcare provider any signs of infection, such as:: chills, fever, increased pain and unusual drainage Visit Report/Discharge Packet Instructions: DI for Parotitis-Adult Discharge Data Primary Care Provider: Nelson Mercado V Quality VTE Deep Vein Thrombosis/Pulmonary Embolism Present on Admission: No
[2021-08-03] MEDS: AMOXICILLIN/CLAV 875/125 MG 1 TAB PO (11:50)
--- NOTE | 2021-08-03 12:10 | PC.NURSE ---
Addendum entered by Amarilis Gaston R.N. 08/03/21 13:04: Pt leaves by wheelchair to daughter's private vehicle, escorted out by BPM ARCHITECT, pt has no further questions/concerns. Original Note: Rec'd discharge order, reviewed all d/c instructions with patient who verbalized understanding. Saline locks d/c'd with catheter intact to both sites, Patient says she wants to make own follow up appt with Dr. 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
== END 2021-08-03 12:25 | disposition home or self-care (01) | DRG 156 ==
LOC: ED 18:10 → AC 22:57
PROVIDERS: Emergency Medicine; Family Medicine; Admitting Provider Internal Medicine; Emergency Provider Emergency Medicine; Family Provider Internal Medicine Endocrinology, Diabetes & Metabolism; PCP Internal Medicine; Referring Provider Emergency Medicine; Visit Provider Internal Medicine
DX: K11.21 Acute sialoadenitis (principal); I10 Essential (primary) hypertension; E03.9 Hypothyroidism, unspecified; Z66 Do not resuscitate; Z20.822 Contact with and (suspected) exposure to COVID-19
CPT/HCPCS: 36415; 70491; 71045; 80048; 80053; 81003; 82550; 83605; 83690; 83735; 84145; 84484; 85025; 85027; 87040; 87635; 93005; 96365; 96368; 96375; 99285; C9803; J0295; J1100; J1650; J1885; J1940; Q9967

== ENCOUNTER → 2021-08-26 15:06 | Outpatient (CLI) | payer MEDICARE, SELFPAY ==
[2021-07-31 20:55] VITALS: BMI 26.1
--- NOTE | 2021-08-26 15:11 | DI.RAD.S_ITS ---
PROCEDURE: XR CHEST 2V INDICATIONS: CHEST PAIN TECHNIQUE: 2 views of the chest were acquired. COMPARISON: [facility], CR, XR CHEST 1V, 08/02/2021, 9:19. FINDINGS: Surgical changes and devices: None. Lungs and pleura: There is mild pulmonary vascular congestion. Chronic emphysematous changes are seen. Chronically increased reticular markings in bilateral lung carter are again noted. No definite focal infiltrate. No pleural effusions or pneumothorax. Mediastinum: Mediastinal contours are normal. Heart size is enlarged. Bones and chest wall: No suspicious bony abnormalities. Soft tissues appear unremarkable. IMPRESSION: Chronic interstitial lung parenchymal disease. No definite focal infiltrate. Thorax. Mild pulmonary vascular congestion. Dictated by: Richmond Hall M.D. on 08/26/2021 at 16:53 Approved by: Richmond Hall M.D. on 08/26/2021 at 16:53
== END ==
PROVIDERS: Family Provider Internal Medicine Endocrinology, Diabetes & Metabolism; Referring Provider Family Medicine; Visit Provider Family Medicine
DX: J84.9 Interstitial pulmonary disease, unspecified (principal); R07.9 Chest pain, unspecified; R09.89 Other specified symptoms and signs involving the circulatory and respiratory systems
CPT/HCPCS: 71046

== ENCOUNTER → 2021-09-25 11:40 | Outpatient (CLI) | payer MEDICARE, SELFPAY ==
[2021-07-31 20:55] VITALS: BMI 26.1
[2021-09-25 12:07] LABS: Hematocrit 38.5 % (36-46); Mean Corpuscular HGB Conc 33.8 % (30-36); Mean Corpuscular Hemoglobin 30.8 PG (26-34); Mean Corpuscular Volume 91.2 fL (80-100); Platelet Count 201 X10^3/uL (150-400); Red Blood Cell Count 4.23 X10^6/uL (4.0-5.2); Red Cell Distribution Width 14.2 % (11.6-14.8); White Blood Cell Count 6.4 X10^3/uL (4.5-11.0)
[2021-09-25 12:24] LABS: Alanine Aminotransferase 43 IU/L (<35); Albumin 4.4 g/dL (3.5-5.0); Albumin Globulin Ratio 1.6 (1.0-2.8); Alkaline Phosphatase 76 U/L (38-126); Aspartate Aminotransferase 37 IU/L (14-36); BUN Creatinine Ratio 29.3 (6-22); Bilirubin Total 0.5 mg/dL (0.2-1.3); Blood Urea Nitrogen 22 mg/dL (7-17); C-Reactive Protein Quant < 0.5 mg/dL (<1.0); Calcium 10.1 mg/dL (8.4-10.2); Carbon Dioxide 31 mmol/L (22-32); Chloride 104 mmol/L (98-107); Cholesterol 228 mg/dL (140-199); Estimated Glomerular Filt Rate > 60 mL/min (>60); Globulin 2.7 g/dL (1.7-4.1); Glucose 106 mg/dL (80-110); HDL Cholesterol 61 mg/dL (40-60); HEMOLYSIS < 15 (0-50); LDL Cholesterol Calculated 143 mg/dL (<100); Potassium 4.3 mmol/L (3.4-5.1); Sodium 137 mmol/L (137-145); Total Protein 7.1 g/dL (6.3-8.2); Triglycerides 120 mg/dL (35-150)
[2021-09-25 12:26] LABS: Erythrocyte Sedimentation Rate 6 MM/HR (0-20)
[2021-09-25 12:51] LABS: TSH w/ Reflex to FT4 1.97 uIU/mL (0.47-4.68)
== END ==
PROVIDERS: Family Provider Internal Medicine Endocrinology, Diabetes & Metabolism; PCP Internal Medicine; Referring Provider Internal Medicine; Visit Provider Internal Medicine
DX: I50.22 Chronic systolic (congestive) heart failure (principal); M13.0 Polyarthritis, unspecified
CPT/HCPCS: 36415; 80053; 80061; 84443; 85027; 85651; 86140

== ENCOUNTER → 2022-01-04 09:28 | Outpatient (CLI) | payer MEDICARE, SELFPAY ==
[2021-07-31 20:55] VITALS: BMI 26.1
[2022-01-04 11:10] LABS: Hematocrit 37.6 % (36-46); Mean Corpuscular HGB Conc 34.5 % (30-36); Mean Corpuscular Hemoglobin 31.1 PG (26-34); Mean Corpuscular Volume 90.1 fL (80-100); Platelet Count 231 X10^3/uL (150-400); Red Blood Cell Count 4.18 X10^6/uL (4.0-5.2); Red Cell Distribution Width 14.1 % (11.6-14.8)
[2022-01-04 11:13] LABS: Alanine Aminotransferase 45 IU/L (<35); Albumin 4.2 g/dL (3.5-5.0); Albumin Globulin Ratio 1.4 (1.0-2.8); Alkaline Phosphatase 81 U/L (38-126); Amylase 96 U/L (30-110); Aspartate Aminotransferase 44 IU/L (14-36); BUN Creatinine Ratio 29.9 (6-22); Bilirubin Total 0.6 mg/dL (0.2-1.3); Blood Urea Nitrogen 23 mg/dL (7-17); Calcium 9.9 mg/dL (8.4-10.2); Carbon Dioxide 28 mmol/L (22-32); Chloride 103 mmol/L (98-107); Estimated Glomerular Filt Rate > 60 mL/min (>60); Glucose 103 mg/dL (80-110); HEMOLYSIS < 15 (0-50); Lipase 314 U/L (23-300); Sodium 137 mmol/L (137-145); Total Protein 7.2 g/dL (6.3-8.2)
[2022-01-04 11:14] LABS: TSH w/ Reflex to FT4 2.56 uIU/mL (0.47-4.68)
[2022-01-04 11:32] LABS: Erythrocyte Sedimentation Rate 9 MM/HR (0-20)
[2022-01-06 09:56] LABS: Calcium 9.9 mg/dL (8.7-10.3); Parathyroid Hormone, Intact 55 pg/mL (15-65)
[2022-01-07 11:35] LABS: ANA Screen, IFA Negative (.)
== END ==
PROVIDERS: Family Provider Internal Medicine Endocrinology, Diabetes & Metabolism; PCP Internal Medicine; Referring Provider Internal Medicine; Visit Provider Internal Medicine
DX: E21.0 Primary hyperparathyroidism (principal); M79.7 Fibromyalgia; K85.90 Acute pancreatitis without necrosis or infection, unspecified; M13.0 Polyarthritis, unspecified; M19.90 Unspecified osteoarthritis, unspecified site; M85.80 Other specified disorders of bone density and structure, unspecified site
CPT/HCPCS: 36415; 80053; 82150; 82310; 83690; 83970; 84443; 85027; 85651; 86038; 86140

== ENCOUNTER → 2022-01-19 09:14 | Outpatient (CLI) | payer MEDICARE, SELFPAY ==
[2021-07-31 20:55] VITALS: BMI 26.1
--- NOTE | 2022-01-19 09:16 | DI.US.S_ITS ---
PROCEDURE: US THYROID INDICATIONS: hyperparathyroidism TECHNIQUE: Real-time scanning was performed of the thyroid gland, with image documentation. COMPARISON: None. FINDINGS: Right: Thyroid lobe measures 4.0 x 1.9 x 1.1 cm, and is heterogeneous in echotexture. Left: Thyroid lobe measures 4.3 x 1.5 x 1.1 cm, and is heterogeneous in echotexture. Isthmus: 3 mm thick. Nodule number: 1 Location: Right medial isthmus Size: 1.0 x 0.5 x 1.2 cm. Composition: Solid Echogenicity: Hypoechoic Shape: wider than tall. Margins: Ill-defined Echogenic foci: None Total points: 4 ACR TI-RADS category: 4- Moderately suspicious IMPRESSION: Heterogeneous thyroid gland with singleTI-RADS 4 nodule noted in the isthmus. Recommend follow-up as detailed below by consensus criteria ACR TI-RADS definitions and recommendations: TI-RADS 1 (benign): 0 points. FNA not needed. TI-RADS 2 (not suspicious): 2 points. FNA not needed. TI-RADS 3 (mildly suspicious): 3 points. * FNA if 2.5 cm or larger, follow up if 1.5 cm or larger (at 1, 3, and 5 years). TI-RADS 4 (moderately suspicious): 4-6 points. * FNA if 1.5 cm or larger, follow up if 1 cm or larger (at 1, 2, 3, and 5 years). TI-RADS 5 (highly suspicious): 7 points or more. * FNA if 1 cm or larger, follow up if 0.5 cm or larger (every year for 5 years). Dictated by: Alonso Penn M.D. on 01/19/2022 at 12:17 Approved by: Alonso Penn M.D. on 01/19/2022 at 12:21
--- NOTE | 2022-01-19 09:16 | DI.NM.S_ITS ---
PROCEDURE: NM PARATHYROID RADIOPHARMACEUTICAL: 26.9 mCi Tc-99m sestamibi IV. INDICATIONS: hyperparathyroidism TECHNIQUE: After intravenous administration of Tc-99m sestamibi, anterior planar images of the neck and mediastinum were obtained at approximately 10 minutes and 2-3 hours. SPECT images were acquired after the 10 minute planar images. COMPARISON: [facility], CT, CT SOFT TISSUE NECK W CON, 07/31/2021, 18:20. [facility], CT, CT SOFT TISSUE NECK W CON, 08/02/2021, 9:20. [facility], US, US THYROID, 01/19/2022, 10:32. FINDINGS: On the early images, the thyroid gland is bilobed configuration. There is mild, focal increased uptake in the superior pole of the left thyroid bed and the inferior pole of the right thyroid lobe. The delayed images show no preferential tracer retention in the superior pole of the left thyroid bed and the inferior pole of the right thyroid bed suggesting a parathyroid adenoma(s). The SPECT images demonstrate increased activity in the superior pole of the left thyroid bed and inferior pole of the right thyroid bed. IMPRESSION: Possible parathyroid adenoma(s0 in the inferior pole of the right thyroid bed. Differential diagnoses are thyroid adenomas. Recommend neck CT with and without contrast using parathyroid protocol for further evaluation. Dictated by: Miya Prather M.D. on 01/19/2022 at 12:51 Approved by: Miya Prather M.D. on 01/19/2022 at 12:58
== END ==
PROVIDERS: Family Provider Internal Medicine Endocrinology, Diabetes & Metabolism; PCP Internal Medicine; Referring Provider Internal Medicine; Visit Provider Internal Medicine
DX: E21.0 Primary hyperparathyroidism (principal)
CPT/HCPCS: 76536; 78070; A9500

== ENCOUNTER → 2022-03-05 13:07 | Outpatient (CLI) | payer MEDICARE, SELFPAY ==
[2021-07-31 20:55] VITALS: BMI 26.1
[2022-03-05 16:18] LABS: Alanine Aminotransferase 43 IU/L (<35); Albumin 4.2 g/dL (3.5-5.0); Albumin Globulin Ratio 1.8 (1.0-2.8); Alkaline Phosphatase 87 U/L (38-126); Aspartate Aminotransferase 43 IU/L (14-36); BUN Creatinine Ratio 26.3 (6-22); Bilirubin Total 0.4 mg/dL (0.2-1.3); Blood Urea Nitrogen 20 mg/dL (7-17); Calcium 10.3 mg/dL (8.4-10.2); Carbon Dioxide 29 mmol/L (22-32); Chloride 102 mmol/L (98-107); Estimated Glomerular Filt Rate > 60 mL/min (>60); Globulin 2.4 g/dL (1.7-4.1); Glucose 85 mg/dL (80-110); HEMOLYSIS < 15 (0-50); Potassium 4.3 mmol/L (3.4-5.1); Sodium 137 mmol/L (137-145); Total Protein 6.6 g/dL (6.3-8.2)
[2022-03-05 16:32] LABS: Vitamin D 25 Hydroxy (D3) 81.9 ng/mL (30.0-100.0)
[2022-03-05 16:46] LABS: Thyroid Stimulating Hormone 1.73 uIU/mL (0.47-4.68)
[2022-03-06 06:36] LABS: Parathyroid Hormone Int 50 pg/mL (15-65)
== END ==
PROVIDERS: Family Provider Internal Medicine Endocrinology, Diabetes & Metabolism; PCP Internal Medicine; Referring Provider Internal Medicine Endocrinology, Diabetes & Metabolism; Visit Provider Internal Medicine Endocrinology, Diabetes & Metabolism
DX: E03.9 Hypothyroidism, unspecified (principal); M81.0 Age-related osteoporosis without current pathological fracture; E21.3 Hyperparathyroidism, unspecified; E55.9 Vitamin D deficiency, unspecified
CPT/HCPCS: 36415; 80053; 82306; 83970; 84439; 84443

== ENCOUNTER → 2022-04-06 11:27 | Outpatient (CLI) | payer MEDICARE, SELFPAY ==
[2021-07-31 20:55] VITALS: BMI 26.1
--- NOTE | 2022-04-06 11:31 | DI.RAD.S_ITS ---
PROCEDURE: XR FEMUR RT MIN 2V INDICATIONS: LEG PAIN, HIP PAIN TECHNIQUE: Two views of the femur were acquired. COMPARISON: [facility], CR, XR FEMUR LT MIN 2V, 04/06/2022, 12:38. FINDINGS: Bones: No fractures or dislocations. Moderate degenerative joint space loss, subcortical sclerosis, and spurring in the femoroacetabular joint. No suspicious bony lesions. Soft tissues: No suspicious soft tissue calcifications or masses. IMPRESSION: Moderate right hip joint degeneration. Dictated by: Kristina Garcia M.D. on 04/06/2022 at 15:47 Approved by: Kristina Garcia M.D. on 04/06/2022 at 15:48
--- NOTE | 2022-04-06 11:31 | DI.RAD.S_ITS ---
PROCEDURE: XR FEMUR LT MIN 2V INDICATIONS: LEG PAIN,hip pain TECHNIQUE: Two views of the femur were acquired. COMPARISON: None. FINDINGS: Bones: No fractures or dislocations. No suspicious bony lesions. Mild degenerative change at the left hip joint. Soft tissues: No suspicious soft tissue calcifications or masses. IMPRESSION: Intact left femur. Dictated by: Kristina Garcia M.D. on 04/06/2022 at 15:45 Approved by: Kristina Garcia M.D. on 04/06/2022 at 15:47
== END ==
PROVIDERS: Family Provider Internal Medicine Endocrinology, Diabetes & Metabolism; PCP Internal Medicine; Referring Provider Internal Medicine Endocrinology, Diabetes & Metabolism; Visit Provider Internal Medicine Endocrinology, Diabetes & Metabolism
DX: M16.11 Unilateral primary osteoarthritis, right hip (principal); M79.604 Pain in right leg; M79.605 Pain in left leg; M25.551 Pain in right hip; M25.552 Pain in left hip
CPT/HCPCS: 73552

== ENCOUNTER → 2022-06-21 10:16 | Outpatient (CLI) | payer MEDICARE, SELFPAY ==
[2021-07-31 20:55] VITALS: BMI 26.1
[2022-06-21 11:27] LABS: Alanine Aminotransferase 30 IU/L (<35); Albumin 4.2 g/dL (3.5-5.0); Albumin Globulin Ratio 1.6 (1.0-2.8); Alkaline Phosphatase 81 U/L (38-126); Aspartate Aminotransferase 27 IU/L (14-36); Bilirubin Total 0.6 mg/dL (0.2-1.3); Bilirubin Unconjugated 0.4 mg/dL (0.0-1.1); Globulin 2.6 g/dL (1.7-4.1); HEMOLYSIS < 15 (0-50); Total Protein 6.8 g/dL (6.3-8.2)
== END ==
PROVIDERS: Family Provider Internal Medicine Endocrinology, Diabetes & Metabolism; PCP Internal Medicine; Referring Provider Internal Medicine Gastroenterology; Visit Provider Internal Medicine Gastroenterology
DX: K85.90 Acute pancreatitis without necrosis or infection, unspecified (principal); D13.6 Benign neoplasm of pancreas
CPT/HCPCS: 36415; 80076

== ENCOUNTER → 2022-07-08 10:09 | Outpatient (CLI) | payer MEDICARE, SELFPAY ==
[2021-07-31 20:55] VITALS: BMI 26.1
== END ==
PROVIDERS: Family Provider Internal Medicine Endocrinology, Diabetes & Metabolism; PCP Internal Medicine; Referring Provider Internal Medicine Endocrinology, Diabetes & Metabolism; Visit Provider Internal Medicine Endocrinology, Diabetes & Metabolism
DX: M81.0 Age-related osteoporosis without current pathological fracture (principal); E21.3 Hyperparathyroidism, unspecified; Z90.710 Acquired absence of both cervix and uterus
CPT/HCPCS: 77080

== ENCOUNTER → 2022-08-19 09:32 | Outpatient (CLI) | payer MEDICARE, SELFPAY ==
[2021-07-31 20:55] VITALS: BMI 26.1
[2022-08-19 11:37] LABS: Alanine Aminotransferase 37 IU/L (<35); Albumin 3.9 g/dL (3.5-5.0); Albumin Globulin Ratio 1.4 (1.0-2.8); Alkaline Phosphatase 68 U/L (38-126); Aspartate Aminotransferase 37 IU/L (14-36); BUN Creatinine Ratio 25.8 (6-22); Bilirubin Total 0.4 mg/dL (0.2-1.3); Blood Urea Nitrogen 17 mg/dL (7-17); Calcium 9.3 mg/dL (8.4-10.2); Carbon Dioxide 29 mmol/L (22-32); Chloride 103 mmol/L (98-107); Estimated Glomerular Filt Rate > 60 mL/min (>60); Globulin 2.8 g/dL (1.7-4.1); Glucose 96 mg/dL (80-110); HEMOLYSIS < 15 (0-50); Potassium 4.3 mmol/L (3.4-5.1); Sodium 137 mmol/L (137-145); Total Protein 6.7 g/dL (6.3-8.2)
[2022-08-19 11:53] LABS: Free T4, Direct Thyroxine 1.41 ng/dL (0.78-2.19); Vitamin D 25 Hydroxy (D3) 63.8 ng/mL (30.0-100.0)
[2022-08-19 12:06] LABS: Thyroid Stimulating Hormone 2.68 uIU/mL (0.47-4.68)
[2022-08-21 08:07] LABS: Parathyroid Hormone Int 89 pg/mL (15-65)
== END ==
PROVIDERS: Family Provider Internal Medicine Endocrinology, Diabetes & Metabolism; PCP Internal Medicine; Referring Provider Internal Medicine Endocrinology, Diabetes & Metabolism; Visit Provider Internal Medicine Endocrinology, Diabetes & Metabolism
DX: E03.9 Hypothyroidism, unspecified (principal); E21.3 Hyperparathyroidism, unspecified; M81.0 Age-related osteoporosis without current pathological fracture
CPT/HCPCS: 36415; 80053; 82306; 83970; 84439; 84443

== ENCOUNTER → 2023-02-07 11:24 | Outpatient (CLI) | payer MEDICARE, SELFPAY ==
[2021-07-31 20:55] VITALS: BMI 26.1
[2023-02-07 12:39] LABS: Hematocrit 38.1 % (36-46); Hemoglobin 13.1 g/dL (12.0-16.0); Mean Corpuscular HGB Conc 34.3 % (30-36); Mean Corpuscular Hemoglobin 31.3 PG (26-34); Mean Corpuscular Volume 91.3 fL (80-100); Platelet Count 212 X10^3/uL (150-400); Red Blood Cell Count 4.17 X10^6/uL (4.0-5.2); Red Cell Distribution Width 14.2 % (11.6-14.8); White Blood Cell Count 7.5 X10^3/uL (4.5-11.0)
[2023-02-07 13:14] LABS: Alanine Aminotransferase 26 IU/L (<35); Albumin 4.1 g/dL (3.5-5.0); Albumin Globulin Ratio 1.5 (1.0-2.8); Alkaline Phosphatase 54 U/L (38-126); Aspartate Aminotransferase 28 IU/L (14-36); BUN Creatinine Ratio 27.8 (6-22); Bilirubin Total 0.4 mg/dL (0.2-1.3); Blood Urea Nitrogen 20 mg/dL (7-17); Calcium 10.4 mg/dL (8.4-10.2); Carbon Dioxide 31 mmol/L (22-32); Chloride 101 mmol/L (98-107); Cholesterol 226 mg/dL (140-199); Estimated Glomerular Filt Rate > 60 mL/min (>60); Globulin 2.8 g/dL (1.7-4.1); Glucose 110 mg/dL (80-110); HDL Cholesterol 58 mg/dL (40-60); HEMOLYSIS < 15 (0-50); LDL Cholesterol Calculated 143 mg/dL (<100); Sodium 136 mmol/L (137-145); Total Protein 6.9 g/dL (6.3-8.2); Triglycerides 124 mg/dL (35-150)
[2023-02-07 13:48] LABS: TSH w/ Reflex to FT4 2.47 uIU/mL (0.47-4.68)
[2023-02-09 14:36] LABS: Calcium 10.2 mg/dL (8.7-10.3); Parathyroid Hormone, Intact 50 pg/mL (15-65)
== END ==
PROVIDERS: Family Provider Internal Medicine Endocrinology, Diabetes & Metabolism; PCP Internal Medicine; Referring Provider Internal Medicine; Visit Provider Internal Medicine
DX: E03.9 Hypothyroidism, unspecified (principal); E21.0 Primary hyperparathyroidism; E78.2 Mixed hyperlipidemia; I10 Essential (primary) hypertension; K86.2 Cyst of pancreas
CPT/HCPCS: 36415; 80053; 80061; 82310; 83970; 84443; 85027

== ENCOUNTER → 2023-03-17 13:03 | Outpatient (CLI) | payer MEDICARE, SELFPAY ==
[2021-07-31 20:55] VITALS: BMI 26.1
[2023-03-17 14:08] LABS: Alanine Aminotransferase 45 IU/L (<35); Albumin 4.2 g/dL (3.5-5.0); Albumin Globulin Ratio 1.7 (1.0-2.8); Alkaline Phosphatase 71 U/L (38-126); Aspartate Aminotransferase 43 IU/L (14-36); BUN Creatinine Ratio 24.7 (6-22); Bilirubin Total 0.5 mg/dL (0.2-1.3); Blood Urea Nitrogen 21 mg/dL (7-17); Calcium 10.5 mg/dL (8.4-10.2); Carbon Dioxide 27 mmol/L (22-32); Chloride 102 mmol/L (98-107); Estimated Glomerular Filt Rate > 60 mL/min (>60); Globulin 2.5 g/dL (1.7-4.1); Glucose 103 mg/dL (80-110); HEMOLYSIS < 15 (0-50); Potassium 4.5 mmol/L (3.4-5.1); Sodium 136 mmol/L (137-145); Total Protein 6.7 g/dL (6.3-8.2)
[2023-03-17 16:33] LABS: Vitamin D 25 Hydroxy (D3) 48.3 ng/mL (30.0-100.0)
== END ==
PROVIDERS: Family Provider Internal Medicine Endocrinology, Diabetes & Metabolism; PCP Internal Medicine; Referring Provider Internal Medicine Endocrinology, Diabetes & Metabolism; Visit Provider Internal Medicine Endocrinology, Diabetes & Metabolism
DX: M81.0 Age-related osteoporosis without current pathological fracture (principal)
CPT/HCPCS: 36415; 80053; 82306

== ENCOUNTER → 2023-08-09 12:04 | Outpatient (CLI) | payer MEDICARE, SELFPAY ==
[2021-07-31 20:55] VITALS: BMI 26.1
[2023-08-09 14:28] LABS: Hematocrit 37.3 % (36-46); Hemoglobin 12.5 g/dL (12.0-16.0); Mean Corpuscular HGB Conc 33.5 % (30-36); Mean Corpuscular Hemoglobin 30.8 PG (26-34); Mean Corpuscular Volume 91.9 fL (80-100); Platelet Count 254 X10^3/uL (150-400); Red Blood Cell Count 4.05 X10^6/uL (4.0-5.2); Red Cell Distribution Width 14.5 % (11.6-14.8)
[2023-08-09 14:54] LABS: Alanine Aminotransferase 39 IU/L (<35); Albumin 4.2 g/dL (3.5-5.0); Albumin Globulin Ratio 1.7 (1.0-2.8); Alkaline Phosphatase 79 U/L (38-126); Aspartate Aminotransferase 37 IU/L (14-36); BUN Creatinine Ratio 26.2 (6-22); Bilirubin Total 0.5 mg/dL (0.2-1.3); Blood Urea Nitrogen 17 mg/dL (7-17); Carbon Dioxide 25 mmol/L (22-32); Chloride 102 mmol/L (98-107); Estimated Glomerular Filt Rate > 60 mL/min (>60); Globulin 2.5 g/dL (1.7-4.1); Glucose 96 mg/dL (80-110); HEMOLYSIS < 15 (0-50); Potassium 4.3 mmol/L (3.4-5.1); Sodium 136 mmol/L (137-145); Total Protein 6.7 g/dL (6.3-8.2)
[2023-08-09 15:20] LABS: TSH w/ Reflex to FT4 3.31 uIU/mL (0.47-4.68)
== END ==
PROVIDERS: Family Provider Internal Medicine Endocrinology, Diabetes & Metabolism; PCP Internal Medicine; Referring Provider Internal Medicine; Visit Provider Internal Medicine
DX: K59.01 Slow transit constipation (principal); E03.9 Hypothyroidism, unspecified; I10 Essential (primary) hypertension
CPT/HCPCS: 36415; 80053; 84443; 85027

== ENCOUNTER → 2023-09-14 10:47 | Outpatient (CLI) | payer MEDICARE, SELFPAY ==
[2021-07-31 20:55] VITALS: BMI 26.1
[2023-09-14 12:09] LABS: Alanine Aminotransferase 40 IU/L (<35); Albumin 4.4 g/dL (3.5-5.0); Albumin Globulin Ratio 1.8 (1.0-2.8); Alkaline Phosphatase 71 U/L (38-126); Aspartate Aminotransferase 40 IU/L (14-36); BUN Creatinine Ratio 27.2 (6-22); Bilirubin Total 0.4 mg/dL (0.2-1.3); Blood Urea Nitrogen 22 mg/dL (7-17); Calcium 10.4 mg/dL (8.4-10.2); Carbon Dioxide 31 mmol/L (22-32); Chloride 102 mmol/L (98-107); Estimated Glomerular Filt Rate > 60 mL/min (>60); Globulin 2.5 g/dL (1.7-4.1); Glucose 100 mg/dL (80-110); HEMOLYSIS < 15 (0-50); Potassium 4.3 mmol/L (3.4-5.1); Sodium 138 mmol/L (137-145); Total Protein 6.9 g/dL (6.3-8.2)
[2023-09-14 12:28] LABS: Vitamin D 25 Hydroxy (D3) 65.4 ng/mL (30.0-100.0)
[2023-09-14 12:38] LABS: TSH w/ Reflex to FT4 2.16 uIU/mL (0.47-4.68)
[2023-09-15 15:09] LABS: Calcium 10.4 mg/dL (8.7-10.3); Parathyroid Hormone, Intact 60 pg/mL (15-65)
== END ==
PROVIDERS: Family Provider Internal Medicine Endocrinology, Diabetes & Metabolism; PCP Internal Medicine; Referring Provider Internal Medicine Endocrinology, Diabetes & Metabolism; Visit Provider Internal Medicine Endocrinology, Diabetes & Metabolism
DX: E03.9 Hypothyroidism, unspecified (principal); E21.3 Hyperparathyroidism, unspecified
CPT/HCPCS: 36415; 80053; 82306; 82310; 83970; 84443

== ENCOUNTER → 2023-09-30 08:42 | Outpatient (CLI) | payer MEDICARE, SELFPAY ==
[2021-07-31 20:55] VITALS: BMI 26.1
[2023-09-30 09:43] LABS: Add Manual Diff / Slide Review NO; Basophils Absolute Auto 0 /uL (0-100); Basophils Percent Auto 0.6 % (0-2); Eosinophils Absolute Auto 200 /uL (0-450); Eosinophils Percent Auto 2.7 % (2-4); Hemoglobin 12.5 g/dL (12.0-16.0); Lymphocytes Absolute Auto 1300 /uL (1100-4500); Lymphocytes Percent Auto 18.6 % (25-40); Mean Corpuscular HGB Conc 33.7 % (30-36); Mean Corpuscular Hemoglobin 30.9 PG (26-34); Mean Corpuscular Volume 91.7 fL (80-100); Monocytes Absolute Auto 600 /uL (0-900); Monocytes Percent Auto 8.9 % (3-14); Neutrophils Absolute Auto 4800 /uL (1500-7000); Neutrophils Percent Auto 69.2 % (50-75); Platelet Count 232 X10^3/uL (150-400); Red Blood Cell Count 4.04 X10^6/uL (4.0-5.2); Red Cell Distribution Width 14.3 % (11.6-14.8); White Blood Cell Count 6.9 X10^3/uL (4.5-11.0)
[2023-09-30 10:05] LABS: Alanine Aminotransferase 41 IU/L (<35); Albumin Globulin Ratio 1.7 (1.0-2.8); Alkaline Phosphatase 94 U/L (38-126); Aspartate Aminotransferase 32 IU/L (14-36); BUN Creatinine Ratio 19.1 (6-22); Bilirubin Total 0.6 mg/dL (0.2-1.3); Blood Urea Nitrogen 13 mg/dL (7-17); Calcium 9.6 mg/dL (8.4-10.2); Carbon Dioxide 29 mmol/L (22-32); Chloride 102 mmol/L (98-107); Estimated Glomerular Filt Rate > 60 mL/min (>60); Globulin 2.3 g/dL (1.7-4.1); Glucose 125 mg/dL (80-110); HEMOLYSIS < 15 (0-50); Potassium 4.8 mmol/L (3.4-5.1); Sodium 136 mmol/L (137-145); Total Protein 6.3 g/dL (6.3-8.2)
[2023-09-30 11:08] LABS: Folate > 20.0 ng/mL (2.76-20.0); Vitamin B12 700 pg/mL (239-931)
== END ==
PROVIDERS: Family Provider Internal Medicine Endocrinology, Diabetes & Metabolism; PCP Internal Medicine; Referring Provider Internal Medicine Endocrinology, Diabetes & Metabolism; Visit Provider Internal Medicine Endocrinology, Diabetes & Metabolism
DX: R53.83 Other fatigue (principal)
CPT/HCPCS: 36415; 80053; 82607; 82746; 85025

== ENCOUNTER → 2023-10-19 11:04 | Outpatient (CLI) | payer MEDICARE, SELFPAY ==
[2021-07-31 20:55] VITALS: BMI 26.1
[2023-10-19 12:19] LABS: Add Manual Diff / Slide Review NO; Basophils Absolute Auto 0 /uL (0-100); Basophils Percent Auto 0.5 % (0-2); Eosinophils Absolute Auto 200 /uL (0-450); Eosinophils Percent Auto 2.2 % (2-4); Hemoglobin 12.5 g/dL (12.0-16.0); Lymphocytes Absolute Auto 1300 /uL (1100-4500); Lymphocytes Percent Auto 18.2 % (25-40); Mean Corpuscular HGB Conc 33.9 % (30-36); Mean Corpuscular Hemoglobin 30.6 PG (26-34); Mean Corpuscular Volume 90.2 fL (80-100); Monocytes Absolute Auto 600 /uL (0-900); Monocytes Percent Auto 8.8 % (3-14); Neutrophils Absolute Auto 5100 /uL (1500-7000); Neutrophils Percent Auto 70.3 % (50-75); Platelet Count 228 X10^3/uL (150-400); Red Cell Distribution Width 14.1 % (11.6-14.8); White Blood Cell Count 7.3 X10^3/uL (4.5-11.0)
[2023-10-19 12:37] LABS: Alanine Aminotransferase 17 IU/L (<35); Albumin 4.1 g/dL (3.5-5.0); Albumin Globulin Ratio 1.8 (1.0-2.8); Alkaline Phosphatase 78 U/L (38-126); Amylase 52 U/L (30-110); Aspartate Aminotransferase 26 IU/L (14-36); BUN Creatinine Ratio 21.4 (6-22); Bilirubin Total 0.5 mg/dL (0.2-1.3); Blood Urea Nitrogen 15 mg/dL (7-17); Carbon Dioxide 28 mmol/L (22-32); Chloride 102 mmol/L (98-107); Estimated Glomerular Filt Rate > 60 mL/min (>60); Globulin 2.3 g/dL (1.7-4.1); Glucose 117 mg/dL (80-110); HEMOLYSIS < 15 (0-50); Lipase 68 U/L (23-300); Potassium 4.3 mmol/L (3.4-5.1); Sodium 136 mmol/L (137-145); Total Protein 6.4 g/dL (6.3-8.2)
== END ==
PROVIDERS: Family Provider Internal Medicine Endocrinology, Diabetes & Metabolism; PCP Internal Medicine; Referring Provider Internal Medicine; Visit Provider Internal Medicine
DX: K86.1 Other chronic pancreatitis (principal)
CPT/HCPCS: 36415; 80053; 82150; 83690; 85025

== ENCOUNTER → 2023-11-03 07:53 | Outpatient (CLI) | payer MEDICARE, SELFPAY ==
[2021-07-31 20:55] VITALS: BMI 26.1
--- NOTE | 2023-11-03 07:55 | DI.CT.S_ITS ---
PROCEDURE: CT ABDOMEN PELVIS W CON INDICATIONS: abdominal pain, chronic pancreatitis TECHNIQUE: After the administration of intravenous contrast, axial sections acquired from the lung bases to the pubic symphysis. Coronal and sagittal reformats were performed. For radiation dose reduction, the following was used: automated exposure control, adjustment of mA and/or kV according to patient size. COMPARISON: [facility], CT, CT ABDOMEN PELVIS W CON, 01/19/2021, 12:52. FINDINGS: Image quality: Diagnostic. Lower Chest: No significant findings. ABDOMEN: Liver: Calcifications are present likely related to prior granulomatous disease. Enhancing mass is present in the lateral right inferior lobe measuring 1.1 cm. This appears likely suggestive of hemangioma compared to appearance in 2020. Hepatic steatosis is present. Gallbladder: No radiopaque gallstones or wall thickening. Biliary ducts: No biliary dilation. Pancreas: No ductal dilation. Pancreas tissue is atrophied. The midbody and tail are obscured by multiple rim enhancing low-attenuation structures. The more inferior focus measures 8.3 x 12.6 cm. A more superior and complex focus measures 5.5 x 7.9 cm. Additional, smaller foci are also present within the region. It is noted a very small focus of low attenuation was appearing to originate from the mid body of the pancreas in 2020. These lesions are causing mass effect displacing the stomach anteriorly. Spleen: Size is within normal limits. Calcifications are present likely related to granulomatous disease. Adrenal Glands: No adrenal nodules. Kidneys and Ureters: No hydronephrosis. No solid mass. No complex renal cystic lesion which requires follow up. Simple right renal cysts are present. Stomach and Bowel: Mild appearance of thickening within the transverse colon extending to the proximal descending colon without inflammatory change. This is suspected to be related to incomplete distention. Peritoneum: Trace dependent fluid.. No free air. Ventral Wall: No significant ventral hernia. Abdominal Nodes: No retroperitoneal or mesenteric adenopathy by size criteria. Vessels: Aorta and inferior vena cava are normal in size. PELVIS: Pelvic Organs: Unremarkable. Bladder: No bladder wall thickening, accounting for underdistention. Pelvic Nodes: No enlarged lymph nodes. Miscellaneous: No inguinal hernias are seen. Bones: No aggressive osseous abnormality. IMPRESSION: Cystic and complex cystic appearing masses are present in the upper abdomen partially appearing to originate from the pancreas. Differential diagnosis includes walled-off necrosis secondary to pseudocyst or malignancy given appearance of complex nodularity within the more superior portion. Referral for GI/surgery for endoscopic evaluation is recommended. Dictated by: Elaina Haro M.D. on 11/03/2023 at 10:30 Approved by: Elaina Haro M.D. on 11/03/2023 at 10:45
== END ==
PROVIDERS: Family Provider Internal Medicine Endocrinology, Diabetes & Metabolism; PCP Internal Medicine; Referring Provider Internal Medicine; Visit Provider Internal Medicine
DX: K86.1 Other chronic pancreatitis (principal); K86.2 Cyst of pancreas; K76.9 Liver disease, unspecified; K76.0 Fatty (change of) liver, not elsewhere classified; N28.1 Cyst of kidney, acquired
CPT/HCPCS: 74177; Q9967

== ENCOUNTER → 2023-11-30 07:56 | Outpatient (CLI) | payer MEDICARE, SELFPAY ==
[2021-07-31 20:55] VITALS: BMI 26.1
[2023-11-30 08:25] LABS: Estimated Glomerular Filt Rate > 60 mL/min (>60)
--- NOTE | 2023-11-30 08:51 | DI.CT.S_ITS ---
PROCEDURE: CT ABDOMEN PANCREATIC PROTOCOL INDICATIONS: PANCREATIC CYST TECHNIQUE: Both before and after the administration of intravenous contrast, 3 mm thick pancreatic-phase images acquired from the diaphragm to the iliac crests. 3 mm thick coronal and sagittal reformats were performed. For radiation dose reduction, the following was used: automated exposure control, adjustment of mA and/or kV according to patient size. COMPARISON: [facility], CT, CT ABDOMEN PANCREATIC PROTOCOL, 11/16/2023, 13:25. [facility], CT, CT ABDOMEN PELVIS W CON, 11/03/2023, 9:09. FINDINGS: Image quality: Diagnostic. Lower chest: Unremarkable. ABDOMEN: Pancreas: Since the prior examination, there has been postoperative change, with a connection of the pancreatic cyst to the gastric lumen, as seen on series 2, image 73. Within the distal body of the pancreas, there is now perceived a largely solid mass, yet with cystic components measuring 4.7 x 3.7 cm in greatest axial dimension, as on series 5, image 54. This mass demonstrates mass effect upon the stomach, and is believed to partially infiltrate the gastric wall. The tail of the pancreas is atrophic. The pancreatic duct is dilated, measuring up to 5 mm. Within the head/uncinate process of the pancreas, there is a multilobulated cystic lesion seen measuring 3.3 x 2.7 cm, which is similar to the prior. Liver: No solid mass. Gallbladder: No radiopaque gallstones or wall thickening. Biliary ducts: No biliary dilation. Adrenal Glands: No nodules. Spleen: Size is within normal limits. Calcified granulomas can be seen within the spleen. Kidneys and Ureters: No hydronephrosis. No solid mass. No complex renal cystic lesion which requires follow up. There is a 4.1 cm simple cyst involving the posterior aspect of the right kidney. Stomach and Bowel: Normal colonic caliber, without significant wall thickening. Peritoneum: No abnormal intraperitoneal fluid. No free air. Ventral Wall: No hernia. Abdominal Nodes: No retroperitoneal or mesenteric adenopathy by size criteria. Vessels: Aorta and inferior vena cava are normal in size. Bones: No aggressive osseous abnormality. IMPRESSION: Interval postoperative change, with a connection between the peripancreatic cyst and the gastric lumen. Within the distal body of the pancreas, there is a largely solid mass seen, measuring 4.7 x 3.7 cm, which is suspicious for neoplasm. This mass demonstrates mass effect upon the adjacent stomach, and is believed to at least partially infiltrate the gastric wall itself. Within the head/uncinate process of the pancreas, there is again seen a multi lobulated cystic lesion, which may also represent additional neoplasm. An associated dilated pancreatic duct can be seen. Additional findings: Prior granulomatous exposure. Simple right renal cyst Dictated by: Adal Burt M.D. on 11/30/2023 at 13:05 Approved by: Adal Burt M.D. on 11/30/2023 at 13:12
== END ==
PROVIDERS: Radiology Diagnostic Radiology; Family Provider Internal Medicine Endocrinology, Diabetes & Metabolism; PCP Internal Medicine; Referring Provider Internal Medicine; Visit Provider Internal Medicine
DX: K86.2 Cyst of pancreas (principal); K86.9 Disease of pancreas, unspecified; K86.89 Other specified diseases of pancreas; N28.1 Cyst of kidney, acquired
CPT/HCPCS: 36415; 74170; 82565; Q9967

== ENCOUNTER → 2024-01-16 10:18 | Outpatient (CLI) | payer MEDICARE, SELFPAY ==
[2021-07-31 20:55] VITALS: BMI 26.1
--- NOTE | 2024-01-16 10:19 | DI.RAD.S_ITS ---
PROCEDURE: XR DEXA AXIAL SKELETON INDICATIONS: OSTEOPOROSIS COMPARISON: [facility], CR, XR DEXA AXIAL SKELETON, 07/08/2022, 10:51. FINDINGS: Lumbar Spine: Bone mineral density 1.019 g/cm2, T score 0, compared to -0.8. Left Hip: Bone mineral density 0.756 g/cm2, T score -1.5, compared to -2.0. Left Femoral Neck: Bone mineral density 0.665 g/cm2, T score -1.7, compared to -2.4. Right Hip: Bone mineral density 0.703 g/cm2, T score -2.0, compared to -2.1. Right Femoral Neck: Bone mineral density 0.648 g/cm2, T score -1.8, compared to -1.9. Fracture Risk Calculation (when applicable): 10-year fracture risk of a major osteoporotic fracture 25% and of a hip fracture 16% without prior fracture and 33% and 20% with prior fracture respectively.. (T score greater or equal to -1.0 to: NORMAL) (T score from -1.1 to -2.4: OSTEOPENIA) (T score less than or equal to -2.5: OSTEOPOROSIS) IMPRESSION: Overall stable versus minimal bone mineral density improvement. Follow-up guidelines as follows: Osteoporosis: Consider a repeat DEXA and Vertebral Fracture Assessment (VFA) exam in 2 years or sooner if medically necessary, to reassess this patient's status. Osteopenia: Consider a repeat DEXA in 2-3 years to reassess this patient's status, or if there is a new clinical indication. Normal: Consider a repeat DEXA in 5 years or sooner, or if there is a new clinical indication. All treatment decisions require clinical judgment and consideration of individual patient factors, including patient preferences, comorbidities, previous drug use, risk factors not captured in the FRAX model (e.g., frailty, falls, vitamin D deficiency, increased bone turnover, interval significant decline in bone density ) and possible under- or over-estimation of fracture risk by FRAX. In addition, the NOF Guide recommends that FDA-approved medical therapies be considered in postmenopausal women and men age >= 50 years with a: * Hip or vertebral (clinical or morphometric) fracture * T-score of <=-2.5 at the spine or hip * Ten-year fracture probability by FRAX of >= 3% for hip fracture or >=20% for major osteoporotic fracture. People with diagnosed cases of osteoporosis or at high risk for fracture should have regular bone mineral density tests. For patients eligible for Medicare, routine testing is allowed once every 2 years. The testing frequency can be increased to one year for patients who have rapidly progressing disease, those who are receiving or discontinuing medical therapy to restore bone mass, or have additional risk factors. Dictated by: Elaina Haro M.D. on 01/16/2024 at 21:36 Approved by: Elaina Haro M.D. on 01/16/2024 at 21:38
== END ==
PROVIDERS: Family Provider Internal Medicine Endocrinology, Diabetes & Metabolism; PCP Internal Medicine; Referring Provider Internal Medicine Endocrinology, Diabetes & Metabolism; Visit Provider Internal Medicine Endocrinology, Diabetes & Metabolism
DX: M81.0 Age-related osteoporosis without current pathological fracture (principal)
CPT/HCPCS: 77080

== ENCOUNTER 2024-02-19 16:19 | Emergency (ER) | payer MEDICARE, SELFPAY ==
[2021-07-31 20:55] VITALS: BMI 26.1
[2024-02-19] VITALS (49 sets, daily range): BP systolic 135–187; BP diastolic 55–97; PULSE 75–106; RESP 9–26; TEMP 36.8–37; O2SAT 95–100; BMI 23.0
--- NOTE | 2024-02-19 16:36 | ED_ITS ---
HPI - GI Bleed <Michael Lewis DO - Last Filed: 02/20/24 07:31> General Chief complaint: GI Bleed Stated complaint: anemic, nausea, feels like passing out Time Seen by Provider: 02/19/24 16:36 Source: patient Mode of arrival: Ambulatory History of Present Illness HPI Narrative: Patient is 83-year-old female history of hypertension hypothyroid, pancreatic cancer, hemorrhoids, comes into the ED from home for evaluation of diffuse weakness, lower GI bleeding. States it started spontaneously a few days ago. States that she noticed darker stools and therefore is worried that she has having a lower GI bleed. She also states that she was recently told she is anemic and has been starting to take pills. She has not complaining of any headache visual disturbances chest pain shortness breath fever chills nausea vomiting or any other GI/ symptoms around but states that she does have this weird? pressure/ache in her abdomen. She has not on any blood thinners Related Data Home Medications Medication Instructions Recorded Confirmed levothyroxine 50 mcg tablet 50 mcg PO DAILY hypothyroidism 02/23/20 11/02/23 (Synthroid) metoprolol succinate 25 mg 12.5 mg PO BID cardiac health 01/19/21 11/02/23 tablet,extended release 24 hr cholecalciferol (vitamin D3) 125 125 mcg PO DAILY 08/06/22 11/02/23 mcg (5,000 unit) capsule valsartan 40 mg tablet 20 mg PO DAILY cardiac health 08/06/22 11/02/23 vitamin K2 1 tab PO DAILY 08/06/22 11/02/23 hydrocortisone 2.5 % topical cream 1 applic topical DAILY 08/09/23 11/02/23 Allergies Allergy/AdvReac Type Severity Reaction Status Date / Time Sulfa (Sulfonamide Allergy Unknown Verified 02/19/24 16:30 Antibiotics) [SULFA (SULFONAMIDE ANTIBIOTICS)] lisinopril AdvReac Severe Cough Verified 02/19/24 16:30 Review of Systems <Michael Lewis DO - Last Filed: 02/20/24 07:31> Review of Systems Narrative: General: Positive for generalized weakness, Denies fever, chills, weight loss HEENT: Denies headache, eye drainage, eye irritation, head trauma, sore throat, voice change Cardiovascular: Denies any chest pain, palpitations, shortness of breath, tachycardia Respiratory: Denies any shortness of breath, cough, wheeze, stridor GI/: Positive for abdominal pain, denies nausea, vomiting, diarrhea, bright red blood per rectum, melanotic stools, urinary frequency, urinary retention, dysuria, hematuria MSK: Denies any joint pain, muscle pains, swelling Skin: Denies any rashes, lesions, discoloration Neuro: Denies any headache, lightheadedness, dizziness, fainting, weakness Psych: Denies SI/HI Patient History <Michael Lewis DO - Last Filed: 02/20/24 07:31> Medical History Chronic pancreatitis Slow transit constipation Thyroid nodule Do not resuscitate Age-related osteoporosis without current pathological fracture Primary hyperparathyroidism Recurrent pancreatitis Seborrheic dermatitis Osteoarthritis (~2020) Shoulder pain Osteopenia (~2014) Fibromyalgia (~2001) Carpal tunnel syndrome (~2009) Mumps (~1949) Measles (~1948) Chicken pox (~1947) Pancreatitis (~2019) Hemorrhoid Polyarthritis Systolic CHF, chronic Acquired hypothyroidism Mixed hyperlipidemia Essential hypertension (~2005) Hypercalcemia Parathyroid abnormality Acute appendicitis Hypothyroid (~1998) Left bundle branch block Surgical History Anesthesia History of cataract removal with insertion of prosthetic lens (~2020) History of appendectomy (~04/27/18) H/O: hysterectomy (~1992) Family History Mother Hypertension Hyperlipidemia Dementia Father Stomach cancer Prostate cancer Brother Prostate cancer Brother Cancer Parkinson's disease, Lewy body Grandmother History of heart disease Grandmother Diabetes mellitus Social History household members: none occupational status: previously employed Smoking Status: Never smoker alcohol intake: never substance use type: does not use Smoking Status: Never smoker alcohol intake frequency: holidays/special occasions only Substance Use Type: does not use Exam <Michael Lewis DO - Last Filed: 02/20/24 07:31> Narrative Exam Narrative: General: Cooperative, comfortable, well-developed, not in acute distress HEENT: Normocephalic, atraumatic, PERRLA, normal sclera, eyelids normal, Neck: Active full range of motion, atraumatic Chest: Normal to inspection, negative crepitus, no overlying erythema ecchymosis Respiratory: Normal respiratory effort, not in acute respiratory distress, clear to auscultation bilaterally negative cough, wheeze, tachypnea, rhonchi, rales Cardiology: Regular rate rhythm negative gallop, murmur, rubs GI/: Normal to inspection, soft, nonrigid, no tenderness to palpation, Hemoccult-positive MSK: Full range of active range of motion of all 4 extremities, atraumatic Skin: No rashes lesions noted Neuro: Alert awake oriented x3, moves all 4 extremities spontaneously, cranial nerves intact, able to answer all questions appropriately follows commands appropriately Psych: Cooperative, negative suicidal or homicidal ideations Initial Vital Signs Initial Vital Signs: Vital Signs Temperature 98.5 F 02/19/24 16:20 Pulse Rate 106 H 02/19/24 16:20 Respiratory Rate 18 02/19/24 16:20 Blood Pressure 145/79 H 02/19/24 16:20 Pulse Oximetry 97 02/19/24 16:20 Oxygen Delivery Method Room Air 02/19/24 16:20 <Shyanne Chahal DO - Last Filed: 02/20/24 23:14> Initial Vital Signs Initial Vital Signs: Vital Signs Temperature 98.5 F 02/19/24 16:20 Pulse Rate 106 H 02/19/24 16:20 Respiratory Rate 18 02/19/24 16:20 Blood Pressure 145/79 H 02/19/24 16:20 Pulse Oximetry 97 02/19/24 16:20 Oxygen Delivery Method Room Air 02/19/24 16:20 Course <Michael Lewis DO - Last Filed: 02/20/24 07:31> Orders Ordered: Discontinued Medications Acetaminophen (Acetaminophen 325 Mg Tablet) 975 mg PO NOW ONE Stop: 02/20/24 03:44 Last Admin: 02/20/24 03:48 Dose: 975 mg Documented By: GILMA Melatonin (Melatonin 3 Mg Tablet) 3 mg PO NOW ONE Stop: 02/20/24 00:57 Last Admin: 02/20/24 01:09 Dose: 3 mg Documented By: GILMA Ondansetron HCl (Ondansetron 4 Mg/2 Ml Inj) 4 mg IV NOW PRN PRN Reason: Nausea And Vomiting Ondansetron HCl (Ondansetron 4 Mg Odt) 4 mg SL NOW PRN PRN Reason: Nausea And Vomiting Pantoprazole Sodium (Pantoprazole 40 Mg Vial) 80 mg IV NOW ONE Stop: 02/19/24 16:35 Last Admin: 02/19/24 17:14 Dose: Not Given Documented By: SB Vital Signs Vital signs: Vital Signs - 8 hr 02/19/24 23:35 02/19/24 23:35 02/19/24 23:40 Pulse Rate 77 Respiratory Rate 10 L Blood Pressure 148/66 H 151/67 H Pulse Oximetry 96 02/19/24 23:40 02/19/24 23:45 02/19/24 23:45 Pulse Rate 76 76 Respiratory Rate 11 L 10 L Blood Pressure 137/57 L Pulse Oximetry 96 96 02/19/24 23:50 02/19/24 23:50 02/19/24 23:55 Pulse Rate 76 Respiratory Rate 10 L Blood Pressure 151/67 H 153/55 H Pulse Oximetry 96 02/19/24 23:55 02/20/24 00:00 02/20/24 00:00 Pulse Rate 75 85 Respiratory Rate 9 L 21 Blood Pressure 162/75 H Pulse Oximetry 97 98 02/20/24 00:06 02/20/24 00:06 02/20/24 00:10 Pulse Rate 78 74 Respiratory Rate 11 L 9 L Blood Pressure 152/66 H Pulse Oximetry 98 96 02/20/24 00:10 02/20/24 00:15 02/20/24 00:15 Pulse Rate 74 Respiratory Rate 10 L Blood Pressure 145/63 H 148/63 H Pulse Oximetry 96 02/20/24 00:20 02/20/24 00:20 02/20/24 00:25 Pulse Rate 70 71 Respiratory Rate 11 L 10 L Blood Pressure 146/64 H Pulse Oximetry 96 96 02/20/24 00:25 02/20/24 00:30 02/20/24 00:30 Pulse Rate 73 Respiratory Rate 10 L Blood Pressure 148/65 H 151/67 H Pulse Oximetry 96 02/20/24 00:35 02/20/24 00:35 02/20/24 00:40 Pulse Rate 74 Respiratory Rate 10 L Blood Pressure 147/63 H 146/63 H Pulse Oximetry 96 02/20/24 00:40 02/20/24 00:45 02/20/24 00:45 Pulse Rate 72 72 Respiratory Rate 13 12 Blood Pressure 146/65 H Pulse Oximetry 97 97 02/20/24 00:50 02/20/24 00:50 02/20/24 00:53 Pulse Rate 71 Respiratory Rate 13 Blood Pressure 132/50 L 145/76 H Pulse Oximetry 97 02/20/24 00:53 02/20/24 00:55 02/20/24 00:55 Pulse Rate 84 85 Respiratory Rate 19 26 H Blood Pressure 148/66 H Pulse Oximetry 98 98 02/20/24 01:00 02/20/24 01:00 02/20/24 01:30 Pulse Rate 79 68 Respiratory Rate 15 13 Blood Pressure 148/65 H Pulse Oximetry 97 95 02/20/24 02:00 02/20/24 02:30 02/20/24 03:00 Pulse Rate 68 66 66 Respiratory Rate 16 13 17 Blood Pressure Pulse Oximetry 96 96 96 02/20/24 03:30 02/20/24 04:00 02/20/24 04:00 Pulse Rate 66 71 Respiratory Rate 21 22 Blood Pressure 145/63 H Pulse Oximetry 95 02/20/24 04:30 02/20/24 05:00 02/20/24 05:30 Pulse Rate 63 62 66 Respiratory Rate 18 19 15 Blood Pressure Pulse Oximetry 02/20/24 06:00 02/20/24 06:45 02/20/24 06:46 Pulse Rate 67 Respiratory Rate 22 Blood Pressure 153/72 H Pulse Oximetry 98 02/20/24 06:46 Pulse Rate 99 H Respiratory Rate 18 Blood Pressure Pulse Oximetry 99 <Shyanne Chahal, DO - Last Filed: 02/20/24 23:14> Orders Ordered: Discontinued Medications Acetaminophen (Acetaminophen 325 Mg Tablet) 975 mg PO NOW ONE Stop: 02/20/24 03:44 Last Admin: 02/20/24 03:48 Dose: 975 mg Documented By: GILMA Melatonin (Melatonin 3 Mg Tablet) 3 mg PO NOW ONE Stop: 02/20/24 00:57 Last Admin: 02/20/24 01:09 Dose: 3 mg Documented By: GILMA Ondansetron HCl (Ondansetron 4 Mg/2 Ml Inj) 4 mg IV NOW PRN PRN Reason: Nausea And Vomiting Ondansetron HCl (Ondansetron 4 Mg Odt) 4 mg SL NOW PRN PRN Reason: Nausea And Vomiting Pantoprazole Sodium (Pantoprazole 40 Mg Vial) 80 mg IV NOW ONE Stop: 02/19/24 16:35 Last Admin: 02/19/24 17:14 Dose: Not Given Documented By: SB Vital Signs Vital signs: Vital Signs - 8 hr 02/19/24 23:35 02/19/24 23:35 02/19/24 23:40 Pulse Rate 77 Respiratory Rate 10 L Blood Pressure 148/66 H 151/67 H Pulse Oximetry 96 02/19/24 23:40 02/19/24 23:45 02/19/24 23:45 Pulse Rate 76 76 Respiratory Rate 11 L 10 L Blood Pressure 137/57 L Pulse Oximetry 96 96 02/19/24 23:50 02/19/24 23:50 02/19/24 23:55 Pulse Rate 76 Respiratory Rate 10 L Blood Pressure 151/67 H 153/55 H Pulse Oximetry 96 02/19/24 23:55 02/20/24 00:00 02/20/24 00:00 Pulse Rate 75 85 Respiratory Rate 9 L 21 Blood Pressure 162/75 H Pulse Oximetry 97 98 02/20/24 00:06 02/20/24 00:06 02/20/24 00:10 Pulse Rate 78 74 Respiratory Rate 11 L 9 L Blood Pressure 152/66 H Pulse Oximetry 98 96 02/20/24 00:10 02/20/24 00:15 02/20/24 00:15 Pulse Rate 74 Respiratory Rate 10 L Blood Pressure 145/63 H 148/63 H Pulse Oximetry 96 02/20/24 00:20 02/20/24 00:20 02/20/24 00:25 Pulse Rate 70 71 Respiratory Rate 11 L 10 L Blood Pressure 146/64 H Pulse Oximetry 96 96 02/20/24 00:25 02/20/24 00:30 02/20/24 00:30 Pulse Rate 73 Respiratory Rate 10 L Blood Pressure 148/65 H 151/67 H Pulse Oximetry 96 02/20/24 00:35 02/20/24 00:35 02/20/24 00:40 Pulse Rate 74 Respiratory Rate 10 L Blood Pressure 147/63 H 146/63 H Pulse Oximetry 96 02/20/24 00:40 02/20/24 00:45 02/20/24 00:45 Pulse Rate 72 72 Respiratory Rate 13 12 Blood Pressure 146/65 H Pulse Oximetry 97 97 02/20/24 00:50 02/20/24 00:50 02/20/24 00:53 Pulse Rate 71 Respiratory Rate 13 Blood Pressure 132/50 L 145/76 H Pulse Oximetry 97 02/20/24 00:53 02/20/24 00:55 02/20/24 00:55 Pulse Rate 84 85 Respiratory Rate 19 26 H Blood Pressure 148/66 H Pulse Oximetry 98 98 02/20/24 01:00 02/20/24 01:00 02/20/24 01:30 Pulse Rate 79 68 Respiratory Rate 15 13 Blood Pressure 148/65 H Pulse Oximetry 97 95 02/20/24 02:00 02/20/24 02:30 02/20/24 03:00 Pulse Rate 68 66 66 Respiratory Rate 16 13 17 Blood Pressure Pulse Oximetry 96 96 96 02/20/24 03:30 02/20/24 04:00 02/20/24 04:00 Pulse Rate 66 71 Respiratory Rate 21 22 Blood Pressure 145/63 H Pulse Oximetry 95 02/20/24 04:30 02/20/24 05:00 02/20/24 05:30 Pulse Rate 63 62 66 Respiratory Rate 18 19 15 Blood Pressure Pulse Oximetry 02/20/24 06:00 02/20/24 06:45 02/20/24 06:46 Pulse Rate 67 Respiratory Rate 22 Blood Pressure 153/72 H Pulse Oximetry 98 02/20/24 06:46 Pulse Rate 99 H Respiratory Rate 18 Blood Pressure Pulse Oximetry 99 MDM - GI Bleed <Michael Lewis, DO - Last Filed: 02/20/24 07:31> Differential Diagnosis Differential diagnosis: Likely hemorrhoids, esophageal varices, Lower gastrointestinal hemorrhage, hematochezia, melena and anal fissure Lab Data 02/20/24 03:50 02/19/24 16:38 Labs: Lab Results 02/19/24 02/19/24 02/19/24 Range/Units 16:38 17:00 19:45 WBC 9.7 (4.5-11.0) X10^3/uL RBC 2.74 L (4.0-5.2) X10^6/uL Hgb 8.7 L 7.7 L (12.0-16.0) g/dL Hct 25.9 L 22.9 L (36-46) % MCV 94.7 (80-100) fL MCH 31.9 (26-34) PG MCHC 33.7 (30-36) % RDW 16.2 H (11.6-14.8) % Plt Count 283 (150-400) X10^3/uL Neut % (Auto) 75.7 H (50-75) % Lymph % (Auto) 15.6 L (25-40) % [place] % (Auto) 7.6 (3-14) % Eos % (Auto) 0.7 L (2-4) % Baso % (Auto) 0.4 (0-2) % Neut # (Auto) 7400 H (1405-4683) /uL Lymph # (Auto) 1500 (3969-9022) /uL [place] # (Auto) 700 (0-900) /uL Eos # (Auto) 100 (0-450) /uL Baso # (Auto) 0 (0-100) /uL PT 11.5 (9.4-12.5) SECONDS INR 1.0 (0.9-1.3) APTT 31 (25.1-36.5) SECONDS Sodium 133 L (137-145) mmol/L Potassium 4.3 (3.4-5.1) mmol/L Chloride 103 (98-107) mmol/L Carbon Dioxide 21 L (22-32) mmol/L BUN 28 H (7-17) mg/dL Creatinine 1.11 H (0.52-1.04) mg/dL Estimated GFR 50 L (>60) mL/min BUN/Creatinine Ratio 25.2 H (6-22) Glucose 135 H (80-110) mg/dL Lactate 1.4 (0.7-2.1) mmol/L Calcium 9.7 (8.4-10.2) mg/dL Magnesium 1.9 (1.6-2.3) mg/dL Total Bilirubin 0.5 (0.2-1.3) mg/dL AST 31 (14-36) IU/L ALT 22 (<35) IU/L Alkaline Phosphatase 60 (38-126) U/L Total Creatine Kinase 40 (30-135) U/L Troponin I < 0.012 (0.01-0.034) ng/mL Total Protein 6.3 (6.3-8.2) g/dL Albumin 4.0 (3.5-5.0) g/dL Globulin 2.3 (1.7-4.1) g/dL Albumin/Globulin Ratio 1.7 (1.0-2.8) Lipase 92 (23-300) U/L Carcinoembryonic Ag 11.4 H (0.1-3.0) ng/mL SARS-CoV-2 (PCR) Negative (Negative) Influenza A (RT-PCR) Flu a negative (NEGATIVE) Influenza B (RT-PCR) Flu b negative (NEGATIVE) RSV (PCR) Negative (Negative) Blood Type A Positive Antibody Screen Negative Crossmatch See Detail 02/20/24 Range/Units 03:50 WBC 7.4 (4.5-11.0) X10^3/uL RBC 3.01 L (4.0-5.2) X10^6/uL Hgb 9.3 L (12.0-16.0) g/dL Hct 27.7 L (36-46) % MCV 91.9 (80-100) fL MCH 31.0 (26-34) PG MCHC 33.7 (30-36) % RDW 16.1 H (11.6-14.8) % Plt Count 188 (150-400) X10^3/uL Neut % (Auto) 73.1 (50-75) % Lymph % (Auto) 14.3 L (25-40) % [place] % (Auto) 10.3 (3-14) % Eos % (Auto) 1.7 L (2-4) % Baso % (Auto) 0.6 (0-2) % Neut # (Auto) 5400 (4197-8173) /uL Lymph # (Auto) 1100 (4766-2400) /uL [place] # (Auto) 800 (0-900) /uL Eos # (Auto) 100 (0-450) /uL Baso # (Auto) 0 (0-100) /uL PT (9.4-12.5) SECONDS INR (0.9-1.3) APTT (25.1-36.5) SECONDS Sodium (137-145) mmol/L Potassium (3.4-5.1) mmol/L Chloride (98-107) mmol/L Carbon Dioxide (22-32) mmol/L BUN (7-17) mg/dL Creatinine (0.52-1.04) mg/dL Estimated GFR (>60) mL/min BUN/Creatinine Ratio (6-22) Glucose (80-110) mg/dL Lactate (0.7-2.1) mmol/L Calcium (8.4-10.2) mg/dL Magnesium (1.6-2.3) mg/dL Total Bilirubin (0.2-1.3) mg/dL AST (14-36) IU/L ALT (<35) IU/L Alkaline Phosphatase (38-126) U/L Total Creatine Kinase (30-135) U/L Troponin I (0.01-0.034) ng/mL Total Protein (6.3-8.2) g/dL Albumin (3.5-5.0) g/dL Globulin (1.7-4.1) g/dL Albumin/Globulin Ratio (1.0-2.8) Lipase (23-300) U/L Carcinoembryonic Ag (0.1-3.0) ng/mL SARS-CoV-2 (PCR) (Negative) Influenza A (RT-PCR) (NEGATIVE) Influenza B (RT-PCR) (NEGATIVE) RSV (PCR) (Negative) Blood Type Antibody Screen Crossmatch Point of Care Testing Stool Occult Blood Positive Urine Dip Bedside Urine Glucose Negative Bedside Urine Bilirubin - Negative Bedside Urine Ketone - Negative Urine Specific [place] 1.010 Bedside Urine Occult Blood - Negative Bedside Urine pH 5.5 Bedside Urine Protein - Negative Bedside Urine Urobilinogen - Negative Bedside Urine Nitrite - Negative Bedside Urine Leukocytes - Negative Esterase Imaging Data CT scan - abdomen/pelvis: Radiologist's Impression: PROCEDURE: CT ANGIO ABDOMEN PELVIS INDICATIONS: abd pain with gi bleed TECHNIQUE: After the administration of intravenous contrast, 2.5 mm thick sections acquired from the diaphragm to the symphysis. 10 mm maximum-intensity projection (MIP) reformats were then acquired. For radiation dose reduction, the following was used: automated exposure control. COMPARISON: [facility], CT, CT ABDOMEN PANCREATIC PROTOCOL, 11/16/2023, 13:25. [facility], CT, CT ABDOMEN PANCREATIC PROTOCOL, 11/30/2023, 8:39. FINDINGS: Image Quality: Diagnostic. Abdominal aorta: No aortic aneurysm or evidence of acute aortic syndrome. Atherosclerotic calcification is noted. Mesenteric arteries: Patent without hemodynamically significant stenosis. Renal arteries: Patent without hemodynamically significant stenosis. OTHER: Lower Chest: No significant findings. Liver: No solid mass. Gallbladder: No radiopaque gallstones or wall thickening. Biliary ducts: No biliary dilation. Pancreas: A pancreatic tail mass is again seen, which appears to erode into the stomach. A multi lobulated cystic lesion is again seen within the yet sits uncinate process of the pancreas. The body of the pancreas is largely atrophic. There is dilatation of the pancreatic duct, 7 mm. Spleen: Size is within normal limits. Calcified splenic granulomas are seen. Adrenal Glands: No adrenal nodules. Kidneys and Ureters: No hydronephrosis. No solid mass. No complex renal cystic lesion which requires follow up. Stomach and Bowel: No site of active bleeding is identified. Along the posterior aspect of the stomach, there is erosion seen from the pancreatic tail mass, as on series 9, image 30. No dilated loops of small bowel are seen. No significant colonic abnormality is seen. Apparent prior appendectomy change can be seen. Peritoneum: No abnormal intraperitoneal fluid. No free air. Ventral Wall: No hernia. Abdominal Nodes: No retroperitoneal or mesenteric adenopathy by size criteria. Vessels: Aorta and inferior vena cava are normal in size. Atherosclerotic calcification is noted. PELVIS: Pelvic Organs: Unremarkable. Bladder: Unremarkable. Pelvic Nodes: No enlarged lymph nodes. Miscellaneous: No inguinal hernias are seen. Bones: No aggressive osseous abnormality. Focal lower lumbar spine degenerative change can be seen. Transitional lumbar anatomy is seen, with sacralization L5 on the right. IMPRESSION: No site of active bleeding is identified. There is a mass seen involving the tail of the pancreas, which appears to erode into the stomach. There is a multilobulated cystic lesion seen involving the head/uncinate process of the pancreas. The pancreas is largely atrophic, with dilatation of the pancreatic duct to 7 mm. Additional findings: Prior granulomatous exposure. Appendectomy Transitional lumbar anatomy, with the L5 sacralized on the right MDM Narrative Medical decision making narrative: Patient is a 83-year-old female history of hypothyroidism, hypertension presents to the emergency department for diffuse weakness as well as abdominal discomfort. She states that she was being worked up for pancreatic cancer, had 3 biopsies last was performed approximately 2-3 months ago, states that she was ?cleared. Did have follow-up lab work done approximately 1 week ago and was told she was anemic and was started on iron. She states that since then she has been having darker stools, as well as discomfort to her abdomen. She has not on any blood thinners never underwent chemo or radiation. Followed with Dr. Casi KING at [facility]. Patient's hemoglobin 8.7, was Hemoccult positive, CT scan showed pancreatic mass at the tail eroding into the stomach. Patient not hypotensive not currently tachycardic, hemodynamically stable not requiring blood transfusion at this time. 1845: discussed case with dr. Orozco, is recommending possible transfer to higher level of care to surgery, is recommending [facility] if possible. I discussed with the patient the CT scan findings and need for transfer. She understands and agrees this plan we will reach out to [facility]. 1900: Patient was signed out to incoming doctor, patient is pending transfer to higher level care for pancreatic mass eroding into the abdomen with symptomatic anemia and lower GI bleed. Dr. Chahal-patient signed out to me by . Seen evaluated patient myself. She overall appears well she is very pleasant she has no abdominal pain. She has had a drop in hemoglobin of 8.7 to 7.7/3 hours without any IV. She is mildly tachycardic with heart rate in the 100s blood pressure remains very stable in the 160s to 180s. Due to drop over 3 hours without dilution I think reasonable to give her 1 unit of blood. Multiple facilities have been called in order to transfer 20:50 DR. Lobo, at [facility], updated symptoms test results. Concern that patient may need ICU level of care they do not currently have an ICU bed. Would consider taking in the morning if blood levels stabilized after transfusion. We will keep case open. GI physician at [place] recommends transferring to [facility] for continuity of care but she is aware that [facility] is not taking patients 00:35Dr. Forrest, hospitalist at [facility] updated patient's symptoms test results and kindly accepts patient H/H improved after 1 unit PRBC now 9.3/27.7 0730: Patient still hemodynamically stable at this time no new complaints. Transport is here at bedside, patient will be safe for transport to [facility] for continued evaluation and treatment of her symptoms. <Shyanne Fela, DO - Last Filed: 02/20/24 23:14> Lab Data Labs: Lab Results 02/19/24 02/19/24 02/19/24 Range/Units 16:38 17:00 19:45 WBC 9.7 (4.5-11.0) X10^3/uL RBC 2.74 L (4.0-5.2) X10^6/uL Hgb 8.7 L 7.7 L (12.0-16.0) g/dL Hct 25.9 L 22.9 L (36-46) % MCV 94.7 (80-100) fL MCH 31.9 (26-34) PG MCHC 33.7 (30-36) % RDW 16.2 H (11.6-14.8) % Plt Count 283 (150-400) X10^3/uL Neut % (Auto) 75.7 H (50-75) % Lymph % (Auto) 15.6 L (25-40) % [place] % (Auto) 7.6 (3-14) % Eos % (Auto) 0.7 L (2-4) % Baso % (Auto) 0.4 (0-2) % Neut # (Auto) 7400 H (0717-4732) /uL Lymph # (Auto) 1500 (4645-3266) /uL [place] # (Auto) 700 (0-900) /uL Eos # (Auto) 100 (0-450) /uL Baso # (Auto) 0 (0-100) /uL PT 11.5 (9.4-12.5) SECONDS INR 1.0 (0.9-1.3) APTT 31 (25.1-36.5) SECONDS Sodium 133 L (137-145) mmol/L Potassium 4.3 (3.4-5.1) mmol/L Chloride 103 (98-107) mmol/L Carbon Dioxide 21 L (22-32) mmol/L BUN 28 H (7-17) mg/dL Creatinine 1.11 H (0.52-1.04) mg/dL Estimated GFR 50 L (>60) mL/min BUN/Creatinine Ratio 25.2 H (6-22) Glucose 135 H (80-110) mg/dL Lactate 1.4 (0.7-2.1) mmol/L Calcium 9.7 (8.4-10.2) mg/dL Magnesium 1.9 (1.6-2.3) mg/dL Total Bilirubin 0.5 (0.2-1.3) mg/dL AST 31 (14-36) IU/L ALT 22 (<35) IU/L Alkaline Phosphatase 60 (38-126) U/L Total Creatine Kinase 40 (30-135) U/L Troponin I < 0.012 (0.01-0.034) ng/mL Total Protein 6.3 (6.3-8.2) g/dL Albumin 4.0 (3.5-5.0) g/dL Globulin 2.3 (1.7-4.1) g/dL Albumin/Globulin Ratio 1.7 (1.0-2.8) Lipase 92 (23-300) U/L Carcinoembryonic Ag 11.4 H (0.1-3.0) ng/mL SARS-CoV-2 (PCR) Negative (Negative) Influenza A (RT-PCR) Flu a negative (NEGATIVE) Influenza B (RT-PCR) Flu b negative (NEGATIVE) RSV (PCR) Negative (Negative) Blood Type A Positive Antibody Screen Negative Crossmatch See Detail 02/20/24 Range/Units 03:50 WBC 7.4 (4.5-11.0) X10^3/uL RBC 3.01 L (4.0-5.2) X10^6/uL Hgb 9.3 L (12.0-16.0) g/dL Hct 27.7 L (36-46) % MCV 91.9 (80-100) fL MCH 31.0 (26-34) PG MCHC 33.7 (30-36) % RDW 16.1 H (11.6-14.8) % Plt Count 188 (150-400) X10^3/uL Neut % (Auto) 73.1 (50-75) % Lymph % (Auto) 14.3 L (25-40) % [place] % (Auto) 10.3 (3-14) % Eos % (Auto) 1.7 L (2-4) % Baso % (Auto) 0.6 (0-2) % Neut # (Auto) 5400 (4299-9482) /uL Lymph # (Auto) 1100 (5392-6563) /uL [place] # (Auto) 800 (0-900) /uL Eos # (Auto) 100 (0-450) /uL Baso # (Auto) 0 (0-100) /uL PT (9.4-12.5) SECONDS INR (0.9-1.3) APTT (25.1-36.5) SECONDS Sodium (137-145) mmol/L Potassium (3.4-5.1) mmol/L Chloride (98-107) mmol/L Carbon Dioxide (22-32) mmol/L BUN (7-17) mg/dL Creatinine (0.52-1.04) mg/dL Estimated GFR (>60) mL/min BUN/Creatinine Ratio (6-22) Glucose (80-110) mg/dL Lactate (0.7-2.1) mmol/L Calcium (8.4-10.2) mg/dL Magnesium (1.6-2.3) mg/dL Total Bilirubin (0.2-1.3) mg/dL AST (14-36) IU/L ALT (<35) IU/L Alkaline Phosphatase (38-126) U/L Total Creatine Kinase (30-135) U/L Troponin I (0.01-0.034) ng/mL Total Protein (6.3-8.2) g/dL Albumin (3.5-5.0) g/dL Globulin (1.7-4.1) g/dL Albumin/Globulin Ratio (1.0-2.8) Lipase (23-300) U/L Carcinoembryonic Ag (0.1-3.0) ng/mL SARS-CoV-2 (PCR) (Negative) Influenza A (RT-PCR) (NEGATIVE) Influenza B (RT-PCR) (NEGATIVE) RSV (PCR) (Negative) Blood Type Antibody Screen Crossmatch Point of Care Testing Stool Occult Blood Positive Urine Dip Bedside Urine Glucose Negative Bedside Urine Bilirubin - Negative Bedside Urine Ketone - Negative Urine Specific [place] 1.010 Bedside Urine Occult Blood - Negative Bedside Urine pH 5.5 Bedside Urine Protein - Negative Bedside Urine Urobilinogen - Negative Bedside Urine Nitrite - Negative Bedside Urine Leukocytes - Negative Esterase ECG Data Attestation: I personally reviewed and interpreted this ECG as follows: Prior ECG tracings: available for review Interpretation: Sinus rhythm rate 98 SC interval 186 QRS 126 QTC 480 left bundle-branch block noted no Sgarbossa criteria similar to prior EKGs MDM Narrative Medical decision making narrative: Patient is a 83-year-old female history of hypothyroidism, hypertension presents to the emergency department for diffuse weakness as well as abdominal discomfort. She states that she was being worked up for pancreatic cancer, had 3 biopsies last was performed approximately 2-3 months ago, states that she was ?cleared. Did have follow-up lab work done approximately 1 week ago and was told she was anemic and was started on iron. She states that since then she has been having darker stools, as well as discomfort to her abdomen. She has not on any blood thinners never underwent chemo or radiation. Followed with Dr. Casi KING at [facility]. Patient's hemoglobin 8.7, was Hemoccult positive, CT scan showed pancreatic mass at the tail eroding into the stomach. Patient not hypotensive not currently tachycardic, hemodynamically stable not requiring blood transfusion at this time. 1845: discussed case with dr. Orozco, is recommending possible transfer to higher level of care to surgery, is recommending [facility] if possible. I discussed with the patient the CT scan findings and need for transfer. She understands and agrees this plan we will reach out to [facility]. 1900: Patient was signed out to incoming doctor, patient is pending transfer to higher level care for pancreatic mass eroding into the abdomen with symptomatic anemia and lower GI bleed. Dr. Chahal-patient signed out to me by . Seen evaluated patient myself. She overall appears well she is very pleasant she has no abdominal pain. She has had a drop in hemoglobin of 8.7 to 7.7/3 hours without any IV. She is mildly tachycardic with heart rate in the 100s blood pressure remains very stable in the 160s to 180s. Due to drop over 3 hours without dilution I think reasonable to give her 1 unit of blood. Multiple facilities have been called in order to transfer 20:50 DR. Lobo, at [facility], updated symptoms test results. Concern that patient may need ICU level of care they do not currently have an ICU bed. Would consider taking in the morning if blood levels stabilized after transfusion. We will keep case open. GI physician at [place] recommends transferring to [facility] for continuity of care but she is aware that [facility] is not taking patients 00:35Dr. Forrest, hospitalist at [facility] updated patient's symptoms test results and kindly accepts patient H/H improved after 1 unit PRBC now 9.3/27.7 Discharge Plan Departure Patient Disposition: [facility] Clinical Impression: Symptomatic anemia, Acute lower gastrointestinal bleeding, Pancreatic mass Prescriptions: No Action cholecalciferol (vitamin D3) 125 mcg (5,000 unit) capsule 125 mcg PO DAILY vitamin K2 1 tab PO DAILY hydrocortisone 2.5 % cream 1 applic topical DAILY levothyroxine [Synthroid] 50 mcg tablet 50 mcg PO DAILY valsartan 40 mg tablet 20 mg PO DAILY metoprolol succinate 25 mg tablet extended release 24 hr 12.5 mg PO BID Patient Comments: 1/2 tab in am 1/2 tab in pm w/ dinner Referrals: Nelson Mercado MD [Primary Care Provider] -
--- NOTE | 2024-02-19 16:44 | DI.CT.S_ITS ---
PROCEDURE: CT ANGIO ABDOMEN PELVIS INDICATIONS: abd pain with gi bleed TECHNIQUE: After the administration of intravenous contrast, 2.5 mm thick sections acquired from the diaphragm to the symphysis. 10 mm maximum-intensity projection (MIP) reformats were then acquired. For radiation dose reduction, the following was used: automated exposure control. COMPARISON: [facility], CT, CT ABDOMEN PANCREATIC PROTOCOL, 11/16/2023, 13:25. [facility], CT, CT ABDOMEN PANCREATIC PROTOCOL, 11/30/2023, 8:39. FINDINGS: Image Quality: Diagnostic. Abdominal aorta: No aortic aneurysm or evidence of acute aortic syndrome. Atherosclerotic calcification is noted. Mesenteric arteries: Patent without hemodynamically significant stenosis. Renal arteries: Patent without hemodynamically significant stenosis. OTHER: Lower Chest: No significant findings. Liver: No solid mass. Gallbladder: No radiopaque gallstones or wall thickening. Biliary ducts: No biliary dilation. Pancreas: A pancreatic tail mass is again seen, which appears to erode into the stomach. A multi lobulated cystic lesion is again seen within the yet sits uncinate process of the pancreas. The body of the pancreas is largely atrophic. There is dilatation of the pancreatic duct, 7 mm. Spleen: Size is within normal limits. Calcified splenic granulomas are seen. Adrenal Glands: No adrenal nodules. Kidneys and Ureters: No hydronephrosis. No solid mass. No complex renal cystic lesion which requires follow up. Stomach and Bowel: No site of active bleeding is identified. Along the posterior aspect of the stomach, there is erosion seen from the pancreatic tail mass, as on series 9, image 30. No dilated loops of small bowel are seen. No significant colonic abnormality is seen. Apparent prior appendectomy change can be seen. Peritoneum: No abnormal intraperitoneal fluid. No free air. Ventral Wall: No hernia. Abdominal Nodes: No retroperitoneal or mesenteric adenopathy by size criteria. Vessels: Aorta and inferior vena cava are normal in size. Atherosclerotic calcification is noted. PELVIS: Pelvic Organs: Unremarkable. Bladder: Unremarkable. Pelvic Nodes: No enlarged lymph nodes. Miscellaneous: No inguinal hernias are seen. Bones: No aggressive osseous abnormality. Focal lower lumbar spine degenerative change can be seen. Transitional lumbar anatomy is seen, with sacralization L5 on the right. IMPRESSION: No site of active bleeding is identified. There is a mass seen involving the tail of the pancreas, which appears to erode into the stomach. There is a multilobulated cystic lesion seen involving the head/uncinate process of the pancreas. The pancreas is largely atrophic, with dilatation of the pancreatic duct to 7 mm. Additional findings: Prior granulomatous exposure. Appendectomy Transitional lumbar anatomy, with the L5 sacralized on the right Dictated by: Adal Burt M.D. on 02/19/2024 at 17:10 Approved by: Adal Burt M.D. on 02/19/2024 at 17:16
--- NOTE | 2024-02-19 16:47 | EKG_ITS ---
[address] [address] Test Date: 2024-02-19 Pat Name: Sarah Marc Department: [facility] Room: Gender: Female [employer] Person: YOLETTE : 1940 Requested By: Order Number: [id number] Reading MD: Michael Matias Measurements Intervals Tripp Rate: 98 P: 58 IL: 186 QRS: -51 QRSD: 126 T: 104 QT: 376 QTc: 480 Interpretive Statements Normal sinus rhythm Left axis deviation Left bundle branch block Electronically Signed On 02-22-2024 17:39:20 PDT by Michael Matias
[2024-02-19 16:50] LABS: Add Manual Diff / Slide Review NO; Basophils Absolute Auto 0 /uL (0-100); Basophils Percent Auto 0.4 % (0-2); Eosinophils Absolute Auto 100 /uL (0-450); Eosinophils Percent Auto 0.7 % (2-4); Hematocrit 25.9 % (36-46); Hemoglobin 8.7 g/dL (12.0-16.0); Lymphocytes Absolute Auto 1500 /uL (1100-4500); Lymphocytes Percent Auto 15.6 % (25-40); Mean Corpuscular HGB Conc 33.7 % (30-36); Mean Corpuscular Hemoglobin 31.9 PG (26-34); Mean Corpuscular Volume 94.7 fL (80-100); Monocytes Absolute Auto 700 /uL (0-900); Monocytes Percent Auto 7.6 % (3-14); Neutrophils Absolute Auto 7400 /uL (1500-7000); Neutrophils Percent Auto 75.7 % (50-75); Platelet Count 283 X10^3/uL (150-400); Red Blood Cell Count 2.74 X10^6/uL (4.0-5.2); Red Cell Distribution Width 16.2 % (11.6-14.8); White Blood Cell Count 9.7 X10^3/uL (4.5-11.0)
[2024-02-19 16:59] LABS: Prothrombin Time 11.5 SECONDS (9.4-12.5)
[2024-02-19 17:01] LABS: Creatine Kinase 40 U/L (30-135); Magnesium 1.9 mg/dL (1.6-2.3); PTT Partial Thromboplastin Tim 31 SECONDS (25.1-36.5)
[2024-02-19 17:02] LABS: Alanine Aminotransferase 22 IU/L (<35); Albumin Globulin Ratio 1.7 (1.0-2.8); Alkaline Phosphatase 60 U/L (38-126); Aspartate Aminotransferase 31 IU/L (14-36); BUN Creatinine Ratio 25.2 (6-22); Bilirubin Total 0.5 mg/dL (0.2-1.3); Blood Urea Nitrogen 28 mg/dL (7-17); Calcium 9.7 mg/dL (8.4-10.2); Carbon Dioxide 21 mmol/L (22-32); Chloride 103 mmol/L (98-107); Estimated Glomerular Filt Rate 50 mL/min (>60); Globulin 2.3 g/dL (1.7-4.1); Glucose 135 mg/dL (80-110); HEMOLYSIS 32 (0-50); Potassium 4.3 mmol/L (3.4-5.1); Sodium 133 mmol/L (137-145); Total Protein 6.3 g/dL (6.3-8.2)
[2024-02-19 17:03] LABS: Lactate (Lactic Acid) 1.4 mmol/L (0.7-2.1)
[2024-02-19 17:28] LABS: Troponin I < 0.012 ng/mL (0.01-0.034)
[2024-02-19 18:17] LABS: Influenza A - CEPHEID Flu A NEGATIVE (NEGATIVE); Influenza B - CEPHEID Flu B NEGATIVE (NEGATIVE); Respiratory Syncytial Virus Negative (Negative)
[2024-02-19 18:26] LABS: COVID-19 CEPHEID 4-PLEX PCR Negative (Negative)
[2024-02-19 19:51] LABS: Hematocrit 22.9 % (36-46); Hemoglobin 7.7 g/dL (12.0-16.0)
--- NOTE | 2024-02-19 20:00 | PC.NURSE ---
RIGGING SUPERVISOR note: Attempting to transfer patient. Called the following with the following responses: [facility] spoke to Roc[facility], no beds, no staff, no waitlist. [facility]: 1931 spoke to Eric. They have a 24 hour waitlist. Patient is on waitlist. Images and facesheet pushed /[facility]: 1949 spoke with Jenelle. Pushed images, facesheet. Will call back. [facility]: 1940 spoke with Will. They will call us back.
[2024-02-19 20:02] LABS: Carcinoembryonic Antigen 11.4 ng/mL (0.1-3.0)
--- NOTE | 2024-02-19 21:08 | PC.NURSE ---
Patient's temp was entered erroneously by faulty temporal probe. No change in temp was observed. Patient's temp was taken by oral thermometer after initial error was discovered. patient continued to be monitored for temp by oral temp.
--- NOTE | 2024-02-19 21:44 | PC.NURSE ---
Provider asked about a possible transfusion reaction since the TAR showed an elevated temp. The provider was informed that the initial temps were inputed in error and the patient did not have in increase in temp during the initial phase of the transfusion. The patient denied any reports of feeling warm, flush. She was did not become short of breathe. She did not experience any symptoms while getting blood transfusion at this time.
--- NOTE | 2024-02-19 22:25 | PC.NURSE ---
Patient aux temp is 98.4. She denies having any reaction to her blood transfusion at this time. She reports feeling comfortable. Will continue to monitor.
[2024-02-20] VITALS (26 sets, daily range): BP systolic 132–162; BP diastolic 50–76; PULSE 62–99; RESP 9–26; O2SAT 95–99
[2024-02-20 01:01] LABS: Lipase 92 U/L (23-300)
[2024-02-20] MEDS: MELATONIN 3 MG TABLET PO (01:09)
--- NOTE | 2024-02-20 01:12 | PC.NURSE ---
pt medicated for sleep, on hospital bed for comfort, lights dimmed call light in reach
[2024-02-20] MEDS: ACETAMINOPHEN 325 MG TABLET 975 MG PO (03:48)
[2024-02-20 04:00] LABS: Add Manual Diff / Slide Review NO; Basophils Absolute Auto 0 /uL (0-100); Basophils Percent Auto 0.6 % (0-2); Eosinophils Absolute Auto 100 /uL (0-450); Eosinophils Percent Auto 1.7 % (2-4); Hematocrit 27.7 % (36-46); Hemoglobin 9.3 g/dL (12.0-16.0); Lymphocytes Absolute Auto 1100 /uL (1100-4500); Lymphocytes Percent Auto 14.3 % (25-40); Mean Corpuscular HGB Conc 33.7 % (30-36); Mean Corpuscular Volume 91.9 fL (80-100); Monocytes Absolute Auto 800 /uL (0-900); Monocytes Percent Auto 10.3 % (3-14); Neutrophils Absolute Auto 5400 /uL (1500-7000); Neutrophils Percent Auto 73.1 % (50-75); Platelet Count 188 X10^3/uL (150-400); Red Blood Cell Count 3.01 X10^6/uL (4.0-5.2); Red Cell Distribution Width 16.1 % (11.6-14.8); White Blood Cell Count 7.4 X10^3/uL (4.5-11.0)
--- NOTE | 2024-02-20 04:00 | PC.NURSE ---
blood drawn and seen for am labs, pt informed of bed assignment and paperwork signed
[2024-02-21 23:09] LABS: Cancer (Carbohydrate) Ag 19-9 1518 U/mL (0-35)
== END 2024-02-20 07:38 | disposition short-term general hospital (02) ==
PROVIDERS: Emergency Medicine; Emergency Provider Student in an Organized Health Care Education/Training Program; Family Provider Internal Medicine Endocrinology, Diabetes & Metabolism; PCP Internal Medicine
DX: K92.2 Gastrointestinal hemorrhage, unspecified (principal); K86.89 Other specified diseases of pancreas; D64.9 Anemia, unspecified; R10.9 Unspecified abdominal pain; I44.7 Left bundle-branch block, unspecified; Z11.52 Encounter for screening for COVID-19
CPT/HCPCS: 0241U; 36415; 36430; 74174; 80053; 81003; 82272; 82378; 82550; 83605; 83690; 83735; 84484; 85014; 85018; 85025; 85610; 85730; 86301; 86850; 86900; 86901; 93005; 99285; P9016; Q9967

== ENCOUNTER → 2024-04-09 15:07 | Outpatient (CLI) | payer MEDICARE, SELFPAY ==
[2021-07-31 20:55] VITALS: BMI 26.1
[2024-04-09 15:44] LABS: Hematocrit 37.4 % (36-46); Hemoglobin 12.5 g/dL (12.0-16.0); Mean Corpuscular HGB Conc 33.5 % (30-36); Mean Corpuscular Volume 95.6 fL (80-100); Platelet Count 223 X10^3/uL (150-400); Red Blood Cell Count 3.91 X10^6/uL (4.0-5.2); Red Cell Distribution Width 14.4 % (11.6-14.8); White Blood Cell Count 7.2 X10^3/uL (4.5-11.0)
[2024-04-09 16:02] LABS: Alanine Aminotransferase 24 IU/L (<35); Albumin 3.9 g/dL (3.5-5.0); Albumin Globulin Ratio 1.6 (1.0-2.8); Alkaline Phosphatase 58 U/L (38-126); Aspartate Aminotransferase 29 IU/L (14-36); BUN Creatinine Ratio 27.9 (6-22); Bilirubin Total 0.3 mg/dL (0.2-1.3); Blood Urea Nitrogen 19 mg/dL (7-17); Calcium 10.5 mg/dL (8.4-10.2); Carbon Dioxide 30 mmol/L (22-32); Chloride 102 mmol/L (98-107); Estimated Glomerular Filt Rate > 60 mL/min (>60); Globulin 2.4 g/dL (1.7-4.1); Glucose 118 mg/dL (80-110); HEMOLYSIS < 15 (0-50); Potassium 4.1 mmol/L (3.4-5.1); Sodium 134 mmol/L (137-145); Total Protein 6.3 g/dL (6.3-8.2)
[2024-04-09 16:21] LABS: Vitamin D 25 Hydroxy (D3) 48.9 ng/mL (30.0-100.0)
[2024-04-09 16:34] LABS: Thyroid Stimulating Hormone 2.77 uIU/mL (0.47-4.68)
[2024-04-09 17:10] LABS: Folate > 20.0 ng/mL (2.76-20.0); Vitamin B12 638 pg/mL (239-931)
[2024-04-11 09:19] LABS: Parathyroid Hormone Int 72 pg/mL (15-65)
== END ==
PROVIDERS: Family Provider Internal Medicine Endocrinology, Diabetes & Metabolism; PCP Internal Medicine; Referring Provider Internal Medicine Endocrinology, Diabetes & Metabolism; Visit Provider Internal Medicine Endocrinology, Diabetes & Metabolism
DX: R53.83 Other fatigue (principal); M81.0 Age-related osteoporosis without current pathological fracture; E03.9 Hypothyroidism, unspecified; E21.3 Hyperparathyroidism, unspecified
CPT/HCPCS: 36415; 80053; 82306; 82607; 82746; 83970; 84439; 84443; 85027

== ENCOUNTER → 2024-04-18 08:56 | Outpatient (CLI) | payer MEDICARE, SELFPAY ==
[2021-07-31 20:55] VITALS: BMI 26.1
[2024-04-20 11:09] LABS: Glucose-6-Phosphate Dehydrogen 369 (127-427)
== END ==
PROVIDERS: Family Provider Internal Medicine Endocrinology, Diabetes & Metabolism; PCP Internal Medicine; Referring Provider Naturopath; Visit Provider Naturopath
DX: C25.1 Malignant neoplasm of body of pancreas (principal); C25.2 Malignant neoplasm of tail of pancreas; D63.8 Anemia in other chronic diseases classified elsewhere
CPT/HCPCS: 36415; 82955; 85041

== ENCOUNTER → 2024-06-04 10:29 | Outpatient (CLI) | payer MEDICARE, SELFPAY ==
[2021-07-31 20:55] VITALS: BMI 26.1
[2024-06-04 11:11] LABS: Add Manual Diff / Slide Review NO; Basophils Absolute Auto 0 /uL (0-100); Basophils Percent Auto 0.7 % (0-2); Eosinophils Absolute Auto 100 /uL (0-450); Eosinophils Percent Auto 2.3 % (2-4); Hematocrit 35.8 % (36-46); Hemoglobin 11.9 g/dL (12.0-16.0); Lymphocytes Absolute Auto 900 /uL (1100-4500); Lymphocytes Percent Auto 14.9 % (25-40); Mean Corpuscular HGB Conc 33.1 % (30-36); Mean Corpuscular Hemoglobin 31.2 PG (26-34); Mean Corpuscular Volume 94.1 fL (80-100); Monocytes Absolute Auto 500 /uL (0-900); Monocytes Percent Auto 7.6 % (3-14); Neutrophils Absolute Auto 4700 /uL (1500-7000); Neutrophils Percent Auto 74.5 % (50-75); Platelet Count 250 X10^3/uL (150-400); Red Cell Distribution Width 14.9 % (11.6-14.8); White Blood Cell Count 6.3 X10^3/uL (4.5-11.0)
[2024-06-04 11:20] LABS: HEMOLYSIS < 15 (0-50); Iron 60 ug/dL (37-170)
[2024-06-04 11:24] LABS: Alanine Aminotransferase 28 IU/L (<35); Albumin 4.1 g/dL (3.5-5.0); Albumin Globulin Ratio 2.1 (1.0-2.8); Alkaline Phosphatase 63 U/L (38-126); Aspartate Aminotransferase 31 IU/L (14-36); Bilirubin Total 0.3 mg/dL (0.2-1.3); Blood Urea Nitrogen 19 mg/dL (7-17); Calcium 9.8 mg/dL (8.4-10.2); Carbon Dioxide 26 mmol/L (22-32); Chloride 102 mmol/L (98-107); Estimated Glomerular Filt Rate > 60 mL/min (>60); Glucose 151 mg/dL (80-110); HEMOLYSIS < 15 (0-50); Lactate Dehydrogenase 160 U/L (120-246); Potassium 4.1 mmol/L (3.4-5.1); Sodium 136 mmol/L (137-145); Total Protein 6.1 g/dL (6.3-8.2)
[2024-06-04 11:33] LABS: Percent Iron Saturation 19 % (15-50); Total Iron Binding Capacity 317 ug/dL (265-497); Transferrin 291 mg/dL (206-381)
[2024-06-04 11:37] LABS: Hemoglobin A1C% w Est Avg Glu 5.3 % (4.0-6.0)
[2024-06-04 11:56] LABS: Carcinoembryonic Antigen 12.4 ng/mL (0.1-3.0)
[2024-06-04 12:00] LABS: Ferritin 26 ng/mL (11-264)
[2024-06-04 12:27] LABS: Folate > 20.0 ng/mL (2.76-20.0); Vitamin B12 668 pg/mL (239-931)
[2024-06-06 07:08] LABS: Cancer (Carbohydrate) Ag 19-9 2381 U/mL (0-35)
== END ==
PROVIDERS: Family Provider Internal Medicine Endocrinology, Diabetes & Metabolism; PCP Internal Medicine; Referring Provider Naturopath; Visit Provider Naturopath
DX: C25.9 Malignant neoplasm of pancreas, unspecified (principal); R63.4 Abnormal weight loss; R53.0 Neoplastic (malignant) related fatigue; E44.0 Moderate protein-calorie malnutrition
CPT/HCPCS: 36415; 80053; 82378; 82607; 82728; 82746; 83036; 83540; 83550; 83615; 85025; 86301

== ENCOUNTER → 2024-10-19 11:26 | Outpatient (CLI) | payer MEDICARE, SELFPAY ==
[2021-07-31 20:55] VITALS: BMI 26.1
--- NOTE | 2024-10-19 11:30 | DI.CT.S_ITS ---
PROCEDURE: CT ABDOMEN PELVIS W CON INDICATIONS: pancreatic adenocarcinoma TECHNIQUE: After the administration of intravenous contrast, axial sections acquired from the lung bases to the pubic symphysis. Coronal and sagittal reformats were performed. For radiation dose reduction, the following was used: automated exposure control, adjustment of mA and/or kV according to patient size. COMPARISON: [facility], CT, CT ABDOMEN PANCREATIC PROTOCOL, 11/30/2023, 8:39. [facility], CT, CT ABDOMEN PELVIS W CON, 11/03/2023, 9:09. [facility], CT, CT ABDOMEN PELVIS W CON, 01/19/2021, 12:52. FINDINGS: Image quality: Diagnostic. Lower Chest: No significant findings. ABDOMEN: Liver: No solid mass. Gallbladder: No radiopaque gallstones or wall thickening. Biliary ducts: No biliary dilation. Pancreas: The large cystic and solid mass at the pancreatic tail area has diminished in size, previously measuring approximately 13.5 craniocaudad and up to 12.5 cm transverse. Much of the cystic component has diminished, and the solid component appears to have mildly enlarged. There may be a fistulous communication into the posterior wall of the gastric lumen seen on series 2, image 37. A previously present cystic septated mass at the pancreatic head appears to have mildly enlarged, previously measuring approximately 2.7 cm transverse and 3.1 cm AP. It currently measures 3.5 cm transverse and 3.8 cm AP. Persistent moderate prominence of the pancreatic duct seen at the pancreatic neck and body area. Spleen: Size is within normal limits. Several scattered presumed granulomatous calcifications are present within the spleen. Adrenal Glands: No adrenal nodules. Kidneys and Ureters: No hydronephrosis. No solid mass. No complex renal cystic lesion which requires follow up. Stomach and Bowel: Normal colonic caliber, without significant wall thickening. Apparent fistulous communication discussed above from the gastric body posterior wall decompressing the large cystic mass with a smaller soft tissue component immediately adjacent posteriorly. Peritoneum: No abnormal intraperitoneal fluid. No free air. Ventral Wall: No significant ventral hernia. Abdominal Nodes: No retroperitoneal or mesenteric adenopathy by size criteria. Vessels: Aorta and inferior vena cava are normal in size. PELVIS: Pelvic Organs: Unremarkable. Bladder: No bladder wall thickening, accounting for underdistention. Pelvic Nodes: No enlarged lymph nodes. Miscellaneous: No inguinal hernias are seen. Bones: No aggressive osseous abnormality. IMPRESSION: 1. The overall dimensions of the cystic and solid mass emanating from the pancreatic tail and previously compressing against the posterior wall of the gastric body has diminished since 11/03/23 CT, predominantly by decompression of the cystic component by what appears to be a fistulous communication into the gastric lumen. It remains possible that a endoscopic procedure establishing that communication was performed. Mild interval increase in the solid component of the mass in this area with reference to prior CT scanning. 2. There is a complex cystic septated mass at the pancreatic head area also, which has mildly enlarged in size with associated stable moderate dilatation of the pancreatic duct at the pancreatic neck and adjacent pancreatic body region. 3. No distant metastatic disease is found. Dictated by: Gaurav Meehan M.D. on 10/19/2024 at 15:43 Approved by: Gaurav Meehan M.D. on 10/19/2024 at 16:16
[2024-10-19 12:00] LABS: Estimated Glomerular Filt Rate > 60 mL/min (>60)
== END ==
PROVIDERS: Family Provider Internal Medicine Endocrinology, Diabetes & Metabolism; PCP Internal Medicine; Referring Provider Family Medicine; Visit Provider Family Medicine
DX: C25.9 Malignant neoplasm of pancreas, unspecified (principal); K86.89 Other specified diseases of pancreas
CPT/HCPCS: 36415; 74177; 82565; Q9967

== ENCOUNTER → 2024-10-22 13:50 | Outpatient (CLI) | payer MEDICARE, SELFPAY ==
[2021-07-31 20:55] VITALS: BMI 26.1
[2024-10-22 15:27] LABS: BUN Creatinine Ratio 27.3 (6-22); Blood Urea Nitrogen 21 mg/dL (7-17); Calcium 10.6 mg/dL (8.4-10.2); Carbon Dioxide 29 mmol/L (22-32); Chloride 99 mmol/L (98-107); Estimated Glomerular Filt Rate > 60 mL/min (>60); Glucose 104 mg/dL (70-99); HEMOLYSIS < 15 (0-50); Potassium 4.1 mmol/L (3.4-5.1); Sodium 135 mmol/L (137-145)
== END ==
PROVIDERS: Family Provider Internal Medicine Endocrinology, Diabetes & Metabolism; PCP Internal Medicine; Referring Provider Internal Medicine Endocrinology, Diabetes & Metabolism; Visit Provider Internal Medicine Endocrinology, Diabetes & Metabolism
DX: E21.3 Hyperparathyroidism, unspecified (principal); M81.0 Age-related osteoporosis without current pathological fracture
CPT/HCPCS: 36415; 80048; 82330; 83970

== ENCOUNTER → 2025-04-22 13:55 | Outpatient (CLI) | payer MEDICARE, SELFPAY ==
[2021-07-31 20:55] VITALS: BMI 26.1
[2025-04-22 15:18] LABS: Hemoglobin A1C% w Est Avg Glu 6.4 % (4.0-6.0)
[2025-04-22 15:27] LABS: Cholesterol 163 mg/dL (140-199); HDL Cholesterol 47 mg/dL (40-60); Triglycerides 71 mg/dL (35-150)
== END ==
PROVIDERS: Family Provider Internal Medicine Endocrinology, Diabetes & Metabolism; PCP Family Medicine; Referring Provider Family Medicine; Visit Provider Family Medicine
DX: Z13.1 Encounter for screening for diabetes mellitus (principal); I10 Essential (primary) hypertension
CPT/HCPCS: 36415; 80061; 83036